=== PATIENT | female | born 1950 | race Caucasian/White ===

== ENCOUNTER 2017-08-29 17:02 | Inpatient (IN) | payer OTHER ==
[2017-08-29] MEDS ORDERED: SODIUM CHLORIDE 0.9% 1,000 ML IV STA ×2 (17:18)
[2017-08-29] MEDS ORDERED: DOPamine DRIP 800 MG in DEXTROSE/WATER 1 500ML.BAG IV ONE (17:20)
[2017-08-29 17:34] LABS: Anisocytosis Slight; Basophils % (A) 1 %; Eosinophils # (A) 0.1 k/uL (0-0.7); Eosinophils % (A) 3 %; HCT 26.7 % (34.0-46.0); HGB 8.7 gm/dL (11.4-16.0); Lymphocytes # (A) 0.7 k/uL (1.0-4.8); Lymphocytes % (A) 23 %; MCH 27.8 pg (25.0-35.0); MCHC 32.6 g/dL (31.0-37.0); MCV 85.2 fL (80.0-100.0); Mean Platelet Volume 10.3; Monocytes # (A) 0.2 k/uL (0-1.0); Monocytes % (A) 7 %; Neutrophils % (A) 63 %; Platelet Count 111 k/uL (150-450); RBC 3.13 m/uL (3.80-5.40); WBC 3.1 k/uL (3.8-10.6)
[2017-08-29] MEDS: ATROPINE SULFATE 0.1 MG/ML 10ML SYRINGE IV STA ×2 (17:34→18:12)
[2017-08-29 17:42] LABS: INR 1.2 (<1.2); Partial Thromboplastin Time 26.7 sec (22.0-30.0); Prothrombin Time 11.2 sec (9.0-12.0)
[2017-08-29 17:45] LABS: Lactic Acid, Venous 1.7 mmol/L (0.7-2.0)
[2017-08-29 17:47] LABS: Albumin 3.9 g/dL (3.5-5.0); Calcium 8.9 mg/dL (8.4-10.2); Potassium 5.7 mmol/L (3.5-5.1); Total Bilirubin 0.6 mg/dL (0.2-1.3)
[2017-08-29 17:50] LABS: Creatine Kinase 30 U/L (30-135)
[2017-08-29 18:03] LABS: Creatine Kinase MB <0.2 ng/mL (0.0-2.4); Troponin I <0.012 ng/mL (0.000-0.034)
--- NOTE | 2017-08-29 18:21 | CT ---
EXAMINATION TYPE: CT brain wo con DATE OF EXAM: 08/29/2017 COMPARISON: NONE HISTORY: Weakness and nausea. CT DLP: 763.5 mGycm Automated exposure control for dose reduction was used. FINDINGS: Ventricles of normal size. There is no mass effect nor midline shift. There is no sign of intracrania l hemorrhage. There is patchy hypodensity in the periventricular white matter. There is 2 x 1 cm whit e matter hypodensity in the right posterior parietal lobe. IMPRESSION: PATCHY WHITE MATTER HYPODENSITY CONSISTENT WITH CHRONIC SMALL VESSEL ISCHEMIA. DEMYELINATING DISEASE IS POSSIBLE. NO HEMORRHAGE. SMALL CALCIFICATION IN THE ANTERIOR RIGHT THALAMUS.
--- NOTE | 2017-08-29 18:24 | ED ---
Weakness HPI - General Chief complaint: Weakness Stated complaint: Nausea/Weekness Time Seen by Provider: 08/29/17 17:12 Source: patient Mode of arrival: wheelchair Limitations: no limitations - History of Present Illness Initial comments: X-ray 6 years old female has a history of liver disease, today she felt very weak and nauseous she was unable to ambulate or bear weight felt dizzy still quite pass out today but she said she got very close to passing out he denies any headaches no neck stiffness has some mild chest pressure no shortness of breath no abdominal pain no frequency frequency urgency dysuria denies any symptoms of TIA or CVA him a EMS noticed that her pulse rate was quite low enough and we did the EKG heart rate was 44 - Related Data Home Medications Medication Instructions Recorded Confirmed Albuterol Sulfate [Proair Hfa] 1 - 2 puff INHALATION Q6HR PRN 12/15/14 12/16/14 Aspirin 81 mg PO DAILY 12/15/14 12/16/14 Atorvastatin [Lipitor] 40 mg PO HS 12/15/14 12/16/14 Bisoprol/Hydrochlorothiazide [Ziac 1 each PO DAILY 12/15/14 12/16/14 5-6.25 MG] Calcium Carbonate/Vitamin D3 1 each PO DAILY 12/15/14 12/16/14 [Calcium 600 + Vit D Tablet] Cholecalciferol [Vitamin D3] 2,000 unit PO DAILY 12/15/14 12/16/14 Cyclobenzaprine [Flexeril] 10 mg PO BID PRN 12/15/14 12/16/14 D-Methorphan/PE/Acetaminophen 1 each PO DAILY PRN 12/15/14 12/16/14 [Tylenol Cold Multi-Symp Caplet] Ferrous Sulfate [Feosol] 325 mg PO DAILY 12/15/14 12/16/14 Fiber Tab 1 tab PO DAILY 12/15/14 12/16/14 Fluticasone Furoate [Veramyst] 10 gm NS BID 12/15/14 12/16/14 Furosemide [Lasix] 20 mg PO DAILY 12/15/14 12/16/14 Gabapentin [Neurontin] 300 mg PO BID 12/15/14 12/16/14 Insulin Aspart [NovoLOG Flexpen] 5 units SQ W/BRKFST 12/15/14 12/16/14 Insulin Aspart [NovoLOG Flexpen] 6 - 8 units SQ W/SUPPER PRN 12/15/14 12/16/14 Insulin Glargine,Hum.rec.anlog 40 unit SQ QAM 12/15/14 12/16/14 [Lantus Solostar] Lactase [Lactaid] 3,000 unit PO DAILY PRN 12/15/14 12/15/14 Levofloxacin [Levaquin] 250 mg PO DAILY 12/15/14 12/16/14 Lisinopril 40 mg PO DAILY 12/15/14 12/16/14 Nitroglycerin Sl Tabs [Nitrostat] 0.4 mg SUBLINGUAL Q5M PRN 12/15/14 12/16/14 [place]-3 Fatty Acids/Fish Oil [Fish 1 each PO DAILY 12/15/14 12/16/14 Oil 1,000 mg Softgel] Omeprazole [PriLOSEC] 20 mg PO BID 12/15/14 12/16/14 Polyethylene Glycol 3350 [Miralax] 17 gm PO DAILY 12/15/14 12/16/14 Potassium Chloride [Klor-Con 20] 20 meq PO MOWEFR 12/15/14 12/16/14 Sertraline [Zoloft] 100 mg PO DAILY 12/15/14 12/16/14 amLODIPine [Norvasc] 10 mg PO DAILY 12/15/14 12/16/14 cloNIDine HCL [Catapres] 0.2 mg PO TID 12/15/14 12/16/14 hydrOXYzine HCL [Atarax] 25 mg PO Q6HR PRN 12/15/14 12/16/14 rOPINIRole HCL [Requip] 0.25 mg PO HS 12/15/14 12/15/14 traMADol HCl [Ultram] 50 mg PO Q8H PRN 12/15/14 12/16/14 Allergies Allergy/AdvReac Type Severity Reaction Status Date / Time adhesive Allergy BLISTERS Verified 08/29/17 17:09 SKIN "PAPER TAPE OK" codeine Allergy Unknown Verified 08/29/17 17:09 morphine Allergy "STOPS Verified 08/29/17 17:09 BREATHING" Penicillins Allergy Unknown Verified 08/29/17 17:09 tramadol HCl [From Ultram] Allergy "PASSES Verified 08/29/17 17:09 OUT" ibuprofen [From Motrin] AdvReac AFFECTS Verified 08/29/17 17:09 KIDNEYS TAPE Allergy BLISTERS Uncoded 08/29/17 17:09 SKIN "PAPER TAPE IS OK" Review of Systems ROS Statement: Those systems with pertinent positive or pertinent negative responses have been documented in the HPI. ROS Other: All systems not noted in ROS Statement are negative. Past Medical History Past Medical History: Chest Pain / Angina, COPD, CVA/TIA, Diabetes Mellitus, GERD/Reflux, Hyperlipidemia, Hypertension, Memory Impairment, Seizure Disorder, Sleep Apnea/CPAP/BIPAP Additional Past Medical History / Comment(s): WEAKNESS TO RT SIDE-USES WALKER, USES CPAP,CONSTIPATION,RECENT KIDNEY INFECTION,BRUISES EASILY, GI BLEED X 2- RECEIVED UNITS PRBC'S History of Any Multi-Drug Resistant Organisms: None Reported Past Surgical History: Appendectomy, Cholecystectomy, Heart Catheterization, Orthopedic Surgery, Tubal Ligation Additional Past Surgical History / Comment(s): SLEEP APNEA SURGERY,RT SHOULDER, LT ARM BX, CARPEL TUNNEL BERNA,GANGLION CYST REMOVED,BONE SPURS BERNA ANKLES Past Anesthesia/Blood Transfusion Reactions: No Reported Reaction Past Psychological History: No Psychological Hx Reported Smoking Status: Current every day smoker Past Alcohol Use History: None Reported Past Drug Use History: None Reported - Past Family History Mother Family Medical History: Diabetes Mellitus, Hypertension Additional Family Medical History / Comment(s): HEART PROBLEMS Father Additional Family Medical History / Comment(s): HEART PROBLEMS General Exam - General Exam Comments Initial Comments: General: The patient is awake but fall sleep talking to you when you continue talking to her she wakes up and GCS is 15 Skin: Skin is warm and dry and no rashes or lesions are noted. Eye: Pupils are equal, round and reactive to light, extra-ocular movements are intact; there is normal conjunctiva bilaterally. Ears, nose, mouth and throat: There are moist mucous membranes and no oral lesions. Neck: The neck is supple, there is no tenderness or JVD. Cardiovascular: There is a regular rate and rhythm. No murmur, rub or gallop is appreciated. Noticed marked bradycardia Respiratory: To auscultation bilateral, crease breath sounds bilateral Gastrointestinal: Soft, non-distended, non-tender abdomen without masses or organomegaly noted. There is no rebound or guarding present. Bowel sounds are unremarkable. Back: There is no tenderness to palpation in the midline. There is no obvious deformity. Musculoskeletal: Normal ROM, no tenderness, There is no pedal edema. There is no calf tenderness or swelling. No cords were appreciated. Neurological: CN II-XII intact, Cranial nerves III through XII are intact. There are no obvious motor or sensory deficits. Coordination appears grossly intact. Speech is normal. Psychiatric: Cooperative, appropriate mood & affect, normal judgment. Limitations: no limitations Course Vital Signs 08/29/17 08/29/17 08/29/17 17:05 17:33 17:49 Temperature 97.9 F Pulse Rate 41 L 42 L Pulse Rate [ 45 L Supine Rn Trauma] Respiratory 16 19 Rate Blood Pressure 90/53 101/52 O2 Sat by Pulse 95 98 Oximetry 08/29/17 08/29/17 18:13 18:34 Temperature Pulse Rate 48 L 53 L Pulse Rate [ Supine Rn Trauma] Respiratory 18 18 Rate Blood Pressure 113/55 118/56 O2 Sat by Pulse 98 97 Oximetry EKG Findings - EKG Comments: EKG Findings:: G is normal sinus rhythm ventricular rate is 44 CA interval is 194 QRS duration is 92 QT/QTc is 460/478 review of this EKG reveals marked bradycardia I noticed some tall T waves no ST elevation or ST depression noticed Medical Decision Making - Lab Data Result diagrams: 08/29/17 17:20 08/29/17 17:20 Lab Results 08/29/17 08/29/17 08/29/17 Range/Units 17:20 17:20 17:20 WBC 3.1 L (3.8-10.6) k/uL RBC 3.13 L (3.80-5.40) m/uL Hgb 8.7 L (11.4-16.0) gm/dL Hct 26.7 L (34.0-46.0) % MCV 85.2 (80.0-100.0) fL MCH 27.8 (25.0-35.0) pg MCHC 32.6 (31.0-37.0) g/dL RDW 18.0 H (11.5-15.5) % Plt Count 111 L (150-450) k/uL Neutrophils % 63 % Lymphocytes % 23 % Monocytes % 7 % Eosinophils % 3 % Basophils % 1 % Neutrophils # 2.0 (1.3-7.7) k/uL Lymphocytes # 0.7 L (1.0-4.8) k/uL Monocytes # 0.2 (0-1.0) k/uL Eosinophils # 0.1 (0-0.7) k/uL Basophils # 0.0 (0-0.2) k/uL Anisocytosis Slight PT (9.0-12.0) sec INR (<1.2) APTT (22.0-30.0) sec Sodium (137-145) mmol/L Potassium (3.5-5.1) mmol/L Chloride (98-107) mmol/L Carbon Dioxide (22-30) mmol/L Anion Gap mmol/L BUN (7-17) mg/dL Creatinine (0.52-1.04) mg/dL Est GFR (CKD-EPI)AfAm (>60 ml/min/1.73 sqM) Est GFR (CKD-EPI)NonAf (>60 ml/min/1.73 sqM) Glucose (74-99) mg/dL Plasma Lactic Acid Magdiel 1.7 (0.7-2.0) mmol/L Calcium (8.4-10.2) mg/dL Total Bilirubin (0.2-1.3) mg/dL AST (14-36) U/L ALT (9-52) U/L Alkaline Phosphatase (38-126) U/L Ammonia 131 H (<30) umol/L Total Creatine Kinase 30 (30-135) U/L CK-MB (CK-2) <0.2 (0.0-2.4) ng/mL CK-MB (CK-2) Rel Index Troponin I <0.012 (0.000-0.034) ng/mL Total Protein (6.3-8.2) g/dL Albumin (3.5-5.0) g/dL 08/29/17 08/29/17 Range/Units 17:20 17:20 WBC (3.8-10.6) k/uL RBC (3.80-5.40) m/uL Hgb (11.4-16.0) gm/dL Hct (34.0-46.0) % MCV (80.0-100.0) fL MCH (25.0-35.0) pg MCHC (31.0-37.0) g/dL RDW (11.5-15.5) % Plt Count (150-450) k/uL Neutrophils % % Lymphocytes % % Monocytes % % Eosinophils % % Basophils % % Neutrophils # (1.3-7.7) k/uL Lymphocytes # (1.0-4.8) k/uL Monocytes # (0-1.0) k/uL Eosinophils # (0-0.7) k/uL Basophils # (0-0.2) k/uL Anisocytosis PT 11.2 (9.0-12.0) sec INR 1.2 H (<1.2) APTT 26.7 (22.0-30.0) sec Sodium 144 (137-145) mmol/L Potassium 5.7 H (3.5-5.1) mmol/L Chloride 105 (98-107) mmol/L Carbon Dioxide 22 (22-30) mmol/L Anion Gap 17 mmol/L BUN 61 H (7-17) mg/dL Creatinine 3.71 H (0.52-1.04) mg/dL Est GFR (CKD-EPI)AfAm 14 (>60 ml/min/1.73 sqM) Est GFR (CKD-EPI)NonAf 12 (>60 ml/min/1.73 sqM) Glucose 172 H (74-99) mg/dL Plasma Lactic Acid Magdiel (0.7-2.0) mmol/L Calcium 8.9 (8.4-10.2) mg/dL Total Bilirubin 0.6 (0.2-1.3) mg/dL AST 60 H (14-36) U/L ALT 42 (9-52) U/L Alkaline Phosphatase 212 H (38-126) U/L Ammonia (<30) umol/L Total Creatine Kinase (30-135) U/L CK-MB (CK-2) (0.0-2.4) ng/mL CK-MB (CK-2) Rel Index Troponin I (0.000-0.034) ng/mL Total Protein 7.0 (6.3-8.2) g/dL Albumin 3.9 (3.5-5.0) g/dL Critical Care Time Total Critical Care Time: 60 Critical Care Time: Reexamination I noticed that patient was in and out, if you stop talking to her she fell asleep, heart rate was 40 to be given some atropine and fluids we did repeat atropine heart rate came up to 55 blood pressure improved to 120 at clinically she improved with a plan to do dopamine and dopamine infusion to get hold off for now because heart rate and blood pressure are in acceptable range head CT is reviewed, there is a question of demyelinating disease she will need to come in maybe she needs MRI troponin troponin is normal creatinine is 3.71 she has a significant renal failure potassium is 5.7, getting given some Kayexalate INR is 1.2 hemoglobin is 8.1 he has pain in the same ballpark for the last 3 times he had a blood check she would also getting some mild lactulose she be admitted to Dr. Strong service with the cardiology and nephrology and a GI consult along with a neurology, ammonia is 131 Disposition Clinical Impression: Hepatic encephalopathy, Bradycardia, Hypotension, Pre-syncope, Renal failure Disposition: ADMITTED IP TO THIS HOSP Condition: Fair Referrals: Nonstaff,Physician [Primary Care Provider] - 1-2 days
--- NOTE | 2017-08-29 18:24 | XR ---
EXAMINATION TYPE: XR chest 2V DATE OF EXAM: 08/29/2017 COMPARISON: 06/20/2009 HISTORY: Weakness and chest pain TECHNIQUE: Frontal and lateral views of the chest are obtained. FINDINGS: There is no heart failure nor confluent pneumonic infiltrate. Costophrenic angles are rosa maria r. There are chest leads. Thoracic aorta is atheromatous. There is osteopenia. Heart appears borderli ne enlarged. IMPRESSION: Mild cardiomegaly. No active cardiopulmonary disease. Heart is increased compared to old exam.
[2017-08-29] MEDS ORDERED: LACTULOSE 20 GM/30 ML CUP PO ONE (18:52)
[2017-08-29] MEDS ORDERED: NALOXONE 0.4 MG/ML 1 ML VIAL IV PRN (19:04)
[2017-08-29] MEDS ORDERED: ONDANSETRON 4 MG/2 ML VIAL IVP PRN (19:04)
[2017-08-29] MEDS: HYDROcodone/APAP 5-325MG 1 EACH TAB PO PRN (19:30)
--- NOTE | 2017-08-29 20:05 | HP ---
HISTORY AND PHYSICAL DATE OF SERVICE: 08/29/2017 CHIEF COMPLAINTS: Syncope and weakness and bradycardia. HISTORY OF PRESENT ILLNESS: This 66-year-old woman with a past medical history of multiple medical problems, including COPD, CVA, TIA, diabetes mellitus, GERD, hypertension, hyperlipidemia, history of memory impairment, seizure disorder, also had cirrhosis of the liver. Patient apparently was followed by a primary physician in the [place] area with [facility]. The patient is currently on transplant list. The patient apparently recently had an episode of syncope and was also treated in [facility]. Currently the patient today complains of feeling very weak and nauseous, unable to ambulate. Patient felt dizzy and patient passed out. EMS was called and her heart rate was found to be 44 with a normal sinus rhythm. Patient was [facility] to [facility] and admitted for further evaluation and treatment. Of note, the creatinine was also elevated up to 3.7, indicating some prerenal factors renal failure. Ammonia was elevated at 131. There is no history of any fever, rigor or chills. No history of headache, loss of consciousness, seizures. PAST MEDICAL HISTORY: 1. History of COPD. 2. CVA, TIA. 3. Diabetes mellitus. 4. History of GERD. 5. Hypertension. 6. Hyperlipidemia. 7. Memory impairment. 8. Appendectomy. 9. Cholecystectomy. HOME MEDICATIONS: 1. Ultram 50 mg q.8 p.r.n. 2. Requip 0.25 mg at bedtime. 3. Atarax 25 mg q.6 p.r.n. 4. Catapres 0.mg p.o. t.i.d. 5. Norvasc 10 mg p.o. daily. 6. Zoloft 100 mg p.o. daily. 7. Klor-Con 10 mEq p.o. Saturday, Saturday, Saturday. 8. MiraLAX 17 grams daily. 9. Prilosec 20 mg b.i.d. 10.[place]-3 fatty acids p.o. daily. 11.Nitrostat 0.4 sublingually p.r.n. 12.Lisinopril 40 mg p.o. daily. 13.Levaquin 250 mg p.o. daily. 14.Lactate 3000 daily p.r.n. 15.NovoLog FlexPen 5 units subcutaneously with breakfast and 6 to 8 units subcutaneously with supper p.r.n. 16.Lantus 40 units subcutaneously each morning. 17.Neurontin 300 mg p.o. b.i.d. 18.Lasix 20 mg p.o. daily. 19.Veramyst 10 mg b.i.d. 20.Fiber 1 tablet p.o. daily. 21.Iron sulfate 325 mg p.o. daily. 22.Tylenol 1 tablet p.o. daily p.r.n. 23.Flexeril 10 mg daily p.r.n. 24.Vitamin D3 2000 daily. 25.Calcium with vitamin D 1 p.o. daily. 26.Ziac 5/6.25 mg p.o. daily. 27.Lipitor 40 mg p.o. at bedtime. 28.Aspirin 81 mg p.o. daily. 29.Albuterol 1-2 puffs q.6 p.r.n. ALLERGIES: 1. ADHESIVES. 2. CODEINE. 3. MORPHINE. 4. PENICILLIN. 5. ULTRAM. 6. IBUPROFEN. 7. TAPE. FAMILY HISTORY: History of diabetes, hypertension, heart problems in the family. SOCIAL HISTORY: Continued ongoing smoking. REVIEW OF SYSTEMS: ENT: Diminished hearing. Diminished vision. CARDIOVASCULAR SYSTEM: No angina, palpitations. RESPIRATORY SYSTEM: As mentioned earlier. GI: As mentioned earlier. : As mentioned earlier. NERVOUS SYSTEM: No numbness, weakness. ALLERGY/IMMUNOLOGY: No asthma, hayfever. MUSCULOSKELETAL: As mentioned earlier. HEMATOLOGY/ONCOLOGY: No history of anemia. ENDOCRINE: History of diabetes mellitus. No hypothyroidism. CONSTITUTIONAL: As mentioned earlier. DERMATOLOGY: Negative. RHEUMATOLOGY: Negative. PSYCHIATRY: As mentioned earlier. PHYSICAL EXAMINATION: Patient is alert, oriented x3. Pulse 48, blood pressure 113/55, respiration 18, temperature normal, pulse ox 98% on 2 L. HEENT: Conjunctivae normal. Oral mucosa dry. NECK: No jugular venous distention. No carotid bruit. No lymph node enlargement. CARDIOVASCULAR SYSTEM: S1, S2 muffled. No S3. No S4. RESPIRATORY SYSTEM: Breath sounds diminished at the bases. A few scattered rhonchi. No crackles. ABDOMEN: Soft, obese, nontender. No mass palpable. LEGS: No edema. No swelling. NERVOUS SYSTEM: Higher functions as mentioned earlier. Moves all 4 limbs. Mild diffuse weakness. LYMPHATICS: No lymph node palpable in neck, axillae or groin. SKIN: No ulcer, rash, bleeding. LABS: WBC 3.1, hemoglobin 8.7, platelets 111 and creatinine 3.71. ASSESSMENT: 1. Syncope for evaluation. Rule out cardiac arrhythmia and bradycardia. 2. Acute renal failure, possibly prerenal renal failure. 3. Possible hepatic encephalopathy with hyperammonemia. 4. Chronic liver disease, cirrhosis, for liver transplantation. 5. Hyperkalemia. 6. Pancytopenia, possibly secondary to cirrhosis of liver. 7. Chronic obstructive pulmonary disease. 8. History of chest pain, angina. 9. Cerebrovascular accident, transient ischemic attack. 10.Diabetes mellitus, type 2. 11.Hyperlipidemia. 12.Gastroesophageal reflux disease. 13.Hypertension. 14.Memory impairment. 15.History of seizure disorder. 16.History of sleep apnea; using CPAP. 17.History of appendectomy. 18.History of cholecystectomy. 19.Continued ongoing nicotine dependence. RECOMMENDATIONS AND DISCUSSION: In this 66-year-old woman who presented with multiple complex medical issues, we will monitor the patient closely, continue the current medications, continue symptomatic treatment. Cautious IV fluids. Lactulose. Monitor creatinine closely. Gastroenterology and nephrology consultations. Otherwise we will resume the home medications. I would also recommend cardiology consultation to evaluate the patient for any pacemaker implantation. Will also obtain the old records from [facility]. Continue to monitor. See orders for details. We will continue the telemetry. Prognosis guarded because of multiple complex medical issues. Further recommendations to follow. MMMALLYL / SARABJITN: [id number] / KERA
[2017-08-29] MEDS: SODIUM POLYSTYRENE SULFONATE 15 GM/60 ML BOTTLE PO STA ×2 (20:29→21:22)
[2017-08-29] MEDS: SODIUM CHLORIDE 0.9% 1,000 ML IV SCH (20:33)
[2017-08-29] MEDS ORDERED: FUROSEMIDE 40 MG TAB PO SCH (21:00)
[2017-08-29] MEDS ORDERED: POTASSIUM CHLORIDE ER 20 MEQ TAB.ER PO SCH (21:00)
[2017-08-29] MEDS: LACTULOSE 20 GM/30 ML CUP PO SCH (21:22)
[2017-08-29 21:31] LABS: Glucose,Whole Blood 165 mg/dL (75-99)
[2017-08-29] MEDS: FERROUS SULFATE 325 MG TAB PO SCH (21:46)
[2017-08-29] MEDS: SODIUM BICARBONATE TAB 650 MG TAB PO SCH (21:46)
--- NOTE | 2017-08-29 21:51 | P.CNNES ---
History of Present Illness Consult date: 08/29/17 Reason for Consult: This patient admitted with hepatic encephalopathy and generalized weakness. History of Present Illness: This patient is a 66-year-old right-handed white female who was admitted to Hospital with worsening symptoms of increased nausea and weakness. Patient has a known history of underlying cirrhosis of the liver and has been treated by several of her physicians at [facility]. Apparently she was treated there about 3 weeks ago due to severe anemia. The patient has history of cirrhosis of the liver and is awaiting possible transplantation. She is currently on the transplant list at [facility]. Due to her generalized weakness and inability to walk and ambulate she was brought into the emergency room at [facility] today for evaluation. She was seen in the ER by Dr. Miller. She was sent for a computed tomography scan of the brain which revealed patchy white matter hypodensity consistent with chronic small vessel ischemia. There is no evidence of any hemorrhage or acute stroke. Evidence of a small calcification was noted in the right thalamus. Patient was found in the ER to have evidence of metabolic abnormalities including hyperkalemia. She was started on Kayexalate. She was noted to have increase in her liver enzymes and a very elevated serum ammonia level. She was noted to be stuporous in the emergency room by the ER physician but her mental status is shown improvement since admission to the medical floor. Patient is a poor historian. She does have multiple physicians in the [facility] in [place] who follow her very closely. The patient's serum creatinine level was very elevated at 3.7. Nephrology has been consulted. Patient was also noted in the ER to have very low heart rate in the range of 40 and she is to be seen by cardiology for possible pacemaker implantation. Patient is a very poor historian. She states that she has had episodic confusion off and on over the years due to her liver cirrhosis. She also has a remote history of seizure disorder but is not been on any recent anticonvulsant medications. The patient has been complaining the severe left-sided headache pain for over 3 weeks. Apparently she sustained a fall at home and struck the back of her head on the left side and struck a cement step. She was seen at [facility] and apparently had extensive x-rays done. She states that the headache pain is been much more noticeable on her left side. 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 The patient is now admitted and neurology has been consulted for further evaluation and recommendations. Review of Systems Constitutional: Reports anorexia, Denies chills, Denies fever Eyes: denies blurred vision, denies pain Ears, nose, mouth and throat: Denies headache, Denies sore throat Cardiovascular: Denies chest pain, Denies shortness of breath Respiratory: Denies cough Gastrointestinal: Denies abdominal pain, Denies diarrhea, Denies nausea, Denies vomiting Genitourinary: Denies dysuria, Denies hematuria Musculoskeletal: Denies myalgias Integumentary: Denies pruritus, Denies rash Neurological: Reports change in mentation, Reports change in speech, Reports confusion, Reports headaches, Reports memory loss, Reports paresthesias, Reports tingling, Denies numbness, Denies weakness Psychiatric: Denies anxiety, Denies depression Endocrine: Denies fatigue, Denies weight change Past Medical History Past Medical History: Chest Pain / Angina, COPD, CVA/TIA, Diabetes Mellitus, GERD/Reflux, Hyperlipidemia, Hypertension, Liver Disease, Memory Impairment, Seizure Disorder, Sleep Apnea/CPAP/BIPAP Additional Past Medical History / Comment(s): rt side dominant. WEAKNESS TO RT SIDE-USES WALKER,USES CPAP,CONSTIPATION, KIDNEY INFECTION,BRUISES EASILY, GI BLEED X 2-RECEIVED UNITS PRBC'S, berna cataracts. History of Any Multi-Drug Resistant Organisms: None Reported Past Surgical History: Appendectomy, Cholecystectomy, Heart Catheterization, Orthopedic Surgery, Tubal Ligation Additional Past Surgical History / Comment(s): SLEEP APNEA SURGERY,RT SHOULDER, LT ARM BX, CARPEL TUNNEL BERNA,GANGLION CYST REMOVED,BONE SPURS BERNA ANKLES, "at [facility]- they cauterizred bleed in the stomach", paracentesis Past Anesthesia/Blood Transfusion Reactions: No Reported Reaction Additional Past Anesthesia/Blood Transfusion Reaction / Comment(s): clausterphobia Smoking Status: Former smoker - Past Family History Mother Family Medical History: Diabetes Mellitus, Hypertension Additional Family Medical History / Comment(s): HEART PROBLEMS Father Additional Family Medical History / Comment(s): HEART PROBLEMS Medications and Allergies Home Medications Medication Instructions Recorded Confirmed Type Ferrous Sulfate [Feosol] 325 mg PO TID 12/15/14 08/29/17 History Lisinopril 40 mg PO DAILY 12/15/14 08/29/17 History Potassium Chloride [Klor-Con 20] 20 meq PO BID 12/15/14 08/29/17 History Sertraline [Zoloft] 100 mg PO DAILY 12/15/14 08/29/17 History rOPINIRole HCL [Requip] 0.25 mg PO HS 12/15/14 08/29/17 History Furosemide [Lasix] 40 mg PO BID 08/29/17 08/29/17 History HYDROcodone/APAP 5-325MG [[place] 1 tab PO BID PRN 08/29/17 08/29/17 History 5-325] Isosorbide Mononitrate ER [Imdur] 30 mg PO DAILY 08/29/17 08/29/17 History Lactulose 10 gm PO TID 08/29/17 08/29/17 History Montelukast [Singulair] 10 mg PO DAILY 08/29/17 08/29/17 History NIFEdipine [NIFEdipine ER] 90 mg PO DAILY 08/29/17 08/29/17 History Pantoprazole Sodium [Protonix] 40 mg PO BID 08/29/17 08/29/17 History Sodium Bicarbonate Tab 1,300 mg PO TID 08/29/17 08/29/17 History Spironolactone [Aldactone] 50 mg PO DAILY 08/29/17 08/29/17 History cloNIDine HCL [Catapres] 0.1 mg PO TID 08/29/17 08/29/17 History hydrALAZINE HCL [Apresoline] 50 mg PO Q8H 08/29/17 08/29/17 History Allergies Allergy/AdvReac Type Severity Reaction Status Date / Time adhesive Allergy BLISTERS Verified 08/29/17 17:09 SKIN "PAPER TAPE OK" codeine Allergy Unknown Verified 08/29/17 17:09 morphine Allergy "STOPS Verified 08/29/17 17:09 BREATHING" Penicillins Allergy Unknown Verified 08/29/17 17:09 tramadol HCl [From Ultram] Allergy "PASSES Verified 08/29/17 17:09 OUT" aspirin AdvReac Nausea & Verified 08/29/17 21:19 Vomiting ibuprofen [From Motrin] AdvReac AFFECTS Verified 08/29/17 17:09 KIDNEYS TAPE Allergy BLISTERS Uncoded 08/29/17 17:09 SKIN "PAPER TAPE IS OK" Physical Examination - Vital Signs Vital Signs: Vital Signs Temp Pulse Pulse Resp BP Pulse Ox 08/29/17 20:24 98.1 F 62 18 152/72 96 08/29/17 19:27 57 L 18 144/71 96 08/29/17 19:10 54 L 19 128/64 98 08/29/17 18:34 53 L 18 118/56 97 08/29/17 18:13 48 L 18 113/55 98 08/29/17 17:49 45 L 08/29/17 17:33 42 L 19 101/52 98 08/29/17 17:05 97.9 F 41 L 16 90/53 95 Intake and Output 08/29/17 08/29/17 08/29/17 06:59 14:59 22:59 Other: Weight 87.997 kg - Constitutional General appearance: average body habitus, cooperative - EENT EENT: PERRL, mucous membranes dry - Respiratory Respiratory: lungs clear, normal breath sounds - Cardiovascular Cardiovascular: regular rate, normal S1, normal S2 Extremities: no peripheral edema bilaterally - Gastrointestinal Gastrointestinal: normoactive bowel sounds - Integumentary Integumentary: normal - Neurologic Cranial nerve examination: PERRL, EOMI, VFF, V1/V2/V3 grossly intact, face symmetric, tongue midline, intact gag reflex, intact corneal reflex, normal palatal elevation Speech examination: intact Sensorimotor examination: intact Motor examination - right side: 3/5: biceps, triceps, wrist flexion, wrist extension, label pinker, hip flexors, knee extensors, dorsiflexion, toe extension (EHL) , plantarflexion Motor examination - left side: 3/5: biceps, triceps, wrist flexion, wrist extension, label pinker, hip flexors, knee extensors, dorsiflexion, toe extension (EHL) , plantarflexion Detailed sensory examination: intact Reflex and gait examination: intact Reflexes: 1+: ankle, bicep, knee, tricep - Musculoskeletal Musculoskeletal: no pain - Psychiatric Psychiatric: mood/affect appropriate, cooperative Results - Laboratory Findings CBC and BMP: 08/29/17 17:20 08/29/17 17:20 Abnormal Lab Findings: Abnormal Labs 08/29/17 08/29/17 08/29/17 17:20 17:20 17:20 WBC 3.1 L RBC 3.13 L Hgb 8.7 L Hct 26.7 L RDW 18.0 H Plt Count 111 L Lymphocytes # 0.7 L INR Potassium 5.7 H BUN 61 H Creatinine 3.71 H Glucose 172 H POC Glucose (mg/dL) AST 60 H Alkaline Phosphatase 212 H Ammonia 131 H 08/29/17 08/29/17 17:20 21:27 WBC RBC Hgb Hct RDW Plt Count Lymphocytes # INR 1.2 H Potassium BUN Creatinine Glucose POC Glucose (mg/dL) 165 H AST Alkaline Phosphatase Ammonia Assessment and Plan (1) Hepatic encephalopathy Current Visit: Yes Status: Acute Code(s): K72.90 - HEPATIC FAILURE, UNSPECIFIED WITHOUT COMA SNOMED Code(s): 52061776 (2) Renal failure Current Visit: Yes Status: Acute Code(s): N19 - UNSPECIFIED KIDNEY FAILURE SNOMED Code(s): 31802040 (3) Seizure disorder Current Visit: Yes Status: Acute Code(s): G40.909 - EPILEPSY, UNSP, NOT INTRACTABLE, WITHOUT STATUS EPILEPTICUS SNOMED Code(s): 754123484 (4) Bradycardia Current Visit: Yes Status: Acute Code(s): R00.1 - BRADYCARDIA, UNSPECIFIED SNOMED Code(s): 24656376 (5) Occipital neuritis Current Visit: Yes Status: Acute Code(s): M54.81 - OCCIPITAL NEURALGIA SNOMED Code(s): 96864523 (6) Pre-syncope Current Visit: Yes Status: Acute Code(s): R55 - SYNCOPE AND COLLAPSE SNOMED Code(s): 272892307 Plan: This patient is a 66-year-old female who was admitted to hospital with a history of multiple complex medical problems. He shouldn't was complaining of increased fatigue and lethargy as well as weakness in all of her muscles. She was unable to ambulate and decided to come into the emergency room for further evaluation. EMS was called to her home as she was unable to even get up and walk. She has a history of cirrhosis of the liver and is currently on the transplant list for a liver transplant. She is followed by multiple physicians at [facility]. Due to her weakness and increased confusion she was brought into the emergency room and was subsequently admitted to Hospital. She underwent computed tomography scan of the brain results of which are noted above. Patient was initially stuporous in the ER but has shown some improvement in her mental status since admission. She does have evidence of cirrhosis of the liver with elevated liver enzymes and ammonia level. This patient has evidence of a severe metabolic encephalopathy secondary to cirrhosis of the liver. She has a remote history of seizure disorder but is not at any recent seizure episodes. Patient is also noted on examination to have bilateral occipital neuritis producing chronic headache pain. We have recommended she be evaluated for occipital nerve block procedure for treatment. She will require aggressive evaluation for her cirrhosis of the liver and multiple specialists have been consulted. She also had evidence of sinus bradycardia and cardiology has been consulted for evaluation of possible need for pacemaker placement. We will continue close neurological follow-up for the patient during this admission. Her overall prognosis at this time remains very guarded. Time with Patient: Greater than 30
[2017-08-29 21:59] LABS: Appearance,Urine Clear (Clear); Bilirubin,Urine Negative (Negative); Blood,Urine Negative (Negative); Color,Urine Yellow; Glucose,Urine (UA) Negative (Negative); Ketones,Urine Negative (Negative); Leukocyte Esterase,Urine Negative (Negative); Nitrite,Urine Negative (Negative); Protein,Urine Negative (Negative); Specific Gravity,Urine 1.009 (1.001-1.035); Urobilinogen,Urine <2.0 mg/dL (<2.0)
[2017-08-29 22:08] LABS: Cocaine Screen,Urine Not Detected (NotDetected); Phencyclidine Screen,Urine Not Detected (NotDetected); Urn Cannabinoid Scrn Not Detected (NotDetected)
[2017-08-29 22:09] LABS: Amphetamine Screen,Urine Not Detected (NotDetected); Barbiturate Screen,Urine Not Detected (NotDetected); Benzodiazepines Screen,Urine Not Detected (NotDetected); Methadone Screen, Urine Not Detected (NotDetected); Opiate Screen,Urine Detected (NotDetected); Oxycodone Screen, Urine Not Detected (NotDetected); Tricyclic Antidepressant,Urine Not Detected (NotDetected)
[2017-08-29] MEDS: MELATONIN 5 MG TABLET PO PRN (23:20)
[2017-08-30 00:01] LABS: Creatine Kinase 31 U/L (30-135)
[2017-08-30 00:15] LABS: Creatine Kinase MB <0.2 ng/mL (0.0-2.4); Troponin I <0.012 ng/mL (0.000-0.034)
[2017-08-30 05:53] LABS: Anisocytosis Slight; Basophils % (A) 1 %; Eosinophils # (A) 0.1 k/uL (0-0.7); Eosinophils % (A) 4 %; HCT 27.8 % (34.0-46.0); HGB 8.9 gm/dL (11.4-16.0); Lymphocytes # (A) 0.6 k/uL (1.0-4.8); Lymphocytes % (A) 26 %; MCH 27.8 pg (25.0-35.0); MCV 86.9 fL (80.0-100.0); Mean Platelet Volume 8.8; Monocytes # (A) 0.2 k/uL (0-1.0); Monocytes % (A) 7 %; Neutrophils # (A) 1.5 k/uL (1.3-7.7); Neutrophils % (A) 59 %; Platelet Count 102 k/uL (150-450); RDW 17.7 % (11.5-15.5); WBC 2.4 k/uL (3.8-10.6)
[2017-08-30 06:07] LABS: Albumin 3.9 g/dL (3.5-5.0); Potassium 4.5 mmol/L (3.5-5.1); Total Bilirubin 0.6 mg/dL (0.2-1.3); Total Protein 7.1 g/dL (6.3-8.2)
[2017-08-30 06:08] LABS: Glucose,Whole Blood 162 mg/dL (75-99)
[2017-08-30 06:12] LABS: Creatine Kinase 29 U/L (30-135)
[2017-08-30 06:25] LABS: Creatine Kinase MB <0.2 ng/mL (0.0-2.4); Troponin I <0.012 ng/mL (0.000-0.034)
[2017-08-30] MEDS: INSULIN ASPART 100 UNIT/ML 1 ML 10 ML VIAL SQ SCH ×4 (06:57→21:47)
[2017-08-30] MEDS: PANTOPRAZOLE 40 MG TABLET PO SCH ×2 (06:57→16:03)
--- NOTE | 2017-08-30 08:09 | P.NPCON ---
History of Present Illness - Reason for Consult acute renal failure - History of Present Illness Reason for consultation: Acute kidney injury History of present illness: Patient is a 66-year-old female seen in renal consultation for acute kidney injury. Creatinine was 3.7 on admission and is down to 3.2 today. Patient has history of liver cirrhosis. She presented to the hospital with generalized weakness and dizziness. Her heart rate was also noted to be low in the 40s. She did receive 1 L of normal saline bolus and is currently maintained on normal saline at 75 mL an hour. Overall she feels much better today. She is currently sitting up in bed having breakfast. I do see one reading of blood pressure as low as 90/53 from yesterday evening. Her blood pressure this morning was 161/80. She admits to good urine output. No hematuria or dysuria. Denies use of NSAIDs. She was maintained on lisinopril as well as Lasix and Aldactone as an outpatient which are currently held. She is currently on a transplant list at [facility]. States she hasn't had a paracentesis in several months. Denies edema. Ammonia level was also elevated at 131 and is down to 51 this morning. She is maintained on lactulose. Vital signs are stable. General: The patient appeared well nourished and normally developed. HEENT: Head exam is unremarkable. Neck is without jugular venous distension. LUNGS: Lungs are clear to auscultation and percussion. Breath sounds decreased. HEART: Rate and Rhythm are regular. First and second heart sounds normal. No murmurs, rubs or gallops. ABDOMEN: Abdominal exam reveals normal bowel sounds. Non-tender. EXTREMITITES: No clubbing, cyanosis, or edema. Past Medical History Past Medical History: Chest Pain / Angina, COPD, CVA/TIA, Diabetes Mellitus, GERD/Reflux, Hyperlipidemia, Hypertension, Liver Disease, Memory Impairment, Seizure Disorder, Sleep Apnea/CPAP/BIPAP Additional Past Medical History / Comment(s): rt side dominant. WEAKNESS TO RT SIDE-USES WALKER,USES CPAP,CONSTIPATION, KIDNEY INFECTION,BRUISES EASILY, GI BLEED X 2-RECEIVED UNITS PRBC'S, berna cataracts. History of Any Multi-Drug Resistant Organisms: None Reported Past Surgical History: Appendectomy, Cholecystectomy, Heart Catheterization, Orthopedic Surgery, Tubal Ligation Additional Past Surgical History / Comment(s): SLEEP APNEA SURGERY,RT SHOULDER, LT ARM BX, CARPEL TUNNEL BERNA,GANGLION CYST REMOVED,BONE SPURS BERNA ANKLES, "at [facility]- they cauterizred bleed in the stomach", paracentesis Past Anesthesia/Blood Transfusion Reactions: No Reported Reaction Additional Past Anesthesia/Blood Transfusion Reaction / Comment(s): clausterphobia Smoking Status: Former smoker - Past Family History Mother Family Medical History: Diabetes Mellitus, Hypertension Additional Family Medical History / Comment(s): HEART PROBLEMS Father Additional Family Medical History / Comment(s): HEART PROBLEMS Medications and Allergies Home Medications Medication Instructions Recorded Confirmed Type Ferrous Sulfate [Feosol] 325 mg PO TID 12/15/14 08/29/17 History Lisinopril 40 mg PO DAILY 12/15/14 08/29/17 History Potassium Chloride [Klor-Con 20] 20 meq PO BID 12/15/14 08/29/17 History Sertraline [Zoloft] 100 mg PO DAILY 12/15/14 08/29/17 History rOPINIRole HCL [Requip] 0.25 mg PO HS 12/15/14 08/29/17 History Furosemide [Lasix] 40 mg PO BID 08/29/17 08/29/17 History HYDROcodone/APAP 5-325MG [[place] 1 tab PO BID PRN 08/29/17 08/29/17 History 5-325] Isosorbide Mononitrate ER [Imdur] 30 mg PO DAILY 08/29/17 08/29/17 History Lactulose 10 gm PO TID 08/29/17 08/29/17 History Montelukast [Singulair] 10 mg PO DAILY 08/29/17 08/29/17 History NIFEdipine [NIFEdipine ER] 90 mg PO DAILY 08/29/17 08/29/17 History Pantoprazole Sodium [Protonix] 40 mg PO BID 08/29/17 08/29/17 History Sodium Bicarbonate Tab 1,300 mg PO TID 08/29/17 08/29/17 History Spironolactone [Aldactone] 50 mg PO DAILY 08/29/17 08/29/17 History cloNIDine HCL [Catapres] 0.1 mg PO TID 08/29/17 08/29/17 History hydrALAZINE HCL [Apresoline] 50 mg PO Q8H 08/29/17 08/29/17 History Allergies Allergy/AdvReac Type Severity Reaction Status Date / Time adhesive Allergy BLISTERS Verified 08/29/17 17:09 SKIN "PAPER TAPE OK" codeine Allergy Unknown Verified 08/29/17 17:09 morphine Allergy "STOPS Verified 08/29/17 17:09 BREATHING" Penicillins Allergy Unknown Verified 08/29/17 17:09 tramadol HCl [From Ultram] Allergy "PASSES Verified 08/29/17 17:09 OUT" aspirin AdvReac Nausea & Verified 08/29/17 21:19 Vomiting ibuprofen [From Motrin] AdvReac AFFECTS Verified 08/29/17 17:09 KIDNEYS TAPE Allergy BLISTERS Uncoded 08/29/17 17:09 SKIN "PAPER TAPE IS OK" Physical Exam Vitals: Vital Signs Temp Pulse Pulse Pulse Resp BP BP 08/30/17 04:00 97.3 F L 62 16 08/30/17 00:00 97.5 F L 61 16 08/29/17 20:45 61 18 08/29/17 20:24 98.1 F 62 18 152/72 08/29/17 19:27 57 L 18 144/71 08/29/17 19:10 54 L 19 128/64 08/29/17 18:56 185/83 08/29/17 18:34 53 L 18 118/56 08/29/17 18:13 48 L 18 113/55 08/29/17 17:49 45 L 08/29/17 17:33 42 L 19 101/52 08/29/17 17:05 97.9 F 41 L 16 90/53 BP BP BP Pulse Ox 08/30/17 04:00 161/80 98 08/30/17 00:00 142/71 97 08/29/17 20:45 141/76 98 08/29/17 20:24 96 08/29/17 19:27 96 08/29/17 19:10 98 08/29/17 18:56 143/67 164/80 08/29/17 18:34 97 08/29/17 18:13 98 08/29/17 17:49 08/29/17 17:33 98 08/29/17 17:05 95 Intake and Output 08/29/17 08/30/17 08/30/17 22:59 06:59 14:59 Output Total 1 1 Balance -1 -1 Output: Urine/Stool Mix 1 1 Other: Voiding Method Bedside Commode # Voids 2 Weight 87.997 kg 92 kg Results - Lab Results Most recent lab results Calcium 9.0 mg/dL (8.4-10.2) 08/30/17 05:28 08/30/17 05:28 08/30/17 05:28 Assessment and Plan Plan: Assessment: 1. Nonoliguric acute kidney injury mostly prerenal secondary to hypotension and diuresis. Creatinine was 3.7 on admission and is down to 3.2 today. Urinalysis benign. 2. Liver cirrhosis maintained on transplant list at [facility]. 3. Hyperkalemia secondary to acute kidney injury and Aldactone. I also see potassium supplementation and her home meds. Improved with medical management. 4. Mild hypernatremia from lack of oral water intake. 5. Anemia. Rule out iron deficiency. 6. Rule out chronic kidney disease. Creatinine was 1.2 in October 2015. Etiology is likely to be hepatorenal syndrome. 7. Benign hypertension. 8. Metabolic acidosis secondary to acute kidney injury and IV fluids, maintained on oral sodium bicarbonate. Plan: Continue normal saline at 75 mL an hour. Hold diuretics. Encourage oral intake, including water. Hold antihypertensives for systolic blood pressure less than 120. Discontinue potassium supplementation. Check iron studies. Repeat electrolytes in the morning. Thank you for the consultation. I will continue to follow the patient with you during her hospital stay.
[2017-08-30] MEDS: LACTULOSE 20 GM/30 ML CUP PO SCH ×4 (08:11→21:46)
[2017-08-30] MEDS: MONTELUKAST 10 MG TAB PO SCH (08:12)
[2017-08-30] MEDS: FERROUS SULFATE 325 MG TAB PO SCH ×3 (08:12→21:46)
[2017-08-30] MEDS: SODIUM BICARBONATE TAB 650 MG TAB PO SCH ×3 (08:12→21:46)
[2017-08-30] MEDS: SERTRALINE 100 MG TAB PO SCH (08:18)
[2017-08-30] MEDS ORDERED: SPIRONOLACTONE 25 MG TAB PO SCH (09:00)
[2017-08-30] MEDS ORDERED: LISINOPRIL 20 MG TAB PO SCH (09:00)
[2017-08-30] MEDS: NIFEdipine XL 90 MG TAB.ER.24 PO SCH (10:13)
[2017-08-30] MEDS: ISOSORBIDE MONONITRATE ER 30 MG TAB.ER.24H PO SCH (10:13)
--- NOTE | 2017-08-30 10:38 | P.CRDCN ---
History of Present Illness Consult date: 08/30/17 Requesting physician: Beau Strong Reason for Consult (text): Bradycardia Chief complaint: Weakness and dizziness History of present illness: This is a 66-year-old female who follows with Dr. Alanis in the office. She has known history of hypertension, hyperlipidemia, diabetes, prior CVA, family history of premature coronary artery disease, patient also is on transplant list for a new liver because of cirrhosis, nicotine dependence, who underwent a heart catheterization in December 2014 which revealed normal coronary arteries. She presents to the hospital on this occasion with symptoms of progressive weakness and dizziness. She states that on Mother's Day she had an episode where she passed out on her front porch, subsequent to that she was admitted to [facility]. She states that her blood count was extremely low at that time, and she required 2 units of blood transfusion. Her initial EKG on presentation here showed a marked sinus bradycardia with a heart rate in the 40s. She did receive 1 L of normal saline bolus on admission and is currently maintained on normal saline at 75 mL per hour. Patient's home medications include lactulose, hydralazine, sodium bicarb, Protonix, Aldactone 50 daily, nifedipine 90 daily, Singulair, Imdur 30 daily, Lasix 40 mg twice a day, Feosol, lisinopril 40 daily, clonidine 0.1 3 times a day, and potassium replacement. Her blood pressure on arrival here was 90/50 with a heart rate of 40, 95% on room air. Morning's blood pressure 158/78 with a heart rate in the 60s, 97 room air. Laboratory data was reviewed, white blood cell count 2.4, hemoglobin 8.9, platelet count 102. Sodium 146, potassium 4.5, her potassium was 57 on admission, BUN 61 and creatinine 3.7 on admission, 56 and 3.2 this morning. Alk phos is 205, ammonia 131 on admission, 51 this morning, troponins negative 3. Urine drug screen is positive for opiates. Patient is was initiated on a dopamine drip on admission here. She is currently on nifedipine 90 mg daily, her other blood pressure medications have not been resumed. We will resume the patient's hydralazine, continue to hold the rest of her medications for now. We will check orthostatic heart rate and blood pressure every shift, check TSH level. Past Medical History Past Medical History: Chest Pain / Angina, COPD, CVA/TIA, Diabetes Mellitus, GERD/Reflux, Hyperlipidemia, Hypertension, Liver Disease, Memory Impairment, Seizure Disorder, Sleep Apnea/CPAP/BIPAP Additional Past Medical History / Comment(s): rt side dominant. WEAKNESS TO RT SIDE-USES WALKER,USES CPAP,CONSTIPATION, KIDNEY INFECTION,BRUISES EASILY, GI BLEED X 2-RECEIVED UNITS PRBC'S, berna cataracts. History of Any Multi-Drug Resistant Organisms: None Reported Past Surgical History: Appendectomy, Cholecystectomy, Heart Catheterization, Orthopedic Surgery, Tubal Ligation Additional Past Surgical History / Comment(s): SLEEP APNEA SURGERY,RT SHOULDER, LT ARM BX, CARPEL TUNNEL BERNA,GANGLION CYST REMOVED,BONE SPURS BERNA ANKLES, "at [facility]- they cauterizred bleed in the stomach", paracentesis Past Anesthesia/Blood Transfusion Reactions: No Reported Reaction Additional Past Anesthesia/Blood Transfusion Reaction / Comment(s): clausterphobia Smoking Status: Former smoker - Past Family History Mother Family Medical History: Diabetes Mellitus, Hypertension Additional Family Medical History / Comment(s): HEART PROBLEMS Father Additional Family Medical History / Comment(s): HEART PROBLEMS Medications and Allergies Home Medications Medication Instructions Recorded Confirmed Type Ferrous Sulfate [Feosol] 325 mg PO TID 12/15/14 08/29/17 History Lisinopril 40 mg PO DAILY 12/15/14 08/29/17 History Potassium Chloride [Klor-Con 20] 20 meq PO BID 12/15/14 08/29/17 History Sertraline [Zoloft] 100 mg PO DAILY 12/15/14 08/29/17 History rOPINIRole HCL [Requip] 0.25 mg PO HS 12/15/14 08/29/17 History Furosemide [Lasix] 40 mg PO BID 08/29/17 08/29/17 History HYDROcodone/APAP 5-325MG [[place] 1 tab PO BID PRN 08/29/17 08/29/17 History 5-325] Isosorbide Mononitrate ER [Imdur] 30 mg PO DAILY 08/29/17 08/29/17 History Lactulose 10 gm PO TID 08/29/17 08/29/17 History Montelukast [Singulair] 10 mg PO DAILY 08/29/17 08/29/17 History NIFEdipine [NIFEdipine ER] 90 mg PO DAILY 08/29/17 08/29/17 History Pantoprazole Sodium [Protonix] 40 mg PO BID 08/29/17 08/29/17 History Sodium Bicarbonate Tab 1,300 mg PO TID 08/29/17 08/29/17 History Spironolactone [Aldactone] 50 mg PO DAILY 08/29/17 08/29/17 History cloNIDine HCL [Catapres] 0.1 mg PO TID 08/29/17 08/29/17 History hydrALAZINE HCL [Apresoline] 50 mg PO Q8H 08/29/17 08/29/17 History Allergies Allergy/AdvReac Type Severity Reaction Status Date / Time adhesive Allergy BLISTERS Verified 08/29/17 17:09 SKIN "PAPER TAPE OK" codeine Allergy Unknown Verified 08/29/17 17:09 morphine Allergy "STOPS Verified 08/29/17 17:09 BREATHING" Penicillins Allergy Unknown Verified 08/29/17 17:09 tramadol HCl [From Ultram] Allergy "PASSES Verified 08/29/17 17:09 OUT" aspirin AdvReac Nausea & Verified 08/29/17 21:19 Vomiting ibuprofen [From Motrin] AdvReac AFFECTS Verified 08/29/17 17:09 KIDNEYS TAPE Allergy BLISTERS Uncoded 08/29/17 17:09 SKIN "PAPER TAPE IS OK" Physical Exam Vitals: Vital Signs Temp Pulse Pulse Pulse Resp BP BP 08/30/17 08:00 97.2 F L 69 16 08/30/17 04:00 97.3 F L 62 16 08/30/17 00:00 97.5 F L 61 16 08/29/17 20:45 61 18 08/29/17 20:24 98.1 F 62 18 152/72 08/29/17 19:27 57 L 18 144/71 08/29/17 19:10 54 L 19 128/64 08/29/17 18:56 185/83 08/29/17 18:34 53 L 18 118/56 08/29/17 18:13 48 L 18 113/55 08/29/17 17:49 45 L 08/29/17 17:33 42 L 19 101/52 08/29/17 17:05 97.9 F 41 L 16 90/53 BP BP BP BP Pulse Ox 08/30/17 08:00 158/78 97 08/30/17 04:00 161/80 98 08/30/17 00:00 142/71 97 08/29/17 20:45 141/76 98 08/29/17 20:24 96 08/29/17 19:27 96 08/29/17 19:10 98 08/29/17 18:56 143/67 164/80 08/29/17 18:34 97 08/29/17 18:13 98 08/29/17 17:49 08/29/17 17:33 98 08/29/17 17:05 95 Intake and Output 08/29/17 08/30/17 08/30/17 22:59 06:59 14:59 Intake Total 120 Output Total 1 1 700 Balance -580 Intake: Oral 120 Output: Urine 700 Urine/Stool Mix 1 1 Other: Voiding Method Bedside Commode # Voids 2 # Bowel Movements 1 Weight 87.997 kg 92 kg PHYSICAL EXAMINATION: GENERAL: HEENT: Head is atraumatic, normocephalic. Pupils equal, round. Sclera anicteric. Conjunctiva are clear. Mucous membranes of the mouth are moist. Neck is supple. There is no elevated jugular venous pressure.] bruit is heard. HEART EXAMINATION: Heart S1 and S2 1 systolic ejection murmur is heard. CHEST EXAMINATION: Lungs are clear to auscultation and precussion. No chest wall tenderness is noted on palpation or with deep breathing. ABDOMEN: Soft, nontender. Bowel sounds are heard. No organomegaly noted. EXTREMITIES: 2+ peripheral pulses with evidence of peripheral edema and no calf tenderness noted. NEUROLOGIC patient is awake, alert and oriented -3. . Results 08/30/17 05:28 08/30/17 05:28 Cardiac Enzymes 08/29/17 08/29/17 08/29/17 Range/Units 17:20 17:20 23:26 AST 60 H (14-36) U/L CK-MB (CK-2) <0.2 <0.2 (0.0-2.4) ng/mL Troponin I <0.012 <0.012 (0.000-0.034) ng/mL 08/30/17 08/30/17 Range/Units 05:28 05:28 AST 54 H (14-36) U/L CK-MB (CK-2) <0.2 (0.0-2.4) ng/mL Troponin I <0.012 (0.000-0.034) ng/mL Coagulation 08/29/17 Range/Units 17:20 PT 11.2 (9.0-12.0) sec APTT 26.7 (22.0-30.0) sec CBC 08/29/17 08/30/17 Range/Units 17:20 05:28 WBC 3.1 L 2.4 L (3.8-10.6) k/uL RBC 3.13 L 3.20 L (3.80-5.40) m/uL Hgb 8.7 L 8.9 L (11.4-16.0) gm/dL Hct 26.7 L 27.8 L (34.0-46.0) % Plt Count 111 L 102 L (150-450) k/uL Comprehensive Metabolic Panel 08/29/17 08/30/17 Range/Units 17:20 05:28 Sodium 144 146 H (137-145) mmol/L Potassium 5.7 H 4.5 (3.5-5.1) mmol/L Chloride 105 108 H (98-107) mmol/L Carbon Dioxide 22 20 L (22-30) mmol/L BUN 61 H 56 H (7-17) mg/dL Creatinine 3.71 H 3.20 H (0.52-1.04) mg/dL Glucose 172 H 146 H (74-99) mg/dL Calcium 8.9 9.0 (8.4-10.2) mg/dL AST 60 H 54 H (14-36) U/L ALT 42 46 (9-52) U/L Alkaline Phosphatase 212 H 205 H (38-126) U/L Total Protein 7.0 7.1 (6.3-8.2) g/dL Albumin 3.9 3.9 (3.5-5.0) g/dL Current Medications Generic Name Dose Route Start Last Admin Trade Name Freq PRN Reason Stop Dose Admin Hydrocodone Bitart/Acetaminophen 1 each 08/29/17 19:09 08/29/17 19:30 [place] 5-325 PO 1 each BID PRN Administration Pain Ferrous Sulfate 325 mg 08/29/17 22:00 08/30/17 08:12 Feosol PO 325 mg TID JAYDEN Administration Sodium Chloride 1,000 mls @ 75 mls/hr 08/29/17 19:15 08/29/17 20:33 Saline 0.9% IV 75 mls/hr .[id number] JAYDEN Administration Insulin Aspart 0 unit 08/30/17 07:30 08/30/17 06:57 Novolog SQ 1 unit ACHS JAYDEN Administration Protocol Isosorbide Mononitrate 30 mg 08/30/17 09:00 Imdur PO DAILY JAYDEN Lactulose 10 gm 08/29/17 22:00 08/30/17 08:11 Cephulac PO 10 gm TID JAYDEN Administration Melatonin 5 mg 08/29/17 22:41 08/29/17 23:20 Melatonin PO 5 mg HS PRN Administration Insomnia Montelukast Sodium 10 mg 08/30/17 09:00 08/30/17 08:12 Singulair PO 10 mg DAILY JAYDEN Administration Naloxone HCl 0.2 mg 08/29/17 19:04 Narcan IV Q2M PRN Opioid Reversal Nifedipine 90 mg 08/30/17 09:00 Procardia Xl PO DAILY JAYDEN Ondansetron HCl 4 mg 08/29/17 19:04 08/29/17 21:46 Zofran IVP 4 mg Q8HR PRN Administration Nausea And Vomiting Pantoprazole Sodium 40 mg 08/30/17 07:30 08/30/17 06:57 Protonix PO 40 mg AC-BID JAYDEN Administration Ropinirole HCl 0.25 mg 08/29/17 21:00 08/29/17 21:46 Requip PO 0.25 mg HS JAYDEN Administration Sertraline HCl 100 mg 08/30/17 09:00 08/30/17 08:18 Zoloft PO 100 mg DAILY JAYDEN Administration Sodium Bicarbonate 1,300 mg 08/29/17 22:00 08/30/17 08:12 Sodium Bicarbonate Tab PO 1,300 mg TID JAYDEN Administration Intake and Output 08/29/17 08/30/17 08/30/17 22:59 06:59 14:59 Intake Total 120 Output Total 1 1 700 Balance - - -580 Intake: Oral 120 Output: Urine 700 Urine/Stool Mix 1 1 Other: Voiding Method Bedside Commode # Voids 2 # Bowel Movements 1 Weight 87.997 kg 92 kg 08/30/17 05:28 08/30/17 05:28 EKG Interpretations (text) EKG shows a marked sinus bradycardia with no acute changes. Assessment and Plan Plan: Assessment and plan #1 syncope, rule out cardiac causes #2 bradycardia and hypotension on admission. #3 acute on chronic renal failure #4 chronic liver disease, cirrhosis, on transplant list for liver transplant # 5 hyperkalemia #6 pancytopenia #7 COPD #8 history of CVA #9 diabetes #10 hyperlipidemia #11 GERD #12 history of seizure disorder #13 nicotine dependence Plan We will obtain a TSH level, check orthostatic heart rate and blood pressure every shift. Patient has been resumed on her Procardia, we will also resume the hydralazine and continue to monitor blood pressure and heart rate closely. Obtain echocardiogram with Doppler study. Further recommendations will be based on these findings and the patient's clinical course. DNP note has been reviewed, I agree with a documented findings and plan of care. Patient was seen and examined.
[2017-08-30 11:50] LABS: Glucose,Whole Blood 183 mg/dL (75-99)
[2017-08-30] MEDS: hydrALAZINE HCL 50 MG TAB PO SCH ×2 (12:01→21:45)
--- NOTE | 2017-08-30 12:15 | P.CONS ---
History of Present Illness - Reason for Consult Consult date: 08/30/17 hepatic encephalopathy Requesting physician: Beau Strong - History of Present Illness 66-year-old female with a history of alcohol liver cirrhosis transplant list followed by residential supervisor Dr. Choi [facility] admitted with progressive weakness dizziness low heart rate 40'3 syncope type symptoms. Consultation requested for hepatic encephalopathy. Admission serum ammonia 131 received lactulose presently 51. Home medications include lactulose 10 g 3 times daily, Protonix 40 mg twice daily, ferrous sulfate 325 3 times a day, Aldactone 50 mg daily Lasix 40 mg twice daily. Denies hematemesis hematochezia melena. Hemoglobin 8.7-8.9. Platelet 102-111. INR 1.2. Total bilirubin 0.6. AST 54. ALT 46. Alkaline phosphatase 205. BUN 61. Creatinine 3.7. Review of medical records average hemoglobin between 8.8-9.4. Review of Systems Constitutional: Denies fever, chills, sweats, weight gain, or loss. Admitted with dizziness weakness. HEENT: Negative for migraines, blurred vision or loss, earaches, drainage, tinnitus, oral mucosal lesions, dysphagia, or odynophagia. CARDIAC: Negative for chest pain, arrhythmias, or palpitation. RESPIRATORY: Negative for shortness of breath, hemoptysis, cough, or sputum production. GI: See HPI for pertinent findings. : Negative for hematuria, urgency, frequency, polyuria, or dysuria. GYNc: Denies possibility of . Negative vaginal discharge. MUSCULOSKELETAL: Negative for muscle aches, swelling, arthritis, and arthralgias. NEUROLOGIC: Negative for stroke or TIA. ENDOCRINE: Negative for thyroid problems. SKIN: Negative for rash or itching. PSYCHIATRIC: Negative history for depression and anxietye Past Medical History Past Medical History: Chest Pain / Angina, COPD, CVA/TIA, Diabetes Mellitus, GERD/Reflux, Hyperlipidemia, Hypertension, Liver Disease, Memory Impairment, Seizure Disorder, Sleep Apnea/CPAP/BIPAP Additional Past Medical History / Comment(s): rt side dominant. WEAKNESS TO RT SIDE-USES WALKER,USES CPAP,CONSTIPATION, KIDNEY INFECTION,BRUISES EASILY, GI BLEED X 2-RECEIVED UNITS PRBC'S, berna cataracts. History of Any Multi-Drug Resistant Organisms: None Reported Past Surgical History: Appendectomy, Cholecystectomy, Heart Catheterization, Orthopedic Surgery, Tubal Ligation Additional Past Surgical History / Comment(s): SLEEP APNEA SURGERY,RT SHOULDER, LT ARM BX, CARPEL TUNNEL BERNA,GANGLION CYST REMOVED,BONE SPURS BERNA ANKLES, "at [facility]- they cauterizred bleed in the stomach", paracentesis Past Anesthesia/Blood Transfusion Reactions: No Reported Reaction Additional Past Anesthesia/Blood Transfusion Reaction / Comm: clausterphobia Smoking Status: Former smoker - Past Family History Mother Family Medical History: Diabetes Mellitus, Hypertension Additional Family Medical History / Comment(s): HEART PROBLEMS Father Additional Family Medical History / Comment(s): HEART PROBLEMS Medications and Allergies Home Medications Medication Instructions Recorded Confirmed Type Ferrous Sulfate [Feosol] 325 mg PO TID 12/15/14 08/29/17 History Lisinopril 40 mg PO DAILY 12/15/14 08/29/17 History Potassium Chloride [Klor-Con 20] 20 meq PO BID 12/15/14 08/29/17 History Sertraline [Zoloft] 100 mg PO DAILY 12/15/14 08/29/17 History rOPINIRole HCL [Requip] 0.25 mg PO HS 12/15/14 08/29/17 History Furosemide [Lasix] 40 mg PO BID 08/29/17 08/29/17 History HYDROcodone/APAP 5-325MG [[place] 1 tab PO BID PRN 08/29/17 08/29/17 History 5-325] Isosorbide Mononitrate ER [Imdur] 30 mg PO DAILY 08/29/17 08/29/17 History Lactulose 10 gm PO TID 08/29/17 08/29/17 History Montelukast [Singulair] 10 mg PO DAILY 08/29/17 08/29/17 History NIFEdipine [NIFEdipine ER] 90 mg PO DAILY 08/29/17 08/29/17 History Pantoprazole Sodium [Protonix] 40 mg PO BID 08/29/17 08/29/17 History Sodium Bicarbonate Tab 1,300 mg PO TID 08/29/17 08/29/17 History Spironolactone [Aldactone] 50 mg PO DAILY 08/29/17 08/29/17 History cloNIDine HCL [Catapres] 0.1 mg PO TID 08/29/17 08/29/17 History hydrALAZINE HCL [Apresoline] 50 mg PO Q8H 08/29/17 08/29/17 History Allergies Allergy/AdvReac Type Severity Reaction Status Date / Time adhesive Allergy BLISTERS Verified 08/29/17 17:09 SKIN "PAPER TAPE OK" codeine Allergy Unknown Verified 08/29/17 17:09 morphine Allergy "STOPS Verified 08/29/17 17:09 BREATHING" Penicillins Allergy Unknown Verified 08/29/17 17:09 tramadol HCl [From Ultram] Allergy "PASSES Verified 08/29/17 17:09 OUT" aspirin AdvReac Nausea & Verified 08/29/17 21:19 Vomiting ibuprofen [From Motrin] AdvReac AFFECTS Verified 08/29/17 17:09 KIDNEYS TAPE Allergy BLISTERS Uncoded 08/29/17 17:09 SKIN "PAPER TAPE IS OK" Physical Exam Vitals: Vital Signs Temp Pulse Pulse Pulse Pulse Pulse Pulse 08/30/17 11:49 98.7 F 97 69 69 08/30/17 08:00 97.2 F L 69 08/30/17 04:00 97.3 F L 62 08/30/17 00:00 97.5 F L 61 08/29/17 20:45 61 08/29/17 20:24 98.1 F 62 08/29/17 19:27 57 L 08/29/17 19:10 54 L 08/29/17 18:56 08/29/17 18:34 53 L 08/29/17 18:13 48 L 08/29/17 17:49 45 L 08/29/17 17:33 42 L 08/29/17 17:05 97.9 F 41 L Resp BP BP BP BP BP BP 08/30/17 11:49 16 188/81 152/69 08/30/17 08:00 16 08/30/17 04:00 16 08/30/17 00:00 16 08/29/17 20:45 18 08/29/17 20:24 18 152/72 08/29/17 19:27 18 144/71 08/29/17 19:10 19 128/64 08/29/17 18:56 185/83 143/67 164/80 08/29/17 18:34 18 118/56 08/29/17 18:13 18 113/55 08/29/17 17:49 08/29/17 17:33 19 101/52 08/29/17 17:05 16 90/53 BP BP Pulse Ox 08/30/17 11:49 185/96 97 08/30/17 08:00 158/78 97 08/30/17 04:00 161/80 98 08/30/17 00:00 142/71 97 08/29/17 20:45 141/76 98 08/29/17 20:24 96 08/29/17 19:27 96 08/29/17 19:10 98 08/29/17 18:56 08/29/17 18:34 97 08/29/17 18:13 98 08/29/17 17:49 08/29/17 17:33 98 08/29/17 17:05 95 Intake and Output 08/29/17 08/30/17 08/30/17 22:59 06:59 14:59 Intake Total 120 Output Total 1 1 700 Balance -1 -1 -580 Intake: Oral 120 Output: Urine 700 Urine/Stool Mix 1 1 Other: Voiding Method Bedside Commode Bedside Commode # Voids 2 # Bowel Movements 1 Weight 87.997 kg 92 kg General appearance: The patient is alert, oriented, in no acute distress. HET: Head is normocephalic and atraumatic. Pupils are equal and reactive. Oropharynx is clear without lesions. Neck: Supple without lymphadenopathy. Trachea midline. Heart: S1 S2. Regular rate and rhythm. Lungs: No crackles or wheezes are heard. Abdomen: Soft, nontender, nondistended with bowel sounds. No peritoneal signs. No palpable organomegaly or masses. Extremities: Normal skin color and turgor. No cyanosis, rash, ulceration, clubbing, or edema. Radial and pedal pulses are 2/4 bilaterally. Neurological: No focal deficits. Strength and sensation are grossly intact. Results CBC & Chem 7: 08/30/17 05:28 08/30/17 05:28 Labs: Abnormal Lab Results - Last 24 Hours (Table) 08/29/17 08/29/17 08/29/17 Range/Units 17:20 17:20 17:20 WBC 3.1 L (3.8-10.6) k/uL RBC 3.13 L (3.80-5.40) m/uL Hgb 8.7 L (11.4-16.0) gm/dL Hct 26.7 L (34.0-46.0) % RDW 18.0 H (11.5-15.5) % Plt Count 111 L (150-450) k/uL Lymphocytes # 0.7 L (1.0-4.8) k/uL INR (<1.2) Sodium (137-145) mmol/L Potassium 5.7 H (3.5-5.1) mmol/L Chloride (98-107) mmol/L Carbon Dioxide (22-30) mmol/L BUN 61 H (7-17) mg/dL Creatinine 3.71 H (0.52-1.04) mg/dL Glucose 172 H (74-99) mg/dL POC Glucose (mg/dL) (75-99) mg/dL AST 60 H (14-36) U/L Alkaline Phosphatase 212 H (38-126) U/L Ammonia 131 H (<30) umol/L Total Creatine Kinase (30-135) U/L TSH (0.465-4.680) mIU/L Urine Opiates Screen (NotDetected) 08/29/17 08/29/17 08/29/17 Range/Units 17:20 21:27 21:49 WBC (3.8-10.6) k/uL RBC (3.80-5.40) m/uL Hgb (11.4-16.0) gm/dL Hct (34.0-46.0) % RDW (11.5-15.5) % Plt Count (150-450) k/uL Lymphocytes # (1.0-4.8) k/uL INR 1.2 H (<1.2) Sodium (137-145) mmol/L Potassium (3.5-5.1) mmol/L Chloride (98-107) mmol/L Carbon Dioxide (22-30) mmol/L BUN (7-17) mg/dL Creatinine (0.52-1.04) mg/dL Glucose (74-99) mg/dL POC Glucose (mg/dL) 165 H (75-99) mg/dL AST (14-36) U/L Alkaline Phosphatase (38-126) U/L Ammonia (<30) umol/L Total Creatine Kinase (30-135) U/L TSH (0.465-4.680) mIU/L Urine Opiates Screen Detected H (NotDetected) 08/30/17 08/30/17 08/30/17 Range/Units 05:28 05:28 05:28 WBC 2.4 L (3.8-10.6) k/uL RBC 3.20 L (3.80-5.40) m/uL Hgb 8.9 L (11.4-16.0) gm/dL Hct 27.8 L (34.0-46.0) % RDW 17.7 H (11.5-15.5) % Plt Count 102 L (150-450) k/uL Lymphocytes # 0.6 L (1.0-4.8) k/uL INR (<1.2) Sodium 146 H (137-145) mmol/L Potassium (3.5-5.1) mmol/L Chloride 108 H (98-107) mmol/L Carbon Dioxide 20 L (22-30) mmol/L BUN 56 H (7-17) mg/dL Creatinine 3.20 H (0.52-1.04) mg/dL Glucose 146 H (74-99) mg/dL POC Glucose (mg/dL) (75-99) mg/dL AST 54 H (14-36) U/L Alkaline Phosphatase 205 H (38-126) U/L Ammonia (<30) umol/L Total Creatine Kinase 29 L (30-135) U/L TSH (0.465-4.680) mIU/L Urine Opiates Screen (NotDetected) 08/30/17 08/30/17 08/30/17 Range/Units 05:28 06:06 06:19 WBC (3.8-10.6) k/uL RBC (3.80-5.40) m/uL Hgb (11.4-16.0) gm/dL Hct (34.0-46.0) % RDW (11.5-15.5) % Plt Count (150-450) k/uL Lymphocytes # (1.0-4.8) k/uL INR (<1.2) Sodium (137-145) mmol/L Potassium (3.5-5.1) mmol/L Chloride (98-107) mmol/L Carbon Dioxide (22-30) mmol/L BUN (7-17) mg/dL Creatinine (0.52-1.04) mg/dL Glucose (74-99) mg/dL POC Glucose (mg/dL) 162 H (75-99) mg/dL AST (14-36) U/L Alkaline Phosphatase (38-126) U/L Ammonia 51 H (<30) umol/L Total Creatine Kinase (30-135) U/L TSH 9.470 H (0.465-4.680) mIU/L Urine Opiates Screen (NotDetected) 08/30/17 Range/Units 11:37 WBC (3.8-10.6) k/uL RBC (3.80-5.40) m/uL Hgb (11.4-16.0) gm/dL Hct (34.0-46.0) % RDW (11.5-15.5) % Plt Count (150-450) k/uL Lymphocytes # (1.0-4.8) k/uL INR (<1.2) Sodium (137-145) mmol/L Potassium (3.5-5.1) mmol/L Chloride (98-107) mmol/L Carbon Dioxide (22-30) mmol/L BUN (7-17) mg/dL Creatinine (0.52-1.04) mg/dL Glucose (74-99) mg/dL POC Glucose (mg/dL) 183 H (75-99) mg/dL AST (14-36) U/L Alkaline Phosphatase (38-126) U/L Ammonia (<30) umol/L Total Creatine Kinase (30-135) U/L TSH (0.465-4.680) mIU/L Urine Opiates Screen (NotDetected) Assessment and Plan (1) Hepatic encephalopathy Current Visit: Yes Status: Acute Code(s): K72.90 - HEPATIC FAILURE, UNSPECIFIED WITHOUT COMA SNOMED Code(s): 95569655 (2) Cirrhosis of liver Current Visit: Yes Status: Acute Code(s): K74.60 - UNSPECIFIED CIRRHOSIS OF LIVER SNOMED Code(s): 36058917 (3) Acute kidney injury Current Visit: Yes Status: Acute Code(s): N17.9 - ACUTE KIDNEY FAILURE, UNSPECIFIED SNOMED Code(s): 29847287 (4) Pre-syncope Current Visit: Yes Status: Acute Code(s): R55 - SYNCOPE AND COLLAPSE SNOMED Code(s): 327811240 Plan: 1. Lactulose 10 g 3 times a day titrate at least 3 bowel movements daily. Patient has an appointment to follow up with her residential supervisor Dr. Choi in 2 weeks. 2. Ammonia level in a.m. We'll follow with you. Thank you for this kind referral and the opportunity to participate in the care of your patient. This consultation was discussed with Dr. Gerard. The impression and plan of care have been directed as dictated.
--- NOTE | 2017-08-30 13:44 | ECHOF ---
Referral Reason:syncope MEASUREMENTS -------- HEIGHT: 162.6 cm WEIGHT: 91.6 kg BP: RVIDd: 3.0 cm (< 3.3) IVSd: 1.5 cm (0.6 - 1.1) LVIDd: 3.6 cm (3.9 - 5.3) LVPWd: 1.6 cm (0.6 - 1.1) IVSs: 1.8 cm LVIDs: 2.9 cm LVPWs: 1.6 cm LA Diam: 4.1 cm (2.7 - 3.8) LAESV Index (A-L): 37.51 ml/m Ao Diam: 3.1 cm (2.0 - 3.7) AV Cusp: 1.7 cm (1.5 - 2.6) LA Diam: 4.8 cm (2.7 - 3.8) MV EXCURSION: 12.148 mm (> 18.000) MV EF SLOPE: 55 mm/s (70 - 150) EPSS: 0.2 cm MV E Rakan: 0.76 m/s MV DecT: 365 ms MV A Rakan: 1.20 m/s MV E/A Ratio: 0.63 RAP: 5.00 mmHg RVSP: 34.59 mmHg FINDINGS -------- Sinus rhythm. This was a technically adequate study. The left ventricular size is normal. There is moderate concentric left ventricular hypertrophy. O verall left ventricular systolic function is normal with, an EF between 55 - 60 %. The right ventricle is normal in size. The left atrium is mildly dilated. LA is moderately dilated 34-39 ml/m2 The right atrial size is normal. The aortic valve is trileaflet, and appears structurally normal. No aortic stenosis or regurgitation. Mild mitral annular calcification present. Mild mitral regurgitation is present. Mild tricuspid regurgitation present. There is mild pulmonary hypertension. The right ventricular systolic pressure, as measured by Doppler, is 34.59mmHg. There is no pulmonic regurgitation present. The aortic root size is normal. There is no pericardial effusion. CONCLUSIONS -------- 1. The left ventricular size is normal. 2. There is moderate concentric left ventricular hypertrophy. 3. Overall left ventricular systolic function is normal with, an EF between 55 - 60 %. 4. The right ventricle is normal in size. 5. The left atrium is mildly dilated. 6. LA is moderately dilated 34-39 ml/m2 7. The aortic valve is trileaflet, and appears structurally normal. No aortic stenosis or regurgitati on. 8. Mild mitral annular calcification present. 9. Mild mitral regurgitation is present. 10. Mild tricuspid regurgitation present. 11. There is mild pulmonary hypertension. 12. The right ventricular systolic pressure, as measured by Doppler, is 34.59mmHg. 13. There is no pulmonic regurgitation present. 14. The aortic root size is normal. 15. There is no pericardial effusion. BUTT PRESSER: Freida Hernandez RDCS
[2017-08-30] MEDS ORDERED: MIDAZOLAM 2 MG/2 ML VIAL IVP ONE (14:04)
[2017-08-30] MEDS ORDERED: fentaNYL (PF) 50 MCG/ML 2 ML AMP IVP ONE (14:04)
[2017-08-30] MEDS ORDERED: BUPIVACAINE (PF) 0.5% 30 ML VIAL MISCELLANE ONE (14:06)
[2017-08-30] MEDS ORDERED: TRIAMCINOLONE ACETONIDE 40 MG/ML 1 ML VIAL INTRADERMA ONE (14:06)
--- NOTE | 2017-08-30 14:32 | P.PCN ---
Date of Procedure: 08/30/17 Procedure(s) Performed: Preoperative diagnoses= 1-bilateral greater occipital neuralgia Postoperative diagnoses= same as preoperative diagnosis. Procedure= bilateral greater occipital nerve steroid injection Anesthesia= moderate sedation with Versed 1 mg and fentanyl 50 micrograms and local infiltration with lidocaine 1% 4 ml Estimated blood loss=minimal. Procedure indication= the patient had a history of severe neck pain and headache , diagnosed with occipital neuralgia, unresponsive to conservative treatment. Procedure description= the patient was seen and identified in the preoperative holding area, risks and benefits and alternative of the procedure and possible complications discussed with the patient, and he agreed with the preceding, patient signed the consent, an IV was started, and vital signs were monitored and were stable throughout the procedure, patient was placed in the sitting position ,the cervical area was prepped and draped with a sterile fashion, vital signs were closely monitored during the procedure, of the joint was identified, then a 25-gauge needle placed at the right side of the occipital protuberance at the location of the right greater occipital nerve then after negative aspiration for heme and CSF and there was no paresthesia during the injection, 8 ml of Marcaine 0.5% and 20 mg of Kenalog injected to block the right occipital nerve , and the same procedure was repeated to do the left greater occipital nerve block Patient tolerated the procedure well without any complication,
[2017-08-30] MEDS ORDERED: SODIUM CHLORIDE 0.9% 1,000 ML IV ONE (14:44)
[2017-08-30 14:48] LABS: Hemoglobin A1C 7.6 % (4.0-6.0)
[2017-08-30 16:22] LABS: T4, Free (Free Thyroxine) 1.48 ng/dL (0.78-2.19)
[2017-08-30 16:23] LABS: Iron Saturation 22.18 (12.00-45.00)
[2017-08-30 16:31] LABS: Glucose,Whole Blood 164 mg/dL (75-99)
--- NOTE | 2017-08-30 17:45 | EEG ---
ELECTROENCEPHALOGRAM REPORT DATE OF EE08/30/2017. REFERRING PHYSICIAN: Dr. Strong. ELECTROENCEPHALOGRAPHIC EXAMINATION REPORT: INDICATION FOR EXAMINATION: This patient is a 66-year-old female being evaluated for hepatic encephalopathy and increased confusion and weakness. AGE: [age]. EEG FINDINGS: A routine 21 channel awake digital EEG recording was accomplished utilizing the 10-20 international system with bipolar and referential montages. The background activity in the most alert resting state consists of a low to medium amplitude, poorly developed and poorly sustained 5-6 Hz activity over the posterior head regions. This posterior rhythm attenuates to eye opening. There is a moderate amount of low amplitude 18-20 Hz beta activity seen maximally over the anterior head regions. Muscle and movement artifact was observed on a few occasions during the tracing. Hyperventilation was not performed. Photic stimulation at flash frequencies of 2-30 Hz produced a minimal occipital driving response. No epileptiform discharges were seen. IMPRESSION: This EEG is moderately abnormal in a diffuse fashion due to slowing of the EEG background. The EEG failed to reveal any focal, lateralized, or epileptiform abnormalities. Clinical correlation is recommended. MMODL / IJN: [id number] /
--- NOTE | 2017-08-30 18:00 | PN ---
PROGRESS NOTE DATE OF SERVICE: 08/30/2017 This 66-year-old woman who was admitted with change in mental status and syncope, weakness and bradycardia, possibly hepatic encephalopathy. Patient had started on IV fluids. The patient also had renal failure. Patient is started on IV fluids and lactulose. Sensorium improved significantly. Pneumonia is also improved. Nephrology and gastroenterology following the patient closely. The patient also had pain procedure for neck pain by Pain Management. Ejection fraction 55 to 60% at this time. There is no history of fever, rigors or chills. PAST MEDICAL HISTORY: Reviewed. REVIEW OF SYSTEMS: Cardiovascular: As mentioned earlier. Respirations: As mentioned earlier. GI: As mentioned earlier. Nervous System as mentioned earlier. CURRENT MEDICATIONS: Reviewed and include: 1. Pettigrew 5 mg b.i.d. p.r.n. 2. Iron sulfate 320 mg t.i.d. 3. Apresoline 50 mg p.o. q.8h. 4. NovoLog q.a.c. and q.h.s. 5. Imdur 30 mg q.h.s. 6. Cephulac 110 mg p.o. t.i.d. 7. Melatonin 5 mg p.o. q.h.s. 8. Singular 10 mg p.o. daily. 9. Narcan 0.2 q.2h p.r.n. 10.Procardia XL 90 mg p.o. daily. 11.Zofran 4 mg q.8h p.r.n. 12.Protonix 40 mg b.i.d. 13.Requip 0.5 mg q.h.s. 14.Zoloft 100 mg. 15.Sodium bicarb 1.3 g p.o. t.i.d. PHYSICAL EXAM: GENERAL: Patient is alert, oriented x2. VITAL SIGNS: Pulse 61, blood pressure is 120/72, respirations 16, temperature 97.2, pulse ox 97% on room air. HEENT: Conjunctivae normal. Oral mucosa dry. NECK: No jugular venous distention. No carotid bruit. No lymph node enlargement. CARDIOVASCULAR: S1-S2 muffled. RESPIRATORY: Breath sounds diminished in the bases. A few scattered rhonchi and crackles. ABDOMEN: Soft. Diffuse distention and ascites present. LEGS: Minimal edema. NERVOUS SYSTEM: Diffusely weak. Hepatic flap is not present. LABS: WBC 2.2, hemoglobin is 8.2, platelets 102, sodium 146, and creatinine 3.20. TSH is 0.947. ASSESSMENT: 1. Acute hepatic metabolic encephalopathy with change in mental status. 2. Syncope with rule out cardiac arrhythmia. 3. Bradycardia. 4. Acute renal failure possibly acute prerenal renal failure. 5. Hyperammonemia. 6. Chronic liver disease, cirrhosis of the liver for liver transplantation. 7. Hyperkalemia. 8. Pancytopenia, possibly secondary to cirrhosis of liver. 9. Chronic obstructive pulmonary disease. 10.History of chest pain, angina. 11.Cerebrovascular accident/transient ischemic attack. 12.Diabetes type 2. 13.Hyperlipidemia. 14.Gastroesophageal reflux disease. 15.Hypertension. 16.History of memory impairment. 17.History of seizure disorder. 18.History of sleep apnea on CPAP. 19.History of appendectomy. 20.History of cholecystectomy. 21.Continued ongoing nicotine dependence. RECOMMENDATIONS AND DISCUSSION: Recommend to continue current medications, management and symptomatic treatment. Otherwise at this time I would recommend continue with cautious IV fluids. Continue with lactulose. Continue the rest of the medications. Increase ambulation. Monitor closely. As mentioned earlier the baseline creatinine is around 1.2 to 2, two years ago. We will continue to monitor. Prognosis guarded because of multiple complex medical issues and further recommendations to follow. MMODL / IJN: [id number] /
--- NOTE | 2017-08-30 21:05 | P.PN ---
Subjective Progress Note Date: 08/30/17 This patient is a 66-year-old female who was admitted to hospital yesterday with generalized weakness and dizziness. She has a history of alcohol liver cirrhosis and hepatic encephalopathy. Patient is currently on a transplant list at [facility] for liver transplantation. Patient was brought in due to generalized weakness and mild confusion. She had evidence of mild hepatic encephalopathy yesterday on examination. She also has multiple other complex medical issues including acute kidney injury and progressive coronary artery disease. She was found to have evidence of severe bradycardia yesterday on admission. She was also hypertensive. Cardiology has been consulted. Patient's creatinine level today is 3.20. She has been evaluated by nephrology. Her serum ammonia level today still remains elevated at 51.0. Patient was able to undergo bilateral occipital nerve block procedure for treatment of severe occipital neuritis. She has noted significant improvement with her headache pain. As noted first liver enzymes remain elevated. Gastroenterology has been consulted and she is being treated with lactulose for treatment of the elevated serum ammonia level. Levels have come down today from yesterday. Patient does seem to be more alert and awake and able to follow all questioning today on examination. We will continue close neurological follow-up with the patient during this admission. Objective - Vital Signs Vital signs: Vital Signs Temp 97.8 F 08/30/17 15:02 Pulse 61 08/30/17 15:02 Resp 16 08/30/17 15:02 BP 129/72 08/30/17 15:02 Pulse Ox 97 08/30/17 15:02 Intake & Output 08/29/17 08/30/17 08/30/17 18:59 06:59 18:59 Intake Total 410 Output Total 2 700 Balance -2 -290 Weight 87.997 kg 92 kg Intake: IV 50 Oral 360 Output: Urine 700 Urine/Stool Mix 2 Other: Voiding Method Bedside Commode Bedside Commode # Voids 2 2 # Bowel Movements 2 - Exam Physical examination: PHYSICAL EXAMINATION: Patient is resting comfortably in bed. VITAL SIGNS: Blood pressure is [129/72]. Heart rate is [61]. Respiration is [16] . Temperature is [97.8]. HEENT: Head is atraumatic, neck is supple, there were no carotid bruits. CHEST: Lungs are clear to auscultation and percussion. CARDIAC: S1, S2 normal rate and rhythm. There is no murmur. ABDOMEN: Soft and nontender. Bowel sounds are present. EXTREMITIES: There is no pedal edema. Peripheral pulses are present. Neurological examination: Patient neurological examination is unchanged from yesterday. Patient seems to be more awake and alert today. She is able to follow all simple commands. Her memory and intellectual functions are appropriate for age. Cranial nerves II through XII are grossly intact. Deep tendon reflexes are hypoactive 1+. No Babinski response elicited. - Labs CBC & Chem 7: 08/30/17 05:28 08/30/17 05:28 Labs: Abnormal Lab Results - Last 24 Hours (Table) 08/29/17 08/29/17 08/29/17 Range/Units 17:20 17:20 17:20 WBC 3.1 L (3.8-10.6) k/uL RBC 3.13 L (3.80-5.40) m/uL Hgb 8.7 L (11.4-16.0) gm/dL Hct 26.7 L (34.0-46.0) % RDW 18.0 H (11.5-15.5) % Plt Count 111 L (150-450) k/uL Lymphocytes # 0.7 L (1.0-4.8) k/uL INR (<1.2) Sodium (137-145) mmol/L Potassium 5.7 H (3.5-5.1) mmol/L Chloride (98-107) mmol/L Carbon Dioxide (22-30) mmol/L BUN 61 H (7-17) mg/dL Creatinine 3.71 H (0.52-1.04) mg/dL Glucose 172 H (74-99) mg/dL POC Glucose (mg/dL) (75-99) mg/dL Hemoglobin A1c (4.0-6.0) % AST 60 H (14-36) U/L Alkaline Phosphatase 212 H (38-126) U/L Ammonia 131 H (<30) umol/L Total Creatine Kinase (30-135) U/L TSH (0.465-4.680) mIU/L Urine Opiates Screen (NotDetected) 08/29/17 08/29/17 08/29/17 Range/Units 17:20 21:27 21:49 WBC (3.8-10.6) k/uL RBC (3.80-5.40) m/uL Hgb (11.4-16.0) gm/dL Hct (34.0-46.0) % RDW (11.5-15.5) % Plt Count (150-450) k/uL Lymphocytes # (1.0-4.8) k/uL INR 1.2 H (<1.2) Sodium (137-145) mmol/L Potassium (3.5-5.1) mmol/L Chloride (98-107) mmol/L Carbon Dioxide (22-30) mmol/L BUN (7-17) mg/dL Creatinine (0.52-1.04) mg/dL Glucose (74-99) mg/dL POC Glucose (mg/dL) 165 H (75-99) mg/dL Hemoglobin A1c (4.0-6.0) % AST (14-36) U/L Alkaline Phosphatase (38-126) U/L Ammonia (<30) umol/L Total Creatine Kinase (30-135) U/L TSH (0.465-4.680) mIU/L Urine Opiates Screen Detected H (NotDetected) 08/29/17 08/30/17 08/30/17 Range/Units 23:26 05:28 05:28 WBC 2.4 L (3.8-10.6) k/uL RBC 3.20 L (3.80-5.40) m/uL Hgb 8.9 L (11.4-16.0) gm/dL Hct 27.8 L (34.0-46.0) % RDW 17.7 H (11.5-15.5) % Plt Count 102 L (150-450) k/uL Lymphocytes # 0.6 L (1.0-4.8) k/uL INR (<1.2) Sodium 146 H (137-145) mmol/L Potassium (3.5-5.1) mmol/L Chloride 108 H (98-107) mmol/L Carbon Dioxide 20 L (22-30) mmol/L BUN 56 H (7-17) mg/dL Creatinine 3.20 H (0.52-1.04) mg/dL Glucose 146 H (74-99) mg/dL POC Glucose (mg/dL) (75-99) mg/dL Hemoglobin A1c 7.6 H (4.0-6.0) % AST 54 H (14-36) U/L Alkaline Phosphatase 205 H (38-126) U/L Ammonia (<30) umol/L Total Creatine Kinase (30-135) U/L TSH (0.465-4.680) mIU/L Urine Opiates Screen (NotDetected) 08/30/17 08/30/17 08/30/17 Range/Units 05:28 05:28 06:06 WBC (3.8-10.6) k/uL RBC (3.80-5.40) m/uL Hgb (11.4-16.0) gm/dL Hct (34.0-46.0) % RDW (11.5-15.5) % Plt Count (150-450) k/uL Lymphocytes # (1.0-4.8) k/uL INR (<1.2) Sodium (137-145) mmol/L Potassium (3.5-5.1) mmol/L Chloride (98-107) mmol/L Carbon Dioxide (22-30) mmol/L BUN (7-17) mg/dL Creatinine (0.52-1.04) mg/dL Glucose (74-99) mg/dL POC Glucose (mg/dL) 162 H (75-99) mg/dL Hemoglobin A1c (4.0-6.0) % AST (14-36) U/L Alkaline Phosphatase (38-126) U/L Ammonia (<30) umol/L Total Creatine Kinase 29 L (30-135) U/L TSH 9.470 H (0.465-4.680) mIU/L Urine Opiates Screen (NotDetected) 08/30/17 08/30/17 Range/Units 06:19 11:37 WBC (3.8-10.6) k/uL RBC (3.80-5.40) m/uL Hgb (11.4-16.0) gm/dL Hct (34.0-46.0) % RDW (11.5-15.5) % Plt Count (150-450) k/uL Lymphocytes # (1.0-4.8) k/uL INR (<1.2) Sodium (137-145) mmol/L Potassium (3.5-5.1) mmol/L Chloride (98-107) mmol/L Carbon Dioxide (22-30) mmol/L BUN (7-17) mg/dL Creatinine (0.52-1.04) mg/dL Glucose (74-99) mg/dL POC Glucose (mg/dL) 183 H (75-99) mg/dL Hemoglobin A1c (4.0-6.0) % AST (14-36) U/L Alkaline Phosphatase (38-126) U/L Ammonia 51 H (<30) umol/L Total Creatine Kinase (30-135) U/L TSH (0.465-4.680) mIU/L Urine Opiates Screen (NotDetected) Assessment and Plan (1) Hepatic encephalopathy Current Visit: Yes Status: Acute Code(s): K72.90 - HEPATIC FAILURE, UNSPECIFIED WITHOUT COMA SNOMED Code(s): 36126658 (2) Renal failure Current Visit: Yes Status: Acute Code(s): N19 - UNSPECIFIED KIDNEY FAILURE SNOMED Code(s): 33227951 (3) Seizure disorder Current Visit: Yes Status: Acute Code(s): G40.909 - EPILEPSY, UNSP, NOT INTRACTABLE, WITHOUT STATUS EPILEPTICUS SNOMED Code(s): 235211901 (4) Bradycardia Current Visit: Yes Status: Acute Code(s): R00.1 - BRADYCARDIA, UNSPECIFIED SNOMED Code(s): 52008685 (5) Occipital neuritis Current Visit: Yes Status: Acute Code(s): M54.81 - OCCIPITAL NEURALGIA SNOMED Code(s): 18509435 (6) Pre-syncope Current Visit: Yes Status: Acute Code(s): R55 - SYNCOPE AND COLLAPSE SNOMED Code(s): 010693890 Plan: This patient is a 66-year-old female who was admitted to hospital with a history of multiple complex medical problems. He shouldn't was complaining of increased fatigue and lethargy as well as weakness in all of her muscles. She was unable to ambulate and decided to come into the emergency room for further evaluation. EMS was called to her home as she was unable to even get up and walk. She has a history of cirrhosis of the liver and is currently on the transplant list for a liver transplant. She is followed by multiple physicians at [facility]. Due to her weakness and increased confusion she was brought into the emergency room and was subsequently admitted to Hospital. She underwent computed tomography scan of the brain results of which are noted above. Patient was initially stuporous in the ER but has shown some improvement in her mental status since admission. She does have evidence of cirrhosis of the liver with elevated liver enzymes and ammonia level. This patient has evidence of a severe metabolic encephalopathy secondary to cirrhosis of the liver. She has a remote history of seizure disorder but is not at any recent seizure episodes. Patient is also noted on examination to have bilateral occipital neuritis producing chronic headache pain. We have recommended she be evaluated for occipital nerve block procedure for treatment. She underwent bilateral occipital nerve block procedure today which is very helpful. Her headache pain as significantly improved. She will require aggressive evaluation for her cirrhosis of the liver and multiple specialists have been consulted. She also had evidence of sinus bradycardia and cardiology has been consulted for evaluation of possible need for pacemaker placement. We will continue close neurological follow-up for the patient during this admission. Her overall prognosis at this time remains very guarded.
[2017-08-30 21:06] LABS: Glucose,Whole Blood 221 mg/dL (75-99)
[2017-08-30] MEDS: HYDROcodone/APAP 5-325MG 1 EACH TAB PO PRN (21:44)
[2017-08-30] MEDS: ALPRAZolam 0.25 MG TAB PO PRN (21:45)
[2017-08-30] MEDS: SODIUM CHLORIDE 0.9% 1,000 ML IV SCH (21:48)
[2017-08-31] MEDS: SODIUM CHLORIDE 0.9% 1,000 ML IV SCH ×2 (00:03→12:41)
[2017-08-31] MEDS: hydrALAZINE HCL 50 MG TAB PO SCH ×3 (00:17→18:52)
[2017-08-31 06:14] LABS: Glucose,Whole Blood 173 mg/dL (75-99)
[2017-08-31 06:47] LABS: Anisocytosis Slight; Basophils % (A) 1 %; Eosinophils % (A) 1 %; HCT 27.2 % (34.0-46.0); HGB 8.7 gm/dL (11.4-16.0); Lymphocytes # (A) 0.5 k/uL (1.0-4.8); Lymphocytes % (A) 21 %; MCH 27.8 pg (25.0-35.0); Mean Platelet Volume 8.6; Monocytes # (A) 0.1 k/uL (0-1.0); Monocytes % (A) 6 %; Neutrophils # (A) 1.6 k/uL (1.3-7.7); Neutrophils % (A) 69 %; Platelet Count 111 k/uL (150-450); RBC 3.12 m/uL (3.80-5.40); RDW 17.7 % (11.5-15.5); WBC 2.3 k/uL (3.8-10.6)
[2017-08-31 06:58] LABS: Albumin 3.7 g/dL (3.5-5.0); Magnesium 1.9 mg/dL (1.6-2.3); Potassium 4.6 mmol/L (3.5-5.1); Total Bilirubin 0.6 mg/dL (0.2-1.3); Total Protein 6.9 g/dL (6.3-8.2)
[2017-08-31] MEDS: INSULIN ASPART 100 UNIT/ML 1 ML 10 ML VIAL SQ SCH ×4 (07:39→23:44)
[2017-08-31] MEDS: PANTOPRAZOLE 40 MG TABLET PO SCH ×2 (07:40→17:27)
[2017-08-31] MEDS: FERROUS SULFATE 325 MG TAB PO SCH ×3 (08:42→20:07)
[2017-08-31] MEDS: NIFEdipine XL 90 MG TAB.ER.24 PO SCH (08:42)
[2017-08-31] MEDS: SERTRALINE 100 MG TAB PO SCH (08:43)
[2017-08-31] MEDS: SODIUM BICARBONATE TAB 650 MG TAB PO SCH ×3 (08:43→20:07)
[2017-08-31] MEDS: MONTELUKAST 10 MG TAB PO SCH (08:43)
[2017-08-31] MEDS: ISOSORBIDE MONONITRATE ER 30 MG TAB.ER.24H PO SCH (08:43)
[2017-08-31] MEDS: LACTULOSE 20 GM/30 ML CUP PO SCH ×4 (08:46→20:10)
[2017-08-31 11:42] LABS: Glucose,Whole Blood 134 mg/dL (75-99)
--- NOTE | 2017-08-31 11:45 | P.PN ---
Subjective Progress Note Date: 08/31/17 This is a 66-year-old female who follows with Dr. Alanis in the office. She has known history of hypertension, hyperlipidemia, diabetes, prior CVA, family history of premature coronary artery disease, patient also is on transplant list for a new liver because of cirrhosis, nicotine dependence, who underwent a heart catheterization in December 2014 which revealed normal coronary arteries. She presents to the hospital on this occasion with symptoms of progressive weakness and dizziness. She states that on Mother's Day she had an episode where she passed out on her front porch, subsequent to that she was admitted to [facility]. She states that her blood count was extremely low at that time, and she required 2 units of blood transfusion. Her initial EKG on presentation here showed a marked sinus bradycardia with a heart rate in the 40s. She did receive 1 L of normal saline bolus on admission and is currently maintained on normal saline at 75 mL per hour. Patient's home medications include lactulose, hydralazine, sodium bicarb, Protonix, Aldactone 50 daily, nifedipine 90 daily, Singulair, Imdur 30 daily, Lasix 40 mg twice a day, Feosol, lisinopril 40 daily, clonidine 0.1 3 times a day, and potassium replacement. Her blood pressure on arrival here was 90/50 with a heart rate of 40, 95% on room air. Morning's blood pressure 158/78 with a heart rate in the 60s, 97 room air. Laboratory data was reviewed, white blood cell count 2.4, hemoglobin 8.9, platelet count 102. Sodium 146, potassium 4.5, her potassium was 57 on admission, BUN 61 and creatinine 3.7 on admission, 56 and 3.2 this morning. Alk phos is 205, ammonia 131 on admission, 51 this morning, troponins negative 3. Urine drug screen is positive for opiates. Patient is was initiated on a dopamine drip on admission here. She is currently on nifedipine 90 mg daily, her other blood pressure medications have not been resumed. We will resume the patient's hydralazine, continue to hold the rest of her medications for now. We will check orthostatic heart rate and blood pressure every shift, check TSH level. 08/31/2017 Patient seen and examined this morning, feeling better overall. Denies any dizziness or lightheadedness, no further episodes of syncope. There have been no orthostatic changes documented. Echocardiogram with Doppler study was performed which revealed a normal left ventricular systolic function. Blood pressure 140/70, heart rate in the 60s to 70s. No further significant bradycardia has been noted. From cardiology's perspective we will recommend patient to continue on her current medications. And a curved follow-up appointment in the office with Dr. Alanis post discharge. Objective - Vital Signs Vital signs: Vital Signs Temp 98.0 F 08/31/17 08:00 Pulse 74 08/31/17 08:00 Resp 18 08/31/17 04:00 BP 153/69 08/31/17 08:00 Pulse Ox 97 08/31/17 09:05 Intake & Output 08/30/17 08/31/17 08/31/17 18:59 06:59 18:59 Intake Total 1250 375 240 Output Total 700 Balance 550 375 240 Weight 91.3 kg Intake: IV 650 375 Sodium Chloride 0.9% 1, 600 375 000 ml @ 75 mls/hr IV . [id number] [facility] Rx#:[id number] Oral 600 240 Output: Urine 700 Other: Voiding Method Bedside Commode Bedside Commode # Voids 1 1 1 # Bowel Movements 1 - Exam HEENT: Head is atraumatic, normocephalic. Pupils equal, round. Sclera anicteric. Conjunctiva are clear. Mucous membranes of the mouth are moist. Neck is supple. There is no elevated jugular venous pressure.] bruit is heard. HEART EXAMINATION: Heart S1 and S2 1 systolic ejection murmur is heard. CHEST EXAMINATION: Lungs are clear to auscultation and precussion. No chest wall tenderness is noted on palpation or with deep breathing. ABDOMEN: Soft, nontender. Bowel sounds are heard. No organomegaly noted. EXTREMITIES: 2+ peripheral pulses with evidence of peripheral edema and no calf tenderness noted. NEUROLOGIC patient is awake, alert and oriented -3. - Labs CBC & Chem 7: 08/31/17 05:54 08/31/17 05:54 Labs: Abnormal Lab Results - Last 24 Hours (Table) 08/29/17 08/30/17 08/30/17 Range/Units 23:26 11:37 16:26 WBC (3.8-10.6) k/uL RBC (3.80-5.40) m/uL Hgb (11.4-16.0) gm/dL Hct (34.0-46.0) % RDW (11.5-15.5) % Plt Count (150-450) k/uL Lymphocytes # (1.0-4.8) k/uL Sodium (137-145) mmol/L Chloride (98-107) mmol/L BUN (7-17) mg/dL Creatinine (0.52-1.04) mg/dL Glucose (74-99) mg/dL POC Glucose (mg/dL) 183 H 164 H (75-99) mg/dL Hemoglobin A1c 7.6 H (4.0-6.0) % AST (14-36) U/L Alkaline Phosphatase (38-126) U/L 08/30/17 08/31/17 08/31/17 Range/Units 21:04 05:54 05:54 WBC 2.3 L (3.8-10.6) k/uL RBC 3.12 L (3.80-5.40) m/uL Hgb 8.7 L (11.4-16.0) gm/dL Hct 27.2 L (34.0-46.0) % RDW 17.7 H (11.5-15.5) % Plt Count 111 L (150-450) k/uL Lymphocytes # 0.5 L (1.0-4.8) k/uL Sodium 146 H (137-145) mmol/L Chloride 109 H (98-107) mmol/L BUN 49 H (7-17) mg/dL Creatinine 2.45 H (0.52-1.04) mg/dL Glucose 165 H (74-99) mg/dL POC Glucose (mg/dL) 221 H (75-99) mg/dL Hemoglobin A1c (4.0-6.0) % AST 49 H (14-36) U/L Alkaline Phosphatase 206 H (38-126) U/L 08/31/17 Range/Units 06:13 WBC (3.8-10.6) k/uL RBC (3.80-5.40) m/uL Hgb (11.4-16.0) gm/dL Hct (34.0-46.0) % RDW (11.5-15.5) % Plt Count (150-450) k/uL Lymphocytes # (1.0-4.8) k/uL Sodium (137-145) mmol/L Chloride (98-107) mmol/L BUN (7-17) mg/dL Creatinine (0.52-1.04) mg/dL Glucose (74-99) mg/dL POC Glucose (mg/dL) 173 H (75-99) mg/dL Hemoglobin A1c (4.0-6.0) % AST (14-36) U/L Alkaline Phosphatase (38-126) U/L Assessment and Plan Plan: Assessment and plan #1 syncope, rule out cardiac causes #2 bradycardia and hypotension on admission. #3 acute on chronic renal failure #4 chronic liver disease, cirrhosis, on transplant list for liver transplant # 5 hyperkalemia #6 pancytopenia #7 COPD #8 history of CVA #9 diabetes #10 hyperlipidemia #11 GERD #12 history of seizure disorder #13 nicotine dependence Plan Echocardiogram with Doppler study revealed a normal left ventricular systolic function. From cardiology's perspective, we will recommend to continue the patient on the current medications she is on at this time. She can follow-up with Dr. Alanis in the office post discharge. DNP note has been reviewed, I agree with a documented findings and plan of care. Patient was seen and examined.
[2017-08-31] MEDS: ALPRAZolam 0.25 MG TAB PO PRN ×2 (13:49→20:16)
[2017-08-31] MEDS: HYDROcodone/APAP 5-325MG 1 EACH TAB PO PRN ×2 (13:49→20:15)
--- NOTE | 2017-08-31 14:04 | P.PN ---
Subjective Progress Note Date: 08/31/17 This patient is a 66-year-old female who was admitted to hospital yesterday with generalized weakness and dizziness. She has a history of alcohol liver cirrhosis and hepatic encephalopathy. Patient is currently on a transplant list at [facility] for liver transplantation. Patient was brought in due to generalized weakness and mild confusion. She had evidence of mild hepatic encephalopathy yesterday on examination. She also has multiple other complex medical issues including acute kidney injury and progressive coronary artery disease. She was found to have evidence of severe bradycardia yesterday on admission. She was also hypertensive. Cardiology has been consulted. Patient's creatinine level today is 3.20. She has been evaluated by nephrology. Her serum ammonia level today still remains elevated at 51.0. Patient was able to undergo bilateral occipital nerve block procedure for treatment of severe occipital neuritis. She has noted significant improvement with her headache pain. As noted her liver enzymes remain elevated. Gastroenterology has been consulted and she is being treated with lactulose for treatment of the elevated serum ammonia level. Levels have come down today from yesterday. Patient overall is feeling better this morning. As noted she underwent a occipital nerve block procedure yesterday which is very helpful in relieving much of her headache pain symptoms. She has had no orthostatic blood pressure changes. Cardiology is monitoring her condition closely for episodes of syncope. She is to continue on her current medications. Patient does seem to be more alert and awake and able to follow all questioning today on examination. We will continue close neurological follow-up with the patient during this admission. Objective - Vital Signs Vital signs: Vital Signs Temp 98.0 F 08/31/17 08:00 Pulse 74 08/31/17 08:00 Resp 18 08/31/17 04:00 BP 153/69 08/31/17 08:00 Pulse Ox 97 08/31/17 09:05 Intake & Output 08/30/17 08/31/17 08/31/17 18:59 06:59 18:59 Intake Total 1250 375 240 Output Total 700 Balance 550 375 240 Weight 91.3 kg Intake: IV 650 375 Sodium Chloride 0.9% 1, 600 375 000 ml @ 75 mls/hr IV . [id number] [facility] Rx#:[id number] Oral 600 240 Output: Urine 700 Other: Voiding Method Bedside Commode Bedside Commode # Voids 1 1 1 # Bowel Movements 1 - Exam Physical examination: PHYSICAL EXAMINATION: Patient is resting comfortably in bed. VITAL SIGNS: Blood pressure is [153/69]. Heart rate is [60]. Respiration is [18] . Temperature is [98.0]. HEENT: Head is atraumatic, neck is supple, there were no carotid bruits. CHEST: Lungs are clear to auscultation and percussion. CARDIAC: S1, S2 normal rate and rhythm. There is no murmur. ABDOMEN: Soft and nontender. Bowel sounds are present. EXTREMITIES: There is no pedal edema. Peripheral pulses are present. Neurological examination: Patient neurological examination is unchanged from yesterday. Her affect and mood are much better today. Patient seems to be more awake and alert today. She is able to follow all simple commands. Her memory and intellectual functions are appropriate for age. Cranial nerves II through XII are grossly intact. Deep tendon reflexes are hypoactive 1+. No Babinski response elicited. - Labs CBC & Chem 7: 08/31/17 05:54 08/31/17 05:54 Labs: Abnormal Lab Results - Last 24 Hours (Table) 08/29/17 08/30/17 08/30/17 Range/Units 23:26 05:28 11:37 WBC (3.8-10.6) k/uL RBC (3.80-5.40) m/uL Hgb (11.4-16.0) gm/dL Hct (34.0-46.0) % RDW (11.5-15.5) % Plt Count (150-450) k/uL Lymphocytes # (1.0-4.8) k/uL Sodium (137-145) mmol/L Chloride (98-107) mmol/L BUN (7-17) mg/dL Creatinine (0.52-1.04) mg/dL Glucose (74-99) mg/dL POC Glucose (mg/dL) 183 H (75-99) mg/dL Hemoglobin A1c 7.6 H (4.0-6.0) % AST (14-36) U/L Alkaline Phosphatase (38-126) U/L TSH 9.470 H (0.465-4.680) mIU/L 08/30/17 08/30/17 08/31/17 Range/Units 16:26 21:04 05:54 WBC 2.3 L (3.8-10.6) k/uL RBC 3.12 L (3.80-5.40) m/uL Hgb 8.7 L (11.4-16.0) gm/dL Hct 27.2 L (34.0-46.0) % RDW 17.7 H (11.5-15.5) % Plt Count 111 L (150-450) k/uL Lymphocytes # 0.5 L (1.0-4.8) k/uL Sodium (137-145) mmol/L Chloride (98-107) mmol/L BUN (7-17) mg/dL Creatinine (0.52-1.04) mg/dL Glucose (74-99) mg/dL POC Glucose (mg/dL) 164 H 221 H (75-99) mg/dL Hemoglobin A1c (4.0-6.0) % AST (14-36) U/L Alkaline Phosphatase (38-126) U/L TSH (0.465-4.680) mIU/L 08/31/17 08/31/17 Range/Units 05:54 06:13 WBC (3.8-10.6) k/uL RBC (3.80-5.40) m/uL Hgb (11.4-16.0) gm/dL Hct (34.0-46.0) % RDW (11.5-15.5) % Plt Count (150-450) k/uL Lymphocytes # (1.0-4.8) k/uL Sodium 146 H (137-145) mmol/L Chloride 109 H (98-107) mmol/L BUN 49 H (7-17) mg/dL Creatinine 2.45 H (0.52-1.04) mg/dL Glucose 165 H (74-99) mg/dL POC Glucose (mg/dL) 173 H (75-99) mg/dL Hemoglobin A1c (4.0-6.0) % AST 49 H (14-36) U/L Alkaline Phosphatase 206 H (38-126) U/L TSH (0.465-4.680) mIU/L Assessment and Plan (1) Hepatic encephalopathy Current Visit: Yes Status: Acute Code(s): K72.90 - HEPATIC FAILURE, UNSPECIFIED WITHOUT COMA SNOMED Code(s): 78330431 (2) Renal failure Current Visit: Yes Status: Acute Code(s): N19 - UNSPECIFIED KIDNEY FAILURE SNOMED Code(s): 47542327 (3) Seizure disorder Current Visit: Yes Status: Acute Code(s): G40.909 - EPILEPSY, UNSP, NOT INTRACTABLE, WITHOUT STATUS EPILEPTICUS SNOMED Code(s): 393389839 (4) Bradycardia Current Visit: Yes Status: Acute Code(s): R00.1 - BRADYCARDIA, UNSPECIFIED SNOMED Code(s): 89089659 (5) Occipital neuritis Current Visit: Yes Status: Acute Code(s): M54.81 - OCCIPITAL NEURALGIA SNOMED Code(s): 43477649 (6) Pre-syncope Current Visit: Yes Status: Acute Code(s): R55 - SYNCOPE AND COLLAPSE SNOMED Code(s): 267272476 Plan: This patient is a 66-year-old female who was admitted to hospital with a history of multiple complex medical problems. He shouldn't was complaining of increased fatigue and lethargy as well as weakness in all of her muscles. She was unable to ambulate and decided to come into the emergency room for further evaluation. EMS was called to her home as she was unable to even get up and walk. She has a history of cirrhosis of the liver and is currently on the transplant list for a liver transplant. She is followed by multiple physicians at [facility]. Due to her weakness and increased confusion she was brought into the emergency room and was subsequently admitted to Hospital. She underwent computed tomography scan of the brain results of which are noted above. Patient was initially stuporous in the ER but has shown some improvement in her mental status since admission. She does have evidence of cirrhosis of the liver with elevated liver enzymes and ammonia level. This patient has evidence of a severe metabolic encephalopathy secondary to cirrhosis of the liver. She has a remote history of seizure disorder but is not at any recent seizure episodes. Patient is also noted on examination to have bilateral occipital neuritis producing chronic headache pain. We have recommended she be evaluated for occipital nerve block procedure for treatment. She underwent bilateral occipital nerve block procedure yesterday which was very helpful. Her headache pain as significantly improved. She will require aggressive evaluation for her cirrhosis of the liver and multiple specialists have been consulted. She also had evidence of sinus bradycardia and cardiology has been consulted for evaluation of possible need for pacemaker placement. Cardiology is monitoring her closely for orthostatic blood pressure changes. No further episodes of significant bradycardia have been noted. We will continue close neurological follow-up for the patient during this admission. Neurologically she remains intact today and shows improvement in terms of her headache pain symptoms. Her hepatic encephalopathy showing improvement today in terms of her laboratory test results and clinical presentation. Her overall prognosis at this time remains very guarded.
--- NOTE | 2017-08-31 15:23 | P.PN ---
Subjective Progress Note Date: 08/31/17 Seen and examined for the follow-up of acute kidney injury. History of liver cirrhosis was on diuretics with Lasix and Aldactone at home. Feels better still maintain on IV fluids. Objective - Vital Signs Vital signs: Vital Signs Temp 98.0 F 08/31/17 08:00 Pulse 71 08/31/17 12:00 Resp 18 08/31/17 04:00 BP 190/81 08/31/17 12:00 Pulse Ox 96 08/31/17 12:00 Intake & Output 08/30/17 08/31/17 08/31/17 18:59 06:59 18:59 Intake Total 1250 375 360 Output Total 700 Balance 550 375 360 Weight 91.3 kg Intake: IV 650 375 Sodium Chloride 0.9% 1, 600 375 000 ml @ 75 mls/hr IV . [id number] [facility] Rx#:[id number] Oral 600 360 Output: Urine 700 Other: Voiding Method Bedside Commode Bedside Commode # Voids 1 1 1 # Bowel Movements 1 1 - Exam Sitting in the edge of the bed no acute distress S1-S2 heard Abdomen distended No edema - Labs CBC & Chem 7: 08/31/17 05:54 08/31/17 05:54 Labs: Abnormal Lab Results - Last 24 Hours (Table) 08/30/17 08/30/17 08/31/17 Range/Units 16:26 21:04 05:54 WBC 2.3 L (3.8-10.6) k/uL RBC 3.12 L (3.80-5.40) m/uL Hgb 8.7 L (11.4-16.0) gm/dL Hct 27.2 L (34.0-46.0) % RDW 17.7 H (11.5-15.5) % Plt Count 111 L (150-450) k/uL Lymphocytes # 0.5 L (1.0-4.8) k/uL Sodium (137-145) mmol/L Chloride (98-107) mmol/L BUN (7-17) mg/dL Creatinine (0.52-1.04) mg/dL Glucose (74-99) mg/dL POC Glucose (mg/dL) 164 H 221 H (75-99) mg/dL AST (14-36) U/L Alkaline Phosphatase (38-126) U/L Ammonia (<30) umol/L 08/31/17 08/31/17 08/31/17 Range/Units 05:54 06:13 11:14 WBC (3.8-10.6) k/uL RBC (3.80-5.40) m/uL Hgb (11.4-16.0) gm/dL Hct (34.0-46.0) % RDW (11.5-15.5) % Plt Count (150-450) k/uL Lymphocytes # (1.0-4.8) k/uL Sodium 146 H (137-145) mmol/L Chloride 109 H (98-107) mmol/L BUN 49 H (7-17) mg/dL Creatinine 2.45 H (0.52-1.04) mg/dL Glucose 165 H (74-99) mg/dL POC Glucose (mg/dL) 173 H 134 H (75-99) mg/dL AST 49 H (14-36) U/L Alkaline Phosphatase 206 H (38-126) U/L Ammonia (<30) umol/L 08/31/17 Range/Units 13:59 WBC (3.8-10.6) k/uL RBC (3.80-5.40) m/uL Hgb (11.4-16.0) gm/dL Hct (34.0-46.0) % RDW (11.5-15.5) % Plt Count (150-450) k/uL Lymphocytes # (1.0-4.8) k/uL Sodium (137-145) mmol/L Chloride (98-107) mmol/L BUN (7-17) mg/dL Creatinine (0.52-1.04) mg/dL Glucose (74-99) mg/dL POC Glucose (mg/dL) (75-99) mg/dL AST (14-36) U/L Alkaline Phosphatase (38-126) U/L Ammonia 33 H (<30) umol/L Assessment and Plan Assessment: Impression: #1 acute kidney injury secondary to prerenal process creatinine improving #2 liver cirrhosis on transplant list at [facility] #3 hyperkalemia resolved #4 chronic kidney disease stage IV baseline creatinine 1.2, from October 2015 #5 hypertension Recommendations: #1 improving stop IV fluids #2 repeat labs in the morning #3 if creatinine improving stable from nephrology point of view to be discharged. Diuretics can be started as outpatient based on the volume status.
[2017-08-31 16:57] LABS: Glucose,Whole Blood 157 mg/dL (75-99)
[2017-08-31] MEDS: amLODIPine 5 MG TAB PO SCH ×2 (17:26→20:07)
--- NOTE | 2017-08-31 18:01 | P.PN ---
Subjective Progress Note Date: 08/31/17 The patient is a 66-year-old female with a history of alcoholic liver cirrhosis , on transplant list followed by tableau analyst Dr. Choi at [facility], who was admitted with progressive weakness, dizziness, low heart rate in the 40' s and syncope type symptoms. Patient had elevated ammonia level and we are asked to see her for hepatic encephalopathy. Cardiology is evaluating her syncope and is also is being followed by neurology. Admission serum ammonia 131 received lactulose and it came down to 51 yesterday, today is 33. Home medications include lactulose 10 g 3 times daily, Protonix 40 mg twice daily, ferrous sulfate 325 3 times a day, Aldactone 50 mg daily Lasix 40 mg twice daily. She denied hematemesis, hematochezia or melena. Hemoglobin 8.7-8.9. Platelet 102-111. INR 1.2. Total bilirubin 0.6. AST 54. ALT 46. Alkaline phosphatase 205. BUN 61. Creatinine 3.7. Review of medical records average hemoglobin between 8.8-9.4. The patient has shown significant improvement since admission paralleling the improvement in her ammonia level. Today, she appeared alert and was having a meal sitting at the bedside and denied any new complaints. Objective - Vital Signs Vital signs: Vital Signs Temp 98.0 F 08/31/17 08:00 Pulse 71 08/31/17 12:00 Resp 18 08/31/17 04:00 BP 190/81 08/31/17 12:00 Pulse Ox 96 08/31/17 12:00 Intake & Output 08/30/17 08/31/17 08/31/17 18:59 06:59 18:59 Intake Total 1250 375 360 Output Total 700 Balance 550 375 360 Weight 91.3 kg Intake: IV 650 375 Sodium Chloride 0.9% 1, 600 375 000 ml @ 75 mls/hr IV . [id number] [facility] Rx#:[id number] Oral 600 360 Output: Urine 700 Other: Voiding Method Bedside Commode Bedside Commode # Voids 1 1 1 # Bowel Movements 1 1 - Exam General appearance: The patient is alert, oriented, in no acute distress. HET: Head is normocephalic and atraumatic. Pupils are equal and reactive. Oropharynx is clear without lesions. Neck: Supple without lymphadenopathy. Trachea midline. Heart: S1 S2. Regular rate and rhythm. Lungs: No crackles or wheezes are heard. Abdomen: Soft, nontender, nondistended with bowel sounds. No peritoneal signs. No palpable organomegaly or masses. Extremities: Normal skin color and turgor. No cyanosis, rash, ulceration, clubbing, or edema. Radial and pedal pulses are 2/4 bilaterally. Neurological: No focal deficits. Strength and sensation are grossly intact. - Labs CBC & Chem 7: 08/31/17 05:54 08/31/17 05:54 Labs: Abnormal Lab Results - Last 24 Hours (Table) 08/30/17 08/31/17 08/31/17 Range/Units 21:04 05:54 05:54 WBC 2.3 L (3.8-10.6) k/uL RBC 3.12 L (3.80-5.40) m/uL Hgb 8.7 L (11.4-16.0) gm/dL Hct 27.2 L (34.0-46.0) % RDW 17.7 H (11.5-15.5) % Plt Count 111 L (150-450) k/uL Lymphocytes # 0.5 L (1.0-4.8) k/uL Sodium 146 H (137-145) mmol/L Chloride 109 H (98-107) mmol/L BUN 49 H (7-17) mg/dL Creatinine 2.45 H (0.52-1.04) mg/dL Glucose 165 H (74-99) mg/dL POC Glucose (mg/dL) 221 H (75-99) mg/dL AST 49 H (14-36) U/L Alkaline Phosphatase 206 H (38-126) U/L Ammonia (<30) umol/L 08/31/17 08/31/17 08/31/17 Range/Units 06:13 11:14 13:59 WBC (3.8-10.6) k/uL RBC (3.80-5.40) m/uL Hgb (11.4-16.0) gm/dL Hct (34.0-46.0) % RDW (11.5-15.5) % Plt Count (150-450) k/uL Lymphocytes # (1.0-4.8) k/uL Sodium (137-145) mmol/L Chloride (98-107) mmol/L BUN (7-17) mg/dL Creatinine (0.52-1.04) mg/dL Glucose (74-99) mg/dL POC Glucose (mg/dL) 173 H 134 H (75-99) mg/dL AST (14-36) U/L Alkaline Phosphatase (38-126) U/L Ammonia 33 H (<30) umol/L 08/31/17 Range/Units 16:54 WBC (3.8-10.6) k/uL RBC (3.80-5.40) m/uL Hgb (11.4-16.0) gm/dL Hct (34.0-46.0) % RDW (11.5-15.5) % Plt Count (150-450) k/uL Lymphocytes # (1.0-4.8) k/uL Sodium (137-145) mmol/L Chloride (98-107) mmol/L BUN (7-17) mg/dL Creatinine (0.52-1.04) mg/dL Glucose (74-99) mg/dL POC Glucose (mg/dL) 157 H (75-99) mg/dL AST (14-36) U/L Alkaline Phosphatase (38-126) U/L Ammonia (<30) umol/L Assessment and Plan Assessment: This 66-year-old female with alcoholic liver disease and portal hypertension is admitted for hepatic encephalopathy and syncope. She has made significant improvement since admission and ammonia level is very close to normal at this time. Cardiac workup is in progress. No precipitating causes of encephalopathy identified such as sepsis, GI bleeding or medications. Plan: Will continue lactulose at the current dose. Patient is having 3-4 soft stools daily and is not having constipation or diarrhea. Further plans can be made based on her course.
--- NOTE | 2017-08-31 19:10 | PN ---
PROGRESS NOTE DATE OF SERVICE: 08/31/2017. INTERVAL HISTORY: This 66-year-old woman was admitted with acute hepatic metabolic encephalopathy, change in mental status, has improved significantly. No chest pain or palpitations. No fever. EXAM: Alert and oriented x3. Pulse 60, blood pressure 140/70, respirations 18, temperature 97.7, pulse ox 97% on room air. HEENT: Conjunctivae normal. NECK: No jugular venous distention. CARDIOVASCULAR: S1, S2 muffled. RESPIRATORY: Breath sounds diminished in the bases. A few scattered rhonchi. No crackles. ABDOMEN: Soft, obese, nontender. LEGS: No edema. No swelling. NERVOUS SYSTEM: Nonfocal. LABS: WBC 2, hemoglobin is 8.7. Sodium 146, creatinine is 2.45. ASSESSMENT: 1. Acute hepatic metabolic encephalopathy with a change in mental status. 2. Syncope, rule out cardiac arrhythmia. 3. Bradycardia. 4. Acute renal failure, possibly prerenal acute renal failure. 5. Hyperammonemia. 6. Chronic liver disease, cirrhosis of the liver for liver transplantation. 7. Hyperkalemia. 8. Pancytopenia also secondary to cirrhosis of liver. 9. Chronic obstructive pulmonary disease. 10.History of chest pain, angina. 11.History of cerebrovascular accident, transient ischemic attack. 12.Diabetes mellitus type 2. 13.Hyperlipidemia. 14.History of gastroesophageal reflux disease. 15.Hypertension. 16.History of memory impairment. 17.History of seizure disorder. 18.Sleep apnea on CPAP. 19.Appendectomy. 20.Cholecystectomy. 21.History of continued ongoing nicotine dependence. RECOMMENDATIONS AND DISCUSSION: Recommend to continue current medical management and symptomatic treatment. Otherwise at this time, I recommend monitor ammonia closely. Otherwise, increase ambulation. Guarded prognosis. Further recommendations to follow. MMODL / IJN: [id number] /
[2017-08-31 21:11] LABS: Glucose,Whole Blood 196 mg/dL (75-99)
[2017-09-01 06:10] LABS: Glucose,Whole Blood 153 mg/dL (75-99)
[2017-09-01 06:11] LABS: Anisocytosis Slight; Basophils % (A) 0 %; Eosinophils # (A) 0.1 k/uL (0-0.7); Eosinophils % (A) 2 %; HCT 27.3 % (34.0-46.0); HGB 8.7 gm/dL (11.4-16.0); Hypochromasia Slight; Lymphocytes # (A) 0.5 k/uL (1.0-4.8); Lymphocytes % (A) 17 %; MCH 28.1 pg (25.0-35.0); MCHC 31.8 g/dL (31.0-37.0); MCV 88.5 fL (80.0-100.0); Mean Platelet Volume 8.5; Monocytes # (A) 0.2 k/uL (0-1.0); Monocytes % (A) 7 %; Neutrophils # (A) 1.9 k/uL (1.3-7.7); Neutrophils % (A) 72 %; RBC 3.08 m/uL (3.80-5.40); RDW 17.7 % (11.5-15.5); WBC 2.7 k/uL (3.8-10.6)
[2017-09-01 06:14] LABS: Albumin 3.8 g/dL (3.5-5.0); Calcium 8.9 mg/dL (8.4-10.2); Potassium 4.2 mmol/L (3.5-5.1); Total Bilirubin 0.7 mg/dL (0.2-1.3); Total Protein 6.9 g/dL (6.3-8.2)
[2017-09-01] MEDS: hydrALAZINE HCL 50 MG TAB PO SCH ×3 (06:29→17:25)
[2017-09-01] MEDS: PANTOPRAZOLE 40 MG TABLET PO SCH ×2 (06:29→17:25)
[2017-09-01] MEDS: INSULIN ASPART 100 UNIT/ML 1 ML 10 ML VIAL SQ SCH ×4 (06:30→22:34)
[2017-09-01 06:31] LABS: Platelet Count 97 k/uL (150-450)
[2017-09-01] MEDS: HYDROcodone/APAP 5-325MG 1 EACH TAB PO PRN ×2 (08:38→19:55)
[2017-09-01] MEDS: ALPRAZolam 0.25 MG TAB PO PRN ×2 (08:38→22:32)
[2017-09-01] MEDS: FERROUS SULFATE 325 MG TAB PO SCH ×2 (08:44→14:08)
[2017-09-01] MEDS: ISOSORBIDE MONONITRATE ER 30 MG TAB.ER.24H PO SCH (08:44)
[2017-09-01] MEDS: amLODIPine 5 MG TAB PO SCH ×2 (08:44→19:48)
[2017-09-01] MEDS: SERTRALINE 100 MG TAB PO SCH (08:44)
[2017-09-01] MEDS: MONTELUKAST 10 MG TAB PO SCH (08:44)
[2017-09-01] MEDS: LACTULOSE 20 GM/30 ML CUP PO SCH ×3 (08:51→19:49)
[2017-09-01] MEDS ORDERED: cloNIDine HCL 0.1 MG TAB PO SCH ×2 (10:00→23:37)
[2017-09-01] MEDS: SODIUM BICARBONATE TAB 650 MG TAB PO SCH (10:42)
[2017-09-01 11:48] LABS: Glucose,Whole Blood 271 mg/dL (75-99)
[2017-09-01] MEDS ORDERED: HYDROcodone/APAP 5-325MG 1 EACH TAB PO SCH (13:00)
--- NOTE | 2017-09-01 13:10 | P.PN ---
Subjective Progress Note Date: 09/01/17 Seen and examined for the follow-up of acute kidney injury. Eating lunch. Complains of some abdominal distention otherwise no nausea vomiting. Objective - Vital Signs Vital signs: Vital Signs Temp 98.1 F 09/01/17 12:00 Pulse 83 09/01/17 12:00 Resp 16 09/01/17 12:00 BP 171/75 09/01/17 12:00 Pulse Ox 96 09/01/17 12:00 Intake & Output 08/31/17 09/01/17 09/01/17 18:59 06:59 18:59 Intake Total 600 240 Balance 600 240 Weight 92.1 kg Intake: Oral 600 240 Other: Voiding Method Bedside Commode # Voids 1 2 # Bowel Movements 1 - Exam Sitting in the edge of the bed no acute distress S1-S2 heard Abdomen distended No edema - Labs CBC & Chem 7: 09/01/17 05:38 09/01/17 05:38 Labs: Abnormal Lab Results - Last 24 Hours (Table) 08/31/17 08/31/17 08/31/17 Range/Units 13:59 16:54 21:09 WBC (3.8-10.6) k/uL RBC (3.80-5.40) m/uL Hgb (11.4-16.0) gm/dL Hct (34.0-46.0) % RDW (11.5-15.5) % Plt Count (150-450) k/uL Lymphocytes # (1.0-4.8) k/uL Sodium (137-145) mmol/L Chloride (98-107) mmol/L BUN (7-17) mg/dL Creatinine (0.52-1.04) mg/dL Glucose (74-99) mg/dL POC Glucose (mg/dL) 157 H 196 H (75-99) mg/dL AST (14-36) U/L ALT (9-52) U/L Alkaline Phosphatase (38-126) U/L Ammonia 33 H (<30) umol/L 09/01/17 09/01/17 09/01/17 Range/Units 05:38 05:38 05:38 WBC 2.7 L (3.8-10.6) k/uL RBC 3.08 L (3.80-5.40) m/uL Hgb 8.7 L (11.4-16.0) gm/dL Hct 27.3 L (34.0-46.0) % RDW 17.7 H (11.5-15.5) % Plt Count 97 L (150-450) k/uL Lymphocytes # 0.5 L (1.0-4.8) k/uL Sodium 148 H (137-145) mmol/L Chloride 111 H (98-107) mmol/L BUN 40 H (7-17) mg/dL Creatinine 2.08 H (0.52-1.04) mg/dL Glucose 150 H (74-99) mg/dL POC Glucose (mg/dL) (75-99) mg/dL AST 89 H (14-36) U/L ALT 54 H (9-52) U/L Alkaline Phosphatase 245 H (38-126) U/L Ammonia 64 H (<30) umol/L 09/01/17 09/01/17 Range/Units 06:08 11:39 WBC (3.8-10.6) k/uL RBC (3.80-5.40) m/uL Hgb (11.4-16.0) gm/dL Hct (34.0-46.0) % RDW (11.5-15.5) % Plt Count (150-450) k/uL Lymphocytes # (1.0-4.8) k/uL Sodium (137-145) mmol/L Chloride (98-107) mmol/L BUN (7-17) mg/dL Creatinine (0.52-1.04) mg/dL Glucose (74-99) mg/dL POC Glucose (mg/dL) 153 H 271 H (75-99) mg/dL AST (14-36) U/L ALT (9-52) U/L Alkaline Phosphatase (38-126) U/L Ammonia (<30) umol/L Assessment and Plan Assessment: Impression: #1 acute kidney injury secondary to prerenal process creatinine improving #2 liver cirrhosis on transplant list at [facility] #3 hyperkalemia resolved #4 chronic kidney disease stage IV baseline creatinine 1.2, from October 2015 #5 hypertension currently low normal Recommendations: #1 renal function improving and stable #2 avoid nephrotoxic agents and hypotensive episodes #3 diuretics can be started as outpatient. #4 consider paracentesis for abdominal distention. Give albumin with paracentesis. Stable from nephrology point of view for discharge to be followed up in the office in 1-2 weeks
--- NOTE | 2017-09-01 13:32 | PN ---
PROGRESS NOTE Mrs. Joyce Rowell has history of hepatitic encephalopathy which has gotten better. She has liver dysfunction secondary to steatosis. She has history of noncritical CAD. Her blood pressure was elevated whenever she has back pain. I am adding clonidine 0.1 mg b.i.d. to her regimen. Vital signs are stable, but blood pressure was sporadically elevated. S1-S2 heard normally. Lungs are clear. Her abdomen exam is unchanged. Plan is to continue current medications and add clonidine and see how she does. MMODL / IJN: [id number] /
--- NOTE | 2017-09-01 14:25 | P.PN ---
Subjective Progress Note Date: 09/01/17 This patient is a 66-year-old female who was admitted to hospital yesterday with generalized weakness and dizziness. She has a history of alcohol liver cirrhosis and hepatic encephalopathy. Patient is currently on a transplant list at [facility] for liver transplantation. Patient was brought in due to generalized weakness and mild confusion. She had evidence of mild hepatic encephalopathy yesterday on examination. She also has multiple other complex medical issues including acute kidney injury and progressive coronary artery disease. She was found to have evidence of severe bradycardia yesterday on admission. She was also hypertensive. Cardiology has been consulted. Patient's creatinine level today is 3.20. She has been evaluated by nephrology. Her serum ammonia level today still remains elevated at 51.0. Patient was able to undergo bilateral occipital nerve block procedure for treatment of severe occipital neuritis. She has noted significant improvement with her headache pain. As noted her liver enzymes remain elevated. Gastroenterology has been consulted and she is being treated with lactulose for treatment of the elevated serum ammonia level. Levels have come down today from yesterday. Patient overall is feeling better this morning. As noted she underwent a occipital nerve block procedure yesterday which is very helpful in relieving much of her headache pain symptoms. She has had no orthostatic blood pressure changes. Cardiology is monitoring her condition closely for episodes of syncope. She is to continue on her current medications. She is being evaluated by nephrology for acute kidney injury. She does have some improvement in her creatinine today. As noted she has liver cirrhosis and is on the transplant list for liver transplant at [facility]. She was noted to have slight elevation of blood pressure which is secondary to her back pain symptoms. Cardiology is added clonidine to her regimen. The patient has history of hepatic encephalopathy which has shown improvement since her admission to hospital. Patient does seem to be more alert and awake and able to follow all questioning today on examination. We will continue close neurological follow-up with the patient during this admission. Objective - Vital Signs Vital signs: Vital Signs Temp 98.1 F 09/01/17 12:00 Pulse 83 09/01/17 12:00 Resp 16 09/01/17 12:00 BP 171/75 09/01/17 12:00 Pulse Ox 96 09/01/17 12:00 Intake & Output 08/31/17 09/01/17 09/01/17 18:59 06:59 18:59 Intake Total 600 240 Balance 600 240 Weight 92.1 kg Intake: Oral 600 240 Other: Voiding Method Bedside Commode # Voids 1 2 # Bowel Movements 1 - Exam Physical examination: PHYSICAL EXAMINATION: Patient is resting comfortably in bed. VITAL SIGNS: Blood pressure is [171/75]. Heart rate is [83]. Respiration is [16] . Temperature is [98.1]. HEENT: Head is atraumatic, neck is supple, there were no carotid bruits. CHEST: Lungs are clear to auscultation and percussion. CARDIAC: S1, S2 normal rate and rhythm. There is no murmur. ABDOMEN: Soft and nontender. Bowel sounds are present. EXTREMITIES: There is no pedal edema. Peripheral pulses are present. Neurological examination: Patient neurological examination is unchanged from yesterday. Her affect and mood are much better today. Patient seems to be more awake and alert today. She is able to follow all simple commands. Her memory and intellectual functions are appropriate for age. Cranial nerves II through XII are grossly intact. Deep tendon reflexes are hypoactive 1+. No Babinski response elicited. - Labs CBC & Chem 7: 09/01/17 05:38 09/01/17 05:38 Labs: Abnormal Lab Results - Last 24 Hours (Table) 08/31/17 08/31/17 08/31/17 Range/Units 13:59 16:54 21:09 WBC (3.8-10.6) k/uL RBC (3.80-5.40) m/uL Hgb (11.4-16.0) gm/dL Hct (34.0-46.0) % RDW (11.5-15.5) % Plt Count (150-450) k/uL Lymphocytes # (1.0-4.8) k/uL Sodium (137-145) mmol/L Chloride (98-107) mmol/L BUN (7-17) mg/dL Creatinine (0.52-1.04) mg/dL Glucose (74-99) mg/dL POC Glucose (mg/dL) 157 H 196 H (75-99) mg/dL AST (14-36) U/L ALT (9-52) U/L Alkaline Phosphatase (38-126) U/L Ammonia 33 H (<30) umol/L 09/01/17 09/01/17 09/01/17 Range/Units 05:38 05:38 05:38 WBC 2.7 L (3.8-10.6) k/uL RBC 3.08 L (3.80-5.40) m/uL Hgb 8.7 L (11.4-16.0) gm/dL Hct 27.3 L (34.0-46.0) % RDW 17.7 H (11.5-15.5) % Plt Count 97 L (150-450) k/uL Lymphocytes # 0.5 L (1.0-4.8) k/uL Sodium 148 H (137-145) mmol/L Chloride 111 H (98-107) mmol/L BUN 40 H (7-17) mg/dL Creatinine 2.08 H (0.52-1.04) mg/dL Glucose 150 H (74-99) mg/dL POC Glucose (mg/dL) (75-99) mg/dL AST 89 H (14-36) U/L ALT 54 H (9-52) U/L Alkaline Phosphatase 245 H (38-126) U/L Ammonia 64 H (<30) umol/L 09/01/17 09/01/17 Range/Units 06:08 11:39 WBC (3.8-10.6) k/uL RBC (3.80-5.40) m/uL Hgb (11.4-16.0) gm/dL Hct (34.0-46.0) % RDW (11.5-15.5) % Plt Count (150-450) k/uL Lymphocytes # (1.0-4.8) k/uL Sodium (137-145) mmol/L Chloride (98-107) mmol/L BUN (7-17) mg/dL Creatinine (0.52-1.04) mg/dL Glucose (74-99) mg/dL POC Glucose (mg/dL) 153 H 271 H (75-99) mg/dL AST (14-36) U/L ALT (9-52) U/L Alkaline Phosphatase (38-126) U/L Ammonia (<30) umol/L Assessment and Plan (1) Hepatic encephalopathy Current Visit: Yes Status: Acute Code(s): K72.90 - HEPATIC FAILURE, UNSPECIFIED WITHOUT COMA SNOMED Code(s): 79633315 (2) Renal failure Current Visit: Yes Status: Acute Code(s): N19 - UNSPECIFIED KIDNEY FAILURE SNOMED Code(s): 97416366 (3) Seizure disorder Current Visit: Yes Status: Acute Code(s): G40.909 - EPILEPSY, UNSP, NOT INTRACTABLE, WITHOUT STATUS EPILEPTICUS SNOMED Code(s): 444818774 (4) Bradycardia Current Visit: Yes Status: Acute Code(s): R00.1 - BRADYCARDIA, UNSPECIFIED SNOMED Code(s): 03737506 (5) Occipital neuritis Current Visit: Yes Status: Acute Code(s): M54.81 - OCCIPITAL NEURALGIA SNOMED Code(s): 54732687 (6) Pre-syncope Current Visit: Yes Status: Acute Code(s): R55 - SYNCOPE AND COLLAPSE SNOMED Code(s): 675631802 Plan: This patient is a 66-year-old female who is evaluating evaluated for history of hepatic encephalopathy and liver cirrhosis. Patient as noted on admission is on the transplant list at [facility] for liver trans-mentation. She is being followed there by her specialist Dr. Choi. Patient has been doing better in terms of her hepatic encephalopathy and liver enzymes. She is being evaluated by multiple specialists during this admission. She has acute kidney injury with improvement of her serum creatinine. She has undergone occipital nerve block procedure for management of severe occipital neuritis and has responded very well. Neurologically there is improvement in her overall mental status as well since admission. Her blood pressure is fluctuating and she is being monitored closely by cardiology. A new antihypertensive medication has been added today. Patient otherwise seems to be doing fairly well in terms of her mental status. We will continue close neurological follow-up for the patient during this admission. Overall prognosis at this time remains guarded.`
[2017-09-01 16:44] LABS: Glucose,Whole Blood 179 mg/dL (75-99)
--- NOTE | 2017-09-01 17:08 | PN ---
PROGRESS NOTE DATE OF SERVICE: 09/01/2017 INTERVAL HISTORY: This 66-year-old woman was admitted with acute hepatic encephalopathy, also had hypertensive urgency. Patient being closely monitored. No chest pain. No palpitations. No fever. PAST MEDICAL HISTORY: Reviewed. REVIEW OF SYSTEMS: CARDIOVASCULAR: No angina. Respiratory: As mentioned earlier. GI: As mentioned earlier. no dysuria. Central nervous system: As mentioned earlier. CURRENT MEDICATIONS: Reviewed. 1. Myton 5 mg q.i.d. 2. Xanax 0.5 b.i.d. p.r.n. 3. Norvasc 5 mg p.o. b.i.d. 4. Catapres. 5. Iron sulfate 320 mg t.i.d. 6. Apresoline. 7. NovoLog. 8. Imdur. 9. Cephulac. 10.Melatonin. 11.Narcan. 12.Zoloft. 13.We will cut down the iron to daily. 14. EXAM: Alert and oriented times three. Pulse 91. Blood pressure 121/94, respirations 16, temp 97.8, pulse ox 94% on room air. HEENT is conjunctivae normal. Neck: No jugular venous distention. Cardiovascular: S1, S2 muffled. Respiratory: Breath sounds diminished in the bases. A few scattered rhonchi and crackles. Abdomen is soft , obese, nontender. Legs are no edema. No swelling. Central nervous system: No focal deficits. LABS: WBC 2.2, hemoglobin is 8.7, sodium 148, creatinine is 2.08. LFTs are noted. Ammonia is 64. ASSESSMENT: 1. Acute hepatic metabolic encephalopathy, change in mental status. 2. Syncope possibly cardiac arrhythmia, rule out cardiac arrhythmia and bradycardia. 3. Hypertensive urgency. 4. Acute renal failure possibly prerenal acute renal failure. 5. Hyperammonemia. 6. Chronic liver disease, cirrhosis of liver for liver transplantation. 7. Hyperkalemia. 8. Pancytopenia secondary to cirrhosis of liver. 9. Chronic obstructive pulmonary disease. 10.History chest pain/angina. 11.History of cerebrovascular accident, transient ischemic attack. 12.Diabetes type 2. 13.Hyperlipidemia. 14.History of gastroesophageal reflux disease. 15.Hypertension. 16.History of memory impairment. 17.History of seizure disorder. 18.Sleep apnea on CPAP. 19.Appendectomy. 20.Cholecystectomy. 21.History of continued ongoing nicotine dependence. RECOMMENDATIONS AND DISCUSSION: Recommend to continue current medications, management and symptomatic treatment. Recommend clonidine 0.1 t.i.d. closely follow with Cardiology p.r.n. Clonidine can be used. Repeat labs. Closely follow with Nephrology. Increase ambulation. Prognosis guarded because of multiple complex medical issues. Pneumonia is still elevated. Continue the lactulose. MMODL / IJN: [id number] / [facility]
[2017-09-01] MEDS: cloNIDine HCL 0.1 MG TAB PO SCH ×2 (17:25→19:56)
[2017-09-01] MEDS: cloNIDine HCL 0.1 MG TAB PO PRN (19:56)
[2017-09-01 20:57] LABS: Glucose,Whole Blood 149 mg/dL (75-99)
[2017-09-01] MEDS ORDERED: LABETALOL 5 MG/ML VIAL MDV IVP STA (22:08)
[2017-09-01] MEDS: MELATONIN 5 MG TABLET PO PRN (22:33)
[2017-09-01] MEDS ORDERED: LABETALOL 100 MG TAB PO STA (23:32)
[2017-09-02] MEDS: hydrALAZINE HCL 50 MG TAB PO SCH ×2 (05:32→10:47)
[2017-09-02] MEDS: cloNIDine HCL 0.1 MG TAB PO PRN (05:33)
[2017-09-02 05:57] LABS: Anisocytosis Slight; Basophils % (A) 1 %; Eosinophils % (A) 2 %; HCT 26.4 % (34.0-46.0); HGB 8.5 gm/dL (11.4-16.0); Lymphocytes # (A) 0.5 k/uL (1.0-4.8); Lymphocytes % (A) 21 %; MCH 28.4 pg (25.0-35.0); MCHC 32.2 g/dL (31.0-37.0); MCV 88.2 fL (80.0-100.0); Monocytes # (A) 0.2 k/uL (0-1.0); Monocytes % (A) 7 %; Neutrophils # (A) 1.5 k/uL (1.3-7.7); Neutrophils % (A) 68 %; WBC 2.2 k/uL (3.8-10.6)
[2017-09-02 05:58] LABS: Platelet Count 95 k/uL (150-450)
[2017-09-02 05:58] LABS: Glucose,Whole Blood 169 mg/dL (75-99)
[2017-09-02 06:12] LABS: Albumin 3.9 g/dL (3.5-5.0); Calcium 9.3 mg/dL (8.4-10.2); Total Bilirubin 0.8 mg/dL (0.2-1.3); Total Protein 7.3 g/dL (6.3-8.2)
[2017-09-02] MEDS: PANTOPRAZOLE 40 MG TABLET PO SCH (06:43)
[2017-09-02] MEDS: INSULIN ASPART 100 UNIT/ML 1 ML 10 ML VIAL SQ SCH ×2 (06:44→12:08)
[2017-09-02] MEDS: HYDROcodone/APAP 5-325MG 1 EACH TAB PO PRN (08:00)
[2017-09-02] MEDS: ISOSORBIDE MONONITRATE ER 30 MG TAB.ER.24H PO SCH (08:02)
[2017-09-02] MEDS: amLODIPine 5 MG TAB PO SCH (08:03)
[2017-09-02] MEDS: MONTELUKAST 10 MG TAB PO SCH (08:03)
[2017-09-02] MEDS: LACTULOSE 20 GM/30 ML CUP PO SCH (08:03)
[2017-09-02] MEDS: SERTRALINE 100 MG TAB PO SCH (08:04)
[2017-09-02] MEDS ORDERED: LABETALOL 100 MG TAB PO SCH ×2 (09:00→09:15)
[2017-09-02 11:48] VITALS: BP 145/62; PULSE 63; RESP 20; TEMP 97
[2017-09-02 11:51] LABS: Glucose,Whole Blood 231 mg/dL (75-99)
[2017-09-02] MEDS ORDERED: FERROUS SULFATE 325 MG TAB PO SCH (12:00)
--- NOTE | 2017-09-02 12:20 | P.PN ---
Subjective Progress Note Date: 09/02/17 This patient is a 66-year-old female who was admitted to hospital yesterday with generalized weakness and dizziness. She has a history of alcohol liver cirrhosis and hepatic encephalopathy. Patient is currently on a transplant list at [facility] for liver transplantation. Patient was brought in due to generalized weakness and mild confusion. She had evidence of mild hepatic encephalopathy yesterday on examination. She also has multiple other complex medical issues including acute kidney injury and progressive coronary artery disease. She was found to have evidence of severe bradycardia yesterday on admission. She was also hypertensive. Cardiology has been consulted. Patient's creatinine level today is 3.20. She has been evaluated by nephrology. Her serum ammonia level today has come down to 25.0. Patient was able to undergo bilateral occipital nerve block procedure for treatment of severe occipital neuritis. She has noted significant improvement with her headache pain. As noted her liver enzymes remain elevated. Gastroenterology has been consulted and she is being treated with lactulose for treatment of the elevated serum ammonia level. Levels have come down today from yesterday. Patient overall is feeling better this morning. As noted she underwent a occipital nerve block procedure yesterday which is very helpful in relieving much of her headache pain symptoms. She has had no orthostatic blood pressure changes. Cardiology is monitoring her condition closely for episodes of syncope. She is to continue on her current medications. She is being evaluated by nephrology for acute kidney injury. She does have some improvement in her creatinine today. As noted she has liver cirrhosis and is on the transplant list for liver transplant at [facility]. She was noted to have slight elevation of blood pressure which is secondary to her back pain symptoms. Cardiology is added clonidine to her regimen. The patient has history of hepatic encephalopathy which has shown improvement since her admission to hospital. Patient does seem to be more alert and awake and able to follow all questioning today on examination. Her blood pressure has been still elevated throughout the night. Cardiology is monitoring her antihypertensive medications. We will continue close neurological follow-up with the patient during this admission. Objective - Vital Signs Vital signs: Vital Signs Temp 98.2 F 09/02/17 07:57 Pulse 83 09/02/17 07:57 Resp 16 09/02/17 08:00 BP 164/73 09/02/17 07:57 Pulse Ox 97 09/02/17 07:57 Intake & Output 09/01/17 09/02/17 09/02/17 18:59 06:59 18:59 Intake Total 960 120 Output Total 2 400 Balance 960 -2 -280 Weight 91.8 kg Intake: Oral 960 120 Output: Urine 400 Urine/Stool Mix 2 Other: Voiding Method Bedside Commode Bedside Commode # Voids 4 2 # Bowel Movements 3 1 - Exam Physical examination: PHYSICAL EXAMINATION: Patient is resting comfortably in bed. VITAL SIGNS: Blood pressure is [164/73]. Heart rate is [83]. Respiration is [16] . Temperature is [98.2]. HEENT: Head is atraumatic, neck is supple, there were no carotid bruits. CHEST: Lungs are clear to auscultation and percussion. CARDIAC: S1, S2 normal rate and rhythm. There is no murmur. ABDOMEN: Soft and nontender. Bowel sounds are present. EXTREMITIES: There is no pedal edema. Peripheral pulses are present. Neurological examination: Patient neurological examination is unchanged from yesterday. Her affect and mood are much better today. Patient seems to be more awake and alert today. She is able to follow all simple commands. Her memory and intellectual functions are appropriate for age. Cranial nerves II through XII are grossly intact. Deep tendon reflexes are hypoactive 1+. No Babinski response elicited. - Labs CBC & Chem 7: 09/02/17 05:38 09/02/17 05:38 Labs: Abnormal Lab Results - Last 24 Hours (Table) 09/01/17 09/01/17 09/01/17 Range/Units 11:39 16:27 20:56 WBC (3.8-10.6) k/uL RBC (3.80-5.40) m/uL Hgb (11.4-16.0) gm/dL Hct (34.0-46.0) % RDW (11.5-15.5) % Plt Count (150-450) k/uL Lymphocytes # (1.0-4.8) k/uL Sodium (137-145) mmol/L Chloride (98-107) mmol/L Carbon Dioxide (22-30) mmol/L BUN (7-17) mg/dL Creatinine (0.52-1.04) mg/dL Glucose (74-99) mg/dL POC Glucose (mg/dL) 271 H 179 H 149 H (75-99) mg/dL AST (14-36) U/L ALT (9-52) U/L Alkaline Phosphatase (38-126) U/L 09/02/17 09/02/17 09/02/17 Range/Units 05:38 05:38 05:57 WBC 2.2 L (3.8-10.6) k/uL RBC 3.00 L (3.80-5.40) m/uL Hgb 8.5 L (11.4-16.0) gm/dL Hct 26.4 L (34.0-46.0) % RDW 18.0 H (11.5-15.5) % Plt Count 95 L (150-450) k/uL Lymphocytes # 0.5 L (1.0-4.8) k/uL Sodium 147 H (137-145) mmol/L Chloride 112 H (98-107) mmol/L Carbon Dioxide 20 L (22-30) mmol/L BUN 32 H (7-17) mg/dL Creatinine 1.70 H (0.52-1.04) mg/dL Glucose 161 H (74-99) mg/dL POC Glucose (mg/dL) 169 H (75-99) mg/dL AST 131 H (14-36) U/L ALT 78 H (9-52) U/L Alkaline Phosphatase 250 H (38-126) U/L Assessment and Plan (1) Hepatic encephalopathy Current Visit: Yes Status: Acute Code(s): K72.90 - HEPATIC FAILURE, UNSPECIFIED WITHOUT COMA SNOMED Code(s): 67548095 (2) Renal failure Current Visit: Yes Status: Acute Code(s): N19 - UNSPECIFIED KIDNEY FAILURE SNOMED Code(s): 16920864 (3) Seizure disorder Current Visit: Yes Status: Acute Code(s): G40.909 - EPILEPSY, UNSP, NOT INTRACTABLE, WITHOUT STATUS EPILEPTICUS SNOMED Code(s): 781724480 (4) Bradycardia Current Visit: Yes Status: Acute Code(s): R00.1 - BRADYCARDIA, UNSPECIFIED SNOMED Code(s): 34243894 (5) Occipital neuritis Current Visit: Yes Status: Acute Code(s): M54.81 - OCCIPITAL NEURALGIA SNOMED Code(s): 75212904 (6) Pre-syncope Current Visit: Yes Status: Acute Code(s): R55 - SYNCOPE AND COLLAPSE SNOMED Code(s): 210896154 Plan: This patient is a 66-year-old female who is evaluating evaluated for history of hepatic encephalopathy and liver cirrhosis. Patient as noted on admission is on the transplant list at [facility] for liver trans-mentation. She is being followed there by her specialist Dr. Choi. Patient has been doing better in terms of her hepatic encephalopathy and liver enzymes. She has been showing improvement in her overall mental status since admission to hospital. She is being evaluated by multiple specialists during this admission. She has acute kidney injury with improvement of her serum creatinine. She has undergone occipital nerve block procedure for management of severe occipital neuritis and has responded very well. Neurologically there is improvement in her overall mental status as well since admission. Her blood pressure is fluctuating and she is being monitored closely by cardiology. A new antihypertensive medication has been added today. Cardiology is adjusting her antihypertensive medications for treatment of the hypertensive urgency. Patient otherwise seems to be doing fairly well in terms of her mental status. We will continue close neurological follow-up for the patient during this admission. Overall prognosis at this time remains guarded.`
--- NOTE | 2017-09-02 13:00 | P.PN ---
Subjective Progress Note Date: 09/02/17 Seen and examined for the follow-up of acute kidney injury. Getting ready to be discharged home. Objective - Vital Signs Vital signs: Vital Signs Temp 97 F L 09/02/17 11:47 Pulse 63 09/02/17 11:47 Resp 20 09/02/17 11:47 BP 145/62 09/02/17 11:47 Pulse Ox 97 09/02/17 11:47 Intake & Output 09/01/17 09/02/17 09/02/17 18:59 06:59 18:59 Intake Total 960 120 Output Total 2 400 Balance 960 -2 -280 Weight 91.8 kg Intake: Oral 960 120 Output: Urine 400 Urine/Stool Mix 2 Other: Voiding Method Bedside Commode Bedside Commode # Voids 4 2 # Bowel Movements 3 1 - Exam Sitting in the edge of the bed no acute distress S1-S2 heard Abdomen distended No edema - Labs CBC & Chem 7: 09/02/17 05:38 09/02/17 05:38 Labs: Abnormal Lab Results - Last 24 Hours (Table) 09/01/17 09/01/17 09/02/17 Range/Units 16:27 20:56 05:38 WBC 2.2 L (3.8-10.6) k/uL RBC 3.00 L (3.80-5.40) m/uL Hgb 8.5 L (11.4-16.0) gm/dL Hct 26.4 L (34.0-46.0) % RDW 18.0 H (11.5-15.5) % Plt Count 95 L (150-450) k/uL Lymphocytes # 0.5 L (1.0-4.8) k/uL Sodium (137-145) mmol/L Chloride (98-107) mmol/L Carbon Dioxide (22-30) mmol/L BUN (7-17) mg/dL Creatinine (0.52-1.04) mg/dL Glucose (74-99) mg/dL POC Glucose (mg/dL) 179 H 149 H (75-99) mg/dL AST (14-36) U/L ALT (9-52) U/L Alkaline Phosphatase (38-126) U/L 09/02/17 09/02/17 09/02/17 Range/Units 05:38 05:57 11:43 WBC (3.8-10.6) k/uL RBC (3.80-5.40) m/uL Hgb (11.4-16.0) gm/dL Hct (34.0-46.0) % RDW (11.5-15.5) % Plt Count (150-450) k/uL Lymphocytes # (1.0-4.8) k/uL Sodium 147 H (137-145) mmol/L Chloride 112 H (98-107) mmol/L Carbon Dioxide 20 L (22-30) mmol/L BUN 32 H (7-17) mg/dL Creatinine 1.70 H (0.52-1.04) mg/dL Glucose 161 H (74-99) mg/dL POC Glucose (mg/dL) 169 H 231 H (75-99) mg/dL AST 131 H (14-36) U/L ALT 78 H (9-52) U/L Alkaline Phosphatase 250 H (38-126) U/L Assessment and Plan Assessment: Impression: #1 acute kidney injury secondary to prerenal process creatinine improving #2 liver cirrhosis on transplant list at [facility] #3 hyperkalemia resolved #4 chronic kidney disease stage IV baseline creatinine 1.2, from October 2015 #5 hypertension currently low normal #6 hypernatremia Recommendations: #1 renal function improving and stable #2 avoid nephrotoxic agents and hypotensive episodes #3 diuretics can be started as outpatient. Stable from nephrology point of view for discharge to be followed up in the office in 1-2 weeks
--- NOTE | 2017-09-02 16:30 | PN ---
PROGRESS NOTE Mrs. Silva has a liver dysfunction on a liver transplant list. She had issues with hypertension yesterday. However, her blood pressure is well controlled today. I added some labetalol yesterday and blood pressure seems to be much better. I am recommending that she can be discharged today. Her vital signs are stable. S1, S2 heard normally. Short systolic murmur noted. Lungs are clear. Abdomen and lower extremity exam otherwise is unchanged. She will follow up with Dr. Alanis as an outpatient. MMODL / IJN: [id number] /
--- NOTE | 2017-09-03 06:19 | DS ---
DISCHARGE SUMMARY DATE OF SERVICE: 09/02/2017 FINAL DIAGNOSES: 1. Acute hepatic metabolic encephalopathy with change in mental status, improved. 2. Syncope possibly cardiac arrhythmia, rule out bradycardia. 3. Hypertensive urgency. 4. Acute renal failure possibly prerenal acute renal failure. 5. Hyperammonemia. 6. Chronic liver disease, cirrhosis of the liver, for liver transplantation. 7. Hyperkalemia improved. 8. Pancytopenia secondary to cirrhosis of the liver. 9. Chronic obstructive pulmonary disease. 10.History of chest pain, angina. 11.History of cerebrovascular accident, transient ischemic attack. 12.Diabetes mellitus type 2. 13.Hyperlipidemia. 14.History of gastroesophageal reflux disease. 15.Hypertension. 16.History of memory impairment. 17.History of seizure disorder. 18.History of sleep apnea on CPAP. 19.History of appendectomy. 20.History of cholecystitis. 21.History of continued ongoing nicotine dependence. DISCHARGE DISPOSITION: The patient will be discharged in stable condition with guarded prognosis. Multiple consultants cleared the patient for discharge. Total time taken 35 minutes. HISTORY OF PRESENT ILLNESS: This 66-year-old woman with the past medical history of multiple medical problems admitted with change in mental status and hepatic encephalopathy. Ammonia was more than 100. With the lactulose, patient improved. Patient also had other medical problems including renal failure. Creatinine improved to 1.7. Seen by multiple consultants as mentioned earlier. Patient improved significantly. On exam, vitals are stable. CARDIOVASCULAR: S1 and S2 muffled. ABDOMEN: Soft. NERVOUS SYSTEM: No focal deficits. DISCHARGE ADVICE AND MEDICATIONS: 1. Diet is cardiac. 2. Activity limited until followup. 3. Follow up with the primary physician in 2 to 3 days. 4. Follow up with Dr. Ruddy Aburto and butadiene convertor operator as advised. Medications are as follows: 1. Norvasc 5 mg p.o. b.i.d. 2. Catapres 0.2 p.o. t.i.d. 3. Iron sulfate 325 mg p.o. daily. 4. Lasix 40 mg p.o. daily. 5. Apresoline 50 mg p.o. q.8. 6. [place] 5 mg b.i.d. p.r.n. 7. Imdur ER 30 mg p.o. daily. 8. Labetalol 100 mg p.o. b.i.d. 9. Lactulose p.o. t.i.d. 10.Singulair 10 mg p.o. p.r.n. 11.Protonix 40 mg p.o. b.i.d. 12.Requip 0.25 mg at bedtime. 13.Zoloft 100 mg p.o. daily. 14.Sodium bicarb 650 p.o. t.i.d. MMODL / IJN: [id number] / [facility]
== END 2017-09-02 13:31 | disposition home health service (06) | DRG 682 ==
LOC: EC 17:02 → 6SEL 19:04
PROVIDERS: ADMIT Hospitalist; ATTEND Hospitalist
PROC: 3E0T33Z Introduction of Anti-inflammatory into Peripheral Nerves and Plexi, Percutaneous Approach (ICD-10-PCS; 2017-08-30)
PROC: 3E0T3BZ Introduction of Anesthetic Agent into Peripheral Nerves and Plexi, Percutaneous Approach (ICD-10-PCS; principal; 2017-08-30 13:45)
DX: N17.9 Acute kidney failure, unspecified (principal); K72.00 Acute and subacute hepatic failure without coma; G93.41 Metabolic encephalopathy; D61.818 Other pancytopenia; E87.0 Hyperosmolality and hypernatremia; E87.2 Acidosis; K76.6 Portal hypertension; N18.4 Chronic kidney disease, stage 4 (severe); E11.22 Type 2 diabetes mellitus with diabetic chronic kidney disease; E78.5 Hyperlipidemia, unspecified; E87.5 Hyperkalemia; F17.200 Nicotine dependence, unspecified, uncomplicated; G40.909 Epilepsy, unspecified, not intractable, without status epilepticus; G47.30 Sleep apnea, unspecified; I12.9 Hypertensive chronic kidney disease with stage 1 through stage 4 chronic kidney disease, or unspecified chronic kidney disease; I16.0 Hypertensive urgency; I25.10 Atherosclerotic heart disease of native coronary artery without angina pectoris; K21.9 Gastro-esophageal reflux disease without esophagitis; K70.30 Alcoholic cirrhosis of liver without ascites; M54.81 Occipital neuralgia; H26.9 Unspecified cataract; R00.1 Bradycardia, unspecified; R01.1 Cardiac murmur, unspecified; J44.9 Chronic obstructive pulmonary disease, unspecified; I95.9 Hypotension, unspecified; H91.90 Unspecified hearing loss, unspecified ear; H54.7 Unspecified visual loss; Z76.82 Awaiting organ transplant status; Z88.6 Allergy status to analgesic agent; Z88.5 Allergy status to narcotic agent; Z88.0 Allergy status to penicillin; Z91.048 Other nonmedicinal substance allergy status; Z90.49 Acquired absence of other specified parts of digestive tract; Z86.73 Personal history of transient ischemic attack (TIA), and cerebral infarction without residual deficits; Z87.440 Personal history of urinary (tract) infections; Z79.4 Long term (current) use of insulin; Z79.82 Long term (current) use of aspirin; Z79.899 Other long term (current) drug therapy; Z82.49 Family history of ischemic heart disease and other diseases of the circulatory system; Z83.3 Family history of diabetes mellitus
CPT/HCPCS: 36415; 64405; 70450; 71046; 80053; 80306; 81003; 82140; 82550; 82553; 82728; 83036; 83540; 83550; 83605; 83735; 84439; 84443; 84481; 84484; 85025; 85610; 85730; 93005; 93306; 94760; 95819; 96361; 96374; 96376; 99291

== ENCOUNTER 2017-09-09 15:01 | Inpatient (IN) | payer MEDICARE, OTHER ==
[2017-09-09] MEDS ORDERED: NITROGLYCERIN OINT 1 INCH/GM PACKET TOPICAL STA (15:09)
[2017-09-09] MEDS ORDERED: ASPIRIN 81 MG PO STA (15:09)
--- NOTE | 2017-09-09 15:13 | ED ---
General Adult HPI - General Stated complaint: chest pain Time Seen by Provider: 09/09/17 15:01 Source: RN notes reviewed - History of Present Illness Initial comments: This is a 66-year-old female presents emergency Department complaining of chest pain. Patient states she started having when she was under stress at the [facility] office. Patient states she short of breath and the pain radiates to her back. Patient states she's not diaphoretic and does not have any nausea. Patient denies abdominal pain patient denies nausea vomiting. Patient denies any diarrhea. Patient denies any recent fever chills or cough. Patient denies any headache patient denies numbness or weakness. Patient denies lightheadedness or dizziness. - Related Data Home Medications Medication Instructions Recorded Confirmed Sertraline [Zoloft] 100 mg PO DAILY 12/15/14 08/29/17 rOPINIRole HCL [Requip] 0.25 mg PO HS 12/15/14 08/29/17 HYDROcodone/APAP 5-325MG [[place] 1 tab PO BID PRN 08/29/17 08/29/17 5-325] Isosorbide Mononitrate ER [Imdur] 30 mg PO DAILY 08/29/17 08/29/17 Lactulose 10 gm PO TID 08/29/17 08/29/17 Montelukast [Singulair] 10 mg PO DAILY 08/29/17 08/29/17 Pantoprazole Sodium [Protonix] 40 mg PO BID 08/29/17 08/29/17 Previous Rx's Medication Instructions Recorded Ferrous Sulfate [Feosol] 325 mg PO DAILY #1 09/02/17 Furosemide [Lasix] 40 mg PO DAILY #1 09/02/17 Labetalol [Trandate] 100 mg PO BID #60 tab 09/02/17 Sodium Bicarbonate Tab 650 mg PO TID #0 09/02/17 amLODIPine [Norvasc] 5 mg PO BID #60 tab 09/02/17 cloNIDine HCL [Catapres] 0.2 mg PO TID #90 tab 09/02/17 hydrALAZINE HCL [Apresoline] 50 mg PO Q8H #90 tab 09/02/17 Allergies Allergy/AdvReac Type Severity Reaction Status Date / Time adhesive Allergy BLISTERS Verified 09/09/17 15:10 SKIN "PAPER TAPE OK" codeine Allergy Unknown Verified 09/09/17 15:10 morphine Allergy "STOPS Verified 09/09/17 15:10 BREATHING" Penicillins Allergy Unknown Verified 09/09/17 15:10 tramadol HCl [From Ultram] Allergy "PASSES Verified 09/09/17 15:10 OUT" aspirin AdvReac Nausea & Verified 09/09/17 15:10 Vomiting ibuprofen [From Motrin] AdvReac AFFECTS Verified 09/09/17 15:10 KIDNEYS TAPE Allergy BLISTERS Uncoded 09/09/17 15:10 SKIN "PAPER TAPE IS OK" Review of Systems ROS Statement: Those systems with pertinent positive or pertinent negative responses have been documented in the HPI. ROS Other: All systems not noted in ROS Statement are negative. Past Medical History Past Medical History: Chest Pain / Angina, COPD, CVA/TIA, Diabetes Mellitus, GERD/Reflux, Hyperlipidemia, Hypertension, Liver Disease, Memory Impairment, Seizure Disorder, Sleep Apnea/CPAP/BIPAP Additional Past Medical History / Comment(s): rt side dominant. WEAKNESS TO RT SIDE-USES WALKER,USES CPAP,CONSTIPATION, KIDNEY INFECTION,BRUISES EASILY, GI BLEED X 2-RECEIVED UNITS PRBC'S, berna cataracts. History of Any Multi-Drug Resistant Organisms: None Reported Past Surgical History: Appendectomy, Cholecystectomy, Heart Catheterization, Orthopedic Surgery, Tubal Ligation Additional Past Surgical History / Comment(s): SLEEP APNEA SURGERY,RT SHOULDER, LT ARM BX, CARPEL TUNNEL BERNA,GANGLION CYST REMOVED,BONE SPURS BERNA ANKLES, "at [facility]- they cauterizred bleed in the stomach", paracentesis Past Anesthesia/Blood Transfusion Reactions: No Reported Reaction Additional Past Anesthesia/Blood Transfusion Reaction / Comment(s): clausterphobia Smoking Status: Former smoker - Past Family History Mother Family Medical History: Diabetes Mellitus, Hypertension Additional Family Medical History / Comment(s): HEART PROBLEMS Father Additional Family Medical History / Comment(s): HEART PROBLEMS General Exam - General Exam Comments Initial Comments: GENERAL: Patient is well-developed and well-nourished. Patient is nontoxic and well- hydrated and is in mild distress. ENT: Neck is soft and supple. No significant lymphadenopathy is noted. Oropharynx is clear. Moist mucous membranes. Neck has full range of motion without eliciting any pain. EYES: The sclera were anicteric and conjunctiva were pink and moist. Extraocular movements were intact and pupils were equal round and reactive to light. Eyelids were unremarkable. PULMONARY: Unlabored respirations. Good breath sounds bilaterally. No audible rales rhonchi or wheezing was noted. CARDIOVASCULAR: There is a regular rate and rhythm without any murmurs gallops or rubs. ABDOMEN: Soft and nontender with normal bowel sounds. No palpable organomegaly was noted. There is no palpable pulsatile mass. SKIN: Skin is clear with no lesions or rashes and otherwise unremarkable. NEUROLOGIC: Patient is alert and oriented x3. Cranial nerves II through XII are grossly intact. Motor and sensory are also intact. Normal speech, volume and content. Symmetrical smile. MUSCULOSKELETAL: Normal extremities with adequate strength and full range of motion. No lower extremity swelling or edema. No calf tenderness. LYMPHATICS: No significant lymphadenopathy is noted PSYCHIATRIC: Normal psychiatric evaluation. Normal interpersonal interactions appears functionally intact in deals appropriately with others. No signs of depression. No signs of anxiety. Course Vital Signs 09/09/17 09/09/17 09/09/17 15:10 15:24 16:21 Temperature 97.9 F Pulse Rate 53 L 50 L 45 L Pulse Rate [ 50 L Chili Powder Mixer ] Respiratory 18 18 16 Rate Blood Pressure 87/55 85/50 77/40 O2 Sat by Pulse 99 99 Oximetry 09/09/17 16:38 Temperature Pulse Rate 44 L Pulse Rate [ Chili Powder Mixer ] Respiratory 16 Rate Blood Pressure 77/40 O2 Sat by Pulse 98 Oximetry Medical Decision Making - Medical Decision Making EKG shows sinus bradycardia 53 bpm OH interval is 114 QRS is 92 QT interval is 490 QTC 459. Patient's EKG shows no ST segment elevation or depression no T- wave abnormalities are noted. Chest x-ray shows no acute abnormality. I started the patient on dopamine because she had a low blood pressure though asymptomatic and had a low heart rate and again asymptomatic as long she was in bed. I spoke with the [facility] hospitalist and admitted the patient to them I consult to Dr. Galeana. Second EKG was done the patient because her heart rate got down to 40 beats a minute EKG showed sinus bradycardia at 45 bpm OH interval is 170 QRS is under QT interval 552 QTC is 477. Patient's EKG shows no ST segment elevation or depression or T wave abnormalities are noted. - Lab Data Result diagrams: 09/09/17 15:10 09/09/17 15:10 Lab Results 09/09/17 09/09/17 09/09/17 Range/Units 15:10 15:10 15:10 WBC 4.0 (3.8-10.6) k/uL RBC 3.00 L (3.80-5.40) m/uL Hgb 8.5 L (11.4-16.0) gm/dL Hct 25.9 L (34.0-46.0) % MCV 86.4 (80.0-100.0) fL MCH 28.2 (25.0-35.0) pg MCHC 32.7 (31.0-37.0) g/dL RDW 18.4 H (11.5-15.5) % Plt Count 116 L (150-450) k/uL Neutrophils % 65 % Lymphocytes % 22 % Monocytes % 7 % Eosinophils % 3 % Basophils % 1 % Neutrophils # 2.6 (1.3-7.7) k/uL Lymphocytes # 0.9 L (1.0-4.8) k/uL Monocytes # 0.3 (0-1.0) k/uL Eosinophils # 0.1 (0-0.7) k/uL Basophils # 0.0 (0-0.2) k/uL Anisocytosis Slight PT (9.0-12.0) sec INR (<1.2) APTT (22.0-30.0) sec Sodium (137-145) mmol/L Potassium (3.5-5.1) mmol/L Chloride (98-107) mmol/L Carbon Dioxide (22-30) mmol/L Anion Gap mmol/L BUN (7-17) mg/dL Creatinine (0.52-1.04) mg/dL Est GFR (CKD-EPI)AfAm (>60 ml/min/1.73 sqM) Est GFR (CKD-EPI)NonAf (>60 ml/min/1.73 sqM) Glucose (74-99) mg/dL POC Glucose (mg/dL) 141 H (75-99) mg/dL POC Glu [employer] ID [place], Shanae Calcium (8.4-10.2) mg/dL Magnesium (1.6-2.3) mg/dL Total Bilirubin (0.2-1.3) mg/dL AST (14-36) U/L ALT (9-52) U/L Alkaline Phosphatase (38-126) U/L Total Creatine Kinase 38 (30-135) U/L CK-MB (CK-2) 0.3 (0.0-2.4) ng/mL CK-MB (CK-2) Rel Index 0.8 Troponin I <0.012 (0.000-0.034) ng/mL Total Protein (6.3-8.2) g/dL Albumin (3.5-5.0) g/dL 09/09/17 09/09/17 Range/Units 15:10 15:10 WBC (3.8-10.6) k/uL RBC (3.80-5.40) m/uL Hgb (11.4-16.0) gm/dL Hct (34.0-46.0) % MCV (80.0-100.0) fL MCH (25.0-35.0) pg MCHC (31.0-37.0) g/dL RDW (11.5-15.5) % Plt Count (150-450) k/uL Neutrophils % % Lymphocytes % % Monocytes % % Eosinophils % % Basophils % % Neutrophils # (1.3-7.7) k/uL Lymphocytes # (1.0-4.8) k/uL Monocytes # (0-1.0) k/uL Eosinophils # (0-0.7) k/uL Basophils # (0-0.2) k/uL Anisocytosis PT 11.4 (9.0-12.0) sec INR 1.2 H (<1.2) APTT 26.9 (22.0-30.0) sec Sodium 145 (137-145) mmol/L Potassium 4.5 (3.5-5.1) mmol/L Chloride 105 (98-107) mmol/L Carbon Dioxide 23 (22-30) mmol/L Anion Gap 17 mmol/L BUN 56 H (7-17) mg/dL Creatinine 3.10 H (0.52-1.04) mg/dL Est GFR (CKD-EPI)AfAm 18 (>60 ml/min/1.73 sqM) Est GFR (CKD-EPI)NonAf 15 (>60 ml/min/1.73 sqM) Glucose 131 H (74-99) mg/dL POC Glucose (mg/dL) (75-99) mg/dL POC Glu [employer] ID Calcium 8.9 (8.4-10.2) mg/dL Magnesium 1.9 (1.6-2.3) mg/dL Total Bilirubin 0.6 (0.2-1.3) mg/dL AST 65 H (14-36) U/L ALT 53 H (9-52) U/L Alkaline Phosphatase 225 H (38-126) U/L Total Creatine Kinase (30-135) U/L CK-MB (CK-2) (0.0-2.4) ng/mL CK-MB (CK-2) Rel Index Troponin I (0.000-0.034) ng/mL Total Protein 7.0 (6.3-8.2) g/dL Albumin 3.9 (3.5-5.0) g/dL Critical Care Time Critical Care Time: Yes Total Critical Care Time: 35 Disposition Clinical Impression: Bradycardia, Hypotension, Chest pain Disposition: ADMITTED IP TO THIS HOSP Referrals: Nonstaff,Physician [Primary Care Provider] - 1-2 days Time of Disposition: 16:40
[2017-09-09 15:14] LABS: Glucose,Whole Blood 141 mg/dL (75-99)
[2017-09-09] MEDS ORDERED: SODIUM CHLORIDE 0.9% 1,000 ML IV ONE ×2 (15:20→16:29)
[2017-09-09 15:40] LABS: Anisocytosis Slight; Basophils % (A) 1 %; Eosinophils # (A) 0.1 k/uL (0-0.7); Eosinophils % (A) 3 %; HCT 25.9 % (34.0-46.0); HGB 8.5 gm/dL (11.4-16.0); Lymphocytes # (A) 0.9 k/uL (1.0-4.8); Lymphocytes % (A) 22 %; MCH 28.2 pg (25.0-35.0); MCHC 32.7 g/dL (31.0-37.0); MCV 86.4 fL (80.0-100.0); Mean Platelet Volume 9.5; Monocytes # (A) 0.3 k/uL (0-1.0); Monocytes % (A) 7 %; Neutrophils # (A) 2.6 k/uL (1.3-7.7); Neutrophils % (A) 65 %; Platelet Count 116 k/uL (150-450); RDW 18.4 % (11.5-15.5)
--- NOTE | 2017-09-09 15:45 | XR ---
EXAMINATION TYPE: XR chest 2V DATE OF EXAM: 09/09/2017 COMPARISON: 08/29/2017 HISTORY: Chest pain and shortness of breath TECHNIQUE: Frontal and lateral views of the chest are obtained. FINDINGS: There is no focal air space opacity, pleural effusion, or pneumothorax seen. The cardiac silhouette size is enlarged. The osseous structures are intact. Right rotator cuff surgical anchor is been placed in the interim. Minimal multilevel degenerative change of the thoracic spine is noted. IMPRESSION: No acute cardiopulmonary process.
[2017-09-09 15:50] LABS: Albumin 3.9 g/dL (3.5-5.0); Calcium 8.9 mg/dL (8.4-10.2); INR 1.2 (<1.2); Magnesium 1.9 mg/dL (1.6-2.3); Partial Thromboplastin Time 26.9 sec (22.0-30.0); Potassium 4.5 mmol/L (3.5-5.1); Prothrombin Time 11.4 sec (9.0-12.0); Total Bilirubin 0.6 mg/dL (0.2-1.3)
[2017-09-09 15:55] LABS: Creatine Kinase 38 U/L (30-135)
[2017-09-09 16:08] LABS: Creatine Kinase MB 0.3 ng/mL (0.0-2.4); Troponin I <0.012 ng/mL (0.000-0.034)
[2017-09-09] MEDS ORDERED: DOPamine DRIP 800 MG in DEXTROSE/WATER 1 500ML.BAG IV ONE (16:43)
[2017-09-09] MEDS ORDERED: NALOXONE 0.4 MG/ML 1 ML VIAL IV PRN (16:44)
[2017-09-09] MEDS: DOPamine DRIP 800 MG in DEXTROSE/WATER 1 500ML.BAG IV ONE ×2 (16:55→17:00)
[2017-09-09 17:37] LABS: Glucose,Whole Blood 101 mg/dL (75-99)
[2017-09-09] MEDS ORDERED: DOPamine DRIP 800 MG in DEXTROSE/WATER 1 500ML.BAG IV SCH (18:15)
[2017-09-09 18:51] LABS: Appearance,Urine Clear (Clear); Bacteria,Urine Rare /hpf; Bilirubin,Urine Negative (Negative); Blood,Urine Negative (Negative); Color,Urine Yellow; Glucose,Urine (UA) Negative (Negative); Hyaline Casts,Urine 32 /lpf (0-2); Ketones,Urine Negative (Negative); Leukocyte Esterase,Urine Trace (Negative); Mucus,Urine Rare /hpf; Nitrite,Urine Negative (Negative); PH, Urine 5.5 (5.0-8.0); Protein,Urine Negative (Negative); RBC,Urine <1 /hpf (0-5); Specific Gravity,Urine 1.011 (1.001-1.035); Squamous Epithelial Cell,Urine 1 /hpf (0-4); Urobilinogen,Urine <2.0 mg/dL (<2.0); WBC,Urine 1 /hpf (0-5)
[2017-09-09] MEDS: HYDROcodone/APAP 5-325MG 1 EACH TAB PO PRN (21:09)
[2017-09-09] MEDS: SODIUM CHLORIDE 0.9% 1,000 ML IV SCH (21:12)
[2017-09-09 21:17] LABS: Glucose,Whole Blood 149 mg/dL (75-99)
[2017-09-09] MEDS: INSULIN ASPART 100 UNIT/ML 1 ML 10 ML VIAL SQ SCH (21:21)
[2017-09-10 05:28] LABS: Calcium 8.9 mg/dL (8.4-10.2); Magnesium 1.8 mg/dL (1.6-2.3); Phosphorus 4.7 mg/dL (2.5-4.5); Potassium 4.3 mmol/L (3.5-5.1)
[2017-09-10 05:38] LABS: Anisocytosis Slight; Basophils % (A) 1 %; Eosinophils # (A) 0.2 k/uL (0-0.7); Eosinophils % (A) 4 %; HCT 26.6 % (34.0-46.0); HGB 8.5 gm/dL (11.4-16.0); Lymphocytes # (A) 0.9 k/uL (1.0-4.8); Lymphocytes % (A) 23 %; MCH 28.3 pg (25.0-35.0); MCHC 31.9 g/dL (31.0-37.0); MCV 88.5 fL (80.0-100.0); Mean Platelet Volume 8.8; Monocytes # (A) 0.3 k/uL (0-1.0); Monocytes % (A) 7 %; Neutrophils # (A) 2.5 k/uL (1.3-7.7); Neutrophils % (A) 64 %; Platelet Count 110 k/uL (150-450); RBC 3.01 m/uL (3.80-5.40)
[2017-09-10] MEDS: HYDROcodone/APAP 5-325MG 1 EACH TAB PO PRN ×3 (07:58→21:46)
[2017-09-10 08:06] LABS: Glucose,Whole Blood 168 mg/dL (75-99)
[2017-09-10] MEDS: INSULIN ASPART 100 UNIT/ML 1 ML 10 ML VIAL SQ SCH ×4 (08:26→21:44)
[2017-09-10] MEDS: FAMOTIDINE 20 MG TAB PO SCH (08:27)
[2017-09-10] MEDS: MONTELUKAST 10 MG TAB PO SCH (08:27)
[2017-09-10] MEDS: IPRATROPIUM-ALBUTEROL 3 ML NEB INHALATION SCH ×3 (08:30→19:30)
[2017-09-10] MEDS ORDERED: PANTOPRAZOLE 40 MG/10 ML VIAL IV SCH (09:00)
[2017-09-10] MEDS ORDERED: ENOXAPARIN 40 MG/0.4 ML SYRINGE SQ SCH (09:00)
[2017-09-10] MEDS: amLODIPine 5 MG TAB PO SCH (09:08)
--- NOTE | 2017-09-10 09:21 | CONS ---
CONSULTATION Mrs. Joyce Rodrigues is a 66-year-old lady with a known history of advanced liver dysfunction being considered for liver transplantation. She also has hypertension. No significant CAD by cath from 2015. She has history of sleep apnea syndrome, uses a CPAP. She is status post cholecystectomy, some orthopedic surgery. She was recently discharged from the hospital after controlling the blood pressure by adding labetalol to her regimen. She comes into the hospital complaining of having some chest pain and she went to [employer] office and has a lot of stress and after arrival she was found to be hypotensive and bradycardic and hospitalized. She was placed on a dopamine drip. I evaluated her yesterday evening in the ICU. Her blood pressure was low and she was on a dopamine drip. Heart rate was in the 50s. However this morning she is feeling much better. Blood pressure is 170/80, heart rate is in the 60s. We held her medications yesterday. She has a lot of multiple comorbid conditions. However this morning she is more comfortable. Denies any chest pain, resting comfortably. Complains of just feeling weak. PAST MEDICAL HISTORY: This is remarkable for recent hospitalization with uncontrolled blood pressure and there was a near syncopal spell with some bradycardia on arrival. She has chronic liver disease and is on a transplant list. Has also has history of seizure disorder and history of CVA in the past. MEDICATIONS: Medications at home include labetalol 100 mg b.i.d., Norvasc 5 mg daily, Imdur 30 mg daily, Zoloft, Protonix, Singulair, and clonidine 0.2 mg t.i.d., hydralazine 50 mg t.i.d. ALLERGIES: She is allergic to TRAMADOL, PENICILLIN, MORPHINE and IBUPROFEN also. PHYSICAL EXAMINATION: On examination today, blood pressure is 170/80, pulse rate is about 64 per minute, sinus. HEENT: Unremarkable. Fundus was not examined by me. Neck is supple. No JVD. I do not hear a carotid bruit. Heart exam reveals S1, S2 with a short systolic murmur at the base. Lungs revealed decent air entry. Abdomen is soft, nontender. Lower extremities reveal diminished pulses. Central nervous system grossly no focal deficits. Initial EKG revealed sinus rhythm, sinus bradycardia, no acute changes. IMPRESSION: 1. Liver dysfunction, being considered for liver transplant. 2. History of chronic kidney disease with a creatinine that runs in the range of 2.5 or so. 3. Uncontrolled hypertension on previous admission, but now has hypotension probably as a result of multiple medications. 4. History of seizure disorder. RECOMMENDATIONS: I am recommending that we discontinue the dopamine drip and place her on 5 mg of Norvasc, increase activity, move her to telemetry and see how she does. Her ejection fraction is normal by echo and cath 2015 did not reveal any significant obstructive CAD. Thank you very much for the consult. NADINE / IJN: [id number] /
[2017-09-10] MEDS: SODIUM CHLORIDE 0.9% 1,000 ML IV SCH (10:04)
[2017-09-10] MEDS: INSULIN DETEMIR 100 UNIT/ML 10 ML VIAL SQ SCH (10:04)
--- NOTE | 2017-09-10 10:40 | P.CNPUL ---
History of Present Illness Consult date: 09/10/17 Reason for consult: other (Hypotension and sinus bradycardia) Chief complaint: Chest/epigastric pain History of present illness: This is a 66-year-old female with history of liver cirrhosis, exact etiology of her liver cirrhosis is not clear. Not alcohol related. And not hepatitis C related. Patient is being considered for liver transplantation. Patient is also known to have history of hypertension, depression, usually maintained on multiple medications for high blood pressure including labetalol, Norvasc, clonidine, and hydralazine. Patient was in the [facility] office, and she was apparently under a lot of stress. She developed a sudden episode of epigastric , chest pain, diaphoresis, hypotension, profound weakness, and EMS was called. Upon EMS arrival, patient was noted to be hypotensive and bradycardic. Brought into the ER, given fluids, placed on dopamine at 4 mcg/kg/m, seemed to help her blood pressure and her heart rate. At 1 AM this morning, dopamine was discontinued. Patient is presently off dopamine, relatively asymptomatic, blood pressure is up to 170/80, heart rate is 60. Her blood pressure medication was placed on hold yesterday, and was resumed this morning because of significantly elevated blood pressure. Presently the patient is asymptomatic , no shortness of breath, no chest pain, she does have some tenderness in the epigastric area, and the pain seems to be quite reproducible. Denies any headaches, no blurred vision, no dizziness. No nausea no vomiting no abdominal pain, no melena, no hematemesis, no dysuria and no frequency no urgency. Review of Systems 14 point review of systems were obtained, please refer to pertinent positives and negatives as per HPI. Past Medical History Past Medical History: Chest Pain / Angina, COPD, CVA/TIA, Diabetes Mellitus, GERD/Reflux, Hyperlipidemia, Hypertension, Liver Disease, Memory Impairment, Seizure Disorder, Sleep Apnea/CPAP/BIPAP Additional Past Medical History / Comment(s): rt side dominant.spouse stated pt had a cva 1998 affected rt side but resolved. had tia in 1999 and 2007- but in past 2 years both legs getting weaker unable to walk long distance USES WALKER,no CPAP used since sx,CONSTIPATION, KIDNEY INFECTION,BRUISES EASILY, GI BLEED X 2-RECEIVED UNITS PRBC'S, berna cataracts. spouse stated pt has ra and a hereditary liver disease. History of Any Multi-Drug Resistant Organisms: None Reported Past Surgical History: Appendectomy, Cholecystectomy, Heart Catheterization, Orthopedic Surgery, Tubal Ligation Additional Past Surgical History / Comment(s): SLEEP APNEA SURGERY,RT SHOULDER, LT ARM BX, CARPEL TUNNEL BERNA,GANGLION CYST REMOVED,BONE SPURS BERNA ANKLES, "at [facility]- they cauterizred bleed in the stomach", paracentesis Past Anesthesia/Blood Transfusion Reactions: No Reported Reaction Additional Past Anesthesia/Blood Transfusion Reaction / Comment(s): clausterphobia Smoking Status: Former smoker - Past Family History Mother Family Medical History: Diabetes Mellitus, Hypertension Additional Family Medical History / Comment(s): HEART PROBLEMS Father Family Medical History: Myocardial Infarction ([place]) Additional Family Medical History / Comment(s): HEART PROBLEMS Medications and Allergies Home Medications Medication Instructions Recorded Confirmed Type rOPINIRole HCL [Requip] 0.25 mg PO HS 12/15/14 09/09/17 History Isosorbide Mononitrate ER [Imdur] 30 mg PO DAILY 08/29/17 09/09/17 History Lactulose 10 gm PO TID 08/29/17 09/09/17 History Montelukast [Singulair] 10 mg PO DAILY 08/29/17 09/09/17 History Pantoprazole Sodium [Protonix] 40 mg PO BID@0900,1700 08/29/17 09/09/17 History Ferrous Sulfate [Feosol] 325 mg PO DAILY #1 09/02/17 09/09/17 Rx Furosemide [Lasix] 40 mg PO DAILY #1 09/02/17 09/09/17 Rx hydrALAZINE HCL [Apresoline] 50 mg PO Q8H #90 tab 09/02/17 09/09/17 Rx Folic Acid-Vit B Complex-Vit C 1 cap PO DAILY 09/09/17 09/09/17 History [Nephrocaps] Insulin Aspart [NovoLOG Flexpen] 3 units SQ AC-TID 09/09/17 09/09/17 History Insulin Glargine,Hum.rec.anlog 20 unit SQ HS 09/09/17 09/09/17 History [Lantus Solostar] Ipratropium/Albuterol Sulfate 1 puff INHALATION RT-Q6H 09/09/17 09/09/17 History [Combivent Respimat Inhaler] Lisinopril 40 mg PO DAILY 09/09/17 09/09/17 History Magnesium Oxide [Mag-Ox] 400 mg PO DAILY 09/09/17 09/09/17 History NIFEdipine [Adalat cc] 90 mg PO DAILY 09/09/17 09/09/17 History [place]-3 Fatty Acids/Fish Oil [Fish 1 cap PO DAILY 09/09/17 09/09/17 History Oil 1,000 mg Softgel] Potassium Chloride ER [K-Dur 20] 20 meq PO DAILY 09/09/17 09/09/17 History Rifaximin [Xifaxan] 550 mg PO BID 09/09/17 09/09/17 History Sodium Bicarbonate Tab 1,300 mg PO TID 09/09/17 09/09/17 History amLODIPine [Norvasc] 5 mg PO DAILY 09/09/17 09/09/17 History cloNIDine HCL [Catapres] 0.2 mg PO BID 09/09/17 09/09/17 History hydrOXYzine PAMOATE [Vistaril] 25 mg PO TID PRN 09/09/17 09/09/17 History Allergies Allergy/AdvReac Type Severity Reaction Status Date / Time adhesive Allergy BLISTERS Verified 09/09/17 17:13 SKIN "PAPER TAPE OK" codeine Allergy Unknown Verified 09/09/17 17:13 morphine Allergy "STOPS Verified 09/09/17 17:13 BREATHING" Penicillins Allergy Unknown Verified 09/09/17 17:13 tramadol HCl [From Ultram] Allergy "PASSES Verified 09/09/17 17:13 OUT" aspirin AdvReac Nausea & Verified 09/09/17 17:13 Vomiting ibuprofen [From Motrin] AdvReac AFFECTS Verified 09/09/17 17:13 KIDNEYS TAPE Allergy BLISTERS Uncoded 09/09/17 15:10 SKIN "PAPER TAPE IS OK" Physical Exam Vitals: Vital Signs Temp Pulse Pulse Resp BP Pulse Ox 09/10/17 10:00 55 L 20 171/85 99 09/10/17 09:00 58 L 21 100 09/10/17 08:43 58 L 09/10/17 08:33 60 09/10/17 08:00 98.1 F 65 15 172/85 99 09/10/17 07:00 61 27 H 173/90 98 06/05/18 06:00 62 13 158/77 100 09/10/17 05:00 63 12 162/79 99 09/10/17 04:00 97.7 F 62 50 L 12 155/78 99 09/10/17 03:00 58 L 13 154/66 99 09/10/17 02:00 59 L 10 L 149/69 98 09/10/17 01:30 60 40 H 146/66 98 09/10/17 01:00 58 L 33 H 145/55 98 09/10/17 00:30 58 L 33 H 143/56 98 09/10/17 00:00 97.9 F 61 50 L 40 H 138/56 98 09/09/17 23:30 61 22 96 09/09/17 23:00 61 44 H 122/59 97 09/09/17 22:30 58 L 13 128/57 97 09/09/17 22:00 59 L 14 119/55 98 09/09/17 21:30 63 26 H 119/51 97 09/09/17 21:00 64 33 H 125/58 96 09/09/17 20:30 63 20 115/50 98 09/09/17 20:00 98.3 F 58 L 50 L 19 112/50 98 09/09/17 19:52 58 L 14 112/50 98 09/09/17 19:30 58 L 22 110/48 99 09/09/17 19:00 52 L 23 108/52 98 09/09/17 18:30 53 L 23 109/49 98 09/09/17 18:00 47 L 32 H 107/48 100 09/09/17 17:33 49 L 19 09/09/17 17:13 46 L 18 90/52 98 09/09/17 17:00 45 L 18 89/52 98 09/09/17 16:38 44 L 16 77/40 98 09/09/17 16:21 45 L 16 77/40 09/09/17 15:24 50 L 50 L 18 85/50 99 09/09/17 15:10 97.9 F 53 L 18 87/55 99 Intake and Output 09/09/17 09/10/17 09/10/17 22:59 06:59 14:59 Intake Total 375 662.896 300 Output Total 535 1060 295 Balance -160 -397.104 5 Intake: IV 375 525 Sodium Chloride 0.9% 1, 375 525 000 ml @ 75 mls/hr IV . [id number] JAYDEN Rx#:[id number] Intake, IV Titration 137.896 300 Amount DOPamine DRIP 800 mg In 62.896 Dextrose/Water 1 500ml. bag @ 4 MCG/KG/MIN 13.06 mls/hr IV .Q24H JAYDEN Rx#: [id number] Sodium Chloride 0.9% 1, 75 300 000 ml @ 75 mls/hr IV . [id number] JAYDEN Rx#:[id number] Output: Urine 535 1060 295 Other: Voiding Method Indwelling Catheter Indwelling Catheter # Bowel Movements 1 Weight 87.09 kg 90.6 kg Physical Exam: Revealed a 66-year-old female, pleasant, in no distress. Head: Atraumatic, normocephalic. HEENT:[Neck is supple.] [No neck masses.] [No thyromegaly.] [No JVD.], PERRLA, EOMI, no icterus. No cervical adenopathy noted. Moist mucous membranes noted. Chest: [Clear throughout, no crackles, no rhonchi, no wheezes.] Cardiac Exam: [Normal S1 and S2, no S3 gallop, no murmur.] Abdomen: [Soft, nontender, no megaly, no rebound, no guarding, normal bowel sounds.] Extremities: [No clubbing, no edema, no cyanosis.] Neurological Exam: [No focal neurologic deficit.] Psychiatric: Normal mood affect and mental status examination. Lymphatics: No lymphadenopathy. Results - Laboratory Findings CBC and BMP: 09/10/17 04:33 09/10/17 04:33 PT/INR, D-dimer PT 11.4 sec (9.0-12.0) 09/09/17 15:10 INR 1.2 (<1.2) H 09/09/17 15:10 Abnormal lab findings: Abnormal Labs 09/09/17 09/09/17 09/09/17 15:10 15:10 15:10 RBC 3.00 L Hgb 8.5 L Hct 25.9 L RDW 18.4 H Plt Count 116 L Lymphocytes # 0.9 L INR BUN 56 H Creatinine 3.10 H Glucose 131 H POC Glucose (mg/dL) 141 H Phosphorus AST 65 H ALT 53 H Alkaline Phosphatase 225 H Ur Leukocyte Esterase Urine Bacteria Hyaline Casts Urine Mucus 09/09/17 09/09/17 09/09/17 15:10 17:36 18:40 RBC Hgb Hct RDW Plt Count Lymphocytes # INR 1.2 H BUN Creatinine Glucose POC Glucose (mg/dL) 101 H Phosphorus AST ALT Alkaline Phosphatase Ur Leukocyte Esterase Trace H Urine Bacteria Rare H Hyaline Casts 32 H Urine Mucus Rare H 09/09/17 09/10/17 09/10/17 21:15 04:33 04:33 RBC 3.01 L Hgb 8.5 L Hct 26.6 L RDW 18.0 H Plt Count 110 L Lymphocytes # 0.9 L INR BUN 51 H Creatinine 2.70 H Glucose 148 H POC Glucose (mg/dL) 149 H Phosphorus 4.7 H AST ALT Alkaline Phosphatase Ur Leukocyte Esterase Urine Bacteria Hyaline Casts Urine Mucus 09/10/17 08:05 RBC Hgb Hct RDW Plt Count Lymphocytes # INR BUN Creatinine Glucose POC Glucose (mg/dL) 168 H Phosphorus AST ALT Alkaline Phosphatase Ur Leukocyte Esterase Urine Bacteria Hyaline Casts Urine Mucus - Diagnostic Findings Chest x-ray: image reviewed (No acute cardiopulmonary process.) Assessment and Plan Assessment: Impression: 1 acute episode of hypotension and bradycardia, most likely medications related. 2 history of hypertension. 3 atypical chest pain, seems to be musculoskeletal in nature with significant tenderness over the xiphoid process. 4 history of liver cirrhosis and end-stage liver disease, patient is being evaluated for liver transplantation on outpatient basis. Recommendation: Continue present supportive care measures, patient was resumed on her usual medications, may transfer to a monitor bed on selective today, and we'll continue to follow. Time with Patient: Greater than 30
[2017-09-10] MEDS ORDERED: amLODIPine 5 MG TAB PO STA (12:21)
[2017-09-10 12:27] LABS: Glucose,Whole Blood 137 mg/dL (75-99)
[2017-09-10 14:09] LABS: Hemoglobin A1C 7.4 % (4.0-6.0)
[2017-09-10] MEDS ORDERED: cloNIDine HCL 0.1 MG TAB PO SCH (14:43)
[2017-09-10] MEDS: hydrALAZINE HCL 50 MG TAB PO SCH ×2 (17:24→21:53)
[2017-09-10 17:28] LABS: Glucose,Whole Blood 149 mg/dL (75-99)
[2017-09-10 20:03] LABS: Glucose,Whole Blood 164 mg/dL (75-99)
[2017-09-10] MEDS: cloNIDine HCL 0.2 MG TAB PO SCH (21:47)
--- NOTE | 2017-09-10 22:25 | P.HPIM ---
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 Patient was brought to the hospital for further evaluation. Patient does have uncontrolled hypertension and is on multiple antihypertensive medications including Lasix. Patient was found to be hypotensive and bradycardia on admission. Patient was started on dopamine drip due to hypotension. Currently blood pressure is improved and bradycardia improved as well. Denied any complaints of chest pain or shortness of breath at this time. Patient did have nausea on admission which is improved now. Denied any headache or dizziness or lightheadedness. Denied any recent illnesses. No recent illnesses. No diarrhea. Denied any burning urination. No cough or sputum production. EKG showed sinus bradycardia Chest x-ray showed no acute cardiopulmonary process. Liver enzymes are slightly elevated. Creatinine 3.1 on admission baseline around 2.5 Review of Systems Constitutional: Patient denies any fever or chills . Patient does have generalized weakness Abdomen: Patient denied nausea vomiting and diarrhea and abdominal pain. Cardiovascular: Patient denies any chest pain or short of breath no palpitations. Respiratory: patient denied any cough is from production. No shortness of breath Neurologic: Patient denied any numbness or tingling headache. Dizziness Musculoskeletal: Patient denies any complaints of joint swelling or deformity. Skin: Negative Psychiatric: Negative Endocrine: No heat or cold intolerance. No recent weight gain. Genitourinary: No dysuria or hematuria. All other 14 point ROS negative except the above Past Medical History Past Medical History: Chest Pain / Angina, COPD, CVA/TIA, Diabetes Mellitus, GERD/Reflux, Hyperlipidemia, Hypertension, Liver Disease, Memory Impairment, Seizure Disorder, Sleep Apnea/CPAP/BIPAP Additional Past Medical History / Comment(s): rt side dominant.spouse stated pt had a cva 1998 affected rt side but resolved. had tia in 1999 and 2007- but in past 2 years both legs getting weaker unable to walk long distance USES WALKER,no CPAP used since sx,CONSTIPATION, KIDNEY INFECTION,BRUISES EASILY, GI BLEED X 2-RECEIVED UNITS PRBC'S, berna cataracts. spouse stated pt has ra and a hereditary liver disease. History of Any Multi-Drug Resistant Organisms: None Reported Past Surgical History: Appendectomy, Cholecystectomy, Heart Catheterization, Orthopedic Surgery, Tubal Ligation Additional Past Surgical History / Comment(s): SLEEP APNEA SURGERY,RT SHOULDER, LT ARM BX, CARPEL TUNNEL BERNA,GANGLION CYST REMOVED,BONE SPURS BERNA ANKLES, "at [facility]- they cauterizred bleed in the stomach", paracentesis Past Anesthesia/Blood Transfusion Reactions: No Reported Reaction Additional Past Anesthesia/Blood Transfusion Reaction / Comment(s): clausterphobia Smoking Status: Former smoker - Past Family History Mother Family Medical History: Diabetes Mellitus, Hypertension Additional Family Medical History / Comment(s): HEART PROBLEMS Father Family Medical History: Myocardial Infarction (VT) Additional Family Medical History / Comment(s): HEART PROBLEMS Medications and Allergies Home Medications Medication Instructions Recorded Confirmed Type rOPINIRole HCL [Requip] 0.25 mg PO HS 12/15/14 09/09/17 History Isosorbide Mononitrate ER [Imdur] 30 mg PO DAILY 08/29/17 09/09/17 History Lactulose 10 gm PO TID 08/29/17 09/09/17 History Montelukast [Singulair] 10 mg PO DAILY 08/29/17 09/09/17 History Pantoprazole Sodium [Protonix] 40 mg PO BID@0900,1700 08/29/17 09/09/17 History Ferrous Sulfate [Feosol] 325 mg PO DAILY #1 09/02/17 09/09/17 Rx Furosemide [Lasix] 40 mg PO DAILY #1 09/02/17 09/09/17 Rx hydrALAZINE HCL [Apresoline] 50 mg PO Q8H #90 tab 09/02/17 09/09/17 Rx Folic Acid-Vit B Complex-Vit C 1 cap PO DAILY 09/09/17 09/09/17 History [Nephrocaps] Insulin Aspart [NovoLOG Flexpen] 3 units SQ AC-TID 09/09/17 09/09/17 History Insulin Glargine,Hum.rec.anlog 20 unit SQ HS 09/09/17 09/09/17 History [Lantus Solostar] Ipratropium/Albuterol Sulfate 1 puff INHALATION RT-Q6H 09/09/17 09/09/17 History [Combivent Respimat Inhaler] Lisinopril 40 mg PO DAILY 09/09/17 09/09/17 History Magnesium Oxide [Mag-Ox] 400 mg PO DAILY 09/09/17 09/09/17 History NIFEdipine [Adalat cc] 90 mg PO DAILY 09/09/17 09/09/17 History Sanborn-3 Fatty Acids/Fish Oil [Fish 1 cap PO DAILY 09/09/17 09/09/17 History Oil 1,000 mg Softgel] Potassium Chloride ER [K-Dur 20] 20 meq PO DAILY 09/09/17 09/09/17 History Rifaximin [Xifaxan] 550 mg PO BID 09/09/17 09/09/17 History Sodium Bicarbonate Tab 1,300 mg PO TID 09/09/17 09/09/17 History amLODIPine [Norvasc] 5 mg PO DAILY 09/09/17 09/09/17 History cloNIDine HCL [Catapres] 0.2 mg PO BID 09/09/17 09/09/17 History hydrOXYzine PAMOATE [Vistaril] 25 mg PO TID PRN 09/09/17 09/09/17 History Allergies Allergy/AdvReac Type Severity Reaction Status Date / Time adhesive Allergy BLISTERS Verified 09/09/17 17:13 SKIN "PAPER TAPE OK" codeine Allergy Unknown Verified 09/09/17 17:13 morphine Allergy "STOPS Verified 09/09/17 17:13 BREATHING" Penicillins Allergy Unknown Verified 09/09/17 17:13 tramadol HCl [From Ultram] Allergy "PASSES Verified 09/09/17 17:13 OUT" aspirin AdvReac Nausea & Verified 09/09/17 17:13 Vomiting ibuprofen [From Motrin] AdvReac AFFECTS Verified 09/09/17 17:13 KIDNEYS TAPE Allergy BLISTERS Uncoded 09/09/17 15:10 SKIN "PAPER TAPE IS OK" Physical Exam Vitals: Vital Signs Temp Pulse Pulse Resp BP Pulse Ox 09/10/17 10:00 55 L 20 171/85 99 09/10/17 09:00 58 L 21 100 09/10/17 08:43 58 L 09/10/17 08:33 60 09/10/17 08:00 98.1 F 65 20 172/85 99 09/10/17 07:00 61 27 H 173/90 98 09/10/17 06:00 62 13 158/77 100 09/10/17 05:00 63 12 162/79 99 09/10/17 04:00 97.7 F 62 50 L 12 155/78 99 09/10/17 03:00 58 L 13 154/66 99 09/10/17 02:00 59 L 10 L 149/69 98 09/10/17 01:30 60 40 H 146/66 98 09/10/17 01:00 58 L 33 H 145/55 98 09/10/17 00:30 58 L 33 H 143/56 98 09/10/17 00:00 97.9 F 61 50 L 40 H 138/56 98 09/09/17 23:30 61 22 96 09/09/17 23:00 61 44 H 122/59 97 09/09/17 22:30 58 L 13 128/57 97 09/09/17 22:00 59 L 14 119/55 98 09/09/17 21:30 63 26 H 119/51 97 09/09/17 21:00 64 33 H 125/58 96 09/09/17 20:30 63 20 115/50 98 09/09/17 20:00 98.3 F 58 L 50 L 19 112/50 98 09/09/17 19:52 58 L 14 112/50 98 09/09/17 19:30 58 L 22 110/48 99 09/09/17 19:00 52 L 23 108/52 98 09/09/17 18:30 53 L 23 109/49 98 09/09/17 18:00 47 L 32 H 107/48 100 09/09/17 17:33 49 L 19 09/09/17 17:13 46 L 18 90/52 98 09/09/17 17:00 45 L 18 89/52 98 09/09/17 16:38 44 L 16 77/40 98 09/09/17 16:21 45 L 16 77/40 09/09/17 15:24 50 L 50 L 18 85/50 99 09/09/17 15:10 97.9 F 53 L 18 87/55 99 Intake and Output 09/09/17 09/10/17 09/10/17 22:59 06:59 14:59 Intake Total 375 662.896 300 Output Total 535 1060 295 Balance -160 -397.104 5 Intake: IV 375 525 Sodium Chloride 0.9% 1, 375 525 000 ml @ 75 mls/hr IV . [id number] [facility] Rx#:[id number] Intake, IV Titration 137.896 300 Amount DOPamine DRIP 800 mg In 62.896 Dextrose/Water 1 500ml. bag @ 4 MCG/KG/MIN 13.06 mls/hr IV .Q24H [facility] Rx#: [id number] Sodium Chloride 0.9% 1, 75 300 000 ml @ 75 mls/hr IV . [id number] [facility] Rx#:[id number] Output: Urine 535 1060 295 Other: Voiding Method Indwelling Catheter Indwelling Catheter Indwelling Catheter # Bowel Movements 1 Weight 87.09 kg 90.6 kg 90.6 kg PHYSICAL EXAMINATION: Patient is lying in the bed comfortably, no acute distress, awake alert and oriented.. HEENT: Normocephalic. Neck is supple. Pupils reactive. Nostrils clear. Oral cavity is moist. Ears reveal no drainage. Neck reveals no JVD, carotid bruits, or thyromegaly. CHEST EXAMINATION: Trachea is central. Symmetrical expansion. Bibasilar diminished air entry. No wheezing or crackles. CARDIAC: Normal S1, S2 with no gallops. No murmurs ABDOMEN: Soft. Mild epigastric tenderness. Bowel sounds normal. No organomegaly. No abdominal bruits. Extremities: reveal no edema. No clubbing or cyanosis Neurologically awake, alert, oriented x3 with well-coordinated movements. No focal deficits noted Skin: No rash or skin lesions. Psychiatric: Cooperative. Nonsuicidal Musculoskeletal: No joint swelling or deformity. Normal range of motion. Results CBC & Chem 7: 09/10/17 04:33 09/10/17 04:33 Labs: Abnormal Lab Results - Last 24 Hours (Table) 09/09/17 09/09/17 09/09/17 Range/Units 15:10 15:10 15:10 RBC 3.00 L (3.80-5.40) m/uL Hgb 8.5 L (11.4-16.0) gm/dL Hct 25.9 L (34.0-46.0) % RDW 18.4 H (11.5-15.5) % Plt Count 116 L (150-450) k/uL Lymphocytes # 0.9 L (1.0-4.8) k/uL INR (<1.2) BUN 56 H (7-17) mg/dL Creatinine 3.10 H (0.52-1.04) mg/dL Glucose 131 H (74-99) mg/dL POC Glucose (mg/dL) 141 H (75-99) mg/dL Phosphorus (2.5-4.5) mg/dL AST 65 H (14-36) U/L ALT 53 H (9-52) U/L Alkaline Phosphatase 225 H (38-126) U/L Ur Leukocyte Esterase (Negative) Urine Bacteria (None) /hpf Hyaline Casts (0-2) /lpf Urine Mucus (None) /hpf 09/09/17 09/09/17 09/09/17 Range/Units 15:10 17:36 18:40 RBC (3.80-5.40) m/uL Hgb (11.4-16.0) gm/dL Hct (34.0-46.0) % RDW (11.5-15.5) % Plt Count (150-450) k/uL Lymphocytes # (1.0-4.8) k/uL INR 1.2 H (<1.2) BUN (7-17) mg/dL Creatinine (0.52-1.04) mg/dL Glucose (74-99) mg/dL POC Glucose (mg/dL) 101 H (75-99) mg/dL Phosphorus (2.5-4.5) mg/dL AST (14-36) U/L ALT (9-52) U/L Alkaline Phosphatase (38-126) U/L Ur Leukocyte Esterase Trace H (Negative) Urine Bacteria Rare H (None) /hpf Hyaline Casts 32 H (0-2) /lpf Urine Mucus Rare H (None) /hpf 09/09/17 09/10/17 09/10/17 Range/Units 21:15 04:33 04:33 RBC 3.01 L (3.80-5.40) m/uL Hgb 8.5 L (11.4-16.0) gm/dL Hct 26.6 L (34.0-46.0) % RDW 18.0 H (11.5-15.5) % Plt Count 110 L (150-450) k/uL Lymphocytes # 0.9 L (1.0-4.8) k/uL INR (<1.2) BUN 51 H (7-17) mg/dL Creatinine 2.70 H (0.52-1.04) mg/dL Glucose 148 H (74-99) mg/dL POC Glucose (mg/dL) 149 H (75-99) mg/dL Phosphorus 4.7 H (2.5-4.5) mg/dL AST (14-36) U/L ALT (9-52) U/L Alkaline Phosphatase (38-126) U/L Ur Leukocyte Esterase (Negative) Urine Bacteria (None) /hpf Hyaline Casts (0-2) /lpf Urine Mucus (None) /hpf 09/10/17 Range/Units 08:05 RBC (3.80-5.40) m/uL Hgb (11.4-16.0) gm/dL Hct (34.0-46.0) % RDW (11.5-15.5) % Plt Count (150-450) k/uL Lymphocytes # (1.0-4.8) k/uL INR (<1.2) BUN (7-17) mg/dL Creatinine (0.52-1.04) mg/dL Glucose (74-99) mg/dL POC Glucose (mg/dL) 168 H (75-99) mg/dL Phosphorus (2.5-4.5) mg/dL AST (14-36) U/L ALT (9-52) U/L Alkaline Phosphatase (38-126) U/L Ur Leukocyte Esterase (Negative) Urine Bacteria (None) /hpf Hyaline Casts (0-2) /lpf Urine Mucus (None) /hpf Microbiology - Last 24 Hours (Table) 09/09/17 Unknown Urine Culture - Preliminary Urine,Catheterized Thrombosis Risk Factor Assmnt - DVT/VTE Prophylaxis DVT/VTE Prophylaxis: Pharmacologic Prophylaxis ordered - Choose All That Apply Any of the Below Risk Factors Present?: Yes Each Factor Represents 1 point: Abnormal pulmonary function (COPD) Other Risk Factors: Yes Each Risk Factor Represents 2 Points: Age 61-74 years Thrombosis Risk Factor Assessment Total Risk Factor Score: 3 Thrombosis Risk Factor Assessment Level: Moderate Risk Assessment and Plan Assessment: Hypotension and bradycardia most likely due to blood pressure medication induced. Improved with dopamine drip now. No evidence of sepsis History of uncontrolled hypertension End-stage liver disease. Patient is being admitted for liver transplantation at [facility] Atypical chest pain. Rule out ACS. Likely over the xiphoid History of CVA/TIA COPD Diabetes type 2 GERD Hyperlipidemia Obstructive sleep apnea on CPAP at home Plan: Patient was on dopamine drip. Currently blood pressure is improved. Continue the home medications except blood pressure medications and monitor closely. Will gradually start back on home blood pressure medications and further recommendations based on the clinical course. Monitor for any source of infection which has been negative so far. Continue the home medications. Cardiology and pulmonary is following. Prognosis is guarded. Time with Patient: Greater than 30
[2017-09-11 04:04] LABS: Anisocytosis Slight; Basophils % (A) 1 %; Eosinophils # (A) 0.1 k/uL (0-0.7); Eosinophils % (A) 3 %; HCT 25.8 % (34.0-46.0); HGB 8.1 gm/dL (11.4-16.0); Lymphocytes # (A) 0.6 k/uL (1.0-4.8); Lymphocytes % (A) 25 %; MCH 27.5 pg (25.0-35.0); MCHC 31.4 g/dL (31.0-37.0); MCV 87.6 fL (80.0-100.0); Mean Platelet Volume 8.2; Monocytes # (A) 0.1 k/uL (0-1.0); Monocytes % (A) 5 %; Neutrophils # (A) 1.5 k/uL (1.3-7.7); Neutrophils % (A) 64 %; Platelet Count 102 k/uL (150-450); RBC 2.94 m/uL (3.80-5.40); WBC 2.4 k/uL (3.8-10.6)
[2017-09-11 04:25] LABS: Calcium 9.1 mg/dL (8.4-10.2); Magnesium 1.9 mg/dL (1.6-2.3); Phosphorus 4.5 mg/dL (2.5-4.5); Potassium 4.3 mmol/L (3.5-5.1)
[2017-09-11] MEDS: HYDROcodone/APAP 5-325MG 1 EACH TAB PO PRN ×3 (05:50→20:59)
[2017-09-11] MEDS: IPRATROPIUM-ALBUTEROL 3 ML NEB INHALATION SCH ×3 (07:08→20:28)
[2017-09-11] MEDS ORDERED: PANTOPRAZOLE 40 MG TABLET PO SCH (07:30)
[2017-09-11 07:36] LABS: Glucose,Whole Blood 128 mg/dL (75-99)
[2017-09-11] MEDS: MAGNESIUM SULFATE-D5W PMX 1 GM in DEXTROSE/WATER 1 100ML.BAG IVPB SCH ×3 (08:23→08:37)
[2017-09-11] MEDS: SODIUM CHLORIDE 0.9% 1,000 ML IV SCH ×2 (08:28→17:53)
[2017-09-11] MEDS: INSULIN ASPART 100 UNIT/ML 1 ML 10 ML VIAL SQ SCH ×4 (08:29→22:07)
[2017-09-11] MEDS: amLODIPine 5 MG TAB PO SCH (08:29)
[2017-09-11] MEDS: FAMOTIDINE 20 MG TAB PO SCH (08:30)
[2017-09-11] MEDS: ENOXAPARIN 30 MG/0.3 ML SYRINGE SQ SCH (08:30)
[2017-09-11] MEDS: cloNIDine HCL 0.2 MG TAB PO SCH ×3 (08:30→21:01)
[2017-09-11] MEDS: hydrALAZINE HCL 50 MG TAB PO SCH ×3 (08:30→21:01)
[2017-09-11] MEDS: MONTELUKAST 10 MG TAB PO SCH (08:30)
[2017-09-11] MEDS: INSULIN DETEMIR 100 UNIT/ML 10 ML VIAL SQ SCH (08:35)
--- NOTE | 2017-09-11 10:01 | P.PN ---
Subjective Progress Note Date: 09/11/17 Principal diagnosis: Atypical chest pain, bradycardia, and hypotension. This is a 66-year-old female with history of liver cirrhosis, exact etiology of her liver cirrhosis is not clear. Not alcohol related. And not hepatitis C related. Patient is being considered for liver transplantation. Patient is also known to have history of hypertension, depression, usually maintained on multiple medications for high blood pressure including labetalol, Norvasc, clonidine, and hydralazine. Patient was in the [facility] office, and she was apparently under a lot of stress. She developed a sudden episode of epigastric , chest pain, diaphoresis, hypotension, profound weakness, and EMS was called. Upon EMS arrival, patient was noted to be hypotensive and bradycardic. Brought into the ER, given fluids, placed on dopamine at 4 mcg/kg/m, seemed to help her blood pressure and her heart rate. At 1 AM this morning, dopamine was discontinued. Patient is presently off dopamine, relatively asymptomatic, blood pressure is up to 170/80, heart rate is 60. Her blood pressure medication was placed on hold yesterday, and was resumed this morning because of significantly elevated blood pressure. Presently the patient is asymptomatic , no shortness of breath, no chest pain, she does have some tenderness in the epigastric area, and the pain seems to be quite reproducible. Denies any headaches, no blurred vision, no dizziness. No nausea no vomiting no abdominal pain, no melena, no hematemesis, no dysuria and no frequency no urgency. Patient was reevaluated today on 09/11/2017, seems to be doing much better, no major issues in the last 24 hours, no pain, no shortness of breath, no cough, no wheezing, no palpitations, and no diaphoresis. Blood pressure is running a bit on the high side, patient is back on her usual medications for high blood pressure. CBC was reviewed WBC count is 2.4 hemoglobin is 8.1 electrolytes are normal, BUN is 46 creatinine 2.40. Continues to improve compared to her baseline at 3.10 creatinine. Objective - Vital Signs Vital signs: Vital Signs Temp 98.3 F 09/11/17 08:00 Pulse 62 09/11/17 08:45 Resp 18 09/11/17 08:00 BP 178/89 09/11/17 08:45 Pulse Ox 99 09/11/17 08:00 Intake & Output 09/10/17 09/11/17 09/11/17 18:59 06:59 18:59 Intake Total 750 0 0 Output Total 370 0 Balance 380 0 0 Weight 90.6 kg 90.5 kg Intake: IV 375 0 0 Sodium Chloride 0.9% 1, 375 0 0 000 ml @ 75 mls/hr IV . [id number] [facility] Rx#:[id number] Intake, IV Titration 375 Amount Sodium Chloride 0.9% 1, 375 000 ml @ 75 mls/hr IV . [id number] [facility] Rx#:[id number] Output: Urine 370 0 Other: Voiding Method Indwelling Catheter Toilet # Voids 1 1 1 # Bowel Movements 1 1 1 - Exam Physical Exam: Revealed a 66-year-old female, pleasant, in no distress. Head: Atraumatic, normocephalic. HEENT:[Neck is supple.] [No neck masses.] [No thyromegaly.] [No JVD.], PERRLA, EOMI, no icterus. No cervical adenopathy noted. Moist mucous membranes noted. Chest: [Clear throughout, no crackles, no rhonchi, no wheezes.] Cardiac Exam: [Normal S1 and S2, no S3 gallop, no murmur.] Abdomen: [Soft, nontender, no megaly, no rebound, no guarding, normal bowel sounds.] Extremities: [No clubbing, no edema, no cyanosis.] Neurological Exam: [No focal neurologic deficit.] Psychiatric: Normal mood affect and mental status examination. Lymphatics: No lymphadenopathy. - Labs CBC & Chem 7: 09/11/17 03:29 09/11/17 03:29 Labs: Abnormal Lab Results - Last 24 Hours (Table) 09/10/17 09/10/17 09/10/17 Range/Units 04:33 12:25 17:26 WBC (3.8-10.6) k/uL RBC (3.80-5.40) m/uL Hgb (11.4-16.0) gm/dL Hct (34.0-46.0) % RDW (11.5-15.5) % Plt Count (150-450) k/uL Lymphocytes # (1.0-4.8) k/uL Chloride (98-107) mmol/L BUN (7-17) mg/dL Creatinine (0.52-1.04) mg/dL Glucose (74-99) mg/dL POC Glucose (mg/dL) 137 H 149 H (75-99) mg/dL Hemoglobin A1c 7.4 H (4.0-6.0) % 09/10/17 09/11/17 09/11/17 Range/Units 20:01 03:29 03:29 WBC 2.4 L (3.8-10.6) k/uL RBC 2.94 L (3.80-5.40) m/uL Hgb 8.1 L (11.4-16.0) gm/dL Hct 25.8 L (34.0-46.0) % RDW 18.0 H (11.5-15.5) % Plt Count 102 L (150-450) k/uL Lymphocytes # 0.6 L (1.0-4.8) k/uL Chloride 109 H (98-107) mmol/L BUN 46 H (7-17) mg/dL Creatinine 2.40 H (0.52-1.04) mg/dL Glucose 135 H (74-99) mg/dL POC Glucose (mg/dL) 164 H (75-99) mg/dL Hemoglobin A1c (4.0-6.0) % 09/11/17 Range/Units 07:34 WBC (3.8-10.6) k/uL RBC (3.80-5.40) m/uL Hgb (11.4-16.0) gm/dL Hct (34.0-46.0) % RDW (11.5-15.5) % Plt Count (150-450) k/uL Lymphocytes # (1.0-4.8) k/uL Chloride (98-107) mmol/L BUN (7-17) mg/dL Creatinine (0.52-1.04) mg/dL Glucose (74-99) mg/dL POC Glucose (mg/dL) 128 H (75-99) mg/dL Hemoglobin A1c (4.0-6.0) % Microbiology - Last 24 Hours (Table) 09/09/17 Unknown Urine Culture - Final Urine,Catheterized Assessment and Plan Assessment: Impression: 1 acute episode of hypotension and bradycardia, most likely medications related. 2 history of hypertension. 3 atypical chest pain, seems to be musculoskeletal in nature with significant tenderness over the xiphoid process. 4 history of liver cirrhosis and end-stage liver disease, patient is being evaluated for liver transplantation on outpatient basis. Recommendation: Continue present supportive care measures, patient was resumed on her usual medications, may transfer to a remote telemetry bed. Time with Patient: Less than 30
[2017-09-11] MEDS ORDERED: hydrOXYzine PAMOATE 25 MG CAP PO PRN ×2 (10:58→17:12)
--- NOTE | 2017-09-11 11:04 | PN ---
PROGRESS NOTE Mrs Silva's blood pressure is still elevated. Her heart rate is in the 70s. She has multiple comorbid conditions including liver failure. I am recommending that we add a small dose of labetalol 50 mg b.i.d., increase activity, move her to the Med/Surg unit and see how she does. Blood pressure today is 170/60. S1-S2 heard normally, short systolic murmur noted. Lungs reveal improved air entry. Abdomen is soft. There is evidence of hepatomegaly. Lower extremities reveal diminished pulses. Central nervous system is normal. Patient can be transferred to Med/Surg unit with telemetry. MMODL / IJN: [id number] /
[2017-09-11] MEDS ORDERED: LABETALOL 5 MG/ML VIAL MDV IVP STA (11:38)
[2017-09-11] MEDS: LABETALOL 100 MG TAB PO SCH ×2 (11:39→20:53)
[2017-09-11 12:39] LABS: Glucose,Whole Blood 110 mg/dL (75-99)
[2017-09-11] MEDS ORDERED: LABETALOL 100 MG TAB PO ONE (17:00)
[2017-09-11] MEDS ORDERED: FOLIC ACID-VIT B COMPLEX-VIT C 1 CAP PO SCH (17:12)
[2017-09-11] MEDS ORDERED: SODIUM BICARBONATE TAB 650 MG TAB PO SCH (17:12)
[2017-09-11] MEDS ORDERED: RIFAXIMIN 550 MG TABLET PO SCH (17:12)
[2017-09-11] MEDS ORDERED: MAGNESIUM OXIDE 400 MG TAB PO SCH (17:12)
[2017-09-11] MEDS ORDERED: NON-FORMULARY DRUG (Omega-3 Fatty Acids/Fish Oil [Fish Oil 1,000 Mg Softgel] 1 CAP) PO SCH (17:12)
[2017-09-11 17:57] LABS: Glucose,Whole Blood 152 mg/dL (75-99)
[2017-09-11] MEDS: ONDANSETRON 4 MG/2 ML VIAL IVP PRN (19:16)
[2017-09-11] MEDS: SODIUM BICARBONATE TAB 650 MG TAB PO SCH (21:00)
[2017-09-11] MEDS: RIFAXIMIN 550 MG TABLET PO SCH (21:01)
[2017-09-11] MEDS: LACTULOSE 20 GM/30 ML CUP PO SCH (21:01)
[2017-09-11 21:54] LABS: Glucose,Whole Blood 186 mg/dL (75-99)
--- NOTE | 2017-09-11 23:37 | P.PN ---
Subjective Progress Note Date: 09/11/17 Principal diagnosis: Hypotension and bradycardia Patient is a 66 and female with known history of liver cirrhosis currently is going for liver transplant at 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 Patient was brought to the hospital for further evaluation. Patient does have uncontrolled hypertension and is on multiple antihypertensive medications including Lasix. Patient was found to be hypotensive and bradycardia on admission. Patient was started on dopamine drip due to hypotension. Currently blood pressure is improved and bradycardia improved as well. Denied any complaints of chest pain or shortness of breath at this time. Patient did have nausea on admission which is improved now. Denied any headache or dizziness or lightheadedness. Denied any recent illnesses. No recent illnesses. No diarrhea. Denied any burning urination. No cough or sputum production. EKG showed sinus bradycardia Chest x-ray showed no acute cardiopulmonary process. Liver enzymes are slightly elevated. Creatinine 3.1 on admission baseline around 2.5 09/11/2017 Patient denied any complaints of abdominal pain. Nausea and vomiting improved. Otherwise blood pressure is improved and actually became uncontrolled and was started back on home medications and titrated as needed. Cardiology and pulmonary is following. Patient is being transferred to general medical floor today. Otherwise no fever no chills. No chest pain no shortness of breath. No nausea. No abdominal pain. No headache or dizziness or lightheadedness. All other review of systems negative except the above current medications reviewed Objective - Vital Signs Vital signs: Vital Signs Temp 98.3 F 09/11/17 08:00 Pulse 58 L 09/11/17 09:55 Resp 18 09/11/17 12:00 BP 186/78 09/11/17 09:55 Pulse Ox 99 09/11/17 08:00 Intake & Output 09/10/17 09/11/17 09/11/17 18:59 06:59 18:59 Intake Total 750 0 0 Output Total 370 0 Balance 380 0 0 Weight 90.6 kg 90.5 kg 90.5 kg Intake: IV 375 0 0 Sodium Chloride 0.9% 1, 375 0 0 000 ml @ 75 mls/hr IV . [id number] [facility] Rx#:[id number] Intake, IV Titration 375 Amount Sodium Chloride 0.9% 1, 375 000 ml @ 75 mls/hr IV . [id number] [facility] Rx#:[id number] Output: Urine 370 0 Other: Voiding Method Indwelling Catheter Toilet Toilet # Voids 1 1 1 # Bowel Movements 1 1 1 - Exam PHYSICAL EXAMINATION: Patient is lying in the bed comfortably, no acute distress, awake alert and oriented.. HEENT: Normocephalic. Neck is supple. Pupils reactive. Nostrils clear. Oral cavity is moist. Ears reveal no drainage. Neck reveals no JVD, carotid bruits, or thyromegaly. CHEST EXAMINATION: Trachea is central. Symmetrical expansion. Lung sood clear to auscultation and percussion. CARDIAC: Normal S1, S2 with no gallops. No murmurs ABDOMEN: Soft. Bowel sounds normal. No organomegaly. No abdominal bruits. Extremities: reveal no edema. No clubbing or cyanosis Neurologically awake, alert, oriented x3 with well-coordinated movements. No focal deficits noted Skin: No rash or skin lesions. Psychiatric: Coperative. Nonsuicidal Musculoskeletal: No joint swelling or deformity. Normal range of motion. - Labs CBC & Chem 7: 09/11/17 03:29 09/11/17 03:29 Labs: Abnormal Lab Results - Last 24 Hours (Table) 09/10/17 09/10/17 09/10/17 Range/Units 04:33 17:26 20:01 WBC (3.8-10.6) k/uL RBC (3.80-5.40) m/uL Hgb (11.4-16.0) gm/dL Hct (34.0-46.0) % RDW (11.5-15.5) % Plt Count (150-450) k/uL Lymphocytes # (1.0-4.8) k/uL Chloride (98-107) mmol/L BUN (7-17) mg/dL Creatinine (0.52-1.04) mg/dL Glucose (74-99) mg/dL POC Glucose (mg/dL) 149 H 164 H (75-99) mg/dL Hemoglobin A1c 7.4 H (4.0-6.0) % 09/11/17 09/11/17 09/11/17 Range/Units 03:29 03:29 07:34 WBC 2.4 L (3.8-10.6) k/uL RBC 2.94 L (3.80-5.40) m/uL Hgb 8.1 L (11.4-16.0) gm/dL Hct 25.8 L (34.0-46.0) % RDW 18.0 H (11.5-15.5) % Plt Count 102 L (150-450) k/uL Lymphocytes # 0.6 L (1.0-4.8) k/uL Chloride 109 H (98-107) mmol/L BUN 46 H (7-17) mg/dL Creatinine 2.40 H (0.52-1.04) mg/dL Glucose 135 H (74-99) mg/dL POC Glucose (mg/dL) 128 H (75-99) mg/dL Hemoglobin A1c (4.0-6.0) % Microbiology - Last 24 Hours (Table) 09/09/17 Unknown Urine Culture - Final Urine,Catheterized Assessment and Plan Assessment: Hypotension and bradycardia most likely due to blood pressure medication induced. Improved with dopamine drip now. No evidence of sepsis. Currently hypertension uncontrolled hypertension End-stage liver disease. Patient is being admitted for liver transplantation at [facility] Atypical chest pain. Ruled out ACS. Likely over the xiphoid History of CVA/TIA COPD Diabetes type 2 GERD Hyperlipidemia Obstructive sleep apnea on CPAP at home Plan: Patient was on dopamine drip. Currently blood pressure is improved. Continue the home blood pressure medications and monitor closely. further recommendations based on the clinical course. Monitor for any source of infection which has been negative so far. Continue the home medications. Cardiology and pulmonary is following. Prognosis is guarded. Time with Patient: Greater than 30
[2017-09-12] MEDS: ONDANSETRON 4 MG/2 ML VIAL IVP PRN (02:16)
[2017-09-12 05:42] LABS: Anisocytosis Slight; Basophils % (A) 1 %; Eosinophils # (A) 0.1 k/uL (0-0.7); Eosinophils % (A) 3 %; HCT 25.3 % (34.0-46.0); HGB 8.1 gm/dL (11.4-16.0); Lymphocytes # (A) 0.5 k/uL (1.0-4.8); Lymphocytes % (A) 18 %; MCH 28.2 pg (25.0-35.0); MCHC 31.8 g/dL (31.0-37.0); MCV 88.6 fL (80.0-100.0); Mean Platelet Volume 8.6; Monocytes # (A) 0.2 k/uL (0-1.0); Monocytes % (A) 7 %; Neutrophils # (A) 1.8 k/uL (1.3-7.7); Neutrophils % (A) 70 %; Platelet Count 101 k/uL (150-450); RBC 2.86 m/uL (3.80-5.40); RDW 17.9 % (11.5-15.5); WBC 2.5 k/uL (3.8-10.6)
[2017-09-12 05:51] LABS: Calcium 9.2 mg/dL (8.4-10.2); Magnesium 2.1 mg/dL (1.6-2.3); Phosphorus 3.7 mg/dL (2.5-4.5); Potassium 4.4 mmol/L (3.5-5.1)
[2017-09-12] MEDS: HYDROcodone/APAP 5-325MG 1 EACH TAB PO PRN ×4 (06:24→23:46)
[2017-09-12 07:00] LABS: Glucose,Whole Blood 153 mg/dL (75-99)
[2017-09-12] MEDS: LACTULOSE 20 GM/30 ML CUP PO SCH ×3 (08:30→21:53)
[2017-09-12] MEDS: hydrALAZINE HCL 50 MG TAB PO SCH ×3 (08:31→21:53)
[2017-09-12] MEDS: FAMOTIDINE 20 MG TAB PO SCH (08:31)
[2017-09-12] MEDS: MONTELUKAST 10 MG TAB PO SCH (08:31)
[2017-09-12] MEDS: LABETALOL 100 MG TAB PO SCH ×2 (08:32→21:52)
[2017-09-12] MEDS: cloNIDine HCL 0.2 MG TAB PO SCH ×3 (08:32→21:53)
[2017-09-12] MEDS: ENOXAPARIN 30 MG/0.3 ML SYRINGE SQ SCH (08:33)
[2017-09-12] MEDS: SODIUM BICARBONATE TAB 650 MG TAB PO SCH ×3 (08:33→21:53)
[2017-09-12] MEDS: RIFAXIMIN 550 MG TABLET PO SCH ×2 (08:33→21:52)
[2017-09-12] MEDS: FERROUS SULFATE 325 MG TAB PO SCH (08:34)
[2017-09-12] MEDS: amLODIPine 5 MG TAB PO SCH ×2 (08:34→21:52)
[2017-09-12] MEDS: FOLIC ACID-VIT B COMPLEX-VIT C 1 CAP PO SCH (08:34)
[2017-09-12] MEDS: INSULIN ASPART 100 UNIT/ML 1 ML 10 ML VIAL SQ SCH ×4 (08:34→22:01)
[2017-09-12] MEDS: MAGNESIUM OXIDE 400 MG TAB PO SCH (08:34)
[2017-09-12] MEDS: INSULIN DETEMIR 100 UNIT/ML 10 ML VIAL SQ SCH (08:35)
[2017-09-12] MEDS: IPRATROPIUM-ALBUTEROL 3 ML NEB INHALATION SCH ×3 (08:56→20:48)
[2017-09-12 11:18] LABS: Glucose,Whole Blood 172 mg/dL (75-99)
[2017-09-12] MEDS: FUROSEMIDE 40 MG TAB PO SCH (13:23)
--- NOTE | 2017-09-12 13:53 | P.PN ---
Subjective Progress Note Date: 09/12/17 Principal diagnosis: Atypical chest pain, bradycardia and hypotension This is a 66-year-old female with history of liver cirrhosis, exact etiology of her liver cirrhosis is not clear. Not alcohol related. And not hepatitis C related. Patient is being considered for liver transplantation. Patient is also known to have history of hypertension, depression, usually maintained on multiple medications for high blood pressure including labetalol, Norvasc, clonidine, and hydralazine. Patient was in the [facility] office, and she was apparently under a lot of stress. She developed a sudden episode of epigastric , chest pain, diaphoresis, hypotension, profound weakness, and EMS was called. Upon EMS arrival, patient was noted to be hypotensive and bradycardic. Brought into the ER, given fluids, placed on dopamine at 4 mcg/kg/m, seemed to help her blood pressure and her heart rate. At 1 AM this morning, dopamine was discontinued. Patient is presently off dopamine, relatively asymptomatic, blood pressure is up to 170/80, heart rate is 60. Her blood pressure medication was placed on hold yesterday, and was resumed this morning because of significantly elevated blood pressure. Presently the patient is asymptomatic , no shortness of breath, no chest pain, she does have some tenderness in the epigastric area, and the pain seems to be quite reproducible. Denies any headaches, no blurred vision, no dizziness. No nausea no vomiting no abdominal pain, no melena, no hematemesis, no dysuria and no frequency no urgency. Patient was reevaluated today on 09/11/2017, seems to be doing much better, no major issues in the last 24 hours, no pain, no shortness of breath, no cough, no wheezing, no palpitations, and no diaphoresis. Blood pressure is running a bit on the high side, patient is back on her usual medications for high blood pressure. CBC was reviewed WBC count is 2.4 hemoglobin is 8.1 electrolytes are normal, BUN is 46 creatinine 2.40. Continues to improve compared to her baseline at 3.10 creatinine. On 09/12/2017 patient seen again in follow-up on medical surgical floor. Heart rate is in the 60s and 70s for the most part, with only one recorded episode of a heart rate of 59 on 09/11/2017. Patient is hypertensive, as BP in the 160s to 190s, and DBP is in the 60s to 80s, Nicolasa Atr is adjusting patient's antihypertensives, she was restarted on labetalol at 50 mg twice daily, hydralazine 50 mg 3 times a day, clonidine 0.2 mg 3 times a day, and Norvasc 5 mg daily. Patient states last night she had an episode of sternal chest pain, while lying in bed. It lasted about 15 minutes, and was accompanied by dyspnea , and patient felt warm. Patient denies any radiation of the pain to any other location. She did not tell the staff, and the pain resolved on its own. Cardiology following. Patient denies any dyspnea this morning, no chest pain, she is calm and comfortable, and she is currently on room air, with a pulse ox of 94%. She also mentioned an episode of coughing up a large blood clot last night, 3 days prior to that she had a intermittent epistaxis. No further hemoptysis, or epistaxis since last night. Today's labs were reviewed, renal profile is improving, serum sodium is up slightly to 146, Ma globin is stable at 8.1, W BCs 2.5, lung sounds are diminished, with a few rales at the right lower lobe. Overall she remains stable Objective - Vital Signs Vital signs: Vital Signs Temp 98.7 F 09/12/17 07:00 Pulse 54 L 09/12/17 10:26 Resp 16 09/12/17 07:00 BP 191/87 09/12/17 10:26 Pulse Ox 94 L 09/12/17 10:26 Intake & Output 09/11/17 09/12/17 09/12/17 18:59 06:59 18:59 Intake Total 0 400 437 Output Total 0 Balance 0 400 437 Weight 90.5 kg 89.5 kg 89.5 kg Intake: IV 0 Sodium Chloride 0.9% 1, 0 000 ml @ 75 mls/hr IV . [id number] [facility] Rx#:[id number] Oral 400 437 Output: Urine 0 Other: Voiding Method Toilet Toilet Toilet Bedside Commode Bedside Commode # Voids 1 2 # Bowel Movements 1 - Exam Physical Exam: Revealed a 66-year-old female, pleasant, in no distress. Head: Atraumatic, normocephalic. HEENT:[Neck is supple.] [No neck masses.] [No thyromegaly.] [No JVD.], PERRLA, EOMI, no icterus. No cervical adenopathy noted. Moist mucous membranes noted. Chest: [Diminished lung sounds, with limited crackles at the right lower lobe Cardiac Exam: [Normal S1 and S2, no S3 gallop, no murmur.] Abdomen: [Soft, nontender, no megaly, no rebound, no guarding, normal bowel sounds.] Extremities: [No clubbing, no edema, no cyanosis.] Neurological Exam: [No focal neurologic deficit.] Psychiatric: Normal mood affect and mental status examination. Lymphatics: No lymphadenopathy. - Labs CBC & Chem 7: 09/12/17 05:18 09/12/17 05:18 Labs: Abnormal Lab Results - Last 24 Hours (Table) 09/11/17 09/11/17 09/11/17 Range/Units 12:38 17:53 21:20 WBC (3.8-10.6) k/uL RBC (3.80-5.40) m/uL Hgb (11.4-16.0) gm/dL Hct (34.0-46.0) % RDW (11.5-15.5) % Plt Count (150-450) k/uL Lymphocytes # (1.0-4.8) k/uL Sodium (137-145) mmol/L Chloride (98-107) mmol/L BUN (7-17) mg/dL Creatinine (0.52-1.04) mg/dL Glucose (74-99) mg/dL POC Glucose (mg/dL) 110 H 152 H 186 H (75-99) mg/dL 09/12/17 09/12/17 09/12/17 Range/Units 05:18 05:18 06:54 WBC 2.5 L (3.8-10.6) k/uL RBC 2.86 L (3.80-5.40) m/uL Hgb 8.1 L (11.4-16.0) gm/dL Hct 25.3 L (34.0-46.0) % RDW 17.9 H (11.5-15.5) % Plt Count 101 L (150-450) k/uL Lymphocytes # 0.5 L (1.0-4.8) k/uL Sodium 146 H (137-145) mmol/L Chloride 110 H (98-107) mmol/L BUN 37 H (7-17) mg/dL Creatinine 1.80 H (0.52-1.04) mg/dL Glucose 132 H (74-99) mg/dL POC Glucose (mg/dL) 153 H (75-99) mg/dL Assessment and Plan Plan: Assessment: 1 acute episode of hypotension and bradycardia, most likely medications related , resolved 2 hypertension. 3 atypical chest pain, seems to be musculoskeletal in nature with significant tenderness over the xiphoid process. 4 history of liver cirrhosis and end-stage liver disease, patient is being evaluated for liver transplantation on outpatient basis. 5 obstructive sleep apnea, no longer on CPAP therapy after UPPP- uvulopalatopharyngoplasty Plan: Patient had an episode of sternal chest pain over the xiphoid process last night , that was relieved by changing position, and as such could be related to a musculoskeletal etiology. Cardiology is following, patient remains stable from pulmonary standpoint, did have an episode of coughing up of blood clot, and this is related to intermittent epistaxis, chest x-ray has been normal. Overall remains stable, antihypertensives are being adjusted by cardiology. From pulmonary standpoint patient is stable for discharge home. I performed a history & physical examination of the patient and discussed their management with my nurse practitioner, Elvira Sommer. I reviewed the nurse practitioner's note and agree with the documented findings and plan of care. Lung sounds are diminished with some limited crackles at the right lower lobe. The findings and the impression was discussed with the patient. I attest to the documentation by the nurse practitioner. Time with Patient: Less than 30
--- NOTE | 2017-09-12 14:47 | P.PN ---
Subjective Mrs. Silva is a 66-year-old female past medical history significant for liver cirrhosis of unknown etiology, hypertension, COPD, diabetes mellitus, hyperlipidemia, seizure disorder and sleep apnea. She denies history of coronary artery disease and had a normal catheterization in 2014. She initially presented to the hospital with symptoms of chest pain, weakness and diaphoresis. When brought to the hospital she was hypotensive requiring a dopamine infusion and was placed in the ICU. She has since been moved to medical surgical floor and restarted on all of her home anti-hypertensive medications to include amlodipine 5 mg daily, clonidine 0.2 mg twice a day and hydralazine 50 mg 3 times a day. Except lisinopril 40 mg daily. Labetolol was added yesterday. Blood pressure after medications this morning 191/87 repeat at 1430 147/69. She is seen sitting up in bed with spouse at the bedside. She states last night she had an episode of coughing and coughed up a large blood clot. She denies symptoms of chest pain, shortness of breath, diaphoresis, dizziness, palpitations, nausea, vomiting or diaphoresis. Laboratory data review WBC 2.5, hemoglobin 8.1, platelets 101, sodium 146, potassium 4.4, magnesium 2.1, creatinine 1.8. Objective - Vital Signs Vital signs: Vital Signs Temp 98.7 F 09/12/17 07:00 Pulse 54 L 09/12/17 10:26 Resp 16 09/12/17 07:00 BP 191/87 09/12/17 10:26 Pulse Ox 94 L 09/12/17 10:26 Intake & Output 09/11/17 09/12/17 09/12/17 18:59 06:59 18:59 Intake Total 0 400 774 Output Total 0 Balance 0 400 774 Weight 90.5 kg 89.5 kg 89.5 kg Intake: IV 0 Sodium Chloride 0.9% 1, 0 000 ml @ 75 mls/hr IV . [id number] [facility] Rx#:[id number] Oral 400 774 Output: Urine 0 Other: Voiding Method Toilet Toilet Toilet Bedside Commode Bedside Commode # Voids 1 2 # Bowel Movements 1 - Exam GENERAL: Well-appearing, well-nourished and in no acute distress. NECK: Supple without JVD or thyromegaly. LUNGS: Breath sounds clear to auscultation bilaterally. Respiration equal and unlabored. No wheezes, rales or rhonchi. HEART: Regular rate and rhythm with systolic murmur at the base, no rubs or gallops. S1 and S2 heard. EXTREMITIES: Normal range of motion, no edema. No clubbing or cyanosis. Peripheral pulses intact and strong. - Labs CBC & Chem 7: 09/12/17 05:18 09/12/17 05:18 Labs: Abnormal Lab Results - Last 24 Hours (Table) 09/11/17 09/11/17 09/12/17 Range/Units 17:53 21:20 05:18 WBC 2.5 L (3.8-10.6) k/uL RBC 2.86 L (3.80-5.40) m/uL Hgb 8.1 L (11.4-16.0) gm/dL Hct 25.3 L (34.0-46.0) % RDW 17.9 H (11.5-15.5) % Plt Count 101 L (150-450) k/uL Lymphocytes # 0.5 L (1.0-4.8) k/uL Sodium (137-145) mmol/L Chloride (98-107) mmol/L BUN (7-17) mg/dL Creatinine (0.52-1.04) mg/dL Glucose (74-99) mg/dL POC Glucose (mg/dL) 152 H 186 H (75-99) mg/dL 09/12/17 09/12/17 09/12/17 Range/Units 05:18 06:54 11:17 WBC (3.8-10.6) k/uL RBC (3.80-5.40) m/uL Hgb (11.4-16.0) gm/dL Hct (34.0-46.0) % RDW (11.5-15.5) % Plt Count (150-450) k/uL Lymphocytes # (1.0-4.8) k/uL Sodium 146 H (137-145) mmol/L Chloride 110 H (98-107) mmol/L BUN 37 H (7-17) mg/dL Creatinine 1.80 H (0.52-1.04) mg/dL Glucose 132 H (74-99) mg/dL POC Glucose (mg/dL) 153 H 172 H (75-99) mg/dL Assessment and Plan Assessment: ASSESSMENT 1. Uncontrolled hypertension with episode of hypotension on admission 2. History of chronic kidney disease with creatinine that runs in the range of 2.5 3. History of liver cirrhosis currently evaluated for liver transplantation [facility]. 4. Diabetes mellitus 5. COPD 6. Dyslipidemia PLAN Resume lisinopril 40 mg daily. Increase amlodipine to 5 mg twice a day. Further recommendations to follow based on clinical course. Nurse Practitioner note has been reviewed, I agree with a documented findings and plan of care. Patient was seen and examined.
[2017-09-12 15:33] VITALS: BMI 34.9
[2017-09-12] MEDS: LISINOPRIL 20 MG TAB PO SCH ×2 (15:37→15:39)
[2017-09-12] MEDS ORDERED: cloNIDine HCL 0.1 MG TAB PO SCH (16:00)
[2017-09-12 17:05] LABS: Glucose,Whole Blood 210 mg/dL (75-99)
[2017-09-12 21:41] LABS: Glucose,Whole Blood 148 mg/dL (75-99)
[2017-09-13 06:13] VITALS: TEMP 97.9
[2017-09-13 07:35] LABS: Glucose,Whole Blood 141 mg/dL (75-99)
[2017-09-13] MEDS: IPRATROPIUM-ALBUTEROL 3 ML NEB INHALATION SCH ×2 (07:46→13:19)
[2017-09-13] MEDS: LACTULOSE 20 GM/30 ML CUP PO SCH (07:59)
[2017-09-13] MEDS: HYDROcodone/APAP 5-325MG 1 EACH TAB PO PRN (07:59)
[2017-09-13] MEDS: SODIUM BICARBONATE TAB 650 MG TAB PO SCH (08:00)
[2017-09-13] MEDS: MAGNESIUM OXIDE 400 MG TAB PO SCH (08:00)
[2017-09-13] MEDS: RIFAXIMIN 550 MG TABLET PO SCH (08:00)
[2017-09-13] MEDS: cloNIDine HCL 0.2 MG TAB PO SCH (08:00)
[2017-09-13] MEDS: MONTELUKAST 10 MG TAB PO SCH (08:00)
[2017-09-13] MEDS: FAMOTIDINE 20 MG TAB PO SCH (08:01)
[2017-09-13] MEDS: amLODIPine 5 MG TAB PO SCH (08:01)
[2017-09-13] MEDS: ENOXAPARIN 30 MG/0.3 ML SYRINGE SQ SCH (08:01)
[2017-09-13] MEDS: hydrALAZINE HCL 50 MG TAB PO SCH (08:01)
[2017-09-13] MEDS: FUROSEMIDE 40 MG TAB PO SCH (08:01)
[2017-09-13] MEDS: FOLIC ACID-VIT B COMPLEX-VIT C 1 CAP PO SCH (08:02)
[2017-09-13] MEDS: LISINOPRIL 20 MG TAB PO SCH (08:02)
[2017-09-13] MEDS: LABETALOL 100 MG TAB PO SCH (08:02)
[2017-09-13] MEDS: FERROUS SULFATE 325 MG TAB PO SCH (08:02)
[2017-09-13] MEDS: INSULIN ASPART 100 UNIT/ML 1 ML 10 ML VIAL SQ SCH ×2 (08:03→12:53)
[2017-09-13] MEDS: INSULIN DETEMIR 100 UNIT/ML 10 ML VIAL SQ SCH (08:27)
[2017-09-13 08:35] LABS: Anisocytosis Slight; Basophils % (A) 1 %; Eosinophils # (A) 0.1 k/uL (0-0.7); Eosinophils % (A) 2 %; HGB 8.7 gm/dL (11.4-16.0); Lymphocytes # (A) 0.7 k/uL (1.0-4.8); Lymphocytes % (A) 23 %; MCH 28.4 pg (25.0-35.0); MCHC 32.1 g/dL (31.0-37.0); MCV 88.3 fL (80.0-100.0); Mean Platelet Volume 7.9; Monocytes # (A) 0.2 k/uL (0-1.0); Monocytes % (A) 8 %; Neutrophils # (A) 1.9 k/uL (1.3-7.7); Neutrophils % (A) 64 %; Platelet Count 101 k/uL (150-450); RBC 3.05 m/uL (3.80-5.40); RDW 18.1 % (11.5-15.5)
[2017-09-13 08:53] LABS: Calcium 9.3 mg/dL (8.4-10.2); Magnesium 1.9 mg/dL (1.6-2.3); Phosphorus 4.6 mg/dL (2.5-4.5); Potassium 4.3 mmol/L (3.5-5.1)
[2017-09-13 11:19] VITALS: BP 155/59; PULSE 57; RESP 16
[2017-09-13 12:02] LABS: Glucose,Whole Blood 156 mg/dL (75-99)
--- NOTE | 2017-09-13 14:59 | P.PN ---
Subjective Mrs. Silva is a 66-year-old female past medical history significant for liver cirrhosis of unknown etiology, hypertension, COPD, diabetes mellitus, hyperlipidemia, seizure disorder and sleep apnea. She denies history of coronary artery disease and had a normal catheterization in 2014. She initially presented to the hospital with symptoms of chest pain, weakness and diaphoresis. When brought to the hospital she was hypotensive requiring a dopamine infusion and was placed in the ICU. She has since been moved to medical surgical floor and restarted on all of her home anti-hypertensive medications to include amlodipine 5 mg daily, clonidine 0.2 mg twice a day and hydralazine 50 mg 3 times a day. Except lisinopril 40 mg daily. Labetolol was added yesterday. Blood pressure after medications this morning 191/87 repeat at 1430 147/69. She is seen sitting up in bed with spouse at the bedside. She states last night she had an episode of coughing and coughed up a large blood clot. She denies symptoms of chest pain, shortness of breath, diaphoresis, dizziness, palpitations, nausea, vomiting or diaphoresis. Laboratory data review WBC 2.5, hemoglobin 8.1, platelets 101, sodium 146, potassium 4.4, magnesium 2.1, creatinine 1.8. 09/13/2017 Mrs. Silva is seen and examined sitting up in bed. Blood pressure medications were adjusted yesterday and repeat pressures today have been in the 150's systolic on current regimen. She denies symptoms of chest pain, shortness of breath, dizziness, nausea, vomiting, palpitations or diaphoresis. Laboratory data reviewed, WBC 3.0, hemoglobin 8.7, platelets 101, sodium 146, potassium 4.3 , creatinine 2.0, magnesium 1.9. Objective - Vital Signs Vital signs: Vital Signs Temp 97.9 F 09/13/17 11:00 Pulse 57 L 09/13/17 11:00 Resp 16 09/13/17 11:00 BP 155/59 09/13/17 11:00 Pulse Ox 97 09/13/17 11:00 Intake & Output 09/12/17 09/13/17 09/13/17 18:59 06:59 18:59 Intake Total 774 400 500 Output Total 0 Balance 774 400 500 Weight 89.5 kg 90 kg 90 kg Intake: Oral 774 400 500 Output: Urine 0 Other: Voiding Method Toilet Toilet Toilet Bedside Commode Bedside Commode # Voids 3 1 # Bowel Movements 1 - Exam GENERAL: Well-appearing, well-nourished and in no acute distress. NECK: Supple without JVD or thyromegaly. LUNGS: Breath sounds clear to auscultation bilaterally. Respiration equal and unlabored. No wheezes, rales or rhonchi. HEART: Regular rate and rhythm with systolic murmur at the base, no rubs or gallops. S1 and S2 heard. EXTREMITIES: Normal range of motion, no edema. No clubbing or cyanosis. Peripheral pulses intact and strong. - Labs CBC & Chem 7: 09/13/17 07:51 09/13/17 07:51 Labs: Abnormal Lab Results - Last 24 Hours (Table) 09/12/17 09/12/17 09/13/17 Range/Units 17:02 21:35 07:31 WBC (3.8-10.6) k/uL RBC (3.80-5.40) m/uL Hgb (11.4-16.0) gm/dL Hct (34.0-46.0) % RDW (11.5-15.5) % Plt Count (150-450) k/uL Lymphocytes # (1.0-4.8) k/uL Sodium (137-145) mmol/L BUN (7-17) mg/dL Creatinine (0.52-1.04) mg/dL Glucose (74-99) mg/dL POC Glucose (mg/dL) 210 H 148 H 141 H (75-99) mg/dL Phosphorus (2.5-4.5) mg/dL 09/13/17 09/13/17 09/13/17 Range/Units 07:51 07:51 11:59 WBC 3.0 L (3.8-10.6) k/uL RBC 3.05 L (3.80-5.40) m/uL Hgb 8.7 L (11.4-16.0) gm/dL Hct 27.0 L (34.0-46.0) % RDW 18.1 H (11.5-15.5) % Plt Count 101 L (150-450) k/uL Lymphocytes # 0.7 L (1.0-4.8) k/uL Sodium 146 H (137-145) mmol/L BUN 38 H (7-17) mg/dL Creatinine 2.00 H (0.52-1.04) mg/dL Glucose 156 H (74-99) mg/dL POC Glucose (mg/dL) 156 H (75-99) mg/dL Phosphorus 4.6 H (2.5-4.5) mg/dL Assessment and Plan Assessment: ASSESSMENT 1. Uncontrolled hypertension with episode of hypotension on admission 2. History of chronic kidney disease with creatinine that runs in the range of 2.5 3. History of liver cirrhosis currently evaluated for liver transplantation [facility]. 4. Diabetes mellitus 5. COPD 6. Dyslipidemia PLAN Continue current medical therapy. She follows with a director center at [facility] and has been advised to keep a log of her blood pressures daily and take to her follow-up appointment upon discharge. Nurse Practitioner note has been reviewed, I agree with a documented findings and plan of care. Patient was seen and examined.
== END 2017-09-13 15:05 | disposition home or self-care (01) | DRG 312 ==
LOC: EC 15:01 → 6ICU 16:44 → 4MS4W 09-11 17:15
PROVIDERS: ADMIT Internal Medicine; ATTEND Internal Medicine
DX: I95.2 Hypotension due to drugs (principal); N17.9 Acute kidney failure, unspecified; E11.22 Type 2 diabetes mellitus with diabetic chronic kidney disease; E78.5 Hyperlipidemia, unspecified; F32.9 Major depressive disorder, single episode, unspecified; G47.33 Obstructive sleep apnea (adult) (pediatric); G40.909 Epilepsy, unspecified, not intractable, without status epilepticus; I12.9 Hypertensive chronic kidney disease with stage 1 through stage 4 chronic kidney disease, or unspecified chronic kidney disease; J44.9 Chronic obstructive pulmonary disease, unspecified; K21.9 Gastro-esophageal reflux disease without esophagitis; K72.90 Hepatic failure, unspecified without coma; K74.60 Unspecified cirrhosis of liver; N18.3 Chronic kidney disease, stage 3 (moderate); Z79.4 Long term (current) use of insulin; Z79.899 Other long term (current) drug therapy; Z82.49 Family history of ischemic heart disease and other diseases of the circulatory system; Z83.3 Family history of diabetes mellitus; Z86.73 Personal history of transient ischemic attack (TIA), and cerebral infarction without residual deficits; Z87.891 Personal history of nicotine dependence; Z90.49 Acquired absence of other specified parts of digestive tract; Z76.82 Awaiting organ transplant status; Z88.6 Allergy status to analgesic agent; Z88.5 Allergy status to narcotic agent; Z88.0 Allergy status to penicillin; Z88.8 Allergy status to other drugs, medicaments and biological substances; R00.1 Bradycardia, unspecified; T46.5X5A Adverse effect of other antihypertensive drugs, initial encounter
CPT/HCPCS: 36415; 71046; 80048; 80053; 81001; 82550; 82553; 83036; 83735; 84100; 84484; 85025; 85610; 85730; 87086; 93005; 94640; 96361; 96365; 99291

== ENCOUNTER 2017-10-04 15:40 | Inpatient (IN) | payer MEDICARE, OTHER ==
[2017-10-04] MEDS ORDERED: SODIUM CHLORIDE 0.9% 1,000 ML IV STA (16:51)
[2017-10-04 17:36] LABS: Albumin 3.3 g/dL (3.5-5.0); Calcium 7.6 mg/dL (8.4-10.2); Magnesium 2.1 mg/dL (1.6-2.3); Potassium 4.4 mmol/L (3.5-5.1); Total Bilirubin 0.3 mg/dL (0.2-1.3); Total Protein 6.1 g/dL (6.3-8.2)
--- NOTE | 2017-10-04 17:36 | ED ---
Recheck HPI - General Chief Complaint: Recheck/Abnormal Lab/Rx Stated Complaint: Low B/P Time Seen by Provider: 10/04/17 16:10 Source: patient, RN notes reviewed, old records reviewed Mode of arrival: wheelchair Limitations: no limitations - History of Present Illness Initial Comments: 67-year-old female presents emergency department today chief complaint of low blood pressure and fatigue. Patient reports that she was admitted earlier in the splint for similar complaints.She has a history of liver cirrhosis waiting for liver transplant [facility]. Patient states that she was discharged home, the following week she went to [facility] for evidence of low blood pressure and diarrhea and vomiting. She received 2 units of blood while she was there. She reports that over the past few days and no diarrhea or vomiting. She states that her medicines were changed on her last admission to the hospital. She was doing well up until today. Her visiting nurse told her her blood pressure was 86/50 and was sent in for further evaluation. She denies any chest pain. She does report she short of breath on exertion. - Related Data Home Medications Medication Instructions Recorded Confirmed rOPINIRole HCL [Requip] 0.25 mg PO HS 12/15/14 10/04/17 Isosorbide Mononitrate ER [Imdur] 30 mg PO DAILY 08/29/17 10/04/17 Lactulose 10 gm PO TID 08/29/17 10/04/17 Montelukast [Singulair] 10 mg PO DAILY 08/29/17 10/04/17 Pantoprazole Sodium [Protonix] 40 mg PO BID@0900,1700 08/29/17 10/04/17 Folic Acid-Vit B Complex-Vit C 1 cap PO DAILY 09/09/17 10/04/17 [Nephrocaps] Insulin Aspart [NovoLOG Flexpen] 3 units SQ AC-TID 09/09/17 10/04/17 Insulin Glargine,Hum.rec.anlog 20 unit SQ HS 09/09/17 10/04/17 [Lantus Solostar] Ipratropium/Albuterol Sulfate 1 puff INHALATION RT-Q6H 09/09/17 10/04/17 [Combivent Respimat Inhaler] Lisinopril 40 mg PO DAILY 09/09/17 10/04/17 Magnesium Oxide [Mag-Ox] 400 mg PO DAILY 09/09/17 10/04/17 [place]-3 Fatty Acids/Fish Oil [Fish 1 cap PO DAILY 09/09/17 10/04/17 Oil 1,000 mg Softgel] Potassium Chloride ER [K-Dur 20] 20 meq PO DAILY 09/09/17 10/04/17 Sodium Bicarbonate Tab 650 mg PO TID 09/09/17 10/04/17 cloNIDine HCL [Catapres] 0.1 mg PO TID 09/09/17 10/04/17 hydrOXYzine PAMOATE [Vistaril] 25 mg PO TID PRN 09/09/17 10/04/17 Labetalol [Trandate] 100 mg PO BID 10/04/17 10/04/17 Metoprolol Tartrate [Lopressor] 25 mg PO BID 10/04/17 10/04/17 Previous Rx's Medication Instructions Recorded Ferrous Sulfate [Feosol] 325 mg PO DAILY #1 09/02/17 Furosemide [Lasix] 40 mg PO DAILY #1 09/02/17 hydrALAZINE HCL [Apresoline] 50 mg PO Q8H #90 tab 09/02/17 amLODIPine [Norvasc] 5 mg PO BID #60 tab 09/13/17 Allergies Allergy/AdvReac Type Severity Reaction Status Date / Time adhesive Allergy BLISTERS Verified 10/04/17 16:10 SKIN "PAPER TAPE OK" codeine Allergy Unknown Verified 10/04/17 16:10 morphine Allergy "STOPS Verified 10/04/17 16:10 BREATHING" Penicillins Allergy Unknown Verified 10/04/17 16:10 tramadol HCl [From Ultram] Allergy "PASSES Verified 10/04/17 16:10 OUT" aspirin AdvReac Nausea & Verified 10/04/17 16:10 Vomiting ibuprofen [From Motrin] AdvReac AFFECTS Verified 10/04/17 16:10 KIDNEYS TAPE Allergy BLISTERS Uncoded 10/04/17 15:47 SKIN "PAPER TAPE IS OK" Review of Systems ROS Statement: Those systems with pertinent positive or pertinent negative responses have been documented in the HPI. ROS Other: All systems not noted in ROS Statement are negative. Past Medical History Past Medical History: Chest Pain / Angina, COPD, CVA/TIA, Diabetes Mellitus, GERD/Reflux, Hyperlipidemia, Hypertension, Liver Disease, Memory Impairment, Seizure Disorder, Sleep Apnea/CPAP/BIPAP Additional Past Medical History / Comment(s): rt side dominant.spouse stated pt had a cva 1998 affected rt side but resolved. had tia in 1999 and 2007- but in past 2 years both legs getting weaker unable to walk long distance USES WALKER,no CPAP used since sx,CONSTIPATION, KIDNEY INFECTION,BRUISES EASILY, GI BLEED X 2-RECEIVED UNITS PRBC'S, berna cataracts. spouse stated pt has ra and a hereditary liver disease. History of Any Multi-Drug Resistant Organisms: None Reported Past Surgical History: Appendectomy, Cholecystectomy, Heart Catheterization, Orthopedic Surgery, Tubal Ligation Additional Past Surgical History / Comment(s): SLEEP APNEA SURGERY,RT SHOULDER, LT ARM BX, CARPEL TUNNEL BERNA,GANGLION CYST REMOVED,BONE SPURS BERNA ANKLES, "at [facility]- they cauterizred bleed in the stomach", paracentesis Past Anesthesia/Blood Transfusion Reactions: No Reported Reaction Additional Past Anesthesia/Blood Transfusion Reaction / Comment(s): clausterphobia Past Psychological History: No Psychological Hx Reported Smoking Status: Former smoker Past Alcohol Use History: None Reported Past Drug Use History: None Reported - Past Family History Mother Family Medical History: Diabetes Mellitus, Hypertension Additional Family Medical History / Comment(s): HEART PROBLEMS Father Family Medical History: Myocardial Infarction ([place]) Additional Family Medical History / Comment(s): HEART PROBLEMS General Exam - General Exam Comments Initial Comments: 67-year-old female. Alert and oriented. No significant distress. Limitations: no limitations Head exam: Present: atraumatic, normocephalic, normal inspection Eye exam: Present: normal appearance, PERRL, EOMI. Absent: scleral icterus, conjunctival injection, periorbital swelling ENT exam: Present: normal exam, mucous membranes moist Neck exam: Present: normal inspection. Absent: tenderness, meningismus, lymphadenopathy Respiratory exam: Present: normal lung sounds bilaterally. Absent: respiratory distress, wheezes, rales, rhonchi, stridor Cardiovascular Exam: Present: regular rate, normal rhythm, normal heart sounds. Absent: systolic murmur, diastolic murmur, rubs, gallop, clicks GI/Abdominal exam: Present: soft, tenderness (Right upper quadrant tenderness. She reports that this is chronic.), normal bowel sounds. Absent: distended, guarding, rebound, rigid Extremities exam: Present: normal inspection, full ROM, normal capillary refill. Absent: tenderness, pedal edema, joint swelling, calf tenderness Back exam: Present: normal inspection Neurological exam: Present: alert, oriented X3, CN II-XII intact Psychiatric exam: Present: normal affect, normal mood Skin exam: Present: warm, dry, intact, normal color Course Vital Signs 10/04/17 10/04/17 10/04/17 15:45 16:34 17:05 Temperature 98.1 F Pulse Rate 55 L 52 L 55 L Respiratory 18 16 18 Rate Blood Pressure 87/50 104/52 104/52 O2 Sat by Pulse 97 95 98 Oximetry 10/04/17 17:31 Temperature Pulse Rate 55 L Respiratory 20 Rate Blood Pressure 108/57 O2 Sat by Pulse 96 Oximetry Medical Decision Making - Medical Decision Making Patient is 67-year-old female with a history of liver cirrhosis and currently waiting transplant chief complaint of low blood pressure today and weakness and fatigue. Patient was recently discharged from [facility] one week ago after suffering from a GI bleed. Patient's records were obtained and in the file. She is given 2 units of blood at that time. Patient arrives today with blood pressure of 80/50. She is given a liter fluid and blood pressure is now 100/60. She appears stable. She denies any significant complaints of pain. She's had no vomiting or bloody emesis or bloody stools. Today Patient is found to be in acute renal failure with significant elevation of BUN/ creatinine. She's never had a history of dialysis or kidney function this poor in our records. She's been avoiding NSAIDs. She does follow with the [employer] [facility] in [facility]. At this time Patient admitted for hypotension, acute renal failure consult to nephrology. - Lab Data Result diagrams: 10/04/17 17:05 10/04/17 17:05 Lab Results 10/04/17 10/04/17 10/04/17 Range/Units 17:05 17:05 17:05 WBC 4.5 (3.8-10.6) k/uL RBC 2.79 L (3.80-5.40) m/uL Hgb 7.8 L (11.4-16.0) gm/dL Hct 25.1 L (34.0-46.0) % MCV 90.0 (80.0-100.0) fL MCH 28.1 (25.0-35.0) pg MCHC 31.2 (31.0-37.0) g/dL RDW 17.6 H (11.5-15.5) % Plt Count 105 L (150-450) k/uL Neutrophils % 62 % Lymphocytes % 25 % Monocytes % 8 % Eosinophils % 3 % Basophils % 1 % Neutrophils # 2.8 (1.3-7.7) k/uL Lymphocytes # 1.1 (1.0-4.8) k/uL Monocytes # 0.4 (0-1.0) k/uL Eosinophils # 0.1 (0-0.7) k/uL Basophils # 0.0 (0-0.2) k/uL Anisocytosis Slight PT (9.0-12.0) sec INR (<1.2) APTT (22.0-30.0) sec Sodium 140 (137-145) mmol/L Potassium 4.4 (3.5-5.1) mmol/L Chloride 105 (98-107) mmol/L Carbon Dioxide 23 (22-30) mmol/L Anion Gap 12 mmol/L BUN 57 H (7-17) mg/dL Creatinine 5.80 H* (0.52-1.04) mg/dL Est GFR (CKD-EPI)AfAm 8 (>60 ml/min/1.73 sqM) Est GFR (CKD-EPI)NonAf 7 (>60 ml/min/1.73 sqM) Glucose 170 H (74-99) mg/dL Calcium 7.6 L (8.4-10.2) mg/dL Magnesium 2.1 (1.6-2.3) mg/dL Total Bilirubin 0.3 (0.2-1.3) mg/dL AST 77 H (14-36) U/L ALT 50 (9-52) U/L Alkaline Phosphatase 197 H (38-126) U/L Total Creatine Kinase 71 (30-135) U/L CK-MB (CK-2) 0.5 (0.0-2.4) ng/mL CK-MB (CK-2) Rel Index 0.7 Troponin I <0.012 (0.000-0.034) ng/mL Total Protein 6.1 L (6.3-8.2) g/dL Albumin 3.3 L (3.5-5.0) g/dL Amylase 67 (30-110) U/L Lipase 126 (23-300) U/L // Range/Units 17:05 WBC (3.8-10.6) k/uL RBC (3.80-5.40) m/uL Hgb (11.4-16.0) gm/dL Hct (34.0-46.0) % MCV (80.0-100.0) fL MCH (25.0-35.0) pg MCHC (31.0-37.0) g/dL RDW (11.5-15.5) % Plt Count (150-450) k/uL Neutrophils % % Lymphocytes % % Monocytes % % Eosinophils % % Basophils % % Neutrophils # (1.3-7.7) k/uL Lymphocytes # (1.0-4.8) k/uL Monocytes # (0-1.0) k/uL Eosinophils # (0-0.7) k/uL Basophils # (0-0.2) k/uL Anisocytosis PT 11.6 (9.0-12.0) sec INR 1.2 H (<1.2) APTT 27.2 (22.0-30.0) sec Sodium (137-145) mmol/L Potassium (3.5-5.1) mmol/L Chloride (98-107) mmol/L Carbon Dioxide (22-30) mmol/L Anion Gap mmol/L BUN (7-17) mg/dL Creatinine (0.52-1.04) mg/dL Est GFR (CKD-EPI)AfAm (>60 ml/min/1.73 sqM) Est GFR (CKD-EPI)NonAf (>60 ml/min/1.73 sqM) Glucose (74-99) mg/dL Calcium (8.4-10.2) mg/dL Magnesium (1.6-2.3) mg/dL Total Bilirubin (0.2-1.3) mg/dL AST (14-36) U/L ALT (9-52) U/L Alkaline Phosphatase (38-126) U/L Total Creatine Kinase (30-135) U/L CK-MB (CK-2) (0.0-2.4) ng/mL CK-MB (CK-2) Rel Index Troponin I (0.000-0.034) ng/mL Total Protein (6.3-8.2) g/dL Albumin (3.5-5.0) g/dL Amylase (30-110) U/L Lipase (23-300) U/L 10/04/17 17:48 EKG performed at 1720 she signs bradycardia prolonged QT abnormal EKG. Ventricular rate of 54 bpm. OR interval is 186 ms. QRS is 90 ms. QT QTc is 518/491 ms. - Radiology Data Radiology results: report reviewed No active cardiopulmonary disease. No change. Normal heart. Disposition Clinical Impression: Hypotension, Cirrhosis of liver, Renal failure, Acute kidney injury Disposition: ADMITTED IP TO THIS HOSP Condition: Stable Is patient prescribed a controlled substance at d/c from ED?: No When asked, does pt state using other controlled substances?: No If prescribed controlled substance>3 days was MAPS reviewed?: No If opioid is for acute pain is fill amount 7 days or less?: No If Rx opioid, was Start Talking consent form obtained?: No Referrals: Nonstaff,Physician [Primary Care Provider] - 1-2 days Time of Disposition: 19:04
[2017-10-04 17:37] LABS: INR 1.2 (<1.2); Partial Thromboplastin Time 27.2 sec (22.0-30.0); Prothrombin Time 11.6 sec (9.0-12.0)
[2017-10-04 17:40] LABS: Anisocytosis Slight; Basophils % (A) 1 %; Eosinophils # (A) 0.1 k/uL (0-0.7); Eosinophils % (A) 3 %; HCT 25.1 % (34.0-46.0); HGB 7.8 gm/dL (11.4-16.0); Lymphocytes # (A) 1.1 k/uL (1.0-4.8); Lymphocytes % (A) 25 %; MCH 28.1 pg (25.0-35.0); MCHC 31.2 g/dL (31.0-37.0); Mean Platelet Volume 8.3; Monocytes # (A) 0.4 k/uL (0-1.0); Monocytes % (A) 8 %; Neutrophils # (A) 2.8 k/uL (1.3-7.7); Neutrophils % (A) 62 %; Platelet Count 105 k/uL (150-450); RBC 2.79 m/uL (3.80-5.40); RDW 17.6 % (11.5-15.5); WBC 4.5 k/uL (3.8-10.6)
[2017-10-04 17:47] LABS: Creatine Kinase 71 U/L (30-135)
[2017-10-04 18:02] LABS: Creatine Kinase MB 0.5 ng/mL (0.0-2.4); Troponin I <0.012 ng/mL (0.000-0.034)
--- NOTE | 2017-10-04 18:05 | XR ---
EXAMINATION TYPE: XR chest 2V DATE OF EXAM: 10/04/2017 COMPARISON: 09/09/2017 HISTORY: Chest pain TECHNIQUE: Frontal and lateral views of the chest are obtained. FINDINGS: Heart and mediastinum are normal. Lungs are clear. Diaphragm is normal. Bony thorax is int act. There are chest leads. There is a pin from right shoulder surgery. IMPRESSION: No active cardiopulmonary disease. No change. Normal heart.
[2017-10-04] MEDS ORDERED: SODIUM CHLORIDE 0.9% 1,000 ML IV ONE (18:52)
[2017-10-04] MEDS ORDERED: hydrOXYzine PAMOATE 25 MG CAP PO PRN (19:05)
[2017-10-04] MEDS: SODIUM CHLORIDE 0.9% 1,000 ML IV SCH (19:09)
[2017-10-04] MEDS ORDERED: hydrALAZINE HCL 50 MG TAB PO SCH (19:15)
[2017-10-04] MEDS ORDERED: ONDANSETRON 4 MG/2 ML VIAL IVP PRN (19:23)
[2017-10-04] MEDS ORDERED: NALOXONE 0.4 MG/ML 1 ML VIAL IV PRN (19:23)
[2017-10-04] MEDS ORDERED: Acetaminophen-Codeine 300-30mg TAB PO PRN (19:23)
[2017-10-04] MEDS ORDERED: MORPHINE SULFATE 2 MG/ML SYRINGE IV PRN (19:23)
[2017-10-04] MEDS ORDERED: ACETAMINOPHEN TAB 325 MG TAB PO PRN (19:23)
[2017-10-04] MEDS ORDERED: LORazepam 2 MG/ML INJ IV PRN (19:23)
[2017-10-04] MEDS ORDERED: IPRATROPIUM-ALBUTEROL 3 ML NEB INHALATION SCH (20:00)
[2017-10-04] MEDS ORDERED: amLODIPine 5 MG TAB PO SCH (21:00)
[2017-10-04] MEDS ORDERED: METOPROLOL TARTRATE 25 MG TAB PO SCH (21:00)
[2017-10-04] MEDS ORDERED: LABETALOL 100 MG TAB PO SCH (21:00)
[2017-10-04 21:09] VITALS: BMI 33.8
[2017-10-04 21:10] LABS: Glucose,Whole Blood 137 mg/dL (75-99)
[2017-10-04] MEDS ORDERED: SODIUM BICARBONATE TAB 650 MG TAB PO SCH (22:00)
[2017-10-04] MEDS ORDERED: cloNIDine HCL 0.1 MG TAB PO SCH (22:00)
[2017-10-05] MEDS: LACTULOSE 20 GM/30 ML CUP PO SCH ×5 (00:17→20:56)
[2017-10-05] MEDS: HYDROcodone/APAP 5-325MG 1 EACH TAB PO PRN ×3 (00:17→21:34)
[2017-10-05] MEDS: RIFAXIMIN 550 MG TABLET PO SCH ×3 (00:19→20:56)
[2017-10-05] MEDS: INSULIN DETEMIR 100 UNIT/ML 10 ML VIAL SQ SCH ×2 (00:19→20:56)
[2017-10-05] MEDS: IPRATROPIUM-ALBUTEROL 3 ML NEB INHALATION SCH ×4 (00:32→20:07)
[2017-10-05 06:10] LABS: Glucose,Whole Blood 90 mg/dL (75-99)
[2017-10-05 06:50] LABS: Anisocytosis Slight; Basophils % (A) 1 %; Eosinophils # (A) 0.1 k/uL (0-0.7); Eosinophils % (A) 3 %; HCT 25.1 % (34.0-46.0); HGB 7.6 gm/dL (11.4-16.0); Hypochromasia Slight; Lymphocytes # (A) 0.8 k/uL (1.0-4.8); Lymphocytes % (A) 25 %; MCH 28.1 pg (25.0-35.0); MCHC 30.3 g/dL (31.0-37.0); MCV 92.6 fL (80.0-100.0); Mean Platelet Volume 9.6; Monocytes # (A) 0.3 k/uL (0-1.0); Monocytes % (A) 8 %; Neutrophils % (A) 62 %; RBC 2.71 m/uL (3.80-5.40); RDW 16.9 % (11.5-15.5); WBC 3.2 k/uL (3.8-10.6)
[2017-10-05] MEDS: SODIUM CHLORIDE 0.9% 1,000 ML IV SCH ×2 (06:59→16:29)
[2017-10-05] MEDS: INSULIN ASPART 100 UNIT/ML 1 ML 10 ML VIAL SQ SCH ×3 (07:00→17:22)
[2017-10-05 07:15] LABS: Platelet Count 93 k/uL (150-450)
[2017-10-05 07:27] LABS: Calcium 7.3 mg/dL (8.4-10.2); Phosphorus 6.6 mg/dL (2.5-4.5)
[2017-10-05] MEDS: FERROUS SULFATE 325 MG TAB PO SCH (08:37)
[2017-10-05] MEDS: MONTELUKAST 10 MG TAB PO SCH (08:37)
[2017-10-05] MEDS: PANTOPRAZOLE 40 MG TABLET PO SCH ×2 (08:37→16:28)
[2017-10-05] MEDS: ISOSORBIDE MONONITRATE ER 30 MG TAB.ER.24H PO SCH (08:37)
[2017-10-05] MEDS: MAGNESIUM OXIDE 400 MG TAB PO SCH (08:37)
[2017-10-05] MEDS ORDERED: FUROSEMIDE 40 MG TAB PO SCH (09:00)
[2017-10-05] MEDS ORDERED: LISINOPRIL 20 MG TAB PO SCH (09:00)
[2017-10-05] MEDS ORDERED: POTASSIUM CHLORIDE ER 20 MEQ TAB.ER PO SCH (09:00)
[2017-10-05] MEDS ORDERED: NON-FORMULARY DRUG (Omega-3 Fatty Acids/Fish Oil [Fish Oil 1,000 Mg Softgel] 1 CAP) PO SCH (09:00)
--- NOTE | 2017-10-05 10:02 | CONS ---
CONSULTATION REASON FOR CONSULT: Renal failure. HISTORY OF PRESENT ILLNESS: The patient is a 67-year-old female with a history of hypertension, chronic kidney disease who follows with Nephrology out of [facility]. The patient was admitted to the hospital with not feeling well. She was extremely weak and lethargic. The patient denied any nausea, vomiting, abdominal pain, or diarrhea. She denied any fever or significant urinary symptoms. Serum creatinine was at 5.8 mg/dL and currently patient is maintained on IV fluids. Her creatinine is down to 5.3. The patient stated that she had significantly decreased urine output prior to admission. Review of previous labs shows a serum creatinine of 2.0 on 09/13/2017, another creatinine of 1.8 on 09/12. We have the lowest creatinine at 1.2 in 2015. The patient denied use of any nonsteroidal anti-inflammatory agents prior to admission. Her blood pressure has been slightly on the lower side with systolic around 114. At home, patient was on diuretics. I did not see any CHET inhibitors or angiotensin receptor blockers. PAST MEDICAL HISTORY: Significant for hypertension, chronic kidney disease, etiology not clear, being followed by Nephrology at [facility], type 2 diabetes, COPD, history of CVA/TIA, seizure disorder, obstructive sleep apnea, history of GI bleed. PAST SURGICAL HISTORY: Cholecystectomy, appendectomy, cardiac catheterization, carpal tunnel surgery, removal of bone spurs in ankles, history of paracentesis. SOCIAL HISTORY: Patient is a former smoker. No history of drug abuse or alcohol abuse. MEDICATIONS: Medications at home prior to admission included Imdur, Requip, lactulose, Singulair, Protonix, insulin, Nephrocaps, lisinopril, Mag oxide, omega-3 fatty acids, potassium, sodium bicarb, clonidine, Trandate, Lopressor, iron, Lasix, hydralazine, Norvasc. ALLERGIES: Allergies include TAPE, CODEINE, MORPHINE, PENICILLIN, which causes difficulty breathing and rash; TRAMADOL, which may caused the patient to pass out. IBUPROFEN causes nausea and vomiting and worsening kidney function. PHYSICAL EXAMINATION: On examination, currently patient is comfortable, awake, alert, oriented x3. She is not in any acute distress. Blood pressure is 115/51, heart rate 64 per minute. She is afebrile. EXAMINATION OF THE HEART: S1, S2. EXAMINATION OF THE LUNGS: Bilateral breath sounds are heard. No crackles or wheezing is heard. Abdomen is soft, obese, nontender. Examination of the lower extremities shows no evidence of edema. FUNDS DEVELOPMENT DIRECTOR exam is grossly intact. Patient moving all 4 extremities. Lymph nodes are not palpable. LABS: Labs show sodium 142, potassium 4.0, chloride 107, BUN 52, serum creatinine 5.3, calcium 7.3, phosphorus 6.6, albumin 3.3. UA is not available. Chest x-ray was unremarkable. ASSESSMENT: 1. Acute kidney injury, acute tubular necrosis, currently nonoliguric, possibly associated with hypovolemia. I will check a urinalysis. Check ultrasound of the kidneys. Previous creatinine was at 1.8 on 09/12/2017. 2. Chronic kidney disease stage III secondary to nephrosclerosis. Previous UA did not show any evidence of proteinuria. The patient has all her subspecialty physicians including Nephrology out of [facility]. 3. Anemia, rule out iron deficiency. No active bleeding noted, possibly anemia of chronic disease. 4. 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 Will start phosphate binders. 5. Hypertension. Blood pressure currently not significantly elevated. We will hold off on antihypertensive medications. PLAN: Start IV fluids. Check ultrasound of the kidneys. Check urinalysis. Repeat labs in a.m. Avoid hypotension. Check iron studies. Start phosphate binders. No indication for dialysis at this time. Thank you for this consultation. We will continue to follow the patient with you during her hospitalization. MMODL / IJN: [id number] /
--- NOTE | 2017-10-05 10:35 | US ---
EXAMINATION TYPE: US renals and bladder DATE OF EXAM: 10/05/2017 COMPARISON: NONE CLINICAL HISTORY: rf. EXAM MEASUREMENTS: Right Kidney: 9.8 x 4.1 x 4.4 cm Left Kidney: 10.1 x 5.4 x 4.3 cm Limited due to bowel gas and pt tolerance. Right Kidney: Normal size Left Kidney: Normal size Bladder: Slightly decompressed Bilateral Jets seen: No Incidental ascites noted, largest pocket on the right side. There is no evidence for hydronephrosis at this point in time. No nephrolithiasis is seen. No juju s are identified. The urinary bladder is anechoic. Cortical medullary differentiation is maintained. IMPRESSION: Ascites. Renal sizes above.
[2017-10-05 11:44] LABS: Glucose,Whole Blood 127 mg/dL (75-99)
[2017-10-05] MEDS: CALCIUM ACETATE 667 MG CAP PO SCH ×2 (12:30→17:21)
[2017-10-05] MEDS: FOLIC ACID-VIT B COMPLEX-VIT C 1 CAP PO SCH (12:31)
--- NOTE | 2017-10-05 15:12 | P.HPIM ---
History of Present Illness 62-year-old with history of cirrhosis was sent in here because of the low blood pressure going up to systolics as low as 80. Patient is a 90 his medications. 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 Is on liver transplant list. Patient baseline creatinine around 1.8 earlier this month. Went up to 5 creatinine. Probably secondary to acute of the necrosis renal ultrasound was obtained and the patient is a was seen by nephrology. Patient is also on Lasix which will be discontinued. Patient appears to have multifactorial medication related hypotension related acute renal failure. Patient had nausea vomiting diarrhea. Patient does have some ascites in spite of which I'll still discontinued Lasix and patient on IV fluids which will be continued with repeat basic metabolic profile tomorrow. Review of Systems REVIEW OF SYSTEMS: CONSTITUTIONAL: No fever HEENT: No recent visual problems or hearing problems. Denied any sore throat. CARDIOVASCULAR: No chest pain, orthopnea, PND, no palpitations, no syncope. PULMONARY: No shortness of breath, no cough, no hemoptysis. GASTROINTESTINAL: No diarrhea, no nausea, no vomiting, no abdominal pain. Normoactive bowel sounds. NEUROLOGICAL: No headaches, no weakness, no numbness. HEMATOLOGICAL: Denies any bleeding or petechiae. GENITOURINARY: Denies any burning micturition, frequency, or urgency. MUSCULOSKELETAL/RHEUMATOLOGICAL: Denies any joint pain, swelling, or any muscle pain. ENDOCRINE: Denies any polyuria or polydipsia. The rest of the 14-point review of systems is negative. Past Medical History Past Medical History: Chest Pain / Angina, COPD, CVA/TIA, Diabetes Mellitus, GERD/Reflux, Hyperlipidemia, Hypertension, Liver Disease, Memory Impairment, Seizure Disorder, Sleep Apnea/CPAP/BIPAP Additional Past Medical History / Comment(s): rt side dominant.spouse stated pt had a cva 1998 affected rt side but resolved. had tia in 1999 and 2007- but in past 2 years both legs getting weaker unable to walk long distance USES WALKER,no CPAP used since sx,CONSTIPATION, KIDNEY INFECTION,BRUISES EASILY, GI BLEED X 2-RECEIVED UNITS PRBC'S, berna cataracts. spouse stated pt has ra and a hereditary liver disease. History of Any Multi-Drug Resistant Organisms: None Reported Past Surgical History: Appendectomy, Cholecystectomy, Heart Catheterization, Orthopedic Surgery, Tubal Ligation Additional Past Surgical History / Comment(s): SLEEP APNEA SURGERY,RT SHOULDER, LT ARM BX, CARPEL TUNNEL BERNA,GANGLION CYST REMOVED,BONE SPURS BERNA ANKLES, "at [facility]- they cauterizred bleed in the stomach", paracentesis Past Anesthesia/Blood Transfusion Reactions: No Reported Reaction Additional Past Anesthesia/Blood Transfusion Reaction / Comment(s): clausterphobia Past Psychological History: No Psychological Hx Reported Smoking Status: Former smoker Past Alcohol Use History: None Reported Additional Past Alcohol Use History / Comment(s): STARTED SMOKING AT AGE 16(1966 ) and quit 2014, smoked 1/2 ppd Past Drug Use History: None Reported - Past Family History Mother Family Medical History: Diabetes Mellitus, Hypertension Additional Family Medical History / Comment(s): HEART PROBLEMS Father Family Medical History: Myocardial Infarction (CT) Additional Family Medical History / Comment(s): HEART PROBLEMS Medications and Allergies Home Medications Medication Instructions Recorded Confirmed Type rOPINIRole HCL [Requip] 0.25 mg PO HS 12/15/14 10/04/17 History Isosorbide Mononitrate ER [Imdur] 30 mg PO DAILY 08/29/17 10/04/17 History Lactulose 10 gm PO TID 08/29/17 10/04/17 History Montelukast [Singulair] 10 mg PO DAILY 08/29/17 10/04/17 History Pantoprazole Sodium [Protonix] 40 mg PO BID@0900,1700 08/29/17 10/04/17 History Ferrous Sulfate [Feosol] 325 mg PO DAILY #1 09/02/17 10/04/17 Rx Furosemide [Lasix] 40 mg PO DAILY #1 09/02/17 10/04/17 Rx Folic Acid-Vit B Complex-Vit C 1 cap PO DAILY 09/09/17 10/04/17 History [Nephrocaps] Insulin Aspart [NovoLOG Flexpen] 3 units SQ AC-TID 09/09/17 10/04/17 History Insulin Glargine,Hum.rec.anlog 20 unit SQ HS 09/09/17 10/04/17 History [Lantus Solostar] Ipratropium/Albuterol Sulfate 1 puff INHALATION RT-Q6H 09/09/17 10/04/17 History [Combivent Respimat Inhaler] Magnesium Oxide [Mag-Ox] 400 mg PO DAILY 09/09/17 10/04/17 History [place]-3 Fatty Acids/Fish Oil [Fish 1 cap PO DAILY 09/09/17 10/04/17 History Oil 1,000 mg Softgel] Potassium Chloride ER [K-Dur 20] 20 meq PO DAILY 09/09/17 10/04/17 History hydrOXYzine PAMOATE [Vistaril] 25 mg PO TID PRN 09/09/17 10/04/17 History Rifaximin [Xifaxan] 550 mg PO BID 10/04/17 10/04/17 History amLODIPine [Norvasc] 10 mg PO DAILY 10/04/17 10/04/17 History cloNIDine HCL [Catapres] 0.2 mg PO Q8HR 10/04/17 10/04/17 History hydrALAZINE HCL [Apresoline] 100 mg PO Q8HR 10/04/17 10/04/17 History Doxazosin [Cardura] 8 mg PO HS 10/05/17 10/05/17 History Allergies Allergy/AdvReac Type Severity Reaction Status Date / Time adhesive Allergy BLISTERS Verified 10/04/17 16:10 SKIN "PAPER TAPE OK" codeine Allergy Unknown Verified 10/04/17 16:10 morphine Allergy "STOPS Verified 10/04/17 16:10 BREATHING" Penicillins Allergy Unknown Verified 10/04/17 16:10 tramadol HCl [From Ultram] Allergy "PASSES Verified 10/04/17 16:10 OUT" aspirin AdvReac Nausea & Verified 10/04/17 16:10 Vomiting ibuprofen [From Motrin] AdvReac AFFECTS Verified 10/04/17 16:10 KIDNEYS TAPE Allergy BLISTERS Uncoded 10/04/17 15:47 SKIN "PAPER TAPE IS OK" Physical Exam Vitals: Vital Signs Temp Pulse Pulse Resp BP BP Pulse Ox 10/05/17 12:00 98.5 F 67 18 146/65 96 10/05/17 08:00 98.5 F 65 18 118/54 96 10/05/17 04:00 64 18 115/51 95 10/05/17 00:32 96 10/05/17 00:00 63 18 122/67 98 10/04/17 21:07 100 10/04/17 21:00 98.1 F 64 18 114/69 99 10/04/17 20:00 98.2 F 64 20 118/56 99 10/04/17 19:00 98.6 F 58 L 20 116/57 99 10/04/17 18:00 56 L 16 110/56 99 10/04/17 17:31 55 L 20 108/57 96 10/04/17 17:05 55 L 18 104/52 98 10/04/17 16:34 52 L 16 104/52 95 10/04/17 15:45 98.1 F 55 L 18 87/50 97 Intake and Output 10/05/17 10/05/17 10/05/17 06:59 14:59 22:59 Intake Total 1040 Output Total 200 Balance -200 1040 Intake: Intake, IV Titration 800 Amount Sodium Chloride 0.9% 1, 800 000 ml @ 100 mls/hr IV . Q10H [facility] Rx#:[id number] Oral 240 Output: Urine 200 Other: Voiding Method Bedside Commode # Voids 1 Weight 95.4 kg PHYSICAL EXAMINATION: GENERAL: The patient is alert and oriented x3, not in any acute distress. Morbidly obese HEENT: Pupils are round and equally reacting to light. EOMI. No scleral icterus. No conjunctival pallor. Normocephalic, atraumatic. No pharyngeal erythema. No thyromegaly. CARDIOVASCULAR: S1 and S2 present. No murmurs, rubs, or gallops. PULMONARY: Chest is clear to auscultation, no wheezing or crackles. ABDOMEN: Soft, obese abdomen because of which I cannot appreciate any shifting dullness, normoactive bowel sounds. No palpable organomegaly. MUSCULOSKELETAL: No joint swelling or deformity. EXTREMITIES: No cyanosis, clubbing, or pedal edema. NEUROLOGICAL: Gross neurological examination did not reveal any focal deficits. SKIN: No rashes. Results CBC & Chem 7: 10/05/17 06:31 10/05/17 06:31 Labs: Abnormal Lab Results - Last 24 Hours (Table) 10/04/17 10/04/17 10/04/17 Range/Units 17:05 17:05 17:05 WBC (3.8-10.6) k/uL RBC 2.79 L (3.80-5.40) m/uL Hgb 7.8 L (11.4-16.0) gm/dL Hct 25.1 L (34.0-46.0) % MCHC (31.0-37.0) g/dL RDW 17.6 H (11.5-15.5) % Plt Count 105 L (150-450) k/uL Lymphocytes # (1.0-4.8) k/uL INR 1.2 H (<1.2) BUN 57 H (7-17) mg/dL Creatinine 5.80 H* (0.52-1.04) mg/dL Glucose 170 H (74-99) mg/dL POC Glucose (mg/dL) (75-99) mg/dL Calcium 7.6 L (8.4-10.2) mg/dL Phosphorus (2.5-4.5) mg/dL AST 77 H (14-36) U/L Alkaline Phosphatase 197 H (38-126) U/L Total Protein 6.1 L (6.3-8.2) g/dL Albumin 3.3 L (3.5-5.0) g/dL 10/04/17 10/05/17 10/05/17 Range/Units 21:08 06:31 06:31 WBC 3.2 L (3.8-10.6) k/uL RBC 2.71 L (3.80-5.40) m/uL Hgb 7.6 L (11.4-16.0) gm/dL Hct 25.1 L (34.0-46.0) % MCHC 30.3 L (31.0-37.0) g/dL RDW 16.9 H (11.5-15.5) % Plt Count 93 L (150-450) k/uL Lymphocytes # 0.8 L (1.0-4.8) k/uL INR (<1.2) BUN 52 H (7-17) mg/dL Creatinine 5.30 H* (0.52-1.04) mg/dL Glucose (74-99) mg/dL POC Glucose (mg/dL) 137 H (75-99) mg/dL Calcium 7.3 L (8.4-10.2) mg/dL Phosphorus 6.6 H (2.5-4.5) mg/dL AST (14-36) U/L Alkaline Phosphatase (38-126) U/L Total Protein (6.3-8.2) g/dL Albumin (3.5-5.0) g/dL 10/05/17 Range/Units 11:36 WBC (3.8-10.6) k/uL RBC (3.80-5.40) m/uL Hgb (11.4-16.0) gm/dL Hct (34.0-46.0) % MCHC (31.0-37.0) g/dL RDW (11.5-15.5) % Plt Count (150-450) k/uL Lymphocytes # (1.0-4.8) k/uL INR (<1.2) BUN (7-17) mg/dL Creatinine (0.52-1.04) mg/dL Glucose (74-99) mg/dL POC Glucose (mg/dL) 127 H (75-99) mg/dL Calcium (8.4-10.2) mg/dL Phosphorus (2.5-4.5) mg/dL AST (14-36) U/L Alkaline Phosphatase (38-126) U/L Total Protein (6.3-8.2) g/dL Albumin (3.5-5.0) g/dL Thrombosis Risk Factor Assmnt - Choose All That Apply Each Risk Factor Represents 2 Points: Age 61-74 years Thrombosis Risk Factor Assessment Total Risk Factor Score: 2 Thrombosis Risk Factor Assessment Level: Low Risk Assessment and Plan Plan: Acute renal failure: Secondary to probably acute tubular necrosis from my hypovolemia hypotension patient is receiving IV fluids and Lasix will be discontinued. Further workup is pending ultrasound of the kidneys was reviewed. -Chronic kidney disease stage III secondary to hypertensive nephrosclerosis. -Anemia rule out iron deficiency anemia probably anemia of chronic disease or any we have liver disease -Cirrhosis alcoholic cirrhosis continue with the rifaximin . -Hyperphosphatasemia secondary to renal failure -Hypertension patient is actually hypotensive discontinue antidepressant medications -Morbid obesity -Gastroesophageal reflux disease -Type 2 diabetes mellitus -Seizure disorder -Sleep apnea and uses CPAP machine at home -CVA TIA in the past For above-mentioned chronic multiple medical problems patient will be resumed and continued on appropriate medications.
[2017-10-05 16:39] LABS: Glucose,Whole Blood 144 mg/dL (75-99)
[2017-10-05 17:06] LABS: Iron Saturation 7.04 (12.00-45.00)
[2017-10-05 20:43] LABS: Glucose,Whole Blood 119 mg/dL (75-99)
[2017-10-05 22:56] LABS: Appearance,Urine Cloudy (Clear); Bacteria,Urine Occasional /hpf; Bilirubin,Urine Negative (Negative); Blood,Urine Trace (Negative); Color,Urine Yellow; Glucose,Urine (UA) Negative (Negative); Hyaline Casts,Urine 1 /lpf (0-2); Ketones,Urine Negative (Negative); Leukocyte Esterase,Urine Negative (Negative); Mucus,Urine Rare /hpf; Nitrite,Urine Negative (Negative); PH, Urine 5.5 (5.0-8.0); Protein,Urine Trace (Negative); RBC,Urine <1 /hpf (0-5); Specific Gravity,Urine 1.009 (1.001-1.035); Squamous Epithelial Cell,Urine 1 /hpf (0-4); Urobilinogen,Urine <2.0 mg/dL (<2.0); WBC,Urine 2 /hpf (0-5)
[2017-10-06] MEDS: IPRATROPIUM-ALBUTEROL 3 ML NEB INHALATION SCH ×4 (03:29→20:30)
[2017-10-06 06:01] LABS: Glucose,Whole Blood 56 mg/dL (75-99)
[2017-10-06 06:14] LABS: Glucose,Whole Blood 78 mg/dL (75-99)
[2017-10-06] MEDS: HYDROcodone/APAP 5-325MG 1 EACH TAB PO PRN ×2 (06:17→20:34)
[2017-10-06] MEDS: CALCIUM ACETATE 667 MG CAP PO SCH ×3 (06:17→17:13)
[2017-10-06] MEDS: SODIUM CHLORIDE 0.9% 1,000 ML IV SCH ×3 (06:18→21:10)
[2017-10-06] MEDS: INSULIN ASPART 100 UNIT/ML 1 ML 10 ML VIAL SQ SCH ×3 (07:10→17:13)
[2017-10-06] MEDS: PANTOPRAZOLE 40 MG TABLET PO SCH ×2 (08:31→17:13)
[2017-10-06] MEDS: ISOSORBIDE MONONITRATE ER 30 MG TAB.ER.24H PO SCH (08:31)
[2017-10-06] MEDS: amLODIPine 5 MG TAB PO SCH (08:31)
[2017-10-06] MEDS: MAGNESIUM OXIDE 400 MG TAB PO SCH (08:31)
[2017-10-06] MEDS: RIFAXIMIN 550 MG TABLET PO SCH ×2 (08:31→20:31)
[2017-10-06] MEDS: MONTELUKAST 10 MG TAB PO SCH (08:31)
[2017-10-06] MEDS: FERROUS SULFATE 325 MG TAB PO SCH (08:31)
[2017-10-06] MEDS: LACTULOSE 20 GM/30 ML CUP PO SCH ×3 (08:31→21:10)
[2017-10-06] MEDS: cloNIDine HCL 0.1 MG TAB PO SCH ×2 (08:31→20:31)
[2017-10-06 08:51] LABS: Potassium 4.4 mmol/L (3.5-5.1)
--- NOTE | 2017-10-06 08:58 | PN ---
PROGRESS NOTE The patient is seen for followup for acute kidney injury. She is currently maintained on IV fluids. We do not have labs back from today. The patient states the urine output has significantly improved since admission. PHYSICAL EXAMINATION: On examination, blood pressure was elevated 171/68, heart rate 54 per minute. Patient is afebrile. Examination of the heart S1, S2. Examination lungs bilateral breath sounds are heard. Abdomen is soft, nontender. Examination of lower extremities shows no significant edema. SEARCH ENGINE OPTIMIZER exam is grossly intact. LABS: Pending from today. ASSESSMENT: 1. Acute kidney injury, possibly acute tubular necrosis, currently nonoliguric. Urinalysis did not show much activity. There was trace protein and trace blood. No significant cells were noted. Ultrasound is unremarkable with no evidence of hydronephrosis. We will continue with the IV fluids and follow up on labs from today. Continue to avoid nephrotoxic agents. 2. Hyperphosphatemia associated with renal failure, maintained on PhosLo. 3. Chronic kidney disease stage 3 secondary to nephrosclerosis being followed at [facility]. 4. Anemia of chronic disease. Rule out iron deficiency. 5. Hypertension. Blood pressure is now elevated. At home patient was on hydralazine and amlodipine and clonidine. We can resume the small dose of clonidine to avoid rebound hypertension along with Norvasc. PLAN: Resume low dose of clonidine to avoid rebound hypertension. I will also start the patient on Norvasc as her blood pressure is elevated. Continue with IV fluids. Check labs today. MMODL / IJN: [id number] /
[2017-10-06] MEDS: FOLIC ACID-VIT B COMPLEX-VIT C 1 CAP PO SCH (12:04)
[2017-10-06 12:12] LABS: Glucose,Whole Blood 242 mg/dL (75-99)
[2017-10-06] MEDS: hydrOXYzine PAMOATE 25 MG CAP PO PRN (13:19)
--- NOTE | 2017-10-06 13:32 | P.PN ---
Subjective 67-year-old female admitted with the acute renal failure secondary to acute tubular necrosis on chronic kidney disease stage IV. This is believed to be secondary to hypotension and the medication related, patient was resumed on clonidine and Norvasc because of her elevated blood pressure CHET inhibitor is being held creatinine did improve from 5.5 to around 4.2 today. Diuretics are being held as well patient is receiving IV fluids patient does have history of cirrhosis nonalcoholic. Constitutional: Denied any fatigue denied any fever. Cardio vascular: denied any chest pain, palpitations Gastrointestinal denied any nausea vomiting Pulmonary: Denied any shortness of breath cough Neurologic denied any new focal deficits Objective - Vital Signs Vital signs: Vital Signs Temp 98.1 F 10/06/17 12:00 Pulse 70 10/06/17 12:00 Resp 18 10/06/17 12:00 BP 175/70 10/06/17 12:00 Pulse Ox 97 10/06/17 12:00 Intake & Output 10/05/17 10/06/17 10/06/17 18:59 06:59 18:59 Intake Total 1400 Balance 1400 Weight 90.5 kg Intake: Intake, IV Titration 800 Amount Sodium Chloride 0.9% 1, 800 000 ml @ 100 mls/hr IV . Q10H [facility] Rx#:[id number] Oral 600 Other: Voiding Method Bedside Commode # Voids 1 2 # Bowel Movements 1 1 - Exam PHYSICAL EXAMINATION: GENERAL: The patient is alert and oriented x3, not in any acute distress. Morbidly obese HEENT: Pupils are round and equally reacting to light. EOMI. No scleral icterus. No conjunctival pallor. Normocephalic, atraumatic. No pharyngeal erythema. No thyromegaly. CARDIOVASCULAR: S1 and S2 present. No murmurs, rubs, or gallops. PULMONARY: Chest is clear to auscultation, no wheezing or crackles. ABDOMEN: Soft, obese abdomen because of which I cannot appreciate any shifting dullness, normoactive bowel sounds. No palpable organomegaly. MUSCULOSKELETAL: No joint swelling or deformity. EXTREMITIES: No cyanosis, clubbing, or pedal edema. NEUROLOGICAL: Gross neurological examination did not reveal any focal deficits. SKIN: No rashes. - Labs CBC & Chem 7: 10/05/17 06:31 10/06/17 08:15 Labs: Abnormal Lab Results - Last 24 Hours (Table) 10/05/17 10/05/17 10/05/17 Range/Units 16:37 20:41 22:30 Chloride (98-107) mmol/L Carbon Dioxide (22-30) mmol/L BUN (7-17) mg/dL Creatinine (0.52-1.04) mg/dL Glucose (74-99) mg/dL POC Glucose (mg/dL) 144 H 119 H (75-99) mg/dL Calcium (8.4-10.2) mg/dL Urine Appearance Cloudy H (Clear) Urine Protein Trace H (Negative) Urine Blood Trace H (Negative) Urine Bacteria Occasional H (None) /hpf Urine Mucus Rare H (None) /hpf 10/06/17 10/06/17 10/06/17 Range/Units 06:00 08:15 11:59 Chloride 109 H (98-107) mmol/L Carbon Dioxide 18 L (22-30) mmol/L BUN 47 H (7-17) mg/dL Creatinine 4.27 H (0.52-1.04) mg/dL Glucose 181 H (74-99) mg/dL POC Glucose (mg/dL) 56 L 242 H (75-99) mg/dL Calcium 8.0 L (8.4-10.2) mg/dL Urine Appearance (Clear) Urine Protein (Negative) Urine Blood (Negative) Urine Bacteria (None) /hpf Urine Mucus (None) /hpf Assessment and Plan Plan: Acute renal failure: Secondary to probably acute tubular necrosis from my hypovolemia hypotension patient is receiving IV fluids and Lasix will be discontinued. Further workup is pending ultrasound of the kidneys not show any significant abnormality. Patient's antidepressive medications among them are being resumed -Chronic kidney disease stage III secondary to hypertensive nephrosclerosis. -Anemia rule out iron deficiency anemia probably anemia of chronic disease or any we have liver disease -Cirrhosis alcoholic cirrhosis continue with the rifaximin . -Hyperphosphatasemia secondary to renal failure -Hypertension patient is actually hypotensive discontinue antidepressant medications -Morbid obesity -Gastroesophageal reflux disease -Type 2 diabetes mellitus -Seizure disorder -Sleep apnea and uses CPAP machine at home -CVA TIA in the past For above-mentioned chronic multiple medical problems patient will be resumed and continued on appropriate medications.
[2017-10-06 17:16] LABS: Glucose,Whole Blood 169 mg/dL (75-99)
[2017-10-06 20:58] LABS: Glucose,Whole Blood 194 mg/dL (75-99)
[2017-10-06] MEDS: INSULIN DETEMIR 100 UNIT/ML 10 ML VIAL SQ SCH (21:05)
[2017-10-07] MEDS: IPRATROPIUM-ALBUTEROL 3 ML NEB INHALATION SCH ×4 (02:39→20:09)
[2017-10-07] MEDS: HYDROcodone/APAP 5-325MG 1 EACH TAB PO PRN ×2 (04:14→17:29)
[2017-10-07 06:14] LABS: Glucose,Whole Blood 51 mg/dL (75-99)
[2017-10-07] MEDS: CALCIUM ACETATE 667 MG CAP PO SCH ×3 (06:14→17:20)
[2017-10-07] MEDS: INSULIN ASPART 100 UNIT/ML 1 ML 10 ML VIAL SQ SCH ×4 (06:17→17:22)
[2017-10-07 06:29] LABS: Glucose,Whole Blood 76 mg/dL (75-99)
[2017-10-07] MEDS: SODIUM CHLORIDE 0.9% 1,000 ML IV SCH (07:02)
[2017-10-07 08:19] LABS: Calcium 8.3 mg/dL (8.4-10.2); Potassium 4.5 mmol/L (3.5-5.1)
[2017-10-07] MEDS: ISOSORBIDE MONONITRATE ER 30 MG TAB.ER.24H PO SCH (08:20)
[2017-10-07] MEDS: cloNIDine HCL 0.1 MG TAB PO SCH (08:20)
[2017-10-07] MEDS: amLODIPine 5 MG TAB PO SCH ×2 (08:20→20:26)
[2017-10-07] MEDS: LACTULOSE 20 GM/30 ML CUP PO SCH ×3 (08:20→21:48)
[2017-10-07] MEDS: FERROUS SULFATE 325 MG TAB PO SCH (08:20)
[2017-10-07] MEDS: MONTELUKAST 10 MG TAB PO SCH (08:21)
[2017-10-07] MEDS: RIFAXIMIN 550 MG TABLET PO SCH ×2 (08:21→20:26)
[2017-10-07] MEDS: MAGNESIUM OXIDE 400 MG TAB PO SCH (08:21)
[2017-10-07] MEDS: PANTOPRAZOLE 40 MG TABLET PO SCH ×2 (08:22→17:20)
[2017-10-07] MEDS: hydrOXYzine PAMOATE 25 MG CAP PO PRN (08:31)
--- NOTE | 2017-10-07 10:41 | PN ---
PROGRESS NOTE The patient is seen for followup for acute kidney injury. Renal function has been improving. The patient is maintained on IV fluids. Serum creatinine is down from 5.8 to 3.35 today. Overall, patient states she is feeling better. PHYSICAL EXAMINATION: On examination, blood pressure is 137/66, heart rate 65 per minute. Patient is afebrile. EXAMINATION OF THE HEART: S1, S2. EXAMINATION OF THE LUNGS: Bilateral breath sounds are heard. Abdomen is soft, nontender. Examination of lower extremities shows no significant edema. LABS: Labs show sodium 146, potassium 4.5, chloride 114, BUN 39, serum creatinine 3.35. ASSESSMENT: 1. Acute kidney injury, prerenal, continued to improve. The patient is maintained on IV fluids, which I will continue. 2. Hyperphosphatemia associated with renal failure, maintained on PhosLo. 3. Chronic kidney disease stage III secondary to nephrosclerosis being followed at [facility]. 4. Anemia of chronic disease. Iron studies showed significantly low saturation at 7%. 5. Hypertension. Blood pressure is not low anymore. It is staying slightly on the higher side. Patient is maintained on clonidine which was lower than her usual home dose. I will increase it back and cut down the IV fluids. PLAN: Decrease IV fluids. Increase clonidine back to patient's home dose and start IV iron. MMODL / IJN: [id number] /
[2017-10-07 11:58] LABS: Glucose,Whole Blood 106 mg/dL (75-99)
--- NOTE | 2017-10-07 12:39 | P.PN ---
Subjective 67-year-old female admitted with the acute renal failure secondary to acute tubular necrosis on chronic kidney disease stage IV. This is believed to be secondary to hypotension and the medication related, patient was resumed on clonidine and Norvasc because of her elevated blood pressure CHET inhibitor is being held creatinine did improve from 5.5 to around 4.2 today. Diuretics are being held as well patient is receiving IV fluids patient does have history of cirrhosis nonalcoholic. 10/08/2079 Patient is feeling better patient's IV fluids will be discontinued creatinine improved to 3.5 IV fluids will be discontinued because of concerns of volume overload again from her cirrhosis. Constitutional: Denied any fatigue denied any fever. Cardio vascular: denied any chest pain, palpitations Gastrointestinal denied any nausea vomiting Pulmonary: Denied any shortness of breath cough Neurologic denied any new focal deficits Objective - Vital Signs Vital signs: Vital Signs Temp 97.8 F 10/07/17 08:00 Pulse 65 10/07/17 08:00 Resp 16 10/07/17 08:00 BP 137/66 10/07/17 08:00 Pulse Ox 95 10/07/17 08:28 Intake & Output 10/06/17 10/07/17 10/07/17 18:59 06:59 18:59 Intake Total 1130 1480 300 Output Total 600 400 Balance 530 1080 300 Weight 96.7 kg Intake: IV 1300 Sodium Chloride 0.9% 1, 1300 000 ml @ 100 mls/hr IV . Q10H [facility] Rx#:[id number] Intake, IV Titration 800 Amount Sodium Chloride 0.9% 1, 800 000 ml @ 100 mls/hr IV . Q10H [facility] Rx#:[id number] Oral 330 180 300 Output: Urine 600 400 Other: Voiding Method Bedside Commode # Voids 3 1 # Bowel Movements 1 1 1 - Exam PHYSICAL EXAMINATION: GENERAL: The patient is alert and oriented x3, not in any acute distress. Morbidly obese HEENT: Pupils are round and equally reacting to light. EOMI. No scleral icterus. No conjunctival pallor. Normocephalic, atraumatic. No pharyngeal erythema. No thyromegaly. CARDIOVASCULAR: S1 and S2 present. No murmurs, rubs, or gallops. PULMONARY: Chest is clear to auscultation, no wheezing or crackles. ABDOMEN: Soft, obese abdomen because of which I cannot appreciate any shifting dullness, normoactive bowel sounds. No palpable organomegaly. MUSCULOSKELETAL: No joint swelling or deformity. EXTREMITIES: No cyanosis, clubbing, or pedal edema. NEUROLOGICAL: Gross neurological examination did not reveal any focal deficits. SKIN: No rashes. - Labs CBC & Chem 7: 10/05/17 06:31 10/07/17 07:44 Labs: Abnormal Lab Results - Last 24 Hours (Table) 10/05/17 10/06/17 10/06/17 Range/Units 06:31 17:14 20:57 Sodium (137-145) mmol/L Chloride (98-107) mmol/L BUN (7-17) mg/dL Creatinine (0.52-1.04) mg/dL Glucose (74-99) mg/dL POC Glucose (mg/dL) 169 H 194 H (75-99) mg/dL Calcium (8.4-10.2) mg/dL Iron 19 L (50-170) ug/dL Iron Saturation 7.04 L (12.00-45.00) 10/07/17 10/07/17 10/07/17 Range/Units 06:13 07:44 11:57 Sodium 146 H (137-145) mmol/L Chloride 114 H (98-107) mmol/L BUN 39 H (7-17) mg/dL Creatinine 3.35 H (0.52-1.04) mg/dL Glucose 112 H (74-99) mg/dL POC Glucose (mg/dL) 51 L 106 H (75-99) mg/dL Calcium 8.3 L (8.4-10.2) mg/dL Iron (50-170) ug/dL Iron Saturation (12.00-45.00) Assessment and Plan Plan: Acute renal failure: Secondary to probably acute tubular necrosis from my hypovolemia, hypotension, IV fluids are being discontinued because of concerns of volume overload. Patient will stay off Lasix will repeat creatinine tomorrow most probably patient can be discharged tomorrow patient creatinine improved to 3.5 will decide on diuretic therapy upon discharge. -Chronic kidney disease stage III secondary to hypertensive nephrosclerosis. -Anemia rule out iron deficiency anemia probably anemia of chronic disease or any we have liver disease -Cirrhosis alcoholic cirrhosis continue with the rifaximin . -Hyperphosphatasemia secondary to renal failure -Hypertension patient is actually hypotensive discontinue antidepressant medications -Morbid obesity -Gastroesophageal reflux disease -Type 2 diabetes mellitus -Seizure disorder -Sleep apnea and uses CPAP machine at home -CVA TIA in the past For above-mentioned chronic multiple medical problems patient will be resumed and continued on appropriate medications.
[2017-10-07] MEDS: SODIUM FERRIC GLUCONAT-SUCROSE 125 MG in SODIUM CHLORIDE 0.9% 100 ML IVPB SCH (12:48)
[2017-10-07] MEDS: FOLIC ACID-VIT B COMPLEX-VIT C 1 CAP PO SCH (12:48)
[2017-10-07 16:42] LABS: Glucose,Whole Blood 208 mg/dL (75-99)
[2017-10-07 20:57] LABS: Glucose,Whole Blood 145 mg/dL (75-99)
[2017-10-07] MEDS: cloNIDine HCL 0.2 MG TAB PO SCH (21:48)
[2017-10-07] MEDS: INSULIN DETEMIR 100 UNIT/ML 10 ML VIAL SQ SCH (21:48)
[2017-10-08] MEDS: IPRATROPIUM-ALBUTEROL 3 ML NEB INHALATION SCH ×2 (01:04→07:34)
[2017-10-08 05:59] LABS: Glucose,Whole Blood 75 mg/dL (75-99)
[2017-10-08] MEDS: CALCIUM ACETATE 667 MG CAP PO SCH ×2 (06:21→12:18)
[2017-10-08] MEDS: LACTULOSE 20 GM/30 ML CUP PO SCH (08:03)
[2017-10-08] MEDS: cloNIDine HCL 0.2 MG TAB PO SCH (08:03)
[2017-10-08] MEDS: FERROUS SULFATE 325 MG TAB PO SCH (08:03)
[2017-10-08] MEDS: ISOSORBIDE MONONITRATE ER 30 MG TAB.ER.24H PO SCH (08:03)
[2017-10-08] MEDS: PANTOPRAZOLE 40 MG TABLET PO SCH (08:03)
[2017-10-08] MEDS: MONTELUKAST 10 MG TAB PO SCH (08:03)
[2017-10-08] MEDS: amLODIPine 5 MG TAB PO SCH (08:03)
[2017-10-08] MEDS: MAGNESIUM OXIDE 400 MG TAB PO SCH (08:04)
[2017-10-08] MEDS: RIFAXIMIN 550 MG TABLET PO SCH (08:04)
[2017-10-08] MEDS: SODIUM FERRIC GLUCONAT-SUCROSE 125 MG in SODIUM CHLORIDE 0.9% 100 ML IVPB SCH (10:10)
[2017-10-08 11:35] LABS: Glucose,Whole Blood 107 mg/dL (75-99)
[2017-10-08 11:53] LABS: Calcium 8.9 mg/dL (8.4-10.2); Potassium 5.1 mmol/L (3.5-5.1)
[2017-10-08 12:17] VITALS: BP 158/68; PULSE 68; RESP 16; TEMP 97.8
[2017-10-08] MEDS: FOLIC ACID-VIT B COMPLEX-VIT C 1 CAP PO SCH (12:18)
[2017-10-08] MEDS: INSULIN ASPART 100 UNIT/ML 1 ML 10 ML VIAL SQ SCH (12:19)
--- NOTE | 2017-10-08 12:27 | PN ---
PROGRESS NOTE DATE OF SERVICE: 10/08/2017. HISTORY: The patient is seen for followup for acute kidney injury on top of chronic kidney disease. Her renal function continues to improve. Yesterday, creatinine was 3.35. We do not have labs from today. The patient is feeling well with no complaints of diarrhea, nausea, vomiting, abdominal pain. She has been eating well. PHYSICAL EXAMINATION: Blood pressure is 166/89. She is afebrile. Examination of the heart, S1, S2. Examination of lungs, bilateral breath sounds are heard. Abdomen is soft, nontender. Examination of the lower extremities shows no evidence of edema. FINISHED GOODS INSPECTOR exam is grossly intact. LABS: Not available from today. ASSESSMENT: 1. Acute kidney injury, prerenal, currently improving. IV fluids were discontinued. 2. Hyperphosphatemia, maintained on PhosLo secondary to renal failure. 3. Chronic kidney disease stage 3 secondary to nephrosclerosis, being followed out of [facility]. 4. Iron deficiency, started on IV iron. 5. Hypertension. Blood pressure is high now. The patient can resume her usual home doses of the blood pressure medications. Continue off of IV fluids. PLAN: Patient is stable for discharge from a nephrology standpoint. Follow up as outpatient with the primary electrician aircraft. We can increase her antihypertensive medications back to her usual home dose. MMODL / IJN: [id number] /
--- NOTE | 2017-10-08 17:07 | P.DS ---
Providers Date of admission: 10/04/17 18:10 Attending physician: Beau Strong Consults: 10/04/17 19:23 Consult Physician Stat Consulting Provider: Marleny Jo Consult Reason/Comments: Acute renal failure Do you want consulting provider notified?: Yes, Notify in am Primary care physician: Physician Nonstaff Hospital Course: 67-year-old female admitted with the acute renal failure secondary to acute tubular necrosis on chronic kidney disease stage IV. This is believed to be secondary to hypotension and the medication related, patient was resumed on clonidine and Norvasc because of her elevated blood pressure CHET inhibitor is being held creatinine did improve from 5.5 to around 4.2 today. Diuretics are being held as well patient is receiving IV fluids patient does have history of cirrhosis nonalcoholic. 10/07/2017 Patient is feeling better patient's IV fluids will be discontinued creatinine improved to 3.5 IV fluids will be discontinued because of concerns of volume overload again from her cirrhosis. 10/08/2017 Patient's creatinine has come down to 2.7 baseline creatinine is around 2. Patient the was asked to resume her Lasix in couple days and patient will be discharged today to follow up with the nephrology as an outpatient. CHET inhibitor is being completely discontinued and she follows with . is up to [facility] PHYSICAL EXAMINATION: GENERAL: The patient is alert and oriented x3, not in any acute distress. Morbidly obese HEENT: Pupils are round and equally reacting to light. EOMI. No scleral icterus. No conjunctival pallor. Normocephalic, atraumatic. No pharyngeal erythema. No thyromegaly. CARDIOVASCULAR: S1 and S2 present. No murmurs, rubs, or gallops. PULMONARY: Chest is clear to auscultation, no wheezing or crackles. ABDOMEN: Soft, obese abdomen because of which I cannot appreciate any shifting dullness, normoactive bowel sounds. No palpable organomegaly. MUSCULOSKELETAL: No joint swelling or deformity. EXTREMITIES: No cyanosis, clubbing, or pedal edema. NEUROLOGICAL: Gross neurological examination did not reveal any focal deficits. SKIN: No rashes. Assessment and Plan Plan: Acute renal failure: Secondary to probably acute tubular necrosis from my hypovolemia, hypotension, IV fluids are being discontinued because of concerns of volume overload. -Chronic kidney disease stage III secondary to hypertensive nephrosclerosis. -Anemia rule out iron deficiency anemia probably anemia of chronic disease or any we have liver disease -Cirrhosis alcoholic cirrhosis continue with the rifaximin . -Hyperphosphatasemia secondary to renal failure -Hypertension patient is actually hypotensive discontinue antidepressant medications -Morbid obesity -Gastroesophageal reflux disease -Type 2 diabetes mellitus -Seizure disorder -Sleep apnea and uses CPAP machine at home -CVA TIA in the past Patient Condition at Discharge: Stable Plan - Discharge Summary New Discharge Prescriptions: Continue rOPINIRole HCL [Requip] 0.25 mg PO HS Pantoprazole Sodium [Protonix] 40 mg PO BID@0900,1700 Montelukast [Singulair] 10 mg PO DAILY Isosorbide Mononitrate ER [Imdur] 30 mg PO DAILY Lactulose 10 gm PO TID Ferrous Sulfate [Feosol] 325 mg PO DAILY #1 [place]-3 Fatty Acids/Fish Oil [Fish Oil 1,000 mg Softgel] 1 cap PO DAILY Magnesium Oxide [Mag-Ox] 400 mg PO DAILY Ipratropium/Albuterol Sulfate [Combivent Respimat Inhaler] 1 puff INHALATION RT-Q6H Insulin Glargine,Hum.rec.anlog [Lantus Solostar] 20 unit SQ HS Insulin Aspart [NovoLOG Flexpen] 3 units SQ AC-TID hydrOXYzine PAMOATE [Vistaril] 25 mg PO TID PRN PRN Reason: Itching Folic Acid-Vit B Complex-Vit C [Nephrocaps] 1 cap PO DAILY hydrALAZINE HCL [Apresoline] 100 mg PO Q8HR cloNIDine HCL [Catapres] 0.2 mg PO Q8HR amLODIPine [Norvasc] 10 mg PO DAILY Rifaximin [Xifaxan] 550 mg PO BID Doxazosin [Cardura] 8 mg PO HS Furosemide [Lasix] 40 mg PO DAILY #1 Discharge Medication List rOPINIRole HCL [Requip] 0.25 mg PO HS 12/15/14 [History] Isosorbide Mononitrate ER [Imdur] 30 mg PO DAILY 08/29/17 [History] Lactulose 10 gm PO TID 08/29/17 [History] Montelukast [Singulair] 10 mg PO DAILY 08/29/17 [History] Pantoprazole Sodium [Protonix] 40 mg PO BID@0900,1700 08/29/17 [History] Ferrous Sulfate [Feosol] 325 mg PO DAILY #1 09/02/17 [Rx] Folic Acid-Vit B Complex-Vit C [Nephrocaps] 1 cap PO DAILY 09/09/17 [History] Insulin Aspart [NovoLOG Flexpen] 3 units SQ AC-TID 09/09/17 [History] Insulin Glargine,Hum.rec.anlog [Lantus Solostar] 20 unit SQ HS 09/09/17 [History ] Ipratropium/Albuterol Sulfate [Combivent Respimat Inhaler] 1 puff INHALATION RT- Q6H 09/09/17 [History] Magnesium Oxide [Mag-Ox] 400 mg PO DAILY 09/09/17 [History] [place]-3 Fatty Acids/Fish Oil [Fish Oil 1,000 mg Softgel] 1 cap PO DAILY [History] hydrOXYzine PAMOATE [Vistaril] 25 mg PO TID PRN 09/09/17 [History] Rifaximin [Xifaxan] 550 mg PO BID 10/04/17 [History] amLODIPine [Norvasc] 10 mg PO DAILY 10/04/17 [History] cloNIDine HCL [Catapres] 0.2 mg PO Q8HR 10/04/17 [History] hydrALAZINE HCL [Apresoline] 100 mg PO Q8HR 10/04/17 [History] Doxazosin [Cardura] 8 mg PO HS 10/05/17 [History] Furosemide [Lasix] 40 mg PO DAILY #1 10/08/17 [Rx] Follow up Appointment(s)/Referral(s): Marleny Jo MD [STAFF PHYSICIAN] - 10/24/17 1:40 pm Jericho Choi DO [REFERRING] - 1 Week Michelle Pfeiffer MD [REFERRING] - 10/15/17 2:30 pm (todays appointment cancelled 10/07/17 New appointment Saturday10/15/2017 at 2:30) [facility] Visiting Nurse, [NON-STAFF] - Patient Instructions/Handouts: Cirrhosis (DC), Acute Kidney Injury (DC) Activity/Diet/Wound Care/Special Instructions: Appointment with liver specialist. Discharge Disposition: HOME SELF-CARE
== END 2017-10-08 14:20 | disposition home health service (06) | DRG 683 ==
LOC: EC 15:40 → 6SEL 18:10
PROVIDERS: ADMIT Hospitalist; ATTEND Hospitalist
DX: N17.0 Acute kidney failure with tubular necrosis (principal); R18.8 Other ascites; K74.60 Unspecified cirrhosis of liver; Z76.82 Awaiting organ transplant status; E11.22 Type 2 diabetes mellitus with diabetic chronic kidney disease; I12.9 Hypertensive chronic kidney disease with stage 1 through stage 4 chronic kidney disease, or unspecified chronic kidney disease; E66.01 Morbid (severe) obesity due to excess calories; Z68.37 Body mass index [BMI] 37.0-37.9, adult; D63.1 Anemia in chronic kidney disease; E78.5 Hyperlipidemia, unspecified; G47.33 Obstructive sleep apnea (adult) (pediatric); K21.9 Gastro-esophageal reflux disease without esophagitis; J44.9 Chronic obstructive pulmonary disease, unspecified; E86.1 Hypovolemia; G40.909 Epilepsy, unspecified, not intractable, without status epilepticus; E83.89 Other disorders of mineral metabolism; N18.4 Chronic kidney disease, stage 4 (severe); Z79.4 Long term (current) use of insulin; Z79.899 Other long term (current) drug therapy; Z82.49 Family history of ischemic heart disease and other diseases of the circulatory system; Z83.3 Family history of diabetes mellitus; Z86.73 Personal history of transient ischemic attack (TIA), and cerebral infarction without residual deficits; Z87.891 Personal history of nicotine dependence; Z88.6 Allergy status to analgesic agent; Z88.5 Allergy status to narcotic agent; Z88.0 Allergy status to penicillin; Z99.89 Dependence on other enabling machines and devices
CPT/HCPCS: 36415; 71046; 76770; 80048; 80053; 81001; 82150; 82550; 82553; 83540; 83550; 83690; 83735; 84100; 84484; 85025; 85610; 85730; 93005; 94640; 94760; 96360; 96361; 99285

== ENCOUNTER 2017-11-17 23:27 | Emergency (ER) | payer MEDICARE, OTHER ==
[2017-11-17 23:38] VITALS: RESP 20
[2017-11-18] MEDS ORDERED: MORPHINE SULFATE 4 MG/ML SYRINGE IM STA (00:15)
--- NOTE | 2017-11-18 00:16 | ED ---
General Adult HPI - General Chief complaint: Back Pain/Injury Stated complaint: Back pain Time Seen by Provider: 11/17/17 23:49 Source: patient Mode of arrival: wheelchair Limitations: no limitations - History of Present Illness Initial comments: is an obese 67-year-old female with a history of chronic back pain who presents the ED today for worsening low back pain for 4 days duration. Patient reports that she has chronic back pain, she takes Monroe for her pain. She reports that over the past 4 days she's had progressively worsening pain, worse in the paraspinal area radiating down the leg. She does not recall any recent traumas and she denies any increased physical activity, any heavy lifting or twisting. She reports that the pain began 4 days ago, and has been constant, it seems to be worse with activity. It does not resolve completely with rest. She is been taking Monroe with minimal improvement. This evening she was having trouble sleeping so she came to the ER for further management. Denies any fevers, lower extremity weakness, bowel or bladder incontinence, she denies any saddle anesthesia. She denies any abdominal pain or discomfort. - Related Data Home Medications Medication Instructions Recorded Confirmed rOPINIRole HCL [Requip] 0.25 mg PO HS 12/15/14 10/04/17 Isosorbide Mononitrate ER [Imdur] 30 mg PO DAILY 08/29/17 10/04/17 Lactulose 10 gm PO TID 08/29/17 10/04/17 Montelukast [Singulair] 10 mg PO DAILY 08/29/17 10/04/17 Pantoprazole Sodium [Protonix] 40 mg PO BID@0900,1700 08/29/17 10/04/17 Folic Acid-Vit B Complex-Vit C 1 cap PO DAILY 09/09/17 10/04/17 [Nephrocaps] Insulin Aspart [NovoLOG Flexpen] 3 units SQ AC-TID 09/09/17 10/04/17 Insulin Glargine,Hum.rec.anlog 20 unit SQ HS 09/09/17 10/04/17 [Lantus Solostar] Ipratropium/Albuterol Sulfate 1 puff INHALATION RT-Q6H 09/09/17 10/04/17 [Combivent Respimat Inhaler] Magnesium Oxide [Mag-Ox] 400 mg PO DAILY 09/09/17 10/04/17 [place]-3 Fatty Acids/Fish Oil [Fish 1 cap PO DAILY 09/09/17 10/04/17 Oil 1,000 mg Softgel] hydrOXYzine PAMOATE [Vistaril] 25 mg PO TID PRN 09/09/17 10/04/17 Rifaximin [Xifaxan] 550 mg PO BID 10/04/17 10/04/17 amLODIPine [Norvasc] 10 mg PO DAILY 10/04/17 10/04/17 cloNIDine HCL [Catapres] 0.2 mg PO Q8HR 10/04/17 10/04/17 hydrALAZINE HCL [Apresoline] 100 mg PO Q8HR 10/04/17 10/04/17 Doxazosin [Cardura] 8 mg PO HS 10/05/17 10/05/17 Previous Rx's Medication Instructions Recorded Ferrous Sulfate [Feosol] 325 mg PO DAILY #1 09/02/17 Furosemide [Lasix] 40 mg PO DAILY #1 10/08/17 Allergies Allergy/AdvReac Type Severity Reaction Status Date / Time adhesive Allergy BLISTERS Verified 10/04/17 16:10 SKIN "PAPER TAPE OK" codeine Allergy Unknown Verified 10/04/17 16:10 morphine Allergy "STOPS Verified 10/04/17 16:10 BREATHING" Penicillins Allergy Unknown Verified 10/04/17 16:10 tramadol HCl [From Ultram] Allergy "PASSES Verified 10/04/17 16:10 OUT" aspirin AdvReac Nausea & Verified 10/04/17 16:10 Vomiting ibuprofen [From Motrin] AdvReac AFFECTS Verified 10/04/17 16:10 KIDNEYS TAPE Allergy BLISTERS Uncoded 10/04/17 15:47 SKIN "PAPER TAPE IS OK" Review of Systems ROS Statement: Those systems with pertinent positive or pertinent negative responses have been documented in the HPI. ROS Other: All systems not noted in ROS Statement are negative. Past Medical History Past Medical History: Chest Pain / Angina, COPD, CVA/TIA, Diabetes Mellitus, GERD/Reflux, Hyperlipidemia, Hypertension, Liver Disease, Memory Impairment, Seizure Disorder, Sleep Apnea/CPAP/BIPAP Additional Past Medical History / Comment(s): rt side dominant.spouse stated pt had a cva 1998 affected rt side but resolved. had tia in 1999 and 2007- but in past 2 years both legs getting weaker unable to walk long distance USES WALKER,no CPAP used since sx,CONSTIPATION, KIDNEY INFECTION,BRUISES EASILY, GI BLEED X 2-RECEIVED UNITS PRBC'S, berna cataracts. spouse stated pt has ra and a hereditary liver disease. History of Any Multi-Drug Resistant Organisms: None Reported Past Surgical History: Appendectomy, Cholecystectomy, Heart Catheterization, Orthopedic Surgery, Tubal Ligation Additional Past Surgical History / Comment(s): SLEEP APNEA SURGERY,RT SHOULDER, LT ARM BX, CARPEL TUNNEL BERNA,GANGLION CYST REMOVED,BONE SPURS BERNA ANKLES, "at [facility]- they cauterizred bleed in the stomach", paracentesis Past Anesthesia/Blood Transfusion Reactions: No Reported Reaction Additional Past Anesthesia/Blood Transfusion Reaction / Comment(s): clausterphobia Past Psychological History: No Psychological Hx Reported Smoking Status: Former smoker Past Alcohol Use History: None Reported Past Drug Use History: None Reported - Past Family History Mother Family Medical History: Diabetes Mellitus, Hypertension Additional Family Medical History / Comment(s): HEART PROBLEMS Father Family Medical History: Myocardial Infarction ([place]) Additional Family Medical History / Comment(s): HEART PROBLEMS General Exam Limitations: no limitations General appearance: alert, in no apparent distress Head exam: Present: atraumatic, normocephalic Eye exam: Present: normal appearance, PERRL ENT exam: Present: normal exam Neck exam: Present: normal inspection Respiratory exam: Absent: respiratory distress Cardiovascular Exam: Present: regular rate, normal rhythm GI/Abdominal exam: Present: soft, normal bowel sounds. Absent: distended, tenderness, guarding, rebound, rigid, pulsatile mass Rectal exam: Present: deferred Back exam: Present: CVA tenderness (L), muscle spasm, paraspinal tenderness. Absent: vertebral tenderness, rash noted Neurological exam: Present: alert, oriented X3 Psychiatric exam: Present: anxious Skin exam: Present: warm, dry Course Vital Signs 11/17/17 23:36 Temperature 98.7 F Pulse Rate 56 L Respiratory 20 Rate Blood Pressure 131/52 O2 Sat by Pulse 98 Oximetry Medical Decision Making - Medical Decision Making The patient was seen and evaluated, patient with chronic low back pain with worsening for 4 days duration No midline spinal tenderness, no focal neurologic deficits, no saddle anesthesia Pain is worse with palpation of the left paraspinal musculature as well as significant tenderness at the bilateral sacroiliac joints Abdominal exam reveals a obese abdomen with no pulsatile masses. Normal femoral DP and PT pulses At this time I feel there is no indication for further imaging, we'll treat with Lidoderm I offered the patient morphine if she is currently on Monroe however she states that she is ALLERGIC to morphine She was reevaluated, reports some improvement after Lidoderm I discussed with the patient the need to follow up with pain management for discussion of alternative pain management modalities including possible injections at the SI joints. Patient is agreeable to this. By mouth Monroe was ordered Able ambulate independently to the restroom She was reevaluated after Monroe, she was noted to be sleeping comfortably in her hospital bed. I woke her and she states that she feels much better and would like to be discharged home so she can sleep her own bed. Her to pain management for outpatient evaluation. All questions pertaining to care were answered best my ability patient discharged home in stable condition. Disposition Clinical Impression: Mechanical back pain Disposition: HOME SELF-CARE Condition: Good Instructions: Chronic Back Pain (ED) Is patient prescribed a controlled substance at d/c from ED?: No Referrals: Nonstaff,Physician [Primary Care Provider] - 1-2 days Afua Banks MD [STAFF PHYSICIAN] - 1-2 days Time of Disposition: 02:25
[2017-11-18] MEDS ORDERED: LIDOCAINE 5% PATCH TOPICAL SCH (01:00)
[2017-11-18] MEDS ORDERED: HYDROcodone/APAP 10-325MG 1 EACH TAB PO ONE (01:25)
[2017-11-18 03:44] VITALS: BP 131/74; PULSE 82; TEMP 98.1
== END 2017-11-18 03:44 | disposition home or self-care (01) ==
LOC: EC 23:27
DX: M54.5 Low back pain (principal); I20.9 Angina pectoris, unspecified; J44.9 Chronic obstructive pulmonary disease, unspecified; E11.9 Type 2 diabetes mellitus without complications; K21.9 Gastro-esophageal reflux disease without esophagitis; E78.5 Hyperlipidemia, unspecified; I10 Essential (primary) hypertension; Z87.891 Personal history of nicotine dependence; Z90.49 Acquired absence of other specified parts of digestive tract; Z98.51 Tubal ligation status; Z98.890 Other specified postprocedural states; Z79.4 Long term (current) use of insulin; Z79.899 Other long term (current) drug therapy; Z88.0 Allergy status to penicillin; Z88.5 Allergy status to narcotic agent; Z88.6 Allergy status to analgesic agent; Z91.048 Other nonmedicinal substance allergy status
CPT/HCPCS: 99283

== ENCOUNTER 2018-02-28 12:05 | Emergency (ER) | payer MEDICARE ==
[2018-02-28 12:12] VITALS: TEMP 98.2
[2018-02-28] MEDS ORDERED: HYDROmorphone 1 MG/ML 1 ML SYRINGE IM STA (12:51)
--- NOTE | 2018-02-28 12:52 | ED ---
Back Pain HPI - General Chief Complaint: Back Pain/Injury Stated Complaint: low back pain Time Seen by Provider: 02/28/18 12:28 Source: patient, family, RN notes reviewed, old records reviewed Limitations: no limitations - History of Present Illness Initial Comments: This is a 67-year-old female the ER for evaluation of back pain with sciatica, no neural Neurological changes, no new trauma. No fevers. No loss of bowel or bladder, patient states she is just on pain medications no longer working for her. MD Complaint: back pain -: year(s) Similar Symptoms Previously: Yes Place: home Radiation: left leg, right leg Severity: mild Severity scale (1-10): 6 Quality: sharp, aching Consistency: constant Improves With: none Worsens With: walking Associated Symptoms: denies other symptoms - Related Data Home Medications Medication Instructions Recorded Confirmed rOPINIRole HCL [Requip] 0.25 mg PO BID 12/15/14 02/28/18 Isosorbide Mononitrate ER [Imdur] 30 mg PO DAILY 08/29/17 02/28/18 Lactulose 10 gm PO TID 08/29/17 02/28/18 Pantoprazole Sodium [Protonix] 40 mg PO DAILY 08/29/17 02/28/18 Folic Acid-Vit B Complex-Vit C 1 cap PO DAILY 09/09/17 02/28/18 [Nephrocaps] Insulin Aspart [NovoLOG Flexpen] 3 units SQ AC-TID 09/09/17 02/28/18 Insulin Glargine,Hum.rec.anlog 20 unit SQ HS 09/09/17 02/28/18 [Lantus Solostar] Ipratropium/Albuterol Sulfate 1 puff INHALATION RT-Q6H 09/09/17 02/28/18 [Combivent Respimat Inhaler] Magnesium Oxide [Mag-Ox] 400 mg PO DAILY 09/09/17 02/28/18 [place]-3 Fatty Acids/Fish Oil [Fish 1 cap PO DAILY 09/09/17 02/28/18 Oil 1,000 mg Softgel] Rifaximin [Xifaxan] 550 mg PO BID 10/04/17 02/28/18 amLODIPine [Norvasc] 10 mg PO DAILY 10/04/17 02/28/18 Doxazosin [Cardura] 8 mg PO HS 10/05/17 02/28/18 HYDROcodone/APAP 5-325MG [[place] 1 tab PO BID PRN 02/28/18 02/28/18 5-325] Labetalol [Trandate] 100 mg PO BID 02/28/18 02/28/18 Potassium Chloride ER [K-Dur 20] 20 meq PO DAILY 02/28/18 02/28/18 Sertraline [Zoloft] 100 mg PO DAILY 02/28/18 02/28/18 cloNIDine HCL [Catapres] 0.2 mg PO TID 02/28/18 02/28/18 hydrALAZINE HCL [Apresoline] 50 mg PO TID 02/28/18 02/28/18 Previous Rx's Medication Instructions Recorded Ferrous Sulfate [Feosol] 325 mg PO DAILY #1 09/02/17 Furosemide [Lasix] 40 mg PO DAILY #1 10/08/17 Allergies Allergy/AdvReac Type Severity Reaction Status Date / Time adhesive Allergy BLISTERS Verified 02/28/18 13:19 SKIN "PAPER TAPE OK" codeine Allergy Unknown Verified 02/28/18 13:19 morphine Allergy "STOPS Verified 02/28/18 13:19 BREATHING" Penicillins Allergy Unknown Verified 02/28/18 13:19 tramadol HCl [From Ultram] Allergy "PASSES Verified 02/28/18 13:19 OUT" aspirin AdvReac Nausea & Verified 02/28/18 13:19 Vomiting ibuprofen [From Motrin] AdvReac AFFECTS Verified 02/28/18 13:19 KIDNEYS TAPE Allergy BLISTERS Uncoded 02/28/18 12:12 SKIN "PAPER TAPE IS OK" Review of Systems ROS Statement: Those systems with pertinent positive or pertinent negative responses have been documented in the HPI. ROS Other: All systems not noted in ROS Statement are negative. Past Medical History Past Medical History: Chest Pain / Angina, COPD, CVA/TIA, Diabetes Mellitus, GERD/Reflux, Hyperlipidemia, Hypertension, Liver Disease, Memory Impairment, Seizure Disorder, Sleep Apnea/CPAP/BIPAP Additional Past Medical History / Comment(s): rt side dominant.spouse stated pt had a cva 1998 affected rt side but resolved. had tia in 1999 and 2007- but in past 2 years both legs getting weaker unable to walk long distance USES WALKER,no CPAP used since sx,CONSTIPATION, KIDNEY INFECTION,BRUISES EASILY, GI BLEED X 2-RECEIVED UNITS PRBC'S, berna cataracts. spouse stated pt has ra and a hereditary liver disease. History of Any Multi-Drug Resistant Organisms: None Reported Past Surgical History: Appendectomy, Cholecystectomy, Heart Catheterization, Orthopedic Surgery, Tubal Ligation Additional Past Surgical History / Comment(s): SLEEP APNEA SURGERY,RT SHOULDER, LT ARM BX, CARPEL TUNNEL BERNA,GANGLION CYST REMOVED,BONE SPURS BERNA ANKLES, "at [facility]- they cauterizred bleed in the stomach", paracentesis Past Anesthesia/Blood Transfusion Reactions: No Reported Reaction Additional Past Anesthesia/Blood Transfusion Reaction / Comment(s): clausterphobia Past Psychological History: No Psychological Hx Reported Smoking Status: Former smoker Past Alcohol Use History: None Reported Past Drug Use History: None Reported - Past Family History Mother Family Medical History: Diabetes Mellitus, Hypertension Additional Family Medical History / Comment(s): HEART PROBLEMS Father Family Medical History: Myocardial Infarction ([place]) Additional Family Medical History / Comment(s): HEART PROBLEMS General Exam Limitations: no limitations General appearance: alert, in no apparent distress Head exam: Present: atraumatic, normocephalic, normal inspection Eye exam: Present: normal appearance, PERRL, EOMI. Absent: scleral icterus, conjunctival injection, periorbital swelling ENT exam: Present: normal exam, mucous membranes moist Neck exam: Present: normal inspection. Absent: tenderness, meningismus, lymphadenopathy Respiratory exam: Present: normal lung sounds bilaterally. Absent: respiratory distress, wheezes, rales, rhonchi, stridor Cardiovascular Exam: Present: regular rate, normal rhythm, normal heart sounds. Absent: systolic murmur, diastolic murmur, rubs, gallop, clicks GI/Abdominal exam: Present: soft, normal bowel sounds. Absent: distended, tenderness, guarding, rebound, rigid Extremities exam: Present: normal inspection, full ROM, normal capillary refill. Absent: tenderness, pedal edema, joint swelling, calf tenderness Back exam: Present: normal inspection Neurological exam: Present: alert, oriented X3, CN II-XII intact Psychiatric exam: Present: normal affect, normal mood Skin exam: Present: warm, dry, intact, normal color. Absent: rash Course Vital Signs 02/28/18 02/28/18 02/28/18 12:10 13:27 14:28 Temperature 98.2 F 98.2 F Pulse Rate 66 69 70 Respiratory 24 18 16 Rate Blood Pressure 154/63 148/90 161/75 O2 Sat by Pulse 99 98 97 Oximetry Medical Decision Making - Medical Decision Making 67 female the ER with acute on chronic back pain, no neurological findings found , patient was ambulatory at discharge. Disposition Clinical Impression: Strain of lumbar region, Mid back pain, Mechanical back pain Disposition: HOME SELF-CARE Condition: Good Instructions: Acute Low Back Pain (ED), Chronic Back Pain (ED) Is patient prescribed a controlled substance at d/c from ED?: No Referrals: Nonstaff,Physician [Primary Care Provider] - 1-2 days
[2018-02-28 14:31] VITALS: BP 161/75; PULSE 70; RESP 16
== END 2018-02-28 14:33 | disposition home or self-care (01) ==
LOC: EC 12:05
DX: S39.012A Strain of muscle, fascia and tendon of lower back, initial encounter (principal); J44.9 Chronic obstructive pulmonary disease, unspecified; E11.9 Type 2 diabetes mellitus without complications; K21.9 Gastro-esophageal reflux disease without esophagitis; E78.5 Hyperlipidemia, unspecified; I10 Essential (primary) hypertension; G40.909 Epilepsy, unspecified, not intractable, without status epilepticus; G47.30 Sleep apnea, unspecified; Z79.4 Long term (current) use of insulin; Z79.51 Long term (current) use of inhaled steroids; Z79.899 Other long term (current) drug therapy; Z88.5 Allergy status to narcotic agent; Z91.048 Other nonmedicinal substance allergy status; Z88.0 Allergy status to penicillin; Z88.6 Allergy status to analgesic agent; Z87.891 Personal history of nicotine dependence; Z86.73 Personal history of transient ischemic attack (TIA), and cerebral infarction without residual deficits; Z95.5 Presence of coronary angioplasty implant and graft; X50.9XXA Other and unspecified overexertion or strenuous movements or postures, initial encounter
CPT/HCPCS: 99283; 96372; J1170

== ENCOUNTER 2018-03-24 12:37 | Inpatient (IN) | payer MEDICARE ==
--- NOTE | 2018-03-24 13:53 | XR ---
EXAMINATION TYPE: XR chest 2V DATE OF EXAM: 03/24/2018 COMPARISON: Chest x-ray October 04, 2017 HISTORY: Chest pain. TECHNIQUE: Frontal and lateral views of the chest are obtained. FINDINGS: There is no focal air space opacity, pleural effusion, or pneumothorax seen. The cardiac silhouette size is stable and mildly enlarged with atherosclerotic thoracic aorta. Overlying EKG anand ds are redemonstrated . Surgical change right humeral head is again present. IMPRESSION: Mild cardiomegaly without acute pulmonary process. No significant change from prior.
[2018-03-24 13:54] LABS: Albumin 3.1 g/dL (3.5-5.0); Calcium 8.2 mg/dL (8.4-10.2); Magnesium 1.6 mg/dL (1.6-2.3); Total Bilirubin 0.6 mg/dL (0.2-1.3); Total Protein 6.7 g/dL (6.3-8.2)
[2018-03-24 13:57] LABS: INR 1.1 (<1.2); Partial Thromboplastin Time 29.3 sec (22.0-30.0); Prothrombin Time 11.9 sec (9.0-12.0)
[2018-03-24 14:08] LABS: Potassium 2.7 mmol/L (3.5-5.1)
[2018-03-24] MEDS ORDERED: HYDROmorphone 1 MG/ML 1 ML SYRINGE IVP STA (14:08)
[2018-03-24 14:13] LABS: Anisocytosis Slight; Basophils % (A) 1 %; Eosinophils # (A) 0.1 k/uL (0-0.7); Eosinophils % (A) 2 %; Hypochromasia Slight; Lymphocytes # (A) 0.8 k/uL (1.0-4.8); Lymphocytes % (A) 19 %; MCH 26.3 pg (25.0-35.0); MCHC 32.5 g/dL (31.0-37.0); MCV 80.9 fL (80.0-100.0); Mean Platelet Volume 8.7; Microcytosis Slight; Monocytes # (A) 0.3 k/uL (0-1.0); Monocytes % (A) 8 %; Neutrophils # (A) 2.8 k/uL (1.3-7.7); Neutrophils % (A) 69 %; Platelet Count 122 k/uL (150-450); Poikilocytosis Slight; RBC 2.22 m/uL (3.80-5.40)
[2018-03-24 14:16] LABS: Creatine Kinase MB 0.5 ng/mL (0.0-2.4); Troponin I 0.015 ng/mL (0.000-0.034)
[2018-03-24 14:22] LABS: HGB 5.8 gm/dL (11.4-16.0)
[2018-03-24 14:23] LABS: HCT 17.9 % (34.0-46.0)
[2018-03-24] MEDS ORDERED: PANTOPRAZOLE 40 MG/10 ML VIAL IVP STA (14:36)
[2018-03-24] MEDS ORDERED: POTASSIUM CHLORIDE ER 20 MEQ TAB.ER PO STA (14:37)
[2018-03-24] MEDS ORDERED: HYDROcodone/APAP 7.5-325MG 1 EACH TAB PO ONE (14:37)
[2018-03-24] MEDS ORDERED: METOCLOPRAMIDE 5 MG/ML 2 ML VIAL IVP STA (15:37)
--- NOTE | 2018-03-24 15:43 | ED ---
General Adult HPI - General Chief complaint: ENT Stated complaint: NOSE BLEED Time Seen by Provider: 03/24/18 13:56 Source: patient, RN notes reviewed, old records reviewed Mode of arrival: ambulatory Limitations: no limitations - History of Present Illness Initial comments: 67-year-old female with 2 complaints, first complaint being nosebleed which began this morning around 6 AM, resolved at the time my evaluation, no ongoing bleeding. Second complaint is nausea vomiting and diarrhea. Denies blood in the vomit. She's had several episodes prior to arrival. She does complain of some epigastric abdominal pain as well. Past medical history of chronic kidney disease, chronic anemia, and liver disease. - Related Data Home Medications Medication Instructions Recorded Confirmed rOPINIRole HCL [Requip] 0.25 mg PO BID 12/15/14 03/24/18 Pantoprazole Sodium [Protonix] 40 mg PO DAILY 08/29/17 03/24/18 Folic Acid-Vit B Complex-Vit C 1 cap PO DAILY 09/09/17 03/24/18 [Nephrocaps] Insulin Aspart [NovoLOG Flexpen] 3 units SQ AC-TID 09/09/17 03/24/18 Insulin Glargine,Hum.rec.anlog 20 unit SQ DAILY 09/09/17 03/24/18 [Lantus Solostar] Ipratropium/Albuterol Sulfate 1 puff INHALATION RT-Q6H PRN 09/09/17 03/24/18 [Combivent Respimat Inhaler] amLODIPine [Norvasc] 10 mg PO DAILY 10/04/17 03/24/18 HYDROcodone/APAP 5-325MG [[place] 1 tab PO BID PRN 02/28/18 03/24/18 5-325] Sertraline [Zoloft] 100 mg PO DAILY 02/28/18 03/24/18 cloNIDine HCL [Catapres] 0.2 mg PO TID 02/28/18 03/24/18 hydrALAZINE HCL [Apresoline] 50 mg PO TID 02/28/18 03/24/18 Montelukast [Singulair] 10 mg PO DAILY 03/24/18 03/24/18 Previous Rx's Medication Instructions Recorded Ferrous Sulfate [Feosol] 325 mg PO DAILY #1 09/02/17 Furosemide [Lasix] 40 mg PO DAILY #1 10/08/17 Allergies Allergy/AdvReac Type Severity Reaction Status Date / Time adhesive Allergy BLISTERS Verified 03/24/18 14:54 SKIN "PAPER TAPE OK" codeine Allergy Unknown Verified 03/24/18 14:54 morphine Allergy "STOPS Verified 03/24/18 14:54 BREATHING" Penicillins Allergy Unknown Verified 03/24/18 14:54 tramadol HCl [From Ultram] Allergy "PASSES Verified 03/24/18 14:54 OUT" aspirin AdvReac Nausea & Verified 03/24/18 14:54 Vomiting ibuprofen [From Motrin] AdvReac AFFECTS Verified 03/24/18 14:54 KIDNEYS TAPE Allergy BLISTERS Uncoded 02/28/18 12:12 SKIN "PAPER TAPE IS OK" Review of Systems ROS Statement: Those systems with pertinent positive or pertinent negative responses have been documented in the HPI. ROS Other: All systems not noted in ROS Statement are negative. Past Medical History Past Medical History: Chest Pain / Angina, COPD, CVA/TIA, Diabetes Mellitus, GERD/Reflux, Hyperlipidemia, Hypertension, Liver Disease, Memory Impairment, Seizure Disorder, Sleep Apnea/CPAP/BIPAP Additional Past Medical History / Comment(s): rt side dominant.spouse stated pt had a cva 1998 affected rt side but resolved. had tia in 1999 and 2007- but in past 2 years both legs getting weaker unable to walk long distance USES WALKER,no CPAP used since sx,CONSTIPATION, KIDNEY INFECTION,BRUISES EASILY, GI BLEED X 2-RECEIVED UNITS PRBC'S, berna cataracts. spouse stated pt has ra and a hereditary liver disease. History of Any Multi-Drug Resistant Organisms: None Reported Past Surgical History: Appendectomy, Cholecystectomy, Heart Catheterization, Orthopedic Surgery, Tubal Ligation Additional Past Surgical History / Comment(s): SLEEP APNEA SURGERY,RT SHOULDER, LT ARM BX, CARPEL TUNNEL BERNA,GANGLION CYST REMOVED,BONE SPURS BERNA ANKLES, "at [facility]- they cauterizred bleed in the stomach", paracentesis Past Anesthesia/Blood Transfusion Reactions: No Reported Reaction Additional Past Anesthesia/Blood Transfusion Reaction / Comment(s): clausterphobia Past Psychological History: No Psychological Hx Reported Smoking Status: Former smoker Past Alcohol Use History: None Reported Past Drug Use History: None Reported - Past Family History Mother Family Medical History: Diabetes Mellitus, Hypertension Additional Family Medical History / Comment(s): HEART PROBLEMS Father Family Medical History: Myocardial Infarction (ME) Additional Family Medical History / Comment(s): HEART PROBLEMS General Exam Limitations: no limitations General appearance: alert, in no apparent distress Head exam: Present: atraumatic, normocephalic Eye exam: Present: normal appearance, PERRL, EOMI ENT exam: Present: normal exam, other (No epistaxis, no blood in the oropharynx) Respiratory exam: Present: normal lung sounds bilaterally. Absent: respiratory distress, wheezes Cardiovascular Exam: Present: regular rate, normal rhythm GI/Abdominal exam: Present: soft. Absent: distended, tenderness Extremities exam: Present: normal inspection, normal capillary refill. Absent: pedal edema Neurological exam: Present: alert, oriented X3, motor sensory deficit. Absent: CN II-XII intact Psychiatric exam: Present: normal affect, normal mood Skin exam: Present: warm, dry, intact. Absent: cyanosis, diaphoretic Course Vital Signs 03/24/18 03/24/18 12:40 12:49 Temperature 98.6 F Pulse Rate 85 Pulse Rate [ 85 Nurse Consultant ] Respiratory 18 Rate Blood Pressure 178/56 O2 Sat by Pulse 98 Oximetry - Reevaluation(s) Reevaluation #1: 03/24/18 15:39 No episodes of epistaxis while in the emergency department. She was started on Protonix as she had some mild epigastric pain associated with her vomiting. We will trend hemoglobin, will transfuse one unit at this time. Vital signs remained stable. EKG Findings - EKG Comments: EKG Findings:: EKG: Sinus rhythm with short SC, and PVC, no ST segment elevation , rate of 96, SC interval 104, QRS duration 90, QTC is prolonged at 661. Medical Decision Making - Medical Decision Making 67-year-old female presenting with epistaxis which is resolved and some nausea vomiting. She has very mild tenderness to palpation in the epigastrium. Workup in the emergency department reveals normal white blood cell count, hemoglobin 5.8 which is low for this patient, she does have history of chronic anemia but this is lower than her baseline. She is chronic kidney disease with a creatinine 2.06 which is improved from prior. Potassium is 2.7 which is replaced with both IV and oral potassium. She will be transfused 1 unit of packed RBCs, given a large let replacement. She will be admitted to a monitored bed. Case is discussed with the admitting physician. - Lab Data Result diagrams: 03/24/18 13:18 03/24/18 13:18 Lab Results 03/24/18 03/24/18 03/24/18 Range/Units 13:10 13:18 13:18 WBC 4.0 (3.8-10.6) k/uL RBC 2.22 L (3.80-5.40) m/uL Hgb 5.8 L* (11.4-16.0) gm/dL Hct 17.9 L* (34.0-46.0) % MCV 80.9 (80.0-100.0) fL MCH 26.3 (25.0-35.0) pg MCHC 32.5 (31.0-37.0) g/dL RDW 19.0 H (11.5-15.5) % Plt Count 122 L (150-450) k/uL Neutrophils % 69 % Lymphocytes % 19 % Monocytes % 8 % Eosinophils % 2 % Basophils % 1 % Neutrophils # 2.8 (1.3-7.7) k/uL Lymphocytes # 0.8 L (1.0-4.8) k/uL Monocytes # 0.3 (0-1.0) k/uL Eosinophils # 0.1 (0-0.7) k/uL Basophils # 0.0 (0-0.2) k/uL Hypochromasia Slight Poikilocytosis Slight Anisocytosis Slight Microcytosis Slight PT (9.0-12.0) sec INR (<1.2) APTT (22.0-30.0) sec Sodium (137-145) mmol/L Potassium (3.5-5.1) mmol/L Chloride (98-107) mmol/L Carbon Dioxide (22-30) mmol/L Anion Gap mmol/L BUN (7-17) mg/dL Creatinine (0.52-1.04) mg/dL Est GFR (CKD-EPI)AfAm (>60 ml/min/1.73 sqM) Est GFR (CKD-EPI)NonAf (>60 ml/min/1.73 sqM) Glucose (74-99) mg/dL Calcium (8.4-10.2) mg/dL Magnesium (1.6-2.3) mg/dL Total Bilirubin (0.2-1.3) mg/dL AST (14-36) U/L ALT (9-52) U/L Alkaline Phosphatase (38-126) U/L Total Creatine Kinase 53 (30-135) U/L CK-MB (CK-2) 0.5 (0.0-2.4) ng/mL CK-MB (CK-2) Rel Index 0.9 Troponin I 0.015 (0.000-0.034) ng/mL Total Protein (6.3-8.2) g/dL Albumin (3.5-5.0) g/dL Blood Type A Positive Blood Type Recheck CABO Indicated Antibody Screen POSITIVE Spec Expiration Date 03/27/2018 - 230903/24/18 03/24/18 Range/Units 13:18 13:18 WBC (3.8-10.6) k/uL RBC (3.80-5.40) m/uL Hgb (11.4-16.0) gm/dL Hct (34.0-46.0) % MCV (80.0-100.0) fL MCH (25.0-35.0) pg MCHC (31.0-37.0) g/dL RDW (11.5-15.5) % Plt Count (150-450) k/uL Neutrophils % % Lymphocytes % % Monocytes % % Eosinophils % % Basophils % % Neutrophils # (1.3-7.7) k/uL Lymphocytes # (1.0-4.8) k/uL Monocytes # (0-1.0) k/uL Eosinophils # (0-0.7) k/uL Basophils # (0-0.2) k/uL Hypochromasia Poikilocytosis Anisocytosis Microcytosis PT 11.9 (9.0-12.0) sec INR 1.1 (<1.2) APTT 29.3 (22.0-30.0) sec Sodium 144 (137-145) mmol/L Potassium 2.7 L* (3.5-5.1) mmol/L Chloride 108 H (98-107) mmol/L Carbon Dioxide 25 (22-30) mmol/L Anion Gap 11 mmol/L BUN 41 H (7-17) mg/dL Creatinine 2.06 H (0.52-1.04) mg/dL Est GFR (CKD-EPI)AfAm 29 (>60 ml/min/1.73 sqM) Est GFR (CKD-EPI)NonAf 25 (>60 ml/min/1.73 sqM) Glucose 123 H (74-99) mg/dL Calcium 8.2 L (8.4-10.2) mg/dL Magnesium 1.6 (1.6-2.3) mg/dL Total Bilirubin 0.6 (0.2-1.3) mg/dL AST 60 H (14-36) U/L ALT 27 (9-52) U/L Alkaline Phosphatase 288 H (38-126) U/L Total Creatine Kinase (30-135) U/L CK-MB (CK-2) (0.0-2.4) ng/mL CK-MB (CK-2) Rel Index Troponin I (0.000-0.034) ng/mL Total Protein 6.7 (6.3-8.2) g/dL Albumin 3.1 L (3.5-5.0) g/dL Blood Type Blood Type Recheck Antibody Screen Spec Expiration Date Disposition Clinical Impression: Cirrhosis of liver, Chronic kidney disease, Chronic anemia, Hypokalemia Disposition: ADMITTED IP TO THIS [facility] Condition: Stable Is patient prescribed a controlled substance at d/c from ED?: No Referrals: Nonstaff,Physician [Primary Care Provider] - 1-2 days Decision to Admit Reason: Admit from EC Decision Date: 03/24/18 Decision Time: 15:42
[2018-03-24] MEDS ORDERED: NALOXONE 0.4 MG/ML 1 ML VIAL IV PRN (15:47)
[2018-03-24] MEDS: POTASSIUM CHLORIDE 20 MEQ in WATER FOR INJECTION 1 100ML.BAG IVPB SCH ×2 (16:39→18:41)
[2018-03-24] MEDS ORDERED: IPRATROPIUM-ALBUTEROL 3 ML NEB INHALATION PRN (17:59)
[2018-03-24] MEDS: PANTOPRAZOLE 40 MG/10 ML VIAL IVP SCH (20:22)
[2018-03-24 20:45] LABS: Glucose,Whole Blood 109 mg/dL (75-99)
[2018-03-24] MEDS: cloNIDine HCL 0.2 MG TAB PO SCH (21:39)
[2018-03-24] MEDS: hydrALAZINE HCL 50 MG TAB PO SCH (21:39)
[2018-03-24] MEDS: MELATONIN 3 MG TABLET PO PRN (21:40)
[2018-03-24] MEDS: HYDROcodone/APAP 5-325MG 1 EACH TAB PO PRN (21:40)
--- NOTE | 2018-03-24 21:46 | HP ---
HISTORY AND PHYSICAL CHIEF COMPLAINT: Nosebleed. HISTORY OF PRESENT ILLNESS: This is another admission for this 67-year-old white female who came to the emergency room after she had had a nosebleed all day long. She does have a history of chronic anemia. Her history is a little bit difficult to figure out. She apparently has esophageal varices related to chronic liver disease, which she states is familial. She does not know what her normal hemoglobin is [facility] for banding of esophageal varices. She states that she threw up today and did not see any coffee- ground material or blood. Her hemoglobin in the emergency room was 5.6. Her potassium was also low at 2.7, and she also was complaining of some diarrhea but no melena. REVIEW OF SYSTEMS: MMODL / IJN: [id number] /
--- NOTE | 2018-03-24 21:49 | HP ---
HISTORY AND PHYSICAL ADDENDUM TO HISTORY AND PHYSICAL: Past medical history, family history PHYSICAL EXAMINATION: 20. In general she appeared to be pale. Neck veins are not distended. The chest is clear. Cardiac exam demonstrated a systolic grade 3/6 murmur heard at the apex. The abdomen is protuberant and there was ascites. There were no masses or visceromegaly. She had some generalized mild tenderness. Extremities were unremarkable. There was ecchymosis on the left knee. Neurologically she is intact. She is admitted to the hospital with the diagnoses: 1. Epistaxis. 2. Blood loss anemia. 3. Chronic anemia. 4. History of cirrhosis, type unknown. 5. History of esophageal varices. 6. Hypertension. PLAN: 1. Bed rest. 2. IV fluids. 3. N.p.o. 4. Transfuse. 5. Watch for GI bleeding. MMODL / IJN: [id number] /
[2018-03-25 05:44] LABS: Glucose,Whole Blood 109 mg/dL (75-99)
[2018-03-25] MEDS: INSULIN ASPART 100 UNIT/ML 1 ML 10 ML VIAL SQ SCH ×4 (05:45→17:07)
[2018-03-25 06:35] LABS: Anisocytosis Slight; Basophils % (A) 1 %; Eosinophils # (A) 0.1 k/uL (0-0.7); Eosinophils % (A) 2 %; Hypochromasia Marked; Lymphocytes # (A) 0.6 k/uL (1.0-4.8); Lymphocytes % (A) 24 %; MCH 26.6 pg (25.0-35.0); MCHC 31.1 g/dL (31.0-37.0); MCV 85.7 fL (80.0-100.0); Mean Platelet Volume 9.1; Monocytes # (A) 0.2 k/uL (0-1.0); Monocytes % (A) 9 %; Neutrophils # (A) 1.6 k/uL (1.3-7.7); Neutrophils % (A) 62 %; Platelet Count 100 k/uL (150-450); Poikilocytosis Slight; RBC 2.15 m/uL (3.80-5.40); RDW 18.5 % (11.5-15.5); WBC 2.6 k/uL (3.8-10.6)
[2018-03-25 06:49] LABS: Albumin 2.8 g/dL (3.5-5.0); Calcium 7.7 mg/dL (8.4-10.2); Magnesium 1.7 mg/dL (1.6-2.3); Phosphorus 3.7 mg/dL (2.5-4.5); Total Bilirubin 0.7 mg/dL (0.2-1.3); Total Protein 6.2 g/dL (6.3-8.2)
[2018-03-25 06:56] LABS: HCT 18.4 % (34.0-46.0); HGB 5.7 gm/dL (11.4-16.0)
[2018-03-25] MEDS ORDERED: Potassium Replacement Protocol 1 EACH MISC MISCELLANE PRN (08:03)
[2018-03-25] MEDS: FERROUS SULFATE 325 MG TAB PO SCH (08:39)
[2018-03-25] MEDS: MONTELUKAST 10 MG TAB PO SCH (08:39)
[2018-03-25] MEDS: hydrALAZINE HCL 50 MG TAB PO SCH ×3 (08:39→20:04)
[2018-03-25] MEDS: FUROSEMIDE 40 MG TAB PO SCH (08:39)
[2018-03-25] MEDS: FOLIC ACID-VIT B COMPLEX-VIT C 1 CAP PO SCH (08:39)
[2018-03-25] MEDS: cloNIDine HCL 0.2 MG TAB PO SCH ×3 (08:39→20:05)
[2018-03-25] MEDS: SODIUM CHLORIDE 0.9% 1,000 ML IV SCH ×2 (08:40→18:24)
[2018-03-25] MEDS: PANTOPRAZOLE 40 MG/10 ML VIAL IVP SCH ×2 (08:40→20:04)
[2018-03-25] MEDS: SERTRALINE 100 MG TAB PO SCH (08:40)
[2018-03-25] MEDS: POTASSIUM CHLORIDE ER 20 MEQ TAB.ER PO SCH ×2 (08:40→09:59)
[2018-03-25] MEDS: amLODIPine 10 MG TAB PO SCH (08:40)
[2018-03-25] MEDS ORDERED: PANTOPRAZOLE 40 MG TABLET PO SCH (09:00)
[2018-03-25] MEDS: INSULIN DETEMIR 100 UNIT/ML 10 ML VIAL SQ SCH (09:59)
[2018-03-25 10:10] VITALS: BMI 34.9
[2018-03-25 11:09] LABS: Glucose,Whole Blood 117 mg/dL (75-99)
[2018-03-25] MEDS: HYDROcodone/APAP 5-325MG 1 EACH TAB PO PRN ×2 (11:20→21:04)
[2018-03-25 15:01] LABS: Reticulocyte % 3.2 % (0.5-2.0)
[2018-03-25 15:05] LABS: INR 1.1 (<1.2); Partial Thromboplastin Time 29.5 sec (22.0-30.0); Prothrombin Time 11.9 sec (9.0-12.0)
[2018-03-25 15:14] LABS: Anisocytosis Slight; Basophils % (A) 0 %; Eosinophils # (A) 0.1 k/uL (0-0.7); Eosinophils % (A) 3 %; Hypochromasia Moderate; Lymphocytes # (A) 0.7 k/uL (1.0-4.8); Lymphocytes % (A) 24 %; MCH 26.4 pg (25.0-35.0); MCHC 31.4 g/dL (31.0-37.0); Mean Platelet Volume 10.1; Monocytes # (A) 0.2 k/uL (0-1.0); Monocytes % (A) 8 %; Neutrophils # (A) 1.7 k/uL (1.3-7.7); Neutrophils % (A) 62 %; Poikilocytosis Moderate; RBC 2.34 m/uL (3.80-5.40); RDW 18.1 % (11.5-15.5); WBC 2.7 k/uL (3.8-10.6)
[2018-03-25 15:17] LABS: HCT 19.6 % (34.0-46.0); HGB 6.2 gm/dL (11.4-16.0); Platelet Count 90 k/uL (150-450)
[2018-03-25 17:02] LABS: Glucose,Whole Blood 72 mg/dL (75-99)
--- NOTE | 2018-03-25 17:25 | PN ---
PROGRESS NOTE CHIEF COMPLAINT: 1. Chronic anemia with acute blood loss. 2. Epistaxis. HISTORY OF PRESENT ILLNESS: This lady seems to be stable. Hemoglobin is low and she will be given another unit, but there has been no further evidence of nasal or GI bleeding. PHYSICAL EXAM: She remains slightly pale. Chest is clear. Cardiac exam is normal. The abdomen is protuberant and soft with ascites. IMPRESSION: 1. Epistaxis. 2. Acute blood loss anemia. 3. Chronic blood-loss anemia. 4. Cirrhosis. 5. History of esophageal varices. PLAN: Transfuse and continue to monitor her hemoglobin. Consult with ENT and Gastroenterology. MMODL / IJN: [id number] /
--- NOTE | 2018-03-25 19:02 | CONS ---
CONSULTATION REASON FOR CONSULTATION: Epistaxis, anemia. HISTORY: This is a 67-year-old white female who presented to the ER with epistaxis as well as nausea, vomiting and diarrhea. She has also some epigastric pain. She has had some difficulties with epistaxis previously, intermittently, on either side of the nose which are generally mild, but she woke up yesterday morning with some bleeding from the left side of the nose which was trickling down her lip. This actually stopped by the time she came to the ER, and she has had no further epistaxis since she has been in the hospital. She has known chronic anemia. She has no chronic nasal symptoms otherwise. PAST MEDICAL HISTORY: Positive for: 1. Angina. 2. COPD. 3. CVA. 4. Diabetes. 5. GERD. 6. Hypertension. 7. Liver disease. 8. Seizure disorder. 9. Sleep apnea. 10.GI bleeding. 11.Cataracts. PAST SURGICAL HISTORY: 1. Appendectomy. 2. Cholecystectomy. 3. Heart catheterization. 4. Orthopedic surgery. 5. Tubal ligation. 6. Sleep apnea surgery. 7. Extremity surgery. 8. Esophageal varices surgery. 9. Paracentesis. SOCIAL HISTORY: Past smoker; none now. Does not drink alcohol. FAMILY HISTORY: Positive for diabetes, hypertension, heart disease. MEDICATIONS ON ADMISSION: 1. Requip. 2. Protonix. 3. Nephrocaps. 4. Insulin. 5. Combivent. 6. Norvasc. 7. [place]. 8. Zoloft. 9. Catapres. 10.Apresoline. 11.Singulair. 12.Ferrous sulfate. 13.Lasix. ALLERGIES: 1. ADHESIVE. 2. CODEINE. 3. MORPHINE. 4. PENICILLIN. 5. TRAMADOL. 6. ASPIRIN. 7. IBUPROFEN. REVIEW OF SYSTEMS: Noncontributory other than as above. PHYSICAL EXAMINATION: GENERAL: This is an elderly white female in no acute distress. She is conversant. No respiratory difficulty. She is alert, awake and oriented x3. HEENT. Head normocephalic and atraumatic. Ears: Bilateral canals clear. Tympanic membranes unremarkable, mobile. The nose shows some old dried blood, left mid septum, but no active bleeding on either side. The nasal cavities are patent otherwise with no drainage or erythema. Mouth and throat show no erythema or drainage. She is edentulous. NECK: Supple without adenopathy or tenderness. ASSESSMENT: 1. Epistaxis, left most recent. 2. Anemia. PLAN: The patient has no current issues with epistaxis and likely has some etiology dryness in the home, and she should be on saline nasal spray at home as well as increasing humidification in the home environment. Advised not to blow her nose for a week if possible. Currently she does not require any further treatment. Certainly her anemia is not secondary to her epistaxis; more likely GI bleeding, with her past history. If she does not have gastroenterology consultation, it appears that she should have this evaluated. If there are any questions or concerns, please free to contact me. MMODL / IJN: [id number] /
[2018-03-25 19:58] LABS: Anisocytosis Slight; Basophils % (A) 0 %; Eosinophils # (A) 0.1 k/uL (0-0.7); Eosinophils % (A) 3 %; HCT 21.5 % (34.0-46.0); Hypochromasia Marked; Lymphocytes # (A) 0.7 k/uL (1.0-4.8); Lymphocytes % (A) 22 %; MCH 27.5 pg (25.0-35.0); MCHC 31.8 g/dL (31.0-37.0); MCV 86.5 fL (80.0-100.0); Mean Platelet Volume 8.8; Monocytes # (A) 0.3 k/uL (0-1.0); Monocytes % (A) 8 %; Neutrophils # (A) 2.1 k/uL (1.3-7.7); Neutrophils % (A) 63 %; Platelet Count 103 k/uL (150-450); Poikilocytosis Moderate; RBC 2.49 m/uL (3.80-5.40); WBC 3.3 k/uL (3.8-10.6)
[2018-03-25 20:00] LABS: HGB 6.8 gm/dL (11.4-16.0)
[2018-03-25 20:01] LABS: Iron Saturation 51.71 (12.00-45.00); Protein, Total 5.4 g/dL (6.2-8.2)
[2018-03-25 20:26] LABS: Folate, Serum 19.8 ng/mL
[2018-03-25 20:50] LABS: Glucose,Whole Blood 220 mg/dL (75-99)
[2018-03-25] MEDS: MELATONIN 3 MG TABLET PO PRN (21:04)
[2018-03-26 06:14] LABS: Glucose,Whole Blood 93 mg/dL (75-99)
[2018-03-26] MEDS: INSULIN ASPART 100 UNIT/ML 1 ML 10 ML VIAL SQ SCH ×3 (06:15→16:33)
[2018-03-26] MEDS: SODIUM CHLORIDE 0.9% 1,000 ML IV SCH ×2 (06:16→15:31)
[2018-03-26 06:31] LABS: Anisocytosis Slight; Basophils % (A) 0 %; Eosinophils # (A) 0.1 k/uL (0-0.7); Eosinophils % (A) 4 %; Hypochromasia Marked; Lymphocytes # (A) 0.6 k/uL (1.0-4.8); Lymphocytes % (A) 25 %; MCH 27.1 pg (25.0-35.0); MCHC 31.8 g/dL (31.0-37.0); MCV 85.2 fL (80.0-100.0); Mean Platelet Volume 9.1; Monocytes # (A) 0.2 k/uL (0-1.0); Monocytes % (A) 7 %; Neutrophils # (A) 1.5 k/uL (1.3-7.7); Neutrophils % (A) 60 %; Poikilocytosis Moderate; RBC 2.22 m/uL (3.80-5.40); RDW 18.2 % (11.5-15.5); WBC 2.6 k/uL (3.8-10.6)
[2018-03-26 06:36] LABS: HCT 18.9 % (34.0-46.0); Platelet Count 97 k/uL (150-450)
[2018-03-26 06:40] LABS: Calcium 7.5 mg/dL (8.4-10.2); Magnesium 1.6 mg/dL (1.6-2.3); Potassium 3.2 mmol/L (3.5-5.1)
--- NOTE | 2018-03-26 07:32 | P.CONS ---
History of Present Illness - Reason for Consult Consult date: 03/25/18 Anemia Requesting physician: Eben Zafar - Chief Complaint Nosebleed - History of Present Illness 67-year-old female with multiple medical comorbidities including chronic kidney disease, chronic anemia, cirrhosis which the patient reports is secondary to a hereditary etiology (she is unclear what is disease processes which she has), COPD and diabetes mellitus who presented to the hospital with complaints of a nosebleed and was found to be anemic. Currently the patient has a hemoglobin of 6.2 after 2 units of packed red blood cells. Her nosebleed has stopped. The patient reports a history of decompensated cirrhosis with ascites. She reports that she is on diuretic therapy at home with Lasix. In addition she reports that she has a known history of esophageal varices which have required banding. She reports her last EGD was approximately 10 days ago at which time she had banding of esophageal varices. She reports that a few days after this she started to notice dark colored bowel movements which have persisted. She reports that she has been having 3-5 loose dark tarry bowel movements daily. She also reports a history of encephalopathy for which she takes lactulose at home. On presentation the patient's INR was found to be 1.1 she had stool testing which was positive for occult blood, total bilirubin 0.7, alkaline phosphatase 248, AST 61, ALT 32, hemoglobin 6.2 and platelet counts of 90,000. Review of Systems REVIEW OF SYSTEMS: CARDIO: Denies any chest pain or palpitations. PULMONARY: Shortness of breath at baseline but denies any wheezing. GENITOURINARY: No dysuria or hematuria. MUSCULOSKELETAL: No weakness reported. SKIN: Denies any new rashes or lesions, jaundice or pallor. PSYCHIATRIC: Denies any depression or anxiety. NEUROLOGY: Denies headache, denies any new focal deficits. EARS: No tinnitus, discharge or new hearing loss. NOSE: No discharge or congestion, the patient presented with epistaxis which has since stopped. EYES: No pain in eyes or change in vision. CONSTITUTIONAL: No recent weight loss. No fever, chills, night sweats. 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 had tia in 1999 and 2007- but in past 2 years both legs getting weaker unable to walk long distance USES WALKER,no CPAP used since sx,CONSTIPATION lat bm 03-23-18, KIDNEY INFECTION, BRUISES EASILY, GI BLEED X 2-RECEIVED UNITS PRBC'S, berna cataracts. spouse stated pt has ra and a hereditary liver disease(no alcoholic cirrhosis.rls, cataracts migraines, 02 2 liters n/c, murmur hx bleeding varicies. History of Any Multi-Drug Resistant Organisms: None Reported Past Surgical History: Appendectomy, Cholecystectomy, Heart Catheterization, Orthopedic Surgery, Tubal Ligation Additional Past Surgical History / Comment(s): SLEEP APNEA SURGERY,RT SHOULDER, LT ARM BX, CARPEL TUNNEL BERNA,GANGLION CYST REMOVED,BONE SPURS BERNA ANKLES, "at [facility]- they cauterized bleed in the stomach", multiple paracentesis Past Anesthesia/Blood Transfusion Reactions: No Reported Reaction Additional Past Anesthesia/Blood Transfusion Reaction / Comm: clausterphobia Smoking Status: Former smoker - Past Family History Mother Family Medical History: Diabetes Mellitus, Hypertension Additional Family Medical History / Comment(s): HEART PROBLEMS Father Family Medical History: Myocardial Infarction (NM) Additional Family Medical History / Comment(s): HEART PROBLEMS Medications and Allergies Home Medications Medication Instructions Recorded Confirmed Type rOPINIRole HCL [Requip] 0.25 mg PO BID 12/15/14 03/24/18 History Pantoprazole Sodium [Protonix] 40 mg PO DAILY 08/29/17 03/24/18 History Ferrous Sulfate [Feosol] 325 mg PO DAILY #1 09/02/17 03/24/18 Rx Folic Acid-Vit B Complex-Vit C 1 cap PO DAILY 09/09/17 03/24/18 History [Nephrocaps] Insulin Aspart [NovoLOG Flexpen] 3 units SQ AC-TID 09/09/17 03/24/18 History Insulin Glargine,Hum.rec.anlog 20 unit SQ DAILY 09/09/17 03/24/18 History [Lantus Solostar] Ipratropium/Albuterol Sulfate 1 puff INHALATION RT-Q6H PRN 09/09/17 03/24/18 History [Combivent Respimat Inhaler] amLODIPine [Norvasc] 10 mg PO DAILY 10/04/17 03/24/18 History Furosemide [Lasix] 40 mg PO DAILY #1 10/08/17 03/24/18 Rx HYDROcodone/APAP 5-325MG [[place] 1 tab PO BID PRN 02/28/18 03/24/18 History 5-325] Sertraline [Zoloft] 100 mg PO DAILY 02/28/18 03/24/18 History cloNIDine HCL [Catapres] 0.2 mg PO TID 02/28/18 03/24/18 History hydrALAZINE HCL [Apresoline] 50 mg PO TID 02/28/18 03/24/18 History Montelukast [Singulair] 10 mg PO DAILY 03/24/18 03/24/18 History Allergies Allergy/AdvReac Type Severity Reaction Status Date / Time adhesive Allergy BLISTERS Verified 03/24/18 14:54 SKIN "PAPER TAPE OK" codeine Allergy Unknown Verified 03/24/18 14:54 morphine Allergy "STOPS Verified 03/24/18 14:54 BREATHING" Penicillins Allergy Unknown Verified 03/24/18 14:54 tramadol HCl [From Ultram] Allergy "PASSES Verified 03/24/18 14:54 OUT" aspirin AdvReac Nausea & Verified 03/24/18 14:54 Vomiting ibuprofen [From Motrin] AdvReac AFFECTS Verified 03/24/18 14:54 KIDNEYS TAPE Allergy BLISTERS Uncoded 02/28/18 12:12 SKIN "PAPER TAPE IS OK" Physical Exam Vitals: Vital Signs Temp Pulse Pulse Resp BP BP Pulse Ox 03/25/18 19:50 98.6 F 76 17 127/58 97 03/25/18 14:58 74 17 03/25/18 14:56 97.9 F 74 17 139/68 96 03/25/18 12:10 98.0 F 79 17 145/69 96 03/25/18 11:16 98.0 F 76 17 135/62 96 03/25/18 11:00 98.0 F 79 17 127/65 95 03/25/18 10:46 98.5 F 73 17 123/54 95 03/25/18 10:36 98.5 F 73 17 124/52 94 L 03/25/18 08:00 97.7 F 83 17 150/71 96 03/25/18 03:06 97.9 F 82 17 142/64 98 Intake and Output 03/25/18 03/25/18 03/26/18 14:59 22:59 06:59 Intake Total 1230 960 Output Total 800 Balance 430 960 Intake: IV 800 0.9 800 Oral 120 960 Blood Product 310 Rc Pheresis 2 As3 Unit 310 [id number] Output: Urine 800 Other: Voiding Method Bedpan Bedpan # Voids 1 1 Weight 89.3 kg On physical examination, patient appears comfortable in no apparent distress. HEAD: Normocephalic, atraumatic. EYES: No scleral icterus. No conjunctival injection. MOUTH: No lesions, tongue midline. NECK: Trachea midline, no gross abnormalities. CHEST: Decreased air entry in all sood. HEART: Regular rate and rhythm. ABDOMEN: Soft, obese, mildly distended. Bowel sounds are positive. No organomegaly. No guarding or rigidity. EXTREMITIES: No pedal edema. SKIN: No rashes, no jaundice. NEUROLOGIC: Alert and oriented. No focal deficits. Results CBC & Chem 7: 03/26/18 06:14 03/26/18 06:14 Labs: Abnormal Lab Results - Last 24 Hours (Table) 03/24/18 03/25/18 03/25/18 Range/Units 13:10 05:23 05:23 WBC 2.6 L (3.8-10.6) k/uL RBC 2.15 L (3.80-5.40) m/uL Hgb 5.7 L* (11.4-16.0) gm/dL Hct 18.4 L* (34.0-46.0) % RDW 18.5 H (11.5-15.5) % Plt Count 100 L (150-450) k/uL Lymphocytes # 0.6 L (1.0-4.8) k/uL Retic Count (0.5-2.0) % Potassium 3.0 L (3.5-5.1) mmol/L Chloride 111 H (98-107) mmol/L BUN 43 H (7-17) mg/dL Creatinine 1.82 H (0.52-1.04) mg/dL POC Glucose (mg/dL) (75-99) mg/dL Calcium 7.7 L (8.4-10.2) mg/dL Iron Saturation (12.00-45.00) AST 61 H (14-36) U/L Alkaline Phosphatase 248 H (38-126) U/L Total Protein 6.2 L (6.3-8.2) g/dL Total Protein (PEP) (6.2-8.2) g/dL Albumin 2.8 L (3.5-5.0) g/dL Stool Occult Blood (Negative) Crossmatch See Detail 03/25/18 03/25/18 03/25/18 Range/Units 05:42 07:14 11:07 WBC (3.8-10.6) k/uL RBC (3.80-5.40) m/uL Hgb (11.4-16.0) gm/dL Hct (34.0-46.0) % RDW (11.5-15.5) % Plt Count (150-450) k/uL Lymphocytes # (1.0-4.8) k/uL Retic Count (0.5-2.0) % Potassium (3.5-5.1) mmol/L Chloride (98-107) mmol/L BUN (7-17) mg/dL Creatinine (0.52-1.04) mg/dL POC Glucose (mg/dL) 109 H 117 H (75-99) mg/dL Calcium (8.4-10.2) mg/dL Iron Saturation (12.00-45.00) AST (14-36) U/L Alkaline Phosphatase (38-126) U/L Total Protein (6.3-8.2) g/dL Total Protein (PEP) (6.2-8.2) g/dL Albumin (3.5-5.0) g/dL Stool Occult Blood Positive H (Negative) Crossmatch 03/25/18 03/25/18 03/25/18 Range/Units 14:31 14:31 14:31 WBC 2.7 L (3.8-10.6) k/uL RBC 2.34 L (3.80-5.40) m/uL Hgb 6.2 L* (11.4-16.0) gm/dL Hct 19.6 L* (34.0-46.0) % RDW 18.1 H (11.5-15.5) % Plt Count 90 L (150-450) k/uL Lymphocytes # 0.7 L (1.0-4.8) k/uL Retic Count 3.2 H (0.5-2.0) % Potassium (3.5-5.1) mmol/L Chloride (98-107) mmol/L BUN (7-17) mg/dL Creatinine (0.52-1.04) mg/dL POC Glucose (mg/dL) (75-99) mg/dL Calcium (8.4-10.2) mg/dL Iron Saturation 51.71 H (12.00-45.00) AST (14-36) U/L Alkaline Phosphatase (38-126) U/L Total Protein (6.3-8.2) g/dL Total Protein (PEP) 5.4 L (6.2-8.2) g/dL Albumin (3.5-5.0) g/dL Stool Occult Blood (Negative) Crossmatch 03/25/18 03/25/18 03/25/18 Range/Units 16:56 19:45 20:48 WBC 3.3 L (3.8-10.6) k/uL RBC 2.49 L (3.80-5.40) m/uL Hgb 6.8 L* (11.4-16.0) gm/dL Hct 21.5 L (34.0-46.0) % RDW 18.0 H (11.5-15.5) % Plt Count 103 L (150-450) k/uL Lymphocytes # 0.7 L (1.0-4.8) k/uL Retic Count (0.5-2.0) % Potassium (3.5-5.1) mmol/L Chloride (98-107) mmol/L BUN (7-17) mg/dL Creatinine (0.52-1.04) mg/dL POC Glucose (mg/dL) 72 L 220 H (75-99) mg/dL Calcium (8.4-10.2) mg/dL Iron Saturation (12.00-45.00) AST (14-36) U/L Alkaline Phosphatase (38-126) U/L Total Protein (6.3-8.2) g/dL Total Protein (PEP) (6.2-8.2) g/dL Albumin (3.5-5.0) g/dL Stool Occult Blood (Negative) Crossmatch Chest x-ray: report reviewed (X-ray showing mild cardiomegaly without acute pulmonary process) Assessment and Plan (1) Acute on chronic anemia Narrative/Plan: Unknown etiology but the patient does reports recent EGD with variceal Drew approximately 10 days ago. Unlikely that this is secondary to a variceal bleed given hemodynamic stability, however per the patient's reports of dark stool cannot rule out an upper GI source of bleeding. Current Visit: Yes Status: Acute Code(s): D64.9 - ANEMIA, UNSPECIFIED SNOMED Code(s): 073725379 (2) Chronic kidney disease Current Visit: Yes Status: Acute Code(s): N18.9 - CHRONIC KIDNEY DISEASE, UNSPECIFIED SNOMED Code(s): 089645928 (3) Cirrhosis of liver Narrative/Plan: Decompensated cirrhosis of the liver with patient reporting history of encephalopathy, ascites and prior variceal banding. Unknown etiology of the patient's cirrhosis that she has stated that she is not and has never been an alcoholic and that her liver disease is secondary to a hereditary process however she cannot recall what this is. Current Visit: Yes Status: Acute Code(s): K74.60 - UNSPECIFIED CIRRHOSIS OF LIVER SNOMED Code(s): 03408926 (4) Hepatic encephalopathy Current Visit: No Status: Acute Code(s): K72.90 - HEPATIC FAILURE, UNSPECIFIED WITHOUT COMA SNOMED Code(s): 35805772 Plan: Supportive care Continue Protonix therapy Monitor hemoglobin and transfuse as needed Clear liquid diet, nothing by mouth after midnight and plan for EGD in the morning We'll start antibiotic therapy for SBP prophylaxis Will add lactulose, titrate to 2-3 bowel movements daily Will order ultrasound to evaluate for ascites Continue Lasix therapy for diuresis Thank you for allowing us to participate in the care of this patient we will continue to follow
--- NOTE | 2018-03-26 08:25 | US ---
EXAMINATION TYPE: US abdomen limited DATE OF EXAM: 03/26/2018 COMPARISON: NONE CLINICAL HISTORY: Ascites, history cirrhosis. Assess for Ascites FINDINGS: There is small volume ascites in addition to partially visualized cirrhotic morphology of t he live in this limited assessment. IMPRESSION: Small volume abdominopelvic ascites and limited visualization of cirrhotic morphology of the liver.
[2018-03-26] MEDS: HYDROmorphone 1 MG/ML 1 ML SYRINGE IVP PRN ×3 (08:26→21:34)
[2018-03-26] MEDS: POTASSIUM CHLORIDE ER 20 MEQ TAB.ER PO SCH ×2 (09:43→13:50)
[2018-03-26] MEDS: POTASSIUM CHLORIDE 20 MEQ in WATER FOR INJECTION 1 100ML.BAG IVPB SCH ×2 (10:19→15:36)
[2018-03-26] MEDS: INSULIN DETEMIR 100 UNIT/ML 10 ML VIAL SQ SCH (10:23)
[2018-03-26 11:33] LABS: Glucose,Whole Blood 106 mg/dL (75-99)
[2018-03-26] MEDS ORDERED: PROPOFOL 10 MG/ML 20 ML VIAL IV ONE (12:06)
[2018-03-26] MEDS ORDERED: IV FLUID CONTINUATION 1,000 ML IV ONE (12:06)
[2018-03-26 12:49] LABS: T4, Free (Free Thyroxine) 1.31 ng/dL (0.78-2.19)
--- NOTE | 2018-03-26 13:01 | P.PCN ---
Date of Procedure: 03/26/18 Description of Procedure: BRIEF HISTORY: 67-year-old female with multiple medical comorbidities including chronic kidney disease, chronic anemia, cirrhosis which the patient reports is secondary to a hereditary etiology (she is unclear what is disease processes which she has), COPD and diabetes mellitus who presented to the hospital with complaints of a nosebleed and was found to be anemic. Currently the patient has a hemoglobin of 6.2 after 2 units of packed red blood cells. Her nosebleed has stopped. The patient reports a history of decompensated cirrhosis with ascites. She reports that she is on diuretic therapy at home with Lasix. In addition she reports that she has a known history of esophageal varices which have required banding. She reports her last EGD was approximately 10 days ago at which time she had banding of esophageal varices. She reports that a few days after this she started to notice dark colored bowel movements which have persisted. She reports that she has been having 3-5 loose dark tarry bowel movements daily. She also reports a history of encephalopathy for which she takes lactulose at home. On presentation the patient's INR was found to be 1.1 she had stool testing which was positive for occult blood, total bilirubin 0.7, alkaline phosphatase 248, AST 61, ALT 32, hemoglobin 6.2 and platelet counts of 90,000. PROCEDURE PERFORMED: Esophagogastroduodenoscopy with biopsy and variceal banding. PREOPERATIVE DIAGNOSIS: Melena, acute on chronic anemia, decompensated cirrhosis with ascites. ESTIMATED BLOOD LOSS: Minimal. IV sedation per anesthesia. PROCEDURE: After informed consent was obtained, the patient was brought into the endoscopy unit. IV sedation was administered by Anesthesia under continuous monitoring. Initially the Olympus GIF-190 video endoscope was inserted into the mouth. Esophagus intubated without any difficulty. It was gradually advanced into the stomach and duodenum and carefully examined. The bulb and the second part of the duodenum appeared normal. The scope at this time was withdrawn to the stomach, adequately insufflated with air, and the mucosa of the antrum, body , cardia and the fundus were carefully examined. Severe antral irritation and erythema consistent with gastritis was noted, and biopsies. Changes in the mucosa of the body of the stomach were consistent with portal hypertensive gastropathy. The scope was then withdrawn into the esophagus. The GE junction was located at 36 cm from the incisors. A small nodule was noted just below the GE junction which was biopsied. The esophagus was significant for changes consistent with prior variceal bleeding. A column of medium size varices was noted and 4 bands were placed. No active bleeding was noted. The patient tolerated the procedure well. IMPRESSION: 1. Severe antral gastritis, biopsied. 2. Portal hypertensive gastropathy. 3. Diminutive nodule below the GE junction, biopsied. 4. Esophageal variceal banding. RECOMMENDATIONS: The findings of this examination were discussed with the patient. Okay for liquid diet, advance to full liquids tomorrow. Continue 7 days of SBP prophylaxis with levofloxacin. Continue Protonix twice daily. Continue to monitor hemoglobin and transfuse as needed. Await pathology from biopsies.
[2018-03-26] MEDS: PANTOPRAZOLE 40 MG/10 ML VIAL IVP SCH ×2 (13:39→21:38)
[2018-03-26] MEDS: FUROSEMIDE 40 MG TAB PO SCH (13:40)
[2018-03-26] MEDS: LACTULOSE 20 GM/30 ML CUP PO SCH ×3 (13:40→21:38)
[2018-03-26] MEDS: FOLIC ACID-VIT B COMPLEX-VIT C 1 CAP PO SCH (13:40)
[2018-03-26] MEDS: amLODIPine 10 MG TAB PO SCH (13:40)
[2018-03-26] MEDS: cloNIDine HCL 0.2 MG TAB PO SCH ×3 (13:40→21:29)
[2018-03-26] MEDS: hydrALAZINE HCL 50 MG TAB PO SCH ×3 (13:40→21:29)
[2018-03-26] MEDS: SPIRONOLACTONE-HCTZ 25-25MG 1 EACH TAB PO SCH ×2 (13:41→21:32)
[2018-03-26] MEDS: FERROUS SULFATE 325 MG TAB PO SCH (13:41)
[2018-03-26] MEDS: LEVOFLOXACIN 500 MG TAB PO SCH (13:41)
[2018-03-26] MEDS: MONTELUKAST 10 MG TAB PO SCH (13:41)
[2018-03-26] MEDS: SERTRALINE 100 MG TAB PO SCH (13:41)
[2018-03-26 13:44] LABS: Anisocytosis Slight; Basophils % (A) 0 %; Eosinophils # (A) 0.1 k/uL (0-0.7); Eosinophils % (A) 3 %; HCT 22.9 % (34.0-46.0); HGB 7.3 gm/dL (11.4-16.0); Hypochromasia Marked; Lymphocytes # (A) 0.7 k/uL (1.0-4.8); Lymphocytes % (A) 25 %; MCH 27.2 pg (25.0-35.0); MCHC 31.8 g/dL (31.0-37.0); MCV 85.4 fL (80.0-100.0); Mean Platelet Volume 9.7; Monocytes # (A) 0.2 k/uL (0-1.0); Monocytes % (A) 7 %; Neutrophils # (A) 1.8 k/uL (1.3-7.7); Neutrophils % (A) 63 %; Poikilocytosis Moderate; RBC 2.68 m/uL (3.80-5.40); WBC 2.8 k/uL (3.8-10.6)
[2018-03-26 13:49] LABS: Platelet Count 94 k/uL (150-450)
--- NOTE | 2018-03-26 14:47 | CDI ---
Documentation Clarification Form Date: 03/26/2018 1:59:12 PM From: Brianda Medrano RN, CCDS Admit Date: 03/24/2018 3:48:00 PM Patient Name: Joyce Rodrigues Visit Number: [id number] Discharge Date: ATTENTION: The Clinical Documentation Specialists (CDI) and [facility] Coding Staff appreciate your assistance in clarifying documentation. Please respond to the clarification below the line at the bottom and electronically sign. The CDI & [facility] Coding staff will review the response and follow-up if needed. Please note: Queries are made part of the Legal Health Record. If you have any questions, please contact the author of this message via ITS. Dr. Eben Zafar Chronic kidney disease was documented in the ED evaluation, past medical history and further Clarification is needed. History/Risk Factors: COPD, Liver disease, Diabetes Mellitus, Hypertension Chronic kidney disease, Chronic anemia On admission BUN 41, CR 2.06 GFR 25 03/25/18 BUN 43, CR 1.82 GFR 29 03/26/18 BUN 39, CR 1.78 GFR 30 Clinical Indicators: Presenting with complaints of epistaxis. She also complains of nausea, vomiting and diarrhea. She has mild epigastric pain associated with her vomiting. Her HGB 5.8, HCT 17.9 on admission Treatment: Monitor CBC, Electrolytes IVF @ 100 mls/hr In order to capture the severity of condition, please further clarify if the condition signifies: Acute renal failure, Please specify etiology (if known): Cortical Necrosis Medullary Necrosis Tubular Necrosis Acute kidney injury Acute on chronic renal failure CKD Stage 1 GFR >90 CKD Stage 2 GFR 60-89 CKD Stage 3 GFR 30-59 CKD Stage 4 GFR 15-29 CKD Stage 5 GFR <15 Chronic renal failure/Chronic Kidney disease (CKD) please stage (if known): CKD Stage 1 GFR >90 CKD Stage 2 GFR 60-89 CKD Stage 3 GFR 30-59 CKD Stage 4 GFR 15-29 CKD Stage 5 GFR <15 Other, please specify Unable to determine (Last Revision: July 2017) MTDD
--- NOTE | 2018-03-26 15:58 | P.CONS ---
History of Present Illness - Reason for Consult Consult date: 03/25/18 "Sticky [place]" Requesting physician: Eben Zafar - Chief Complaint Epistaxis and N/V/D - History of Present Illness Ms. Rodrigues is a 67 year old female who presented to emergency with complaints of epistaxis which began early this morning, currently resolved. She also complains of epigastric pain with associated nausea, vomiting, and diarrhea which state stated started and persisted yesterday. She has a known history of non alcoholic cirrhosis liver disease on transplant list, chronic anemia, and CKD. Her hemoglobin today is 6.0, on admission 5.3 and she received 2 units of PRBC. Currently has another infusing. She denies any signs of bleeding. Hematology has been consulted related to her pancytopenia (chronic but worsening). She states she has not seen a tanning wheel operator in the past and has never had a bone marrow biopsy. 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 had tia in 1999 and 2007- but in past 2 years both legs getting weaker unable to walk long distance USES WALKER,no CPAP used since sx,CONSTIPATION lat bm 03-23-18, KIDNEY INFECTION, BRUISES EASILY, GI BLEED X 2-RECEIVED UNITS PRBC'S, berna cataracts. spouse stated pt has ra and a hereditary liver disease(no alcoholic cirrhosis.rls, cataracts migraines, 02 2 liters n/c, murmur hx bleeding varicies. History of Any Multi-Drug Resistant Organisms: None Reported Past Surgical History: Appendectomy, Cholecystectomy, Heart Catheterization, Orthopedic Surgery, Tubal Ligation Additional Past Surgical History / Comment(s): SLEEP APNEA SURGERY,RT SHOULDER, LT ARM BX, CARPEL TUNNEL BERNA,GANGLION CYST REMOVED,BONE SPURS BERNA ANKLES, "at [facility]- they cauterized bleed in the stomach", multiple paracentesis Past Anesthesia/Blood Transfusion Reactions: No Reported Reaction Additional Past Anesthesia/Blood Transfusion Reaction / Comm: clausterphobia Smoking Status: Former smoker - Past Family History Mother Family Medical History: Diabetes Mellitus, Hypertension Additional Family Medical History / Comment(s): HEART PROBLEMS Father Family Medical History: Myocardial Infarction ([place]) Additional Family Medical History / Comment(s): HEART PROBLEMS Medications and Allergies Home Medications Medication Instructions Recorded Confirmed Type rOPINIRole HCL [Requip] 0.25 mg PO BID 12/15/14 03/24/18 History Pantoprazole Sodium [Protonix] 40 mg PO DAILY 08/29/17 03/24/18 History Ferrous Sulfate [Feosol] 325 mg PO DAILY #1 09/02/17 03/24/18 Rx Folic Acid-Vit B Complex-Vit C 1 cap PO DAILY 09/09/17 03/24/18 History [Nephrocaps] Insulin Aspart [NovoLOG Flexpen] 3 units SQ AC-TID 09/09/17 03/24/18 History Insulin Glargine,Hum.rec.anlog 20 unit SQ DAILY 09/09/17 03/24/18 History [Lantus Solostar] Ipratropium/Albuterol Sulfate 1 puff INHALATION RT-Q6H PRN 09/09/17 03/24/18 History [Combivent Respimat Inhaler] amLODIPine [Norvasc] 10 mg PO DAILY 10/04/17 03/24/18 History Furosemide [Lasix] 40 mg PO DAILY #1 10/08/17 03/24/18 Rx HYDROcodone/APAP 5-325MG [[place] 1 tab PO BID PRN 02/28/18 03/24/18 History 5-325] Sertraline [Zoloft] 100 mg PO DAILY 02/28/18 03/24/18 History cloNIDine HCL [Catapres] 0.2 mg PO TID 02/28/18 03/24/18 History hydrALAZINE HCL [Apresoline] 50 mg PO TID 02/28/18 03/24/18 History Montelukast [Singulair] 10 mg PO DAILY 03/24/18 03/24/18 History Allergies Allergy/AdvReac Type Severity Reaction Status Date / Time adhesive Allergy BLISTERS Verified 03/24/18 14:54 SKIN "PAPER TAPE OK" codeine Allergy Unknown Verified 03/24/18 14:54 morphine Allergy "STOPS Verified 03/24/18 14:54 BREATHING" Penicillins Allergy Unknown Verified 03/24/18 14:54 tramadol HCl [From Ultram] Allergy "PASSES Verified 03/24/18 14:54 OUT" aspirin AdvReac Nausea & Verified 03/24/18 14:54 Vomiting ibuprofen [From Motrin] AdvReac AFFECTS Verified 03/24/18 14:54 KIDNEYS TAPE Allergy BLISTERS Uncoded 02/28/18 12:12 SKIN "PAPER TAPE IS OK" Physical Exam Vitals: Vital Signs Temp Pulse Pulse Resp BP BP Pulse Ox 03/25/18 12:10 98.0 F 79 17 145/69 96 03/25/18 11:16 98.0 F 76 17 135/62 96 03/25/18 11:00 98.0 F 79 17 127/65 95 03/25/18 10:46 98.5 F 73 17 123/54 95 03/25/18 10:36 98.5 F 73 17 124/52 94 L 03/25/18 08:00 97.7 F 83 17 150/71 96 03/25/18 03:06 97.9 F 82 17 142/64 98 03/24/18 23:30 98.3 F 88 18 168/72 100 03/24/18 23:15 88 18 03/24/18 22:00 98.1 F 85 18 166/71 99 03/24/18 21:30 98.0 F 89 18 154/64 99 18 20:25 98.2 F 88 89 18 169/80 167/69 99 18 19:45 85 19 03/24/18 19:30 98.2 F 87 19 173/80 99 18 19:13 98.2 F 89 17 168/69 99 03/24/18 19:08 98.1 F 89 18 165/83 99 18 18:58 98.4 F 89 16 165/73 18 18:53 98.4 F 88 17 164/83 18 18:42 98.5 F 89 18 147/62 99 Intake and Output 03/24/18 03/25/18 03/25/18 22:59 06:59 14:59 Intake Total 310 420 530 Output Total 500 Balance 310 420 30 Intake: IV 80 100 0.9 80 100 Intake, IV Titration 100 Amount Potassium Chloride 20 meq 100 In Water For Injection 1 100ml.bag @ 50 mls/hr IVPB Q2HR [facility] Rx#: [id number] Oral 240 120 Blood Product 310 310 Rc As-1 Unit 310 [id number] Rc Pheresis 2 As3 Unit 310 [id number] Output: Urine 500 Other: Voiding Method Bedside Commode Bedpan Bedpan # Voids 1 3 1 # Bowel Movements 1 Weight 89.3 kg 89.3 kg - Constitutional General appearance: cooperative, no acute distress - EENT Eyes: EOMI, dentition normal ENT: hard of hearing, normal oropharynx - Neck Neck: normal ROM - Respiratory Respiratory: bilateral: diminished (bilateral bases) - Cardiovascular Rhythm: irregularly irregular - Gastrointestinal General gastrointestinal: distended, hepatomegaly - Integumentary Integumentary: pale - Neurologic Neurologic: CNII-XII intact - Musculoskeletal Musculoskeletal: generalized weakness, strength equal bilaterally - Psychiatric Psychiatric: A&O x's 3, appropriate affect, intact judgment & insight Results CBC & Chem 7: 03/26/18 13:21 18 06:14 Labs: Abnormal Lab Results - Last 24 Hours (Table) 03/24/18 03/24/18 03/24/18 Range/Units 13:10 13:18 13:18 WBC (3.8-10.6) k/uL RBC 2.22 L (3.80-5.40) m/uL Hgb 5.8 L* (11.4-16.0) gm/dL Hct 17.9 L* (34.0-46.0) % RDW 19.0 H (11.5-15.5) % Plt Count 122 L (150-450) k/uL Lymphocytes # 0.8 L (1.0-4.8) k/uL Potassium 2.7 L* (3.5-5.1) mmol/L Chloride 108 H (98-107) mmol/L BUN 41 H (7-17) mg/dL Creatinine 2.06 H (0.52-1.04) mg/dL Glucose 123 H (74-99) mg/dL POC Glucose (mg/dL) (75-99) mg/dL Calcium 8.2 L (8.4-10.2) mg/dL AST 60 H (14-36) U/L Alkaline Phosphatase 288 H (38-126) U/L Total Protein (6.3-8.2) g/dL Albumin 3.1 L (3.5-5.0) g/dL Stool Occult Blood (Negative) Crossmatch See Detail 03/24/18 03/25/18 03/25/18 Range/Units 20:44 05:23 05:23 WBC 2.6 L (3.8-10.6) k/uL RBC 2.15 L (3.80-5.40) m/uL Hgb 5.7 L* (11.4-16.0) gm/dL Hct 18.4 L* (34.0-46.0) % RDW 18.5 H (11.5-15.5) % Plt Count 100 L (150-450) k/uL Lymphocytes # 0.6 L (1.0-4.8) k/uL Potassium 3.0 L (3.5-5.1) mmol/L Chloride 111 H (98-107) mmol/L BUN 43 H (7-17) mg/dL Creatinine 1.82 H (0.52-1.04) mg/dL Glucose (74-99) mg/dL POC Glucose (mg/dL) 109 H (75-99) mg/dL Calcium 7.7 L (8.4-10.2) mg/dL AST 61 H (14-36) U/L Alkaline Phosphatase 248 H (38-126) U/L Total Protein 6.2 L (6.3-8.2) g/dL Albumin 2.8 L (3.5-5.0) g/dL Stool Occult Blood (Negative) Crossmatch 03/25/18 03/25/18 03/25/18 Range/Units 05:42 07:14 11:07 WBC (3.8-10.6) k/uL RBC (3.80-5.40) m/uL Hgb (11.4-16.0) gm/dL Hct (34.0-46.0) % RDW (11.5-15.5) % Plt Count (150-450) k/uL Lymphocytes # (1.0-4.8) k/uL Potassium (3.5-5.1) mmol/L Chloride (98-107) mmol/L BUN (7-17) mg/dL Creatinine (0.52-1.04) mg/dL Glucose (74-99) mg/dL POC Glucose (mg/dL) 109 H 117 H (75-99) mg/dL Calcium (8.4-10.2) mg/dL AST (14-36) U/L Alkaline Phosphatase (38-126) U/L Total Protein (6.3-8.2) g/dL Albumin (3.5-5.0) g/dL Stool Occult Blood Positive H (Negative) Crossmatch Assessment and Plan Plan: Assessment and Recs: 1. Pancytopenia - Likely related to underlying Liver disease - Normocytic Anemia - WOrsening requiring transfusions (3 in last 24 hours) - Maintain Hemoglobin above 7 - EGD and COlonoscopy plan for today - Full anemia work-up ordered to rule out multifactoral etiology - Thrombocytopenia: - Stable as above 50K - Monitor for bleeding and monitor coags closely - Transfuse for less than 50K if signs of bleeding or less than 15K - Leukopenia/Lymphocytopenia: - This is not much lower than her trended baseline and again likely related to her underlying liver disease 2. Non-Alcoholic Liver Disease: - GI following Plan: Will await results of further diagnostics - Will discuss if bone marrow biopsy is recommended after above results - In the mean time continue supportive transfusions and care Physician attest: I have completed the full hand p of this patient and agree with above dictation, dictated as a scribe
[2018-03-26 16:22] LABS: Glucose,Whole Blood 118 mg/dL (75-99)
[2018-03-26 16:35] LABS: Anisocytosis Slight; Basophils % (A) 1 %; Eosinophils # (A) 0.1 k/uL (0-0.7); Eosinophils % (A) 4 %; HCT 23.2 % (34.0-46.0); HGB 7.4 gm/dL (11.4-16.0); Hypochromasia Marked; Lymphocytes # (A) 0.7 k/uL (1.0-4.8); Lymphocytes % (A) 23 %; MCH 27.2 pg (25.0-35.0); MCHC 31.7 g/dL (31.0-37.0); MCV 85.6 fL (80.0-100.0); Monocytes # (A) 0.1 k/uL (0-1.0); Monocytes % (A) 5 %; Neutrophils # (A) 2.1 k/uL (1.3-7.7); Neutrophils % (A) 66 %; Platelet Count 113 k/uL (150-450); Poikilocytosis Moderate; RBC 2.71 m/uL (3.80-5.40); WBC 3.2 k/uL (3.8-10.6)
--- NOTE | 2018-03-26 16:50 | PN ---
PROGRESS NOTE CHIEF COMPLAINT: Anemia. HISTORY OF PRESENT ILLNESS: This lady continues to drop her hemoglobin. Potassium is also low and is being corrected. She is going for endoscopy today. She is experiencing quite a bit of low back pain, abdominal discomfort and she seems to be more distended. PHYSICAL EXAM: She is awake and alert. She is pale. Chest is clear. Cardiac exam is unchanged with no murmur. Abdomen is more protuberant with ascites. IMPRESSION: 1. Anemia. 2. Epistaxis. 3. History of cirrhosis and esophageal varices. 4. Rule out gastrointestinal bleed. 5. Murmur. 6. Hypokalemia. 7. Low back pain. 8. Pain in the legs. PLAN: Add Aldactazide 50/50 twice a day and await for the results of her endoscopy. MMODL / IJN: [id number] /
[2018-03-26 17:56] LABS: Polychromasia Present
[2018-03-26 20:48] LABS: Glucose,Whole Blood 157 mg/dL (75-99)
[2018-03-27] MEDS: SODIUM CHLORIDE 0.9% 1,000 ML IV SCH ×3 (03:08→20:40)
[2018-03-27 06:03] LABS: Anisocytosis Slight; Basophils % (A) 1 %; Eosinophils # (A) 0.2 k/uL (0-0.7); Eosinophils % (A) 5 %; HGB 7.1 gm/dL (11.4-16.0); Hypochromasia Marked; Lymphocytes # (A) 0.7 k/uL (1.0-4.8); Lymphocytes % (A) 24 %; MCHC 30.9 g/dL (31.0-37.0); MCV 87.1 fL (80.0-100.0); Mean Platelet Volume 9.1; Monocytes # (A) 0.2 k/uL (0-1.0); Monocytes % (A) 7 %; Neutrophils # (A) 1.9 k/uL (1.3-7.7); Neutrophils % (A) 61 %; Platelet Count 102 k/uL (150-450); Poikilocytosis Moderate; RBC 2.64 m/uL (3.80-5.40); RDW 18.2 % (11.5-15.5); WBC 3.1 k/uL (3.8-10.6)
[2018-03-27 06:17] LABS: Calcium 7.9 mg/dL (8.4-10.2); Potassium 3.6 mmol/L (3.5-5.1)
[2018-03-27 06:29] LABS: Glucose,Whole Blood 114 mg/dL (75-99)
[2018-03-27] MEDS: INSULIN ASPART 100 UNIT/ML 1 ML 10 ML VIAL SQ SCH ×3 (07:33→17:17)
[2018-03-27] MEDS: HYDROmorphone 1 MG/ML 1 ML SYRINGE IVP PRN ×4 (09:02→22:59)
[2018-03-27] MEDS: LACTULOSE 20 GM/30 ML CUP PO SCH ×3 (09:04→20:49)
[2018-03-27] MEDS: amLODIPine 10 MG TAB PO SCH (09:05)
[2018-03-27] MEDS: SERTRALINE 100 MG TAB PO SCH (09:05)
[2018-03-27] MEDS: FERROUS SULFATE 325 MG TAB PO SCH (09:05)
[2018-03-27] MEDS: PANTOPRAZOLE 40 MG/10 ML VIAL IVP SCH ×2 (09:06→20:40)
[2018-03-27] MEDS: FOLIC ACID-VIT B COMPLEX-VIT C 1 CAP PO SCH (09:06)
[2018-03-27] MEDS: hydrALAZINE HCL 50 MG TAB PO SCH ×3 (09:06→20:40)
[2018-03-27] MEDS: cloNIDine HCL 0.2 MG TAB PO SCH ×3 (09:06→20:40)
[2018-03-27] MEDS: MONTELUKAST 10 MG TAB PO SCH (09:06)
[2018-03-27] MEDS: SPIRONOLACTONE-HCTZ 25-25MG 1 EACH TAB PO SCH ×2 (09:06→20:40)
[2018-03-27] MEDS: FUROSEMIDE 40 MG TAB PO SCH (09:06)
[2018-03-27] MEDS: LEVOFLOXACIN 500 MG TAB PO SCH (09:07)
[2018-03-27] MEDS ORDERED: POTASSIUM CHLORIDE ER 20 MEQ TAB.ER PO STA (09:54)
[2018-03-27 11:11] LABS: Albumin 2.81 g/dL (3.80-4.90)
[2018-03-27 11:44] LABS: Glucose,Whole Blood 128 mg/dL (75-99)
[2018-03-27] MEDS: INSULIN DETEMIR 100 UNIT/ML 10 ML VIAL SQ SCH (12:19)
[2018-03-27] MEDS: HYDROcodone/APAP 5-325MG 1 EACH TAB PO PRN (12:20)
--- NOTE | 2018-03-27 14:25 | P.PN ---
Subjective Progress Note Date: 03/27/18 Principal diagnosis: GI bleed Status post EGD with variceal banding yesterday. Presently feels well. No reports of hematemesis hematochezia melena. Hemoglobin 7.1. Platelet 102. Denies abdominal pain. Objective - Vital Signs Vital signs: Vital Signs Temp 97.4 F L 03/27/18 12:00 Pulse 72 03/27/18 12:00 Resp 18 03/27/18 12:00 BP 153/72 03/27/18 12:00 Pulse Ox 95 03/27/18 12:00 Intake & Output 03/26/18 03/27/18 03/27/18 18:59 06:59 18:59 Intake Total 3367 800 720 Output Total 500 600 Balance 2867 200 720 Weight 97 kg Intake: IV 1600 800 0.9 800 Potassium Chloride 20 meq 200 In Water For Injection 1 100ml.bag @ 50 mls/hr IVPB Q2H [facility] Rx#: [id number] Sodium Chloride 0.9% 1, 1100 000 ml @ 100 mls/hr IV . Q10H [facility] Rx#:[id number] Oral 1457 720 Blood Product 310 Rc As-1 Unit 310 [id number] Output: Urine 500 600 Other: Voiding Method Bedpan Toilet Toilet # Voids 1 2 1 # Bowel Movements 1 1 - Exam General appearance: The patient is alert, oriented, in no acute distress. HET: Head is normocephalic and atraumatic. Pupils are equal and reactive. Oropharynx is clear without lesions. Neck: Supple without lymphadenopathy. Trachea midline. Heart: S1 S2. Regular rate and rhythm. Lungs: No crackles or wheezes are heard. Abdomen: Soft, nontender, nondistended with bowel sounds. No peritoneal signs. No palpable organomegaly or masses. Extremities: Normal skin color and turgor. No cyanosis, rash, ulceration, clubbing, or edema. Radial and pedal pulses are 2/4 bilaterally. Neurological: No focal deficits. Strength and sensation are grossly intact. - Labs CBC & Chem 7: 03/27/18 05:20 03/27/18 05:20 Labs: Abnormal Lab Results - Last 24 Hours (Table) 03/24/18 03/25/18 03/25/18 Range/Units 13:10 14:31 14:31 WBC (3.8-10.6) k/uL RBC (3.80-5.40) m/uL Hgb (11.4-16.0) gm/dL Hct (34.0-46.0) % MCHC (31.0-37.0) g/dL RDW (11.5-15.5) % Plt Count (150-450) k/uL Lymphocytes # (1.0-4.8) k/uL Chloride (98-107) mmol/L BUN (7-17) mg/dL Creatinine (0.52-1.04) mg/dL POC Glucose (mg/dL) (75-99) mg/dL Calcium (8.4-10.2) mg/dL Albumin (PEP) 2.81 L (3.80-4.90) g/dL Daoig-6-Eyyyuvzsd 0.59 L (0.60-1.00) g/dL Methylmalonic Acid 0.46 H (<0.40) umol/L Crossmatch See Detail 03/26/18 03/26/18 03/26/18 Range/Units 16:01 16:21 20:41 WBC 3.2 L (3.8-10.6) k/uL RBC 2.71 L (3.80-5.40) m/uL Hgb 7.4 L (11.4-16.0) gm/dL Hct 23.2 L (34.0-46.0) % MCHC (31.0-37.0) g/dL RDW 18.0 H (11.5-15.5) % Plt Count 113 L (150-450) k/uL Lymphocytes # 0.7 L (1.0-4.8) k/uL Chloride (98-107) mmol/L BUN (7-17) mg/dL Creatinine (0.52-1.04) mg/dL POC Glucose (mg/dL) 118 H 157 H (75-99) mg/dL Calcium (8.4-10.2) mg/dL Albumin (PEP) (3.80-4.90) g/dL Gaiyx-4-Xviaaxilq (0.60-1.00) g/dL Methylmalonic Acid (<0.40) umol/L Crossmatch 03/27/18 03/27/18 03/27/18 Range/Units 05:20 05:20 06:25 WBC 3.1 L (3.8-10.6) k/uL RBC 2.64 L (3.80-5.40) m/uL Hgb 7.1 L (11.4-16.0) gm/dL Hct 23.0 L (34.0-46.0) % MCHC 30.9 L (31.0-37.0) g/dL RDW 18.2 H (11.5-15.5) % Plt Count 102 L (150-450) k/uL Lymphocytes # 0.7 L (1.0-4.8) k/uL Chloride 112 H (98-107) mmol/L BUN 35 H (7-17) mg/dL Creatinine 1.90 H (0.52-1.04) mg/dL POC Glucose (mg/dL) 114 H (75-99) mg/dL Calcium 7.9 L (8.4-10.2) mg/dL Albumin (PEP) (3.80-4.90) g/dL Pzkwr-4-Ywmkkkhzc (0.60-1.00) g/dL Methylmalonic Acid (<0.40) umol/L Crossmatch 03/27/18 Range/Units 11:42 WBC (3.8-10.6) k/uL RBC (3.80-5.40) m/uL Hgb (11.4-16.0) gm/dL Hct (34.0-46.0) % MCHC (31.0-37.0) g/dL RDW (11.5-15.5) % Plt Count (150-450) k/uL Lymphocytes # (1.0-4.8) k/uL Chloride (98-107) mmol/L BUN (7-17) mg/dL Creatinine (0.52-1.04) mg/dL POC Glucose (mg/dL) 128 H (75-99) mg/dL Calcium (8.4-10.2) mg/dL Albumin (PEP) (3.80-4.90) g/dL Qszqe-0-Scqvszfrq (0.60-1.00) g/dL Methylmalonic Acid (<0.40) umol/L Crossmatch Assessment and Plan (1) GI bleed Narrative/Plan: Acute GI bleed and melena possibly from esophageal varices status post EGD with variceal banding. Current Visit: Yes Status: Acute Code(s): K92.2 - GASTROINTESTINAL HEMORRHAGE, UNSPECIFIED SNOMED Code(s): 29895656 (2) Esophageal varices determined by endoscopy Current Visit: Yes Status: Acute Code(s): I85.00 - ESOPHAGEAL VARICES WITHOUT BLEEDING SNOMED Code(s): 83359414 (3) Acute on chronic anemia Current Visit: Yes Status: Acute Code(s): D64.9 - ANEMIA, UNSPECIFIED SNOMED Code(s): 596913195 (4) Chronic kidney disease Current Visit: Yes Status: Acute Code(s): N18.9 - CHRONIC KIDNEY DISEASE, UNSPECIFIED SNOMED Code(s): 744564071 (5) Cirrhosis of liver Current Visit: Yes Status: Acute Code(s): K74.60 - UNSPECIFIED CIRRHOSIS OF LIVER SNOMED Code(s): 06389034 (6) Hepatic encephalopathy Current Visit: No Status: Acute Code(s): K72.90 - HEPATIC FAILURE, UNSPECIFIED WITHOUT COMA SNOMED Code(s): 41059777 Plan: 1. Advance diet as tolerated. CBC monitoring. 2. Protonix 40 mg twice daily. 3. Continue with Levaquin 250 mg daily total of 7 days. 4. Return to office in 2-3 weeks. Discharge per medicine. Assessment and plan a care discussed with Dr. Lopez
[2018-03-27 16:03] LABS: Protein, Total 5.7 g/dL (6.2-8.2)
[2018-03-27 16:46] LABS: Glucose,Whole Blood 105 mg/dL (75-99)
--- NOTE | 2018-03-27 17:43 | PN ---
PROGRESS NOTE CHIEF COMPLAINT: Epistaxis, chronic anemia. HISTORY OF PRESENT ILLNESS: This lady underwent endoscopy yesterday and three bands were placed on varices in the esophagus. She feels fine today. Hemoglobin is stabilized. PHYSICAL EXAM: She remains pale. Chest is quite clear. Cardiac exam is normal. Abdomen is soft, nontender. IMPRESSION: 1. Chronic anemia. 2. Cirrhosis. 3. Esophageal varices. 4. Epistaxis. PLAN: If she continues remain stable and if her hemoglobin holds, she can try go home in the next day or 2. MMODL / IJN: [id number] /
--- NOTE | 2018-03-27 18:11 | P.PN ---
Subjective Progress Note Date: 03/27/18 Principal diagnosis: Pancytopenia Iron deficiency component to anemia, likely from acute blood loss. Pancytopenia from liver disease no need for bone marrow biopsy Objective - Vital Signs Vital signs: Vital Signs Temp 97.4 F L 03/27/18 12:00 Pulse 72 03/27/18 15:32 Resp 18 03/27/18 15:32 BP 153/72 03/27/18 12:00 Pulse Ox 95 03/27/18 12:00 Intake & Output 03/26/18 03/27/18 03/27/18 18:59 06:59 18:59 Intake Total 3367 800 1560 Output Total 500 600 Balance 2867 200 1560 Weight 97 kg Intake: IV 1600 800 0.9 800 Potassium Chloride 20 meq 200 In Water For Injection 1 100ml.bag @ 50 mls/hr IVPB Q2H [facility] Rx#: [id number] Sodium Chloride 0.9% 1, 1100 000 ml @ 100 mls/hr IV . Q10H [facility] Rx#:[id number] Oral 1457 1560 Blood Product 310 Rc As-1 Unit 310 [id number] Output: Urine 500 600 Other: Voiding Method Bedpan Toilet Toilet # Voids 1 2 1 # Bowel Movements 1 1 - Exam - Constitutional General appearance: cooperative, no acute distress - EENT Eyes: EOMI, dentition normal ENT: hard of hearing, normal oropharynx - Neck Neck: normal ROM - Respiratory Respiratory: bilateral: diminished (bilateral bases) - Cardiovascular Rhythm: irregularly irregular - Gastrointestinal General gastrointestinal: distended, hepatomegaly - Integumentary Integumentary: pale - Neurologic Neurologic: CNII-XII intact - Musculoskeletal Musculoskeletal: generalized weakness, strength equal bilaterally - Psychiatric Psychiatric: A&O x's 3, appropriate affect, intact judgment & insight - Labs CBC & Chem 7: 03/27/18 05:20 03/27/18 05:20 Labs: Abnormal Lab Results - Last 24 Hours (Table) 03/25/18 03/25/18 03/26/18 Range/Units 14:31 14:31 20:41 WBC (3.8-10.6) k/uL RBC (3.80-5.40) m/uL Hgb (11.4-16.0) gm/dL Hct (34.0-46.0) % MCHC (31.0-37.0) g/dL RDW (11.5-15.5) % Plt Count (150-450) k/uL Lymphocytes # (1.0-4.8) k/uL Chloride (98-107) mmol/L BUN (7-17) mg/dL Creatinine (0.52-1.04) mg/dL POC Glucose (mg/dL) 157 H (75-99) mg/dL Calcium (8.4-10.2) mg/dL Total Protein (PEP) (6.2-8.2) g/dL Albumin (PEP) 2.81 L (3.80-4.90) g/dL Mrlyo-6-Xgsnslwar 0.59 L (0.60-1.00) g/dL Methylmalonic Acid 0.46 H (<0.40) umol/L 03/27/18 03/27/18 03/27/18 Range/Units 05:20 05:20 05:20 WBC 3.1 L (3.8-10.6) k/uL RBC 2.64 L (3.80-5.40) m/uL Hgb 7.1 L (11.4-16.0) gm/dL Hct 23.0 L (34.0-46.0) % MCHC 30.9 L (31.0-37.0) g/dL RDW 18.2 H (11.5-15.5) % Plt Count 102 L (150-450) k/uL Lymphocytes # 0.7 L (1.0-4.8) k/uL Chloride 112 H (98-107) mmol/L BUN 35 H (7-17) mg/dL Creatinine 1.90 H (0.52-1.04) mg/dL POC Glucose (mg/dL) (75-99) mg/dL Calcium 7.9 L (8.4-10.2) mg/dL Total Protein (PEP) 5.7 L (6.2-8.2) g/dL Albumin (PEP) (3.80-4.90) g/dL Vhjdo-2-Ktkraoami (0.60-1.00) g/dL Methylmalonic Acid (<0.40) umol/L 03/27/1818 03/27/18 Range/Units 06:25 11:42 16:44 WBC (3.8-10.6) k/uL RBC (3.80-5.40) m/uL Hgb (11.4-16.0) gm/dL Hct (34.0-46.0) % MCHC (31.0-37.0) g/dL RDW (11.5-15.5) % Plt Count (150-450) k/uL Lymphocytes # (1.0-4.8) k/uL Chloride (98-107) mmol/L BUN (7-17) mg/dL Creatinine (0.52-1.04) mg/dL POC Glucose (mg/dL) 114 H 128 H 105 H (75-99) mg/dL Calcium (8.4-10.2) mg/dL Total Protein (PEP) (6.2-8.2) g/dL Albumin (PEP) (3.80-4.90) g/dL Ymhwd-7-Bjjjatpja (0.60-1.00) g/dL Methylmalonic Acid (<0.40) umol/L Assessment and Plan Plan: Assessment and Recs: 1. Pancytopenia - Likely related to underlying Liver disease - Normocytic Anemia - Worsening requiring transfusions (3 in last 24 hours) - Component of blood loss anemia and iron deficiency, will initiate Parental Iron - Maintain Hemoglobin above 7 - Status Post EGD and Colonoscopy - Full anemia work-up ordered to rule out multifactoral etiology - Thrombocytopenia: - Stable as above 50K - Monitor for bleeding and monitor coags closely - Transfuse for less than 50K if signs of bleeding or less than 15K - Leukopenia/Lymphocytopenia: - This is not much lower than her trended baseline and again likely related to her underlying liver disease 2. Non-Alcoholic Liver Disease: - GI following Plan: Parental Iron, and monitoring CBC
[2018-03-27] MEDS ORDERED: SODIUM FERRIC GLUCONAT-SUCROSE 125 MG in SODIUM CHLORIDE 0.9% 100 ML IVPB SCH (20:00)
[2018-03-27 20:12] LABS: Glucose,Whole Blood 119 mg/dL (75-99)
[2018-03-28 06:03] LABS: Glucose,Whole Blood 104 mg/dL (75-99)
[2018-03-28] MEDS: INSULIN ASPART 100 UNIT/ML 1 ML 10 ML VIAL SQ SCH ×2 (06:10→11:46)
[2018-03-28 06:38] LABS: Anisocytosis Slight; Basophils % (A) 0 %; Eosinophils # (A) 0.1 k/uL (0-0.7); Eosinophils % (A) 4 %; HCT 23.2 % (34.0-46.0); HGB 7.3 gm/dL (11.4-16.0); Hypochromasia Marked; Lymphocytes # (A) 0.7 k/uL (1.0-4.8); Lymphocytes % (A) 23 %; MCH 27.3 pg (25.0-35.0); MCHC 31.4 g/dL (31.0-37.0); MCV 86.9 fL (80.0-100.0); Mean Platelet Volume 8.5; Monocytes # (A) 0.3 k/uL (0-1.0); Monocytes % (A) 9 %; Neutrophils # (A) 1.8 k/uL (1.3-7.7); Neutrophils % (A) 61 %; Platelet Count 110 k/uL (150-450); Poikilocytosis Slight; RBC 2.67 m/uL (3.80-5.40); RDW 18.6 % (11.5-15.5)
[2018-03-28 07:00] LABS: Calcium 8.1 mg/dL (8.4-10.2); Potassium 3.5 mmol/L (3.5-5.1)
[2018-03-28] MEDS ORDERED: LEVOFLOXACIN 250 MG TAB PO SCH (09:00)
[2018-03-28] MEDS: LACTULOSE 20 GM/30 ML CUP PO SCH (09:21)
[2018-03-28] MEDS: HYDROmorphone 1 MG/ML 1 ML SYRINGE IVP PRN ×2 (09:22→13:37)
[2018-03-28] MEDS: PANTOPRAZOLE 40 MG/10 ML VIAL IVP SCH (09:23)
[2018-03-28] MEDS: hydrALAZINE HCL 50 MG TAB PO SCH (09:24)
[2018-03-28] MEDS: FUROSEMIDE 40 MG TAB PO SCH (09:24)
[2018-03-28] MEDS: FOLIC ACID-VIT B COMPLEX-VIT C 1 CAP PO SCH (09:24)
[2018-03-28] MEDS: cloNIDine HCL 0.2 MG TAB PO SCH (09:24)
[2018-03-28] MEDS: SERTRALINE 100 MG TAB PO SCH (09:24)
[2018-03-28] MEDS: MONTELUKAST 10 MG TAB PO SCH (09:24)
[2018-03-28] MEDS: amLODIPine 10 MG TAB PO SCH (09:24)
[2018-03-28] MEDS: SPIRONOLACTONE-HCTZ 25-25MG 1 EACH TAB PO SCH (09:25)
[2018-03-28 10:45] VITALS: PULSE 68
[2018-03-28] MEDS: INSULIN DETEMIR 100 UNIT/ML 10 ML VIAL SQ SCH (11:21)
[2018-03-28 11:39] LABS: Albumin 2.55 g/dL (3.80-4.90); Gamma Globulin 1.28 g/dL (0.70-1.50)
[2018-03-28 12:00] LABS: Glucose,Whole Blood 125 mg/dL (75-99)
[2018-03-28] MEDS: POTASSIUM CHLORIDE ER 20 MEQ TAB.ER PO SCH ×2 (13:00→14:36)
[2018-03-28 14:40] VITALS: BP 149/69; RESP 18; TEMP 97.6
[2018-03-28] MEDS: HYDROcodone/APAP 5-325MG 1 EACH TAB PO PRN (15:15)
--- NOTE | 2018-03-28 15:26 | PN ---
PROGRESS NOTE DATE OF SERVICE: 03/28/2018 CHIEF COMPLAINT: Epistaxis, chronic anemia and GI bleed. HISTORY OF PRESENT ILLNESS: This lady is doing well and can probably go home. Hemoglobin has been stable and there is no sign of any further bleeding. PHYSICAL EXAMINATION: Her chest is fairly clear. She remains slightly pale. Cardiac exam is unchanged and she does have a murmur. Abdomen is soft, nontender. IMPRESSION: 1. Chronic anemia. 2. Cirrhosis. 3. Esophageal varices. 4. Upper gastrointestinal bleeding. 5. Epistaxis. PLAN: She is doing well and can probably go home today. MMODL / IJN: [id number] /
--- NOTE | 2018-04-12 14:24 | MISC ---
MISCELLANOUS REPORT QUERY Acute on chronic renal failure stage 4. I do not know if it is cortical medullary or tubular. MMODL / IJN: [id number] /
--- NOTE | 2018-04-15 03:37 | DS ---
DISCHARGE SUMMARY DATE OF ADMISSION: 03/24/2018 DATE OF DISCHARGE: 03/28/2018. CHIEF COMPLAINT: Epistaxis and anemia. HISTORY OF PRESENT ILLNESS AND PHYSICAL EXAM: Details of this lady's history and physical can be found in the initial workup. LABORATORY STUDIES: While she was in the hospital she had laboratory studies, details of which can be found in the laboratory section of her chart. COURSE IN HOSPITAL: After admission, she was placed on bedrest and started on intravenous fluids. She had no further difficulty with epistaxis, but she had a profound anemia, which was determined to be chronic and related to esophageal varices. She underwent endoscopy and had several of these banded. 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 She is doing well. It was felt she could be discharged on 03/28, and she will go home on light activity about the house and usual diet and follow up with either us or her own physician. FINAL DIAGNOSES: 1. Epistaxis. 2. Chronic anemia. 3. Blood loss anemia. 4. Cirrhosis. 5. Esophageal varices. OPERATIONS: Endoscopies. CONSULTATIONS: Gastroenterology and ENT. She is improved. MMODL / IJN: [id number] /
== END 2018-03-28 15:23 | disposition home health service (06) | DRG 432 ==
LOC: EC 12:37 → 3SCARD 15:48
PROVIDERS: ADMIT Family Medicine; ATTEND Family Medicine
PROC: 06L38CZ Occlusion of Esophageal Vein with Extraluminal Device, Via Natural or Artificial Opening Endoscopic (ICD-10-PCS; principal; 2018-03-26 09:15)
PROC: 0DB68ZX Excision of Stomach, Via Natural or Artificial Opening Endoscopic, Diagnostic (ICD-10-PCS; 2018-03-26 09:15)
DX: K74.60 Unspecified cirrhosis of liver (principal); I85.11 Secondary esophageal varices with bleeding; K29.71 Gastritis, unspecified, with bleeding; D62 Acute posthemorrhagic anemia; N17.9 Acute kidney failure, unspecified; N18.4 Chronic kidney disease, stage 4 (severe); D61.818 Other pancytopenia; K76.6 Portal hypertension; R18.8 Other ascites; R04.0 Epistaxis; G47.30 Sleep apnea, unspecified; I12.9 Hypertensive chronic kidney disease with stage 1 through stage 4 chronic kidney disease, or unspecified chronic kidney disease; E11.22 Type 2 diabetes mellitus with diabetic chronic kidney disease; J44.9 Chronic obstructive pulmonary disease, unspecified; K21.9 Gastro-esophageal reflux disease without esophagitis; K31.89 Other diseases of stomach and duodenum; K72.90 Hepatic failure, unspecified without coma; E78.5 Hyperlipidemia, unspecified; E87.6 Hypokalemia; G40.909 Epilepsy, unspecified, not intractable, without status epilepticus; Z99.81 Dependence on supplemental oxygen; Z79.899 Other long term (current) drug therapy; Z79.4 Long term (current) use of insulin; Z82.49 Family history of ischemic heart disease and other diseases of the circulatory system; Z83.3 Family history of diabetes mellitus; Z86.73 Personal history of transient ischemic attack (TIA), and cerebral infarction without residual deficits; Z87.891 Personal history of nicotine dependence
CPT/HCPCS: 36415; 43239; 43255; 71046; 76705; 80048; 80053; 82140; 82272; 82550; 82553; 82728; 82746; 83036; 83540; 83550; 83615; 83735; 83883; 83921; 84100; 84132; 84165; 84439; 84443; 84484; 85025; 85045; 85610; 85730; 86334; 86850; 86870; 86880; 86900; 86901; 86902; 86920; 88305; 93005; 96365; 96366; 96374; 96375; 99285

== ENCOUNTER 2018-04-07 15:07 | Inpatient (IN) | payer MEDICARE ==
[2018-04-07] MEDS ORDERED: SODIUM CHLORIDE 0.9% 500 ML 500 ML IV STA (18:22)
[2018-04-07] MEDS ORDERED: ONDANSETRON 4 MG/2 ML VIAL IVP STA (18:23)
[2018-04-07] MEDS ORDERED: MECLIZINE 12.5 MG TAB PO STA (18:23)
[2018-04-07] MEDS ORDERED: HYDROmorphone 0.5 MG/0.5 ML SYRINGE IVP STA (18:23)
--- NOTE | 2018-04-07 19:02 | ED ---
General Adult HPI <Eleuterio Ramos - Last Filed: 04/07/18 20:57> - General Source: patient, RN notes reviewed Mode of arrival: wheelchair Limitations: physical limitation <Yash Cortes - Last Filed: 04/07/18 21:06> - General Chief complaint: Fall Stated complaint: fall/arm & knee pain Time Seen by Provider: 04/07/18 18:07 - History of Present Illness Initial comments: 67-year-old female presents emergency Department with chief complaint of a fall. Patient states she's had increased dizziness last few days. She states she gets so dizzy that she cannot stand. Patient states that she felt the day did hit the side of her head. Patient with mild headache, left shoulder pain, low back pain and knee pain. Patient states the dizziness is worse with movement. Patient also states she has some chest discomfort earlier today. Patient is symptom-free at this time. Denies any nausea vomiting. Denies any focal weakness. She states she generalized weak and in pain. (Yash Cortes) - Related Data Home Medications Medication Instructions Recorded Confirmed rOPINIRole HCL [Requip] 0.25 mg PO BID 12/15/14 03/24/18 Pantoprazole Sodium [Protonix] 40 mg PO DAILY 08/29/17 03/24/18 Folic Acid-Vit B Complex-Vit C 1 cap PO DAILY 09/09/17 03/24/18 [Nephrocaps] Insulin Aspart [NovoLOG Flexpen] 3 units SQ AC-TID 09/09/17 03/24/18 Insulin Glargine,Hum.rec.anlog 20 unit SQ DAILY 09/09/17 03/24/18 [Lantus Solostar] Ipratropium/Albuterol Sulfate 1 puff INHALATION RT-Q6H PRN 09/09/17 03/24/18 [Combivent Respimat Inhaler] amLODIPine [Norvasc] 10 mg PO DAILY 10/04/17 03/24/18 HYDROcodone/APAP 5-325MG [[place] 1 tab PO BID PRN 02/28/18 03/24/18 5-325] Sertraline [Zoloft] 100 mg PO DAILY 02/28/18 03/24/18 cloNIDine HCL [Catapres] 0.2 mg PO TID 02/28/18 03/24/18 hydrALAZINE HCL [Apresoline] 50 mg PO TID 02/28/18 03/24/18 Montelukast [Singulair] 10 mg PO DAILY 03/24/18 03/24/18 Previous Rx's Medication Instructions Recorded Ferrous Sulfate [Feosol] 325 mg PO DAILY #1 09/02/17 Furosemide [Lasix] 40 mg PO DAILY #1 10/08/17 Levofloxacin [Levaquin] 250 mg PO Q24H #10 tab 03/28/18 Spironolactone-Hctz 25-25Mg 2 each PO BID #60 tab 03/28/18 [Aldactazide 25-25 MG] Allergies Allergy/AdvReac Type Severity Reaction Status Date / Time adhesive Allergy BLISTERS Verified 04/07/18 15:24 SKIN "PAPER TAPE OK" codeine Allergy Unknown Verified 04/07/18 15:24 morphine Allergy "STOPS Verified 04/07/18 15:24 BREATHING" Penicillins Allergy Unknown Verified 04/07/18 15:24 tramadol HCl [From Ultram] Allergy "PASSES Verified 04/07/18 15:24 OUT" aspirin AdvReac Nausea & Verified 04/07/18 15:24 Vomiting ibuprofen [From Motrin] AdvReac AFFECTS Verified 04/07/18 15:24 KIDNEYS TAPE Allergy BLISTERS Uncoded 04/07/18 15:24 SKIN "PAPER TAPE IS OK" Review of Systems ROS Other: All systems not noted in ROS Statement are negative. <Eleuterio Ramos - Last Filed: 04/07/18 20:57> ROS Other: All systems not noted in ROS Statement are negative. <Yash Cortes - Last Filed: 04/07/18 21:06> ROS Statement: Those systems with pertinent positive or pertinent negative responses have been documented in the HPI. 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 had tia in 1999 and 2007- but in past 2 years both legs getting weaker unable to walk long distance USES WALKER,no CPAP used since sx,CONSTIPATION lat bm 12-16-18, KIDNEY INFECTION, BRUISES EASILY, GI BLEED X 2-RECEIVED UNITS PRBC'S, berna cataracts. spouse stated pt has ra and a hereditary liver disease(no alcoholic cirrhosis.rls, cataracts migraines, 02 2 liters n/c, murmur hx bleeding varicies. History of Any Multi-Drug Resistant Organisms: None Reported Past Surgical History: Appendectomy, Cholecystectomy, Heart Catheterization, Orthopedic Surgery, Tubal Ligation Additional Past Surgical History / Comment(s): SLEEP APNEA SURGERY,RT SHOULDER, LT ARM BX, CARPEL TUNNEL BERNA,GANGLION CYST REMOVED,BONE SPURS BERNA ANKLES, "at [facility]- they cauterized bleed in the stomach", multiple paracentesis Past Anesthesia/Blood Transfusion Reactions: No Reported Reaction Additional Past Anesthesia/Blood Transfusion Reaction / Comment(s): clausterphobia Past Psychological History: No Psychological Hx Reported Smoking Status: Former smoker Past Alcohol Use History: None Reported Past Drug Use History: None Reported - Past Family History Mother Family Medical History: Diabetes Mellitus, Hypertension Additional Family Medical History / Comment(s): HEART PROBLEMS Father Family Medical History: Myocardial Infarction ([place]) Additional Family Medical History / Comment(s): HEART PROBLEMS <Yash Cortes - Last Filed: 04/07/18 21:06> General Exam Limitations: physical limitation General appearance: alert, in no apparent distress Head exam: Present: atraumatic, normocephalic, normal inspection Eye exam: Present: normal appearance, PERRL, EOMI. Absent: scleral icterus, conjunctival injection, periorbital swelling ENT exam: Present: mucous membranes moist, TM's normal bilaterally. Absent: normal oropharynx (No dentition) Neck exam: Present: normal inspection, full ROM. Absent: tenderness, meningismus, lymphadenopathy Respiratory exam: Present: normal lung sounds bilaterally. Absent: respiratory distress, wheezes, rales, rhonchi, stridor Cardiovascular Exam: Present: regular rate, normal rhythm, normal heart sounds. Absent: systolic murmur, diastolic murmur, rubs, gallop, clicks GI/Abdominal exam: Present: soft, normal bowel sounds. Absent: distended, tenderness, guarding, rebound, rigid Rectal exam: Present: heme (+) stool, black stool, other (Exam performed with isis DAMIAN) Extremities exam: Present: other (Bilateral knee tenderness with palpation the anterior surface, left shoulder limited range of motion tenderness with palpation no obvious deformity) Back exam: Present: tenderness, paraspinal tenderness. Absent: full ROM, vertebral tenderness Neurological exam: Present: alert, oriented X3, CN II-XII intact, reflexes normal. Absent: motor sensory deficit Skin exam: Present: warm, dry, intact, normal color. Absent: rash <Yash Cortes - Last Filed: 04/07/18 21:06> Course <Eleuterio Ramos - Last Filed: 04/07/18 20:57> <Yash Cortes - Last Filed: 04/07/18 21:06> Vital Signs 04/07/18 04/07/18 04/07/18 15:22 18:30 19:00 Temperature 98.4 F Pulse Rate 59 L 58 L Respiratory 18 16 Rate Blood Pressure 103/43 122/57 O2 Sat by Pulse 100 98 95 Oximetry - Reevaluation(s) Reevaluation #1: 04/07/18 20:57 PA supervision: I personally do a eoth-by-uwlm evaluation the patient she presents with complaints of weakness he did appear to be pale she was found to be anemic with evidence of a upper GI bleed. She had an elevated BUN/ creatinine additionally she had heme-positive black stools from below. I did discuss the case with the hospitalist Dr. Martinez. I do agree with the assessment and plan. (Eleuterio Ramos) EKG Findings - EKG Comments: EKG Findings:: EKG performed at 19:26 sinus bradycardia with prolonged QT rate of 58 W[place] 172 QRS 94 QT/QTC 516/506 <Yash Cortes - Last Filed: 04/07/18 21:06> Medical Decision Making - Lab Data Result diagrams: 04/07/18 18:51 04/07/18 18:51 <Eleuterio Ramos - Last Filed: 04/07/18 20:57> - Lab Data Result diagrams: 04/07/18 18:51 04/07/18 18:51 <Yash Cortes - Last Filed: 04/07/18 21:06> - Lab Data Lab Results 04/07/18 04/07/18 04/07/18 Range/Units 18:51 18:51 18:51 WBC 4.1 (3.8-10.6) k/uL RBC 2.28 L (3.80-5.40) m/uL Hgb 6.3 L* (11.4-16.0) gm/dL Hct 19.3 L* (34.0-46.0) % MCV 85.0 (80.0-100.0) fL MCH 27.7 (25.0-35.0) pg MCHC 32.6 (31.0-37.0) g/dL RDW 19.0 H (11.5-15.5) % Plt Count 73 L (150-450) k/uL Neutrophils % (Manual) 70 % Lymphocytes % (Manual) 19 % Monocytes % (Manual) 9 % Eosinophils % (Manual) 2 % Neutrophils # (Manual) 2.87 (1.3-7.7) k/uL Lymphocytes # (Manual) 0.78 L (1.0-4.8) k/uL Monocytes # (Manual) 0.37 (0-1.0) k/uL Eosinophils # (Manual) 0.08 (0-0.7) k/uL Nucleated RBCs 0 (0-0) /100 WBC Manual Slide Review Performed Hypochromasia Slight Hypochromasia (manual) Present Anisocytosis Slight Anisocytosis (manual) Present Target Cells Present Sodium 137 (137-145) mmol/L Potassium 4.0 (3.5-5.1) mmol/L Chloride 98 (98-107) mmol/L Carbon Dioxide 23 (22-30) mmol/L Anion Gap 16 mmol/L BUN 91 H (7-17) mg/dL Creatinine 3.95 H (0.52-1.04) mg/dL Est GFR (CKD-EPI)AfAm 13 (>60 ml/min/1.73 sqM) Est GFR (CKD-EPI)NonAf 11 (>60 ml/min/1.73 sqM) Glucose 114 H (74-99) mg/dL Calcium 8.0 L (8.4-10.2) mg/dL Total Bilirubin 0.6 (0.2-1.3) mg/dL AST 57 H (14-36) U/L ALT 33 (9-52) U/L Alkaline Phosphatase 298 H (38-126) U/L Troponin I <0.012 (0.000-0.034) ng/mL Total Protein 6.9 (6.3-8.2) g/dL Albumin 3.3 L (3.5-5.0) g/dL Urine Color Urine Appearance (Clear) Urine pH (5.0-8.0) Ur Specific Gaines (1.001-1.035) Urine Protein (Negative) Urine Glucose (UA) (Negative) Urine Ketones (Negative) Urine Blood (Negative) Urine Nitrite (Negative) Urine Bilirubin (Negative) Urine Urobilinogen (<2.0) mg/dL Ur Leukocyte Esterase (Negative) Urine RBC (0-5) /hpf Urine WBC (0-5) /hpf Ur Squamous Epith Cells (0-4) /hpf Urine Mucus (None) /hpf Stool Occult Blood (Negative) 04/07/18 04/07/18 Range/Units 20:03 20:37 WBC (3.8-10.6) k/uL RBC (3.80-5.40) m/uL Hgb (11.4-16.0) gm/dL Hct (34.0-46.0) % MCV (80.0-100.0) fL MCH (25.0-35.0) pg MCHC (31.0-37.0) g/dL RDW (11.5-15.5) % Plt Count (150-450) k/uL Neutrophils % (Manual) % Lymphocytes % (Manual) % Monocytes % (Manual) % Eosinophils % (Manual) % Neutrophils # (Manual) (1.3-7.7) k/uL Lymphocytes # (Manual) (1.0-4.8) k/uL Monocytes # (Manual) (0-1.0) k/uL Eosinophils # (Manual) (0-0.7) k/uL Nucleated RBCs (0-0) /100 WBC Manual Slide Review Hypochromasia Hypochromasia (manual) Anisocytosis Anisocytosis (manual) Target Cells Sodium (137-145) mmol/L Potassium (3.5-5.1) mmol/L Chloride (98-107) mmol/L Carbon Dioxide (22-30) mmol/L Anion Gap mmol/L BUN (7-17) mg/dL Creatinine (0.52-1.04) mg/dL Est GFR (CKD-EPI)AfAm (>60 ml/min/1.73 sqM) Est GFR (CKD-EPI)NonAf (>60 ml/min/1.73 sqM) Glucose (74-99) mg/dL Calcium (8.4-10.2) mg/dL Total Bilirubin (0.2-1.3) mg/dL AST (14-36) U/L ALT (9-52) U/L Alkaline Phosphatase (38-126) U/L Troponin I (0.000-0.034) ng/mL Total Protein (6.3-8.2) g/dL Albumin (3.5-5.0) g/dL Urine Color Light Yellow Urine Appearance Clear (Clear) Urine pH 7.5 (5.0-8.0) Ur Specific [place]aines 1.006 (1.001-1.035) Urine Protein Negative (Negative) Urine Glucose (UA) Negative (Negative) Urine Ketones Negative (Negative) Urine Blood Trace H (Negative) Urine Nitrite Negative (Negative) Urine Bilirubin Negative (Negative) Urine Urobilinogen <2.0 (<2.0) mg/dL Ur Leukocyte Esterase Negative (Negative) Urine RBC <1 (0-5) /hpf Urine WBC <1 (0-5) /hpf Ur Squamous Epith Cells 1 (0-4) /hpf Urine Mucus Rare H (None) /hpf Stool Occult Blood Positive H (Negative) Disposition <Eleuterio Ramos - Last Filed: 04/07/18 20:57> <Yash Cortes - Last Filed: 04/07/18 21:06> Clinical Impression: Fall, GI bleed, Renal failure, Anemia, Acute kidney injury Disposition: ADMITTED IP TO THIS HOSP Condition: Fair Referrals: Michelle Pfeiffer MD [Primary Care Provider] - 1-2 days
[2018-04-07 19:21] LABS: Albumin 3.3 g/dL (3.5-5.0); Total Bilirubin 0.6 mg/dL (0.2-1.3); Total Protein 6.9 g/dL (6.3-8.2)
[2018-04-07 19:26] LABS: Anisocytosis Slight; Hypochromasia Slight; MCH 27.7 pg (25.0-35.0); MCHC 32.6 g/dL (31.0-37.0); Mean Platelet Volume 9.7; RBC 2.28 m/uL (3.80-5.40); WBC 4.1 k/uL (3.8-10.6)
[2018-04-07 19:32] LABS: HCT 19.3 % (34.0-46.0); HGB 6.3 gm/dL (11.4-16.0)
[2018-04-07 20:12] LABS: Eosinophils # (M) 0.08 k/uL (0-0.7); Lymphocytes # (M) 0.78 k/uL (1.0-4.8); Monocytes # (M) 0.37 k/uL (0-1.0); Neutrophils # (M) 2.87 k/uL (1.3-7.7); Neutrophils % (M) 70 %; Nucleated Red Blood Cells 0 /100 WBC (0-0); Total Cells Counted 100
[2018-04-07 20:13] LABS: Anisocytosis (M) Present; Hypochromasia (M) Present; Platelet Count 73 k/uL (150-450); Target Cells Present
--- NOTE | 2018-04-07 20:17 | CT ---
EXAMINATION TYPE: CT brain marisa wo con DATE OF EXAM: 04/07/2018 COMPARISON: 08/29/2017 HISTORY: 67-year-old female with pain after Fall injury CT DLP: 1303.7 mGycm Automated exposure control for dose reduction was used. Technique: Examination of the head was done in axial plane without intravenous contrast. Coronal and sagittal reconstructions performed. CT of the cervical spine was obtained in axial plane without intravenous injection of contrast mater ial. Coronal and sagittal reformatted images were obtained from the axial views for evaluation of f ractures, spinal alignment and canal. FINDINGS: Head: There is no evidence of acute intracranial hemorrhage, acute ischemic changes, mass, mass-effect, or extra-axial fluid collection. There is no effacement of cerebral sulci or basal subarachnoid cister ns. There is no hydrocephalus. There is no midline shift. Nunes-white matter distinction is preserv ed. Moderate patchy white matter hypodensities in both cerebral hemispheres redemonstrated. Benign basal ganglionic calcifications. No calvarial fracture. Paranasal sinuses and mastoid air cells are well pneumatized. Cervical spine: Suggestion of some peripheral nodularity in the visualized upper lungs and underlying mild emphysema. No craniocervical junction abnormality, predental space widening, or prevertebral soft tissue swellin g. Degenerative changes of the C1 dens articulation. Scattered facet arthropathy. Mild neuroforaminal narrowing. Trace grade 1 anterolisthesis at C4-C5. No acute fracture of the cervical spine. Assessment of the spinal canal from C4 to C5 and below is limited due to artifact from the patient's shoulders. Sagittal and coronal reformatted images confirm above findings. COMBINED IMPRESSION: 1. No acute intracranial abnormality seen. Moderate patchy white matter changes are redemonstrated an d could relate to chronic small vessel ischemic disease or demyelinating disease. 2. No acute fracture of the cervical spine. Degenerative grade 1 anterolisthesis at C4-C5. 3. COPD. Small peripheral nodularity seen in the upper lungs. Nonemergent follow-up contrast enhanced CT chest is recommended to survey the entire lungs.
--- NOTE | 2018-04-07 20:21 | XR ---
EXAMINATION TYPE: XR shoulder complete 3 views LT, XR lumbar spine 3 views, XR knee complete bilateral 3 views each DATE OF EXAM: 04/07/2018 COMPARISON: NONE HISTORY: 67-year-old female with pain after fall FINDINGS: Left shoulder: Mild degenerative joint space narrowing with marginal spurring and capsular hypertrophy at the acromi oclavicular joint. Some bony irregularity at the greater tuberosity suggest chronic rotator cuff tend inopathy. Subacromial space is preserved. No acute fracture, subluxation, or dislocation. Lumbar spine: 5 lumbar type vertebral bodies. Facet arthropathy throughout. Mild degenerative disc disease througho ut. Vertebral body heights are preserved and alignment is maintained. Knees: Small knee joint effusions on both sides. No lipoma hemarthrosis on the left crosstable lateral view. Some anterior soft tissue swelling is nonspecific. Osteopenia. No acute fracture, subluxation, or di slocation. IMPRESSION: 1. Left shoulder: Mild AC joint OA. Some changes suggesting chronic rotator cuff tendinopathy. No acu te osseous abnormality seen. 2. Lumbar spine: Mild degenerative disc disease. Facet arthropathy throughout. No vertebral compressi on collapse or malalignment. 3. Knees: Small knee joint effusions on both sides are nonspecific. Some anterior soft tissue swellin g. Osteopenia. No acute osseous abnormality seen.
[2018-04-07 20:33] LABS: Appearance,Urine Clear (Clear); Bilirubin,Urine Negative (Negative); Blood,Urine Trace (Negative); Color,Urine Light Yellow; Glucose,Urine (UA) Negative (Negative); Ketones,Urine Negative (Negative); Leukocyte Esterase,Urine Negative (Negative); Mucus,Urine Rare /hpf; Nitrite,Urine Negative (Negative); PH, Urine 7.5 (5.0-8.0); Protein,Urine Negative (Negative); RBC,Urine <1 /hpf (0-5); Specific Gravity,Urine 1.006 (1.001-1.035); Squamous Epithelial Cell,Urine 1 /hpf (0-4); Urobilinogen,Urine <2.0 mg/dL (<2.0); WBC,Urine <1 /hpf (0-5)
[2018-04-07] MEDS ORDERED: PANTOPRAZOLE 40 MG/10 ML VIAL IVP STA (20:37)
[2018-04-07] MEDS ORDERED: NALOXONE 0.4 MG/ML 1 ML VIAL IV PRN (21:06)
[2018-04-07] MEDS ORDERED: SODIUM CHLORIDE 0.9% 1,000 ML IV SCH (21:30)
[2018-04-07] MEDS ORDERED: OCTREOTIDE 200 MCG in SODIUM CHLORIDE 0.9% 100 ML IV ONE (21:45)
--- NOTE | 2018-04-07 21:46 | P.HPIM ---
History of Present Illness H&P Date: 04/07/18 Chief Complaint: Weakness and fall 67-year-old female presents emergency Department with chief complaint of a weakness, dizziness and fall. Symptoms ongoing for the last few days. She states she gets so dizzy that she cannot stand. Patient states that she felt the day did hit the side of her head. Patient with mild headache, left shoulder pain, low back pain and knee pain. Patient also states she has some abdominal and chest discomfort earlier today as well as shortness of breath. No nausea or vomiting. She admitted to some epistaxis but no hematemesis, no hematochezia. She did mention black stools happening over the last 2 days. Patient was recently discharged from the hospital after having some esophageal varices banded. She stated she was doing okay up until a few days ago. 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 had tia in 1999 and 2007- but in past 2 years both legs getting weaker unable to walk long distance USES WALKER,no CPAP used since sx,CONSTIPATION lat bm 1216-18, KIDNEY INFECTION, BRUISES EASILY, GI BLEED X 2-RECEIVED UNITS PRBC'S, berna cataracts. spouse stated pt has ra and a hereditary liver disease(no alcoholic cirrhosis.rls, cataracts migraines, 02 2 liters n/c, murmur hx bleeding varicies. History of Any Multi-Drug Resistant Organisms: None Reported Past Surgical History: Appendectomy, Cholecystectomy, Heart Catheterization, Orthopedic Surgery, Tubal Ligation Additional Past Surgical History / Comment(s): SLEEP APNEA SURGERY,RT SHOULDER, LT ARM BX, CARPEL TUNNEL BERNA,GANGLION CYST REMOVED,BONE SPURS BERNA ANKLES, "at [facility]- they cauterized bleed in the stomach", multiple paracentesis Past Anesthesia/Blood Transfusion Reactions: No Reported Reaction Additional Past Anesthesia/Blood Transfusion Reaction / Comment(s): clausterphobia Past Psychological History: No Psychological Hx Reported Smoking Status: Former smoker Past Alcohol Use History: None Reported Past Drug Use History: None Reported - Past Family History Mother Family Medical History: Diabetes Mellitus, Hypertension Additional Family Medical History / Comment(s): HEART PROBLEMS Father Family Medical History: Myocardial Infarction ([place]) Additional Family Medical History / Comment(s): HEART PROBLEMS Medications and Allergies Home Medications Medication Instructions Recorded Confirmed Type rOPINIRole HCL [Requip] 0.25 mg PO BID 12/15/14 03/24/18 History Pantoprazole Sodium [Protonix] 40 mg PO DAILY 08/29/17 03/24/18 History Ferrous Sulfate [Feosol] 325 mg PO DAILY #1 09/02/17 03/24/18 Rx Folic Acid-Vit B Complex-Vit C 1 cap PO DAILY 09/09/17 03/24/18 History [Nephrocaps] Insulin Aspart [NovoLOG Flexpen] 3 units SQ AC-TID 09/09/17 03/24/18 History Insulin Glargine,Hum.rec.anlog 20 unit SQ DAILY 09/09/17 03/24/18 History [Lantus Solostar] Ipratropium/Albuterol Sulfate 1 puff INHALATION RT-Q6H PRN 09/09/17 03/24/18 History [Combivent Respimat Inhaler] amLODIPine [Norvasc] 10 mg PO DAILY 10/04/17 03/24/18 History Furosemide [Lasix] 40 mg PO DAILY #1 10/08/17 03/24/18 Rx HYDROcodone/APAP 5-325MG [[place] 1 tab PO BID PRN 02/28/18 03/24/18 History 5-325] Sertraline [Zoloft] 100 mg PO DAILY 02/28/18 03/24/18 History cloNIDine HCL [Catapres] 0.2 mg PO TID 02/28/18 03/24/18 History hydrALAZINE HCL [Apresoline] 50 mg PO TID 02/28/18 03/24/18 History Montelukast [Singulair] 10 mg PO DAILY 03/24/18 03/24/18 History Levofloxacin [Levaquin] 250 mg PO Q24H #10 tab 03/28/18 Rx Spironolactone-Hctz 25-25Mg 2 each PO BID #60 tab 03/28/18 Rx [Aldactazide 25-25 MG] Allergies Allergy/AdvReac Type Severity Reaction Status Date / Time adhesive Allergy BLISTERS Verified 04/07/18 15:24 SKIN "PAPER TAPE OK" codeine Allergy Unknown Verified 04/07/18 15:24 morphine Allergy "STOPS Verified 04/07/18 15:24 BREATHING" Penicillins Allergy Unknown Verified 04/07/18 15:24 tramadol HCl [From Ultram] Allergy "PASSES Verified 04/07/18 15:24 OUT" aspirin AdvReac Nausea & Verified 04/07/18 15:24 Vomiting ibuprofen [From Motrin] AdvReac AFFECTS Verified 04/07/18 15:24 KIDNEYS TAPE Allergy BLISTERS Uncoded 04/07/18 15:24 SKIN "PAPER TAPE IS OK" Physical Exam Vitals: Vital Signs Temp Pulse Resp BP Pulse Ox 04/07/18 21:00 61 20 99/38 95 04/07/18 20:00 60 22 108/46 04/07/18 19:00 58 L 16 122/57 95 04/07/18 18:30 98 04/07/18 15:22 98.4 F 59 L 18 103/43 100 Intake and Output 04/07/18 04/07/18 04/07/18 06:59 14:59 22:59 Other: Weight 89.358 kg Constitutional: No acute distress, conversant, pleasant Eyes: pale sclera, anicteric sclerae, moist conjunctiva, no lid-lag, PERRLA, bruise on the left face ENMT: Oropharynx clear, no erythema, exudates Neck: Supple, FROM, no masses, or JVD, No carotid bruits, No thyromegaly Lungs: Clear to auscultation, Clear to percussion, Normal respiratory effort, no accessory muscle use Cardiovascular: Heart regular in rate and rhythm, No murmurs, gallops, or rubs, No peripheral edema Abdominal: Diffusely tender, distended, no guarding, rebound or rigidity, Normoactive bowel sounds, No hepatomegaly, No splenomegaly, No palpable mass Skin: Normal temperature, tone, texture, turgor, no induration, No subcutaneous nodules, No rash, lesions, No ulcers Extremities: No digital cyanosis, No clubbing, Pedal pulses intact and symmetrical, Radial pulses intact and symmetrical, No calf tenderness Psychiatric: Alert and oriented to person, place and time, appropriate affect, intact judgement Neuro: Muscles Strength 5/5 in all 4 extremities, Sensation to light touch grossly present throughout, Cranial nerves II-XII grossly intact, no focal sensory deficits Results CBC & Chem 7: 04/07/18 18:51 04/07/18 18:51 Labs: Abnormal Lab Results - Last 24 Hours (Table) 04/07/18 04/07/18 04/07/18 Range/Units 18:51 18:51 20:03 RBC 2.28 L (3.80-5.40) m/uL Hgb 6.3 L* (11.4-16.0) gm/dL Hct 19.3 L* (34.0-46.0) % RDW 19.0 H (11.5-15.5) % Plt Count 73 L (150-450) k/uL Lymphocytes # (Manual) 0.78 L (1.0-4.8) k/uL BUN 91 H (7-17) mg/dL Creatinine 3.95 H (0.52-1.04) mg/dL Glucose 114 H (74-99) mg/dL Calcium 8.0 L (8.4-10.2) mg/dL AST 57 H (14-36) U/L Alkaline Phosphatase 298 H (38-126) U/L Albumin 3.3 L (3.5-5.0) g/dL Urine Blood Trace H (Negative) Urine Mucus Rare H (None) /hpf Stool Occult Blood (Negative) 04/07/18 Range/Units 20:37 RBC (3.80-5.40) m/uL Hgb (11.4-16.0) gm/dL Hct (34.0-46.0) % RDW (11.5-15.5) % Plt Count (150-450) k/uL Lymphocytes # (Manual) (1.0-4.8) k/uL BUN (7-17) mg/dL Creatinine (0.52-1.04) mg/dL Glucose (74-99) mg/dL Calcium (8.4-10.2) mg/dL AST (14-36) U/L Alkaline Phosphatase (38-126) U/L Albumin (3.5-5.0) g/dL Urine Blood (Negative) Urine Mucus (None) /hpf Stool Occult Blood Positive H (Negative) Assessment and Plan Plan: Acute GI bleeding/severe blood loss anemia Likely secondary to esophageal varices from liver cirrhosis Consult GI NPO IV fluids Transfused packed red blood cells and check hemoglobin Octreotide drip Protonix drip Levaquin for prophylaxis Weakness and fall/adult failure to thrive Likely secondary to above CT head and neck reviewed X-ray shoulder and knee and lower back reviewed. No acute fractures or dislocations. BAMBI: IV fluids and blood tx as above Hold diuretics Recheck cr in am Avoid nephrotoxic meds DM: Hold home insulin regimen SSI NPO Chronic: COPD, Hx of CVA/TIA, GERD/Reflux, Hyperlipidemia, Hypertension, Seizure Disorder, Sleep Apnea/CPAP/BIPAP Stable HOLD all home meds for now as patient is strict npo DVT prophylaxis: SCDs
[2018-04-07 22:44] LABS: Glucose,Whole Blood 118 mg/dL (75-99)
[2018-04-08 03:29] VITALS: BMI 34.9
[2018-04-08] MEDS ORDERED: INSULIN ASPART 100 UNIT/ML 1 ML 10 ML VIAL SQ SCH (07:30)
[2018-04-08 07:33] LABS: Glucose,Whole Blood 95 mg/dL (75-99)
[2018-04-08 08:29] LABS: Anisocytosis Slight; HCT 21.6 % (34.0-46.0); Hypochromasia Slight; MCH 26.9 pg (25.0-35.0); MCHC 30.8 g/dL (31.0-37.0); MCV 87.4 fL (80.0-100.0); Mean Platelet Volume 10.2; RBC 2.48 m/uL (3.80-5.40); RDW 18.1 % (11.5-15.5); WBC 3.4 k/uL (3.8-10.6)
[2018-04-08 08:30] LABS: HGB 6.7 gm/dL (11.4-16.0)
[2018-04-08 08:31] LABS: INR 1.1 (<1.2); Platelet Count 79 k/uL (150-450); Prothrombin Time 11.9 sec (9.0-12.0)
[2018-04-08] MEDS ORDERED: PANTOPRAZOLE 40 MG/10 ML VIAL IVP SCH (09:00)
[2018-04-08] MEDS ORDERED: LEVOFLOXACIN 250MG-D5W PMX 250 MG in DEXTROSE/WATER 1 50ML.BAG IVPB SCH (09:00)
[2018-04-08] MEDS ORDERED: OCTREOTIDE 200 MCG in SODIUM CHLORIDE 0.9% 100 ML IVPB SCH (09:00)
[2018-04-08 09:04] LABS: Albumin 2.9 g/dL (3.5-5.0); Phosphorus 5.7 mg/dL (2.5-4.5); Potassium 3.8 mmol/L (3.5-5.1); Total Bilirubin 0.8 mg/dL (0.2-1.3); Total Protein 6.1 g/dL (6.3-8.2)
[2018-04-08 09:13] LABS: Eosinophils # (M) 0.03 k/uL (0-0.7); Lymphocytes # (M) 0.88 k/uL (1.0-4.8); Monocytes # (M) 0.37 k/uL (0-1.0); Neutrophils # (M) 2.11 k/uL (1.3-7.7); Neutrophils % (M) 62 %; Nucleated Red Blood Cells 0 /100 WBC (0-0); Polychromasia Present; Total Cells Counted 100
[2018-04-08] MEDS ORDERED: HYDROmorphone 0.5 MG/0.5 ML SYRINGE IVP STA ×2 (09:45→13:01)
[2018-04-08] MEDS ORDERED: DESMOPRESSIN ACETATE 27 MCG in SODIUM CHLORIDE 0.9% 50 ML IVPB ONE (09:47)
--- NOTE | 2018-04-08 09:50 | P.NPCON ---
History of Present Illness - Reason for Consult acute renal failure, chronic renal failure - History of Present Illness Reason for consultation: Acute kidney injury on chronic kidney disease History of present illness: Patient is a 67-year-old female seen in consultation for acute kidney injury on chronic kidney disease. Patient has chronic kidney disease stage IV with baseline creatinine in the range of 1.7-1.9. Urinalysis is benign. Patient presented to the hospital after sustaining a fall. She states she's been disease last few days. No evidence of fracture was noted on imaging studies. Additionally she reports having black stools the last couple of days. Her hemoglobin on admission was 6.3 for which she did receive a unit of blood. Hemoglobin 6.7 this morning. Creatinine was 2.95 on admission and is 3.94 today. Diuretics are currently held. She is maintained on normal saline at 75 mL an hour. Admits to good urine output. Denies hematuria or dysuria. No vomiting or diarrhea. Denies use of NSAIDs. Patient states she used to paracentesis every 2 weeks but hasn't had one in quite some time. Blood pressure was low on admission in the systolic 90s to low 100s. She did receive fluid bolus. Now better. Vital signs are stable. General: The patient appeared well nourished and normally developed. HEENT: Head exam is unremarkable. Neck is without jugular venous distension. LUNGS: Lungs are clear to auscultation and percussion. Breath sounds decreased. HEART: Rate and Rhythm are regular. First and second heart sounds normal. No murmurs, rubs or gallops. ABDOMEN: Soft. Nontender. Distention noted. EXTREMITITES: No clubbing, cyanosis, or edema. 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 had tia in 1999 and 2007- but in past 2 years both legs getting weaker unable to walk long distance USES WALKER,no CPAP used since sx,CONSTIPATION lat bm 12-16-18, KIDNEY INFECTION, BRUISES EASILY, GI BLEED X 2-RECEIVED UNITS PRBC'S, berna cataracts. spouse stated pt has ra and a hereditary liver disease(no alcoholic cirrhosis.rls, cataracts migraines, 02 2 liters n/c, murmur hx bleeding varicies. History of Any Multi-Drug Resistant Organisms: None Reported Past Surgical History: Appendectomy, Cholecystectomy, Heart Catheterization, Orthopedic Surgery, Tubal Ligation Additional Past Surgical History / Comment(s): SLEEP APNEA SURGERY,RT SHOULDER, LT ARM BX, CARPEL TUNNEL BERNA,GANGLION CYST REMOVED,BONE SPURS BERNA ANKLES, "at [facility]- they cauterized bleed in the stomach", multiple paracentesis Past Anesthesia/Blood Transfusion Reactions: No Reported Reaction Additional Past Anesthesia/Blood Transfusion Reaction / Comment(s): clausterphobia Past Psychological History: No Psychological Hx Reported Additional Psychological History / Comment(s): past blood transfusion- pt denies any reaction Smoking Status: Former smoker Past Alcohol Use History: None Reported Additional Past Alcohol Use History / Comment(s): STARTED SMOKING AT AGE 16(1966 ) and quit 2014, smoked 1/2 ppd Past Drug Use History: None Reported - Past Family History Mother Family Medical History: Diabetes Mellitus, Hypertension Additional Family Medical History / Comment(s): HEART PROBLEMS Father Family Medical History: Myocardial Infarction (OR) Additional Family Medical History / Comment(s): HEART PROBLEMS Medications and Allergies Home Medications Medication Instructions Recorded Confirmed Type rOPINIRole HCL [Requip] 0.25 mg PO BID 12/15/14 04/07/18 History Pantoprazole Sodium [Protonix] 40 mg PO DAILY 08/29/17 04/07/18 History Ferrous Sulfate [Feosol] 325 mg PO DAILY #1 09/02/17 04/07/18 Rx Folic Acid-Vit B Complex-Vit C 1 cap PO DAILY 09/09/17 04/07/18 History [Nephrocaps] Insulin Aspart [NovoLOG Flexpen] 3 units SQ AC-TID 09/09/17 04/07/18 History Insulin Glargine,Hum.rec.anlog 20 unit SQ DAILY 09/09/17 04/07/18 History [Lantus Solostar] Ipratropium/Albuterol Sulfate 1 puff INHALATION RT-Q6H PRN 09/09/17 04/07/18 History [Combivent Respimat Inhaler] amLODIPine [Norvasc] 10 mg PO DAILY 10/04/17 04/07/18 History HYDROcodone/APAP 5-325MG [[place] 1 tab PO BID PRN 02/28/18 04/07/18 History 5-325] Sertraline [Zoloft] 100 mg PO DAILY 02/28/18 04/07/18 History cloNIDine HCL [Catapres] 0.2 mg PO TID 02/28/18 04/07/18 History hydrALAZINE HCL [Apresoline] 50 mg PO TID 02/28/18 04/07/18 History Montelukast [Singulair] 10 mg PO DAILY 03/24/18 04/07/18 History Spironolactone-Hctz 25-25Mg 2 each PO BID #60 tab 03/28/18 04/07/18 Rx [Aldactazide 25-25 MG] Furosemide [Lasix] 40 mg PO BID 04/07/18 04/07/18 History Omeprazole 40 mg PO BID 04/07/18 04/07/18 History Potassium Chloride ER [K-Dur 20] 20 meq PO DAILY 04/07/18 04/07/18 History Allergies Allergy/AdvReac Type Severity Reaction Status Date / Time adhesive Allergy BLISTERS Verified 04/07/18 21:56 SKIN "PAPER TAPE OK" codeine Allergy Unknown Verified 04/07/18 21:56 morphine Allergy "STOPS Verified 04/07/18 21:56 BREATHING" Penicillins Allergy Unknown Verified 04/07/18 21:56 tramadol HCl [From Ultram] Allergy "PASSES Verified 04/07/18 21:56 OUT" aspirin AdvReac Nausea & Verified 04/07/18 21:56 Vomiting ibuprofen [From Motrin] AdvReac AFFECTS Verified 04/07/18 21:56 KIDNEYS TAPE Allergy BLISTERS Uncoded 04/07/18 15:24 SKIN "PAPER TAPE IS OK" Physical Exam Vitals: Vital Signs Temp Pulse Pulse Resp BP BP Pulse Ox 04/08/18 07:32 97.4 F L 53 L 16 131/69 95 04/08/18 03:31 98.4 F 59 L 18 122/64 04/08/18 03:01 98.4 F 60 18 130/66 96 04/08/18 02:51 98.1 F 62 18 134/65 94 L 04/08/18 00:55 98.2 F 59 L 16 109/54 98 04/07/18 23:00 98.5 F 62 16 120/51 97 04/07/18 21:50 98 F 60 16 139/64 96 04/07/18 21:00 61 20 99/38 95 04/07/18 20:00 60 22 108/46 04/07/18 19:00 58 L 16 122/57 95 04/07/18 18:30 98 04/07/18 15:22 98.4 F 59 L 18 103/43 100 Intake and Output 04/07/18 04/08/18 04/08/18 22:59 06:59 14:59 Intake Total 310 Balance 310 Intake: Blood Product 310 Rc As-1 Unit 310 [id number] Other: # Voids 1 # Bowel Movements 1 Weight 89.358 kg 89.358 kg Results - Lab Results Most recent lab results Calcium 8.0 mg/dL (8.4-10.2) L 04/08/18 07:36 Phosphorus 5.7 mg/dL (2.5-4.5) H 04/08/18 07:36 Magnesium 2.0 mg/dL (1.6-2.3) 04/08/18 07:36 04/08/18 07:36 04/08/18 07:36 Assessment and Plan Plan: Assessment: 1. Acute kidney injury secondary to ATN secondary to hypotension and anemia. Creatinine stable at 3.94 today. Urinalysis is benign. 2. Chronic kidney disease stage IV secondary to hepatorenal syndrome with baseline creatinine in the range of 1.7-1.9. 3. Liver cirrhosis. 4. Acute blood loss anemia status post packed incision. Hemoglobin 6.7 this morning. Plan: Maintain normal saline at 75 mL an hour. Blood transfusion as needed. Patient will be transferred to the ICU for octreotide drip. I will give her a dose of IV DDAVP. Continue to monitor renal function and urine output. Check renal ultrasound. Thank you for the consultation. I will continue to follow patient with you during her hospital stay.
[2018-04-08 10:54] LABS: Anisocytosis Slight; HCT 20.9 % (34.0-46.0); Hypochromasia Slight; MCH 27.5 pg (25.0-35.0); MCHC 31.9 g/dL (31.0-37.0); MCV 86.2 fL (80.0-100.0); Mean Platelet Volume 10.4; RBC 2.43 m/uL (3.80-5.40); RDW 18.1 % (11.5-15.5); WBC 3.1 k/uL (3.8-10.6)
[2018-04-08 10:56] LABS: HGB 6.7 gm/dL (11.4-16.0)
[2018-04-08 10:57] LABS: Platelet Count 68 k/uL (150-450)
[2018-04-08 11:19] LABS: Glucose,Whole Blood 142 mg/dL (75-99)
[2018-04-08] MEDS: HYDROmorphone 1 MG/ML 1 ML SYRINGE IV PRN ×2 (11:46→12:56)
[2018-04-08] MEDS ORDERED: OCTREOTIDE 200 MCG in SODIUM CHLORIDE 0.9% 100 ML IV SCH (12:00)
--- NOTE | 2018-04-08 12:17 | P.DS ---
Providers Date of admission: 04/07/18 21:06 Expected date of discharge: 04/08/18 Attending physician: Shaylee Martinez MD Consults: 04/08/18 09:43 Consult Physician Routine Consulting Provider: Braeden Kendrick Consult Reason/Comments: BAMBI on CKD Do you want consulting provider notified?: Yes 04/07/18 21:31 Consult Physician Routine Consulting Provider: Flavia Andres Consult Reason/Comments: gi bleeding Do you want consulting provider notified?: Yes Primary care physician: Michelle Pfeiffer Hospital Course: Discharge Diagnosis: 1. GI bleed with recent esophageal varices status post banding on 03/30 2. Acute blood loss anemia 3. Acute kidney injury with possible hepatorenal syndrome on chronic kidney disease stage IV with baseline creatinine 1.7-1.9 4. Abdominal pain with history of liver cirrhosis and probable SBP. Receiving Levaquin therapy. 5. Diabetes mellitus type 2 6. COPD without exacerbation 7. GERD 8. Hyperlipidemia 9. Hypertension 10. Sleep apnea 11. Thrombocytopenia Hospital Course: Patient is a 67-year-old female with a past medical history of paracentesis dependent cirrhosis and area to nonalcoholic steatohepatitis, esophageal varices with recent GI bleed, chronic kidney disease stage IV, diabetes, hypertension, dyslipidemia and COPD who presented to the ER with complaints of dizziness and inability to stand. She reported 2 days of dark tarry stools approximately 3-4 stools per day. In the ER she was found to be anemic with hemoglobin of 6.3. One unit of packed red blood cells were ordered. She also was found have an elevated creatinine at 3.9 with a baseline of approximately 1.9. She was started on IV fluids and admitted to the general medical floor. She was seen by the hospitalist and octreotide was ordered as well as GI consultation. On the morning after admission she was seen by nephrology likely concerns for acute kidney injury and possible development of hepatorenal syndrome. She required transfer to the ICU secondary to need for octreotide drip. Her hemoglobin after one unit was 6.7 and remained stable on redraw. Her vital signs remained stable. Patient is well-known at [facility] she sees Dr. Choi of hepatology. There is concern that she need to see hepatology secondary to her liver failure and recent esophageal banding. Patient's family requested transfer to [facility] if patient needs hepatology eval as she has been seen there in the past. Arrangements were made for transfer to [facility] Dr. Jasso is accepting physician will be transferred to ICU. 1 dose of DDAP was ordered by nephrology. Patient here from 03/24-03/28 for esophageal variecal bleed. HgB on discharge was 7.3 and Cr was 1.9. She reports that her lasix was doubled on discharged and her BP medications were increased. Patient seen and examined at bedside. Complains of abdominal pain, no nausea, + retrosternal pain, No additional bowl movements overnight. No vomiting overnight. Vital signs reviewed and stable. General: ill appearing, mild distress, appears at stated age Derm: warm, dry Head: atraumatic, normocephalic, symmetric Eyes: EOMI, no lid lag, anicteric sclera Mouth: no lip lesion, mucus membranes moist Cardiovascular: S1S2 reg, no murmur, positive posterior tibial pulse bilateral, Lungs: CTA bilateral, no rhonchi, no rales , no accessory muscle use Abdominal: soft, nontender to palpation, no guarding, no appreciable organomegaly Ext: no gross muscle atrophy, no edema, no contractures Neuro: CN II-XI grossly intact, no focal neuro deficits Psych: Alert, oriented, appropriate affect A total of 55 minutes of time were spent preparing this complex discharge summary . Pertinent Studies: Left Shoulder x- ray mildAC joint osteoarthritis, chronic rotator cuff tendinopathy, no acute osseous abnormality Lumbar spine x-ray-mild degenerative disc disease and facet arthropathy throughout, no vertebral compression Bilateral knee x-ray-Small knee joint effusions bilaterally, anterior soft tissue swelling and osteopenia, no acute osseous abnormality CT head and cervical spine-no acute intracranial abnormality, moderate patchy white matter changes are redemonstrated, no acute fracture of the cervical spine with degenerative grade 1 anterolisthesis at C4/5 Patient Condition at Discharge: Fair Plan - Discharge Summary New Discharge Prescriptions: No Action rOPINIRole HCL [Requip] 0.25 mg PO BID Pantoprazole Sodium [Protonix] 40 mg PO DAILY Ferrous Sulfate [Feosol] 325 mg PO DAILY #1 Ipratropium/Albuterol Sulfate [Combivent Respimat Inhaler] 1 puff INHALATION RT-Q6H PRN PRN Reason: Shortness Of Breath Insulin Glargine,Hum.rec.anlog [Lantus Solostar] 20 unit SQ DAILY Insulin Aspart [NovoLOG Flexpen] 3 units SQ AC-TID Folic Acid-Vit B Complex-Vit C [Nephrocaps] 1 cap PO DAILY amLODIPine [Norvasc] 10 mg PO DAILY Sertraline [Zoloft] 100 mg PO DAILY hydrALAZINE HCL [Apresoline] 50 mg PO TID HYDROcodone/APAP 5-325MG [[place] 5-325] 1 tab PO BID PRN PRN Reason: Pain cloNIDine HCL [Catapres] 0.2 mg PO TID Montelukast [Singulair] 10 mg PO DAILY Spironolactone-Hctz 25-25Mg [Aldactazide 25-25 MG] 2 each PO BID #60 tab Potassium Chloride ER [K-Dur 20] 20 meq PO DAILY Furosemide [Lasix] 40 mg PO BID Omeprazole 40 mg PO BID Discharge Medication List rOPINIRole HCL [Requip] 0.25 mg PO BID 12/15/14 [History] Pantoprazole Sodium [Protonix] 40 mg PO DAILY 08/29/17 [History] Ferrous Sulfate [Feosol] 325 mg PO DAILY #1 09/02/17 [Rx] Folic Acid-Vit B Complex-Vit C [Nephrocaps] 1 cap PO DAILY 09/09/17 [History] Insulin Aspart [NovoLOG Flexpen] 3 units SQ AC-TID 09/09/17 [History] Insulin Glargine,Hum.rec.anlog [Lantus Solostar] 20 unit SQ DAILY 09/09/17 [ History] Ipratropium/Albuterol Sulfate [Combivent Respimat Inhaler] 1 puff INHALATION RT- Q6H PRN 09/09/17 [History] amLODIPine [Norvasc] 10 mg PO DAILY 10/04/17 [History] HYDROcodone/APAP 5-325MG [[place] 5-325] 1 tab PO BID PRN 02/28/18 [History] Sertraline [Zoloft] 100 mg PO DAILY 02/28/18 [History] cloNIDine HCL [Catapres] 0.2 mg PO TID 02/28/18 [History] hydrALAZINE HCL [Apresoline] 50 mg PO TID 02/28/18 [History] Montelukast [Singulair] 10 mg PO DAILY 03/24/18 [History] Spironolactone-Hctz 25-25Mg [Aldactazide 25-25 MG] 2 each PO BID #60 tab [Rx] Furosemide [Lasix] 40 mg PO BID 04/07/18 [History] Omeprazole 40 mg PO BID 04/07/18 [History] Potassium Chloride ER [K-Dur 20] 20 meq PO DAILY 04/07/18 [History] Follow up Appointment(s)/Referral(s): Michelle Pfeiffer MD [Primary Care Provider] - 1-2 days
[2018-04-08 13:36] VITALS: RESP 13
[2018-04-08 13:37] VITALS: BP 106/50; PULSE 55; TEMP 98.2
== END 2018-04-08 14:34 | disposition short-term general hospital (02) | DRG 377 ==
LOC: EC 15:07 → 4SSUR 21:06 → 2SICU 04-08 11:09
PROVIDERS: ADMIT Internal Medicine; ATTEND Internal Medicine
PROC: 30233N1 Transfusion of Nonautologous Red Blood Cells into Peripheral Vein, Percutaneous Approach (ICD-10-PCS; principal; 2018-04-08)
DX: K92.2 Gastrointestinal hemorrhage, unspecified (principal); N17.0 Acute kidney failure with tubular necrosis; K76.7 Hepatorenal syndrome; D62 Acute posthemorrhagic anemia; N18.4 Chronic kidney disease, stage 4 (severe); I85.10 Secondary esophageal varices without bleeding; I95.9 Hypotension, unspecified; E11.22 Type 2 diabetes mellitus with diabetic chronic kidney disease; D69.6 Thrombocytopenia, unspecified; E11.36 Type 2 diabetes mellitus with diabetic cataract; K75.81 Nonalcoholic steatohepatitis (NASH); K74.60 Unspecified cirrhosis of liver; J44.9 Chronic obstructive pulmonary disease, unspecified; K72.90 Hepatic failure, unspecified without coma; I12.9 Hypertensive chronic kidney disease with stage 1 through stage 4 chronic kidney disease, or unspecified chronic kidney disease; K21.9 Gastro-esophageal reflux disease without esophagitis; E78.5 Hyperlipidemia, unspecified; G47.30 Sleep apnea, unspecified; G25.81 Restless legs syndrome; M19.012 Primary osteoarthritis, left shoulder; M51.36 Other intervertebral disc degeneration, lumbar region; M25.569 Pain in unspecified knee; R04.0 Epistaxis; R51 Headache; R26.2 Difficulty in walking, not elsewhere classified; R62.7 Adult failure to thrive; G40.909 Epilepsy, unspecified, not intractable, without status epilepticus; Z79.4 Long term (current) use of insulin; Z79.899 Other long term (current) drug therapy; Z86.73 Personal history of transient ischemic attack (TIA), and cerebral infarction without residual deficits; Z87.01 Personal history of pneumonia (recurrent); Z90.49 Acquired absence of other specified parts of digestive tract; Z87.891 Personal history of nicotine dependence; Z99.89 Dependence on other enabling machines and devices; Z98.51 Tubal ligation status; Z88.5 Allergy status to narcotic agent; Z88.0 Allergy status to penicillin; Z88.8 Allergy status to other drugs, medicaments and biological substances; Z83.3 Family history of diabetes mellitus; Z82.49 Family history of ischemic heart disease and other diseases of the circulatory system; W18.30XA Fall on same level, unspecified, initial encounter
CPT/HCPCS: 36415; 70450; 72100; 72125; 80053; 81001; 82272; 83735; 84100; 84484; 85025; 85027; 85610; 86850; 86900; 86901; 86920; 93005; 96361; 96374; 96375; 99285